=== PATIENT | female | born 1965 | race Caucasian/White ===

== ENCOUNTER 2017-10-18 20:09 | Inpatient (IN) | payer OTHER ==
[2017-10-18] MEDS ORDERED: LEVALBUTEROL 1.25 MG/3 ML NEB ONE (20:34)
[2017-10-18 20:46] LABS: Absolute Monocytes 1.1 K/uL (0.1-1.3); Absolute Neutrophil 7.5 K/uL (1.8-8.0); Basophils % 0.6 % (0-1.3); Eosinophils % 0.3 % (0-4.4); Hematocrit 35.3 % (36.0-45.0); Lymphocytes % 10.1 % (15.3-44.8); MCH 29.2 pg (27.0-35.0)
[2017-10-18 20:50] LABS: Protime INR 1.1
[2017-10-18 20:58] LABS: Glucose Level 129 mg/dL (65-120); Lipase 14 U/L (22-51)
--- NOTE | 2017-10-18 21:01 | RAD REPORT ---
EXAM DESCRIPTION: RAD - Chest Single View - 10/18/2017 8:53 pm CLINICAL HISTORY: Shortness of breath. COMPARISON: 06/19/2017 FINDINGS: Portable technique limits examination quality. Small bilateral pulmonary opacities are present likely representing mild interstitial pulmonary edema . Right basilar lung opacity is suspected suspicious for either pneumonia or aspiration. The heart is mildly prominent size. No displaced fractures. IMPRESSION: Right basilar pneumonia/ aspiration pattern is seen superimposed on chronic mild CHF.
[2017-10-18 21:04] LABS: ALT/SGPT 11 IU/L (10-60); AST/SGOT 16 IU/L (10-42); Albumin 3.7 g/dL (3.2-5.5); Alkaline Phosphatase 69 IU/L (42-121); Amylase Level 23 U/L (28-100); BUN Blood Urea Nitrogen 13 mg/dL (6-20); Bilirubin Direct 0.1 mg/dL (0-0.2); Bilirubin Total 0.5 mg/dL (0.3-1.2); Creatine Phosphokinase 65 IU/L (22-269); Glomerular Filtration Rate > 90 mL/min (=/>90); Protein, Total 6.7 g/dL (6.0-8.3)
[2017-10-18 21:07] LABS: CKMB Creatine Kinase MB 3.9 ng/ml (0.3-4.0)
[2017-10-18 21:11] LABS: Magnesium 1.3 mg/dL (1.8-2.5); Potassium 3.9 mEq/L (3.6-5.0); Sodium Level 139 mEq/L (135-145)
[2017-10-18 21:12] LABS: Bicarbonate 54 mEq/L (21-31)
[2017-10-18] MEDS ORDERED: METHYLPREDNISOLONE 125 MG INJ ONE (21:39)
[2017-10-18] MEDS ORDERED: ASPIRIN 81 MG CHEWABLE TABLET ONE (21:39)
[2017-10-18] MEDS ORDERED: Magnesium Sulfate 2gm IVPB 2 G/50 ML BAG IV ONE (21:39)
[2017-10-18 21:58] LABS: Arterial Blood Carboxyhemoglob 8.2 % (0-1.5); Blood Gas Oxyhemoglobin 77.8 % (94-97); Blood O2 Saturation 85.4 % (92-98.5)
--- NOTE | 2017-10-18 22:22 | ER ---
Nurse's Notes [facility] Name: Eusebia Vila Age: 52 yrs Sex: Female : 1965 Arrival Date: 10/18/2017 Time: 20:23 Bed 18 Private MD: Diagnosis: Chronic obstructive pulmonary disease, unspecified;Unspecified combined systolic (congestive) and diastolic (congestive) heart failure Presentation: 10/18 20:00 Presenting complaint: EMS states: Patient has been feeling short of breath x1 week, on lp1 arrival of EMS, patient was 64% O2 on 2L NC; given A/A tx, O2 to 96% on NRB; current smoker, hx of noncompliance. Transition of care: patient was not received from another setting of care. Onset of symptoms was October 18, 2017. 20:00 Method Of Arrival: EMS: [facility] lp1 20:00 Acuity: CLAUDIA 2 lp1 20:00 Care prior to arrival: Medication(s) given: Albuterol Neb x 1, Atrovent Neb x 1, Med lp1 neb given. Oxygen administered. via a non-rebreather mask. 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 LMP N/A - Post-menopause lp1 Historical: - Allergies: 20:58 Codeine; lp1 20:58 Levofloxacin; lp1 - Home Meds: 21:36 Daliresp 500 mcg Oral tab 1 tab once daily [Active]; diltiazem HCl 120 mg Oral tab 1 lp1 tab 3 times per day [Active]; acetazolamide 250 mg Oral tab 1 tab once daily [Active]; prednisone 10 mg Oral tab once daily [Active]; spironolactone 50 mg Oral tab 1 tab once daily [Active]; aspirin 81 mg Oral TbEC 1 tab once daily [Active]; MagOx 400 mg Oral tab twice a day [Active]; hydrocodone-acetaminophen 10-325 mg Oral tab 4 times a day for Pain [Active]; - PMHx: 20:58 CAD; Cellulitis; CHF; COPD; Pneumonia; polycythemia vera; PVD; lp1 - PSHx: 20:58 bypass; lp1 - Immunization history:: Adult Immunizations up to date. - Social history:: Smoking status: Patient uses tobacco products, smokes two packs cigarettes per day. Screenin:58 Abuse screen: Denies threats or abuse. Denies injuries from another. Nutritional lp1 screening: No deficits noted. Tuberculosis screening: No symptoms or risk factors identified. Fall Risk Total Ortega Fall Scale indicates High Risk Score (45 or more points). Fall prevention measures have been instituted. Side Rails Up X 2 Frequent Obs/Assessments Occuring As available patient and family educated on Fall Prevention Program and Strategies. Assessment: 20:15 General: Appears distressed, unkempt, Behavior is appropriate for age. Pain: Complains lp1 of pain in back and neck. Neuro: Level of Consciousness is awake, alert, obeys commands, Oriented to person, place, situation. Cardiovascular: Capillary refill is > 3 seconds in bilateral fingers toes Edema is 3+ to left ankle, left foot, left toes, right ankle, right foot and right toes Rhythm is sinus rhythm. Respiratory: Reports shortness of breath at rest labored breathing Airway is patent Trachea midline Respiratory effort is shallow, Respiratory pattern is tachypnea Breath sounds are diminished bilaterally. Onset: The symptoms/episode began/occurred gradually, the patient has severe shortness of breath. GI: Abdomen is non-distended. : No signs and/or symptoms were reported regarding the genitourinary system. EENT: No signs and/or symptoms were reported regarding the EENT system. Derm: Skin is thin, with poor turgor Skin is dry, Skin is pale. Musculoskeletal: Circulation, motion, and sensation intact. 21:15 Reassessment: Patient hunched over in stretcher, educated on laying back to promote lp1 ventilation; Patient states she can't lay "like that". 22:15 Reassessment: Patient found to have IV out; Educated on need for new peripheral IV lp1 access; BiPAP in place; Settings modified by RT, 31/01, rate of 14, 50% O2. Vital Signs: 20:00 BP 109 / 77; Pulse 117; Resp 26; Temp 98.5(O); Pulse Ox 77% on 2 lpm NC; Weight 55.79 lp1 kg (R); 20:15 Pulse Ox 96% on Nebulizer Mask; lp1 20:30 Pulse Ox 95% on 45% BiPAP; lp1 21:00 BP 133 / 71; Pulse 111; Resp 22; Pulse Ox 95% on 45% BiPAP; lp1 21:30 BP 130 / 81; Pulse 114; Resp 18; Pulse Ox 95% on 45% BiPAP; lp1 23:00 BP 133 / 71; Pulse 97; Resp 18; Pulse Ox 96% on 50% BiPAP; lp1 20:[address] BiPAP, 12/6, rate of 12, 45% O2 lp1 ED Course: 20:15 Patient has correct armband on for positive identification. Placed in gown. Bed in low lp1 position. monitor tech on. Pulse ox on. NIBP on. 20:23 Patient arrived in ED. jd3 20:23 Timbo Perla PA is PHCP. cp 20:23 Thomas Casarez MD is Attending Physician. cp 20:30 Inserted saline lock: 18 gauge in right upper arm, using aseptic technique. Blood lp1 collected. By Ayaan Espitia RN. 20:42 Verito Morley, LINDSAY is Primary Nurse. lp1 20:46 Triage completed. lp1 20:51 X-ray completed. Portable x-ray completed in exam room. Patient tolerated procedure la2 poorly. 20:53 XRAY CXR (1 view) In Process Unspecified. EDMS 20:55 Arm band placed on left wrist. lp1 22:00 IV discontinued, IV pulled out on arrival into room. lp1 22:15 Inserted saline lock: 24 gauge in left wrist, using aseptic technique. bb 22:20 Arnold Billingsley MD is Hospitalizing Provider. cp 22:30 Lane cath inserted, using sterile technique, 16 Fr., by la, balloon inflated, to lp1 gravity drainage, urine specimen collected. 23:42 No provider procedures requiring assistance completed. lp1 Administered Medications: 20:15 Drug: Xopenex (3) 1.25 mg {Note: verbal order by TIMMY Morocho.} Route: Inhalation; lp1 21:30 Drug: SOLU-Medrol 125 mg Route: IVP; Site: right upper arm; lp1 23:22 Follow up: Response: No adverse reaction lp1 21:30 Drug: Aspirin Chewable Tablet 324 mg Route: PO; lp1 22:51 Follow up: Response: No adverse reaction lp1 21:30 Drug: Magnesium Sulfate 2 grams Route: IVPB; Infused Over: 2 hrs; Site: right upper arm;lp1 22:51 Follow up: IV Status: Completed infusion lp1 22:20 Drug: Lasix 20 mg Route: IVP; Site: left wrist; lp1 23:49 Follow up: Response: No adverse reaction lp1 Outcome: 22:21 Decision to Hospitalize by Provider. cp 23:42 Condition: stable lp1 23:42 Instructed on the need for admit. 23:48 Admitted to Tele accompanied by nurse, via stretcher, room 423, with oxygen, with lp1 chart, Report called to LINDSAY Evans 10/19 00:00 Patient left the ED. lp1 Signatures: Dispatcher [employer] EDMS Kathie John RN RN bb Verito Morley RN RN lp1 Timbo Perla PA PA cp Ardoin, Leslie la2 Davies, Jonathon, RN RN jd3 Corrections: (The following items were deleted from the chart) 10/18 23:31 20:15 Respiratory: Airway is patent Trachea midline Respiratory effort is shallow, lp1 Respiratory pattern is tachypnea Breath sounds are diminished bilaterally. Onset: The symptoms/episode began/occurred gradually, lp1 23:31 20:15 Respiratory: Airway is patent Trachea midline Respiratory effort is shallow, lp1 Respiratory pattern is tachypnea Breath sounds are diminished bilaterally. Onset: The symptoms/episode began/occurred gradually, the patient has severe shortness of breath lp1 10/19 00:31 00:30 Patient left the ED. lp1 lp1
--- NOTE | 2017-10-18 22:22 | EDPHYS ---
Physician Documentation [facility] Name: Eusebia Vila Age: 52 yrs Sex: Female : 1965 Arrival Date: 10/18/2017 Time: 20:23 Bed 18 Private MD: ED Physician Thomas Casarez HPI: 10/18 20:35 This 52 yrs old Female presents to ER via EMS with complaints of Respiratory cp Distress. 20:35 The patient has shortness of breath at rest. cp 20:35 Onset: The symptoms/episode began/occurred 1 week(s) ago. Duration: The symptoms are cp continuous, and are steadily getting worse. The patient's shortness of breath is aggravated by talking. Associated signs and symptoms: Pertinent negatives: chest pain, diaphoresis, fever, hemoptysis. Severity of symptoms: in the emergency department the symptoms are unchanged despite home interventions. The patient has experienced similar episodes in the past, chronically. 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 N/A - Post-menopause lp1 Historical: - Allergies: 20:58 Codeine; lp1 20:58 Levofloxacin; lp1 - Home Meds: 21:36 Daliresp 500 mcg Oral tab 1 tab once daily [Active]; diltiazem HCl 120 mg Oral tab 1 lp1 tab 3 times per day [Active]; acetazolamide 250 mg Oral tab 1 tab once daily [Active]; prednisone 10 mg Oral tab once daily [Active]; spironolactone 50 mg Oral tab 1 tab once daily [Active]; aspirin 81 mg Oral TbEC 1 tab once daily [Active]; MagOx 400 mg Oral tab twice a day [Active]; hydrocodone-acetaminophen 10-325 mg Oral tab 4 times a day for Pain [Active]; - PMHx: 20:58 CAD; Cellulitis; CHF; COPD; Pneumonia; polycythemia vera; PVD; lp1 - PSHx: 20:58 bypass; lp1 - Immunization history:: Adult Immunizations up to date. - Social history:: Smoking status: Patient uses tobacco products, smokes two packs cigarettes per day. ROS: 20:40 Constitutional: Negative for body aches, chills, fever, poor PO intake. cp 20:40 Eyes: Negative for injury, pain, redness, and discharge. cp 20:40 ENT: Negative for drainage from ear(s), ear pain, sore throat, difficulty swallowing, difficulty handling secretions, hoarseness. 20:40 Neck: Negative for pain with movement, pain at rest, stiffness, tenderness. 20:40 Cardiovascular: Positive for edema, Negative for chest pain. 20:40 Respiratory: Positive for shortness of breath, at rest. 20:40 Abdomen/GI: Negative for abdominal pain, nausea, vomiting, and diarrhea, black/tarry stool, rectal bleeding. 20:40 Back: Negative for radiated pain. 20:40 MS/extremity: Positive for swelling, of the bilateral lower legs, Negative for injury or acute deformity. 20:40 Skin: Negative for cellulitis, rash. 20:40 Neuro: Negative for altered mental status, headache, weakness. 20:40 All other systems are negative. Exam: 20:45 Constitutional: The patient appears alert, awake, non-diaphoretic, non-toxic, well cp developed, in obvious distress. 20:45 Head/Face: Normocephalic, atraumatic. cp 20:45 Eyes: Periorbital structures: appear normal, Pupils: equal, round, and reactive to light and accomodation, Extraocular movements: intact throughout, Conjunctiva: normal, no exudate, no injection, Sclera: no appreciated abnormality, Lids and lashes: appear normal, bilaterally. 20:45 ENT: External ear(s): are unremarkable, Ear canal(s): are normal, clear, TM's: dullness, bilaterally, Nose: is normal, Mouth: Lips: dry, Oral mucosa: dry, Posterior pharynx: Airway: no evidence of obstruction, patent, swelling, is not appreciated, erythema, is not appreciated, exudate, is not appreciated, Voice: is normal. 20:45 Neck: ROM/movement: is normal, is supple, without pain, no range of motions limitations, no meningismus, no nuchal rigidity. 20:45 Chest/axilla: Inspection: normal, Palpation: is normal, no crepitus, no tenderness. 20:45 Cardiovascular: Rate: tachycardic, Rhythm: regular, Pulses: Pulses are 2+ in right radial artery and left radial artery. JVD: is not appreciated. 20:45 Respiratory: Respirations: labored breathing, shallow respirations, Breath sounds: cp decreased breath sounds, that are moderate, stridor, is not appreciated. 20:45 Abdomen/GI: Inspection: abdomen appears normal, Palpation: abdomen is soft and non-tender, in all quadrants. 20:45 Back: pain, is absent, ROM is decreased, with all movement, kyphosis, that is marked. 20:45 Musculoskeletal/extremity: noted mild edema bilateral lower legs. 20:45 Skin: cellulitis, is not appreciated. cp 20:45 Neuro: Orientation: to person, place \T\ time. Mentation: lucid, able to follow commands. Vital Signs: 20:00 BP 109 / 77; Pulse 117; Resp 26; Temp 98.5(O); Pulse Ox 77% on 2 lpm NC; Weight 55.79 lp1 kg (R); 20:15 Pulse Ox 96% on Nebulizer Mask; lp1 20:30 Pulse Ox 95% on 45% BiPAP; lp1 21:00 BP 133 / 71; Pulse 111; Resp 22; Pulse Ox 95% on 45% BiPAP; lp1 21:30 BP 130 / 81; Pulse 114; Resp 18; Pulse Ox 95% on 45% BiPAP; lp1 23:00 BP 133 / 71; Pulse 97; Resp 18; Pulse Ox 96% on 50% BiPAP; lp1 20:[address] BiPAP, 06/25, rate of 12, 45% O2 lp1 MDM: 20:28 Patient medically screened. cp 21:00 Differential diagnosis: Bronchitis CHF exacerbation, Chronic Obstructive Pulmonary cp Disease Myocardial Infarction pneumonia, Sepsis. 22:15 Data reviewed: vital signs, nurses notes, lab test result(s), EKG, radiologic studies, cp plain films. 22:15 Test interpretation: by ED physician or midlevel provider: ECG, plain radiologic cp studies. 22:25 Physician consultation: Arnold Billingsley MD was contacted at 22:25, regarding admission, cp to the telemetry unit. patient's condition. 10/18 20:26 Order name: Amylase, Serum; Complete Time: 21:16 cp 10/18 20:26 Order name: Blood Culture Adult (2) cp 10/18 20:26 Order name: BMP; Complete Time: 21:16 cp 10/18 21:16 Interpretation: Normal except: GLUC 129; CL 81. cp 10/18 20:26 Order name: BNP; Complete Time: 21:16 cp 10/18 20:26 Order name: CBC with Diff; Complete Time: 21:16 cp 10/18 21:17 Interpretation: Normal except: RBC 3.80; HGB 11.1; HCT 35.3; MCHC 31.4; RDW 15.7; ERICK% cp 78.0; LYM% 10.1. 10/18 20:26 Order name: Ckmb; Complete Time: 21:16 cp 10/18 20:26 Order name: CPK; Complete Time: 21:16 cp 10/18 20:26 Order name: Hepatic Function; Complete Time: 21:16 cp 10/18 20:26 Order name: Lipase; Complete Time: 21:16 cp 10/18 20:26 Order name: Magnesium; Complete Time: 21:16 cp 10/18 21:17 Interpretation: Abnormal: MG 1.3. cp 10/18 20:26 Order name: PT-INR; Complete Time: 21:16 cp 10/18 20:26 Order name: Ptt, Activated; Complete Time: 21:16 cp 10/18 20:26 Order name: Troponin (emerg Dept Use Only); Complete Time: 21:16 cp 10/18 21:26 Interpretation: TROPED < 0.03; Reviewed. cp 10/18 21:20 Order name: ABG cp 10/18 20:26 Order name: BIPAP cp 10/18 20:26 Order name: XRAY CXR (1 view); Complete Time: 21:16 cp 10/18 22:26 Order name: Comprehensive Metabolic Panel EDMS 10/18 22:26 Order name: Comprehensive Metabolic Panel EDMS 10/18 22:26 Order name: Magnesium EDMS 10/18 22:26 Order name: Magnesium EDMS 10/18 22:26 Order name: Phosphorus EDMS 10/18 22:26 Order name: Phosphorus EDMS 10/18 22:27 Order name: CBC with Automated Diff EDMS 10/18 22:27 Order name: CBC with Automated Diff EDMS 10/18 23:34 Order name: Urine Dipstick--Ancillary (enter results) rg2 10/18 20:26 Order name: Lane; Complete Time: 23:21 cp 10/18 20:26 Order name: EKG; Complete Time: 20:26 cp 10/18 20:26 Order name: Cardiac monitoring; Complete Time: 20:56 cp 10/18 20:26 Order name: EKG - Nurse/Tech; Complete Time: 20:56 cp 10/18 20:26 Order name: IV Saline Lock; Complete Time: 20:56 cp 10/18 20:26 Order name: Labs collected and sent; Complete Time: 20:56 cp 10/18 20:26 Order name: O2 Per Protocol; Complete Time: 20:56 cp 10/18 20:26 Order name: O2 Sat Monitoring; Complete Time: 20:56 cp 10/18 20:26 Order name: Urine Dipstick-Ancillary (obtain specimen); Complete Time: 22:51 cp 10/18 22:26 Order name: CONS Physician Consult EDMS 10/18 22:27 Order name: Heart Healthy EDMS Administered Medications: 20:15 Drug: Xopenex (3) 1.25 mg {Note: verbal order by TIMMY Morocho.} Route: Inhalation; lp1 21:30 Drug: SOLU-Medrol 125 mg Route: IVP; Site: right upper arm; lp1 23:22 Follow up: Response: No adverse reaction lp1 21:30 Drug: Aspirin Chewable Tablet 324 mg Route: PO; lp1 22:51 Follow up: Response: No adverse reaction lp1 21:30 Drug: Magnesium Sulfate 2 grams Route: IVPB; Infused Over: 2 hrs; Site: right upper arm;lp1 22:51 Follow up: IV Status: Completed infusion lp1 22:20 Drug: Lasix 20 mg Route: IVP; Site: left wrist; lp1 23:49 Follow up: Response: No adverse reaction lp1 Disposition: 10/19 03:03 Co-signature as Attending Physician, Thomas Casarez MD. jewel Disposition: 10/18/17 22:21 Hospitalization ordered by Arnold Billingsley for Inpatient Admission. Preliminary diagnosis are Chronic obstructive pulmonary disease, unspecified, Unspecified combined systolic (congestive) and diastolic (congestive) heart failure. - Bed requested for Telemetry/MedSurg (Inpatient). - Status is Inpatient Admission. lp1 - Condition is Stable. - Problem is an acute exacerbation. - Symptoms have improved. UTI on Admission? No Signatures: Dispatcher [employer] EDNJ Thomas Casarez MD MD pkl Pena, Laura RN RN lp1 Timbo Perla PA PA cp Garcia, Cindy RN RN
[2017-10-18] MEDS ORDERED: MAGNESIUM HYDROXIDE 8% 30 ML PO PRN (22:23)
[2017-10-18] MEDS ORDERED: ACETAMINOPHEN 500 MG TAB PO PRN (22:23)
[2017-10-18] MEDS ORDERED: ONDANSETRON 4 MG/2 ML VIAL IV PRN (22:23)
[2017-10-18] MEDS ORDERED: FUROSEMIDE 20 MG/ 2ML VIAL ONE (22:25)
[2017-10-18] MEDS ORDERED: ALBUTEROL 2.5 MG/3 ML NEB SOL NEB SCH (23:00)
[2017-10-19] MEDS: METHYLPREDNISOLONE 125 MG INJ IV SCH ×4 (00:50→17:40)
[2017-10-19] MEDS: IPRATROPIUM BROM 0.5MG/2.5ML NEB SCH ×4 (01:50→19:46)
[2017-10-19 02:29] VITALS: BMI 24.6
[2017-10-19 04:24] LABS: Urine Blood NEGATIVE (NEG); Urine Glucose NEGATIVE (NEG); Urine Protein 2+ (NEG); Urine Specific Gravity >1.030 (1.005-1.030)
[2017-10-19 05:19] LABS: Absolute Lymphocytes (CBC) 0.1 K/uL (0.7-4.9); Absolute Monocytes 0.1 K/uL (0.1-1.3); Absolute Neutrophil 8.4 K/uL (1.8-8.0); Basophils % 0.1 % (0-1.3); Lymphocytes % 1.6 % (15.3-44.8); MCH 28.7 pg (27.0-35.0); MCV 93.2 fL (80-100); MPV 8.6 fL (7.6-11.3); Monocytes % 0.8 % (3.3-12.3); RBC Red Blood Cell Count 3.65 M/uL (3.86-4.86)
[2017-10-19 05:35] LABS: ALT/SGPT 10 IU/L (10-60); AST/SGOT 14 IU/L (10-42); Albumin 3.3 g/dL (3.2-5.5); Alkaline Phosphatase 63 IU/L (42-121); BUN Blood Urea Nitrogen 14 mg/dL (6-20); Bilirubin Total 0.5 mg/dL (0.3-1.2); Glomerular Filtration Rate > 90 mL/min (=/>90); Glucose Level 197 mg/dL (65-120); Phosphorus 4.7 mg/dL (2.5-4.3); Protein, Total 5.9 g/dL (6.0-8.3)
[2017-10-19 05:36] LABS: Potassium 4.3 mEq/L (3.6-5.0); Sodium Level 138 mEq/L (135-145)
[2017-10-19 05:44] LABS: Bicarbonate 53 mEq/L (21-31)
[2017-10-19 05:45] LABS: Magnesium 1.4 mg/dL (1.8-2.5)
[2017-10-19] MEDS ORDERED: HYDROCODONE/APAP 10/325 TAB PO PRN (05:49)
[2017-10-19] MEDS: Magnesium Sulfate 2gm IVPB 2 G/50 ML BAG IV SCH ×2 (07:17→10:58)
--- NOTE | 2017-10-19 07:20 | P.HP ---
Certification for Inpatient Patient admitted to: Inpatient With expected LOS: >2 Midnights Patient will require the following post-hospital care: None Practitioner: I am a practitioner with admitting privileges, knowledge of patient current condition, hospital course, and medical plan of care. Services: Services provided to patient in accordance with Admission requirements found in Title 42 Section 412.3 of the Code of Federal Regulations Patient History Date of Service: 10/18/17 Reason for admission: COPD exacerbation; hypercapnia; hypoxemia; tobacco abuse History of Present Illness: Patient is a 52-year-old female came into the hospital with difficulty breathing. She was oxygenating very poorly. She was very lethargic. She was brought to the hospital by her family. In the emergency room she was found to have O2 sats of 50%. Has a chronic history of COPD and still smokes. We have counseled her regarding cessation and she wants to try Chantix. Patient also is kyphotic intense to retain CO2. Her ABGs revealed her CO2 was greater than 100. We started her on BiPAP. Clinically she has started appearing to feel better. Will continue BiPAP and get pulmonary consultation. Will repeat chest x-ray in the morning. Her long-term prognosis is poor. Will continue her on BiPAP and wean her down. Continue with IV steroids and neb treatments. Pulmonary consultation as well. She was admitted to the hospital for further evaluation. Allergies codeine Allergy (Verified 09/19/16 01:40) Shortness of breath levofloxacin [From Levaquin] Adverse Reaction (Intermediate, Verified 09/19/16 01:40) hallucinations morphine Adverse Reaction (Verified 09/19/16 01:40) Itching/Hives/Rash Home Medications: Hydrocodone Bit/Acetaminophen [Hydrocodon-Acetaminophn 10-325] 1 each PO QID PRN 04/06/17 Prednisone [Deltasone*] 10 mg PO DAILY 04/06/17 Roflumilast [Daliresp*] 500 mcg PO DAILY 04/06/17 Magnesium Oxide [Mag 0X*] 1 tab PO BID 05/13/17 Acetazolamide [Diamox*] 250 mg PO BID #60 tab 06/19/17 Arformoterol Tartrate [Brovana] 15 mcg NEB BIDRESP #60 vial.neb 06/19/17 Spironolactone [Aldactone*] 50 mg PO BID #120 tab 06/19/17 Aspirin 81 mg PO DAILY 10/19/17 Diltiazem HCl 120 mg PO TID 10/19/17 - Past Medical/Surgical History Has patient received pneumonia vaccine in the past: No Diabetic: No -: Diastolic dysfunction -: COPD -: Emphysema -: chronic back pain-Sees Dr Ruff -: CAD -: CHF -: 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 -: anxiety -: Morphine pain pump -: Cardiomegaly -: Atrial flutter -: back -: cholecystectomy -: Hysterectomy -: Morphine pump mid right side of stomach - in place -: morphine pump with additional medications - Family History Sister Medical History: Cancer Brother Medical History: Cancer Father Medical History: Cancer Mother Medical History: Lung disease, Cancer - Social History Smoking Status: Heavy Tobacco smoker (>10 cigarettes/day) Alcohol use: No CD- Drugs: No Caffeine use: Yes Review of Systems 10-point ROS is otherwise unremarkable Physical Examination - Vital Signs Temperature: 97.2 F Blood Pressure: 129/70 Pulse: 100 Respirations: 14 Pulse Ox (%): 91 - Physical Exam General: Alert, In no apparent distress, Oriented x3, Cachectic, Disheveled HEENT: Atraumatic, PERRLA, Mucous membr. moist/pink, EOMI, Sclerae nonicteric Neck: Supple, 2+ carotid pulse no bruit, No LAD, Without JVD or thyroid abnormality Respiratory: Diminished, Expiratory wheezes Cardiovascular: Regular rate/rhythm, Normal S1 S2, Systolic murmur Gastrointestinal: Normal bowel sounds, Soft and benign, Non-distended, No tenderness, No rebound, No guarding Musculoskeletal: No clubbing, No swelling, No tenderness Integumentary: No rashes Neurological: Normal speech, Sensation intact, Cranial nerves 3-12 intact, Normal affect, Abnormal gait, Abnormal strength, Abnormal tone Lymphatics: No axilla or inguinal lymphadenopathy - Studies Laboratory Data (last 24 hrs) 10/18/17 20:30: PT 13.0 H, INR 1.10, APTT 27.1 10/18/17 20:30: WBC 9.6, Hgb 11.1 L, Hct 35.3 L, Plt Count 201 10/18/17 20:30: B-Natriuretic Peptide 136 H 10/18/17 20:30: Sodium 139, Potassium 3.9, BUN 13, Creatinine 0.47, Glucose 129 H, Magnesium 1.3 L*, Total Bilirubin 0.5, AST 16, ALT 11, Alkaline Phosphatase 69, Amylase 23 L, Lipase 14 L Assessment & Plan - Problems (Diagnosis) (1) Hypercapnia Current Visit: Yes Status: Acute (2) Hypoxemia Current Visit: Yes Status: Acute (3) Acute and chronic respiratory failure Onset Date: 06/17/17 Current Visit: No Status: Acute (4) COPD exacerbation Onset Date: 06/17/17 Current Visit: No Status: Acute (5) Chronic use of steroids Current Visit: No Status: Chronic (6) Diastolic CHF Onset Date: 06/17/17 Current Visit: No Status: Chronic Qualifiers: Qualified Code(s): I50.33 - Acute on chronic diastolic (congestive) heart failure (7) Nicotine dependence Current Visit: No Status: Chronic Qualifiers: Nicotine product type: cigarettes Substance use status: uncomplicated Qualified Code(s): F17.210 - Nicotine dependence, cigarettes, uncomplicated (8) Tobacco abuse Onset Date: 09/19/16 Current Visit: No Status: Chronic - Plan Plan: 1. Continue with nebs, steroids, and antibiotics 2. BiPAP support 3. Wean off BiPAP and placed on nasal cannula O2 4. Monitor O2 status continuously 5. Pulmonary consultation 6. Supplement magnesium 7. GI and DVT prophylaxis Discharge Plan: Home Plan to discharge in: Greater than 2 days - Advance Directives Does patient have a Living Will: No Does patient have a Durable POA for Healthcare: No - Code Status/Comfort Care Code Status Assessed: Yes Code Status: Full Code Critical Care: No Time Spent Managing PTS Care (In Minutes): 50
[2017-10-19 08:06] LABS: Blood Morphology Comment NOT SEEN (NOT SEEN); Platelet Estimate ADEQ; Urine White Blood Cell Casts OK
[2017-10-19] MEDS: ARFORMOTEROL TARTRATE 15 MCG/2 ML VIAL.NEB NEB SCH ×2 (08:23→19:51)
[2017-10-19] MEDS: ROFLUMILAST 500 MCG TABLET PO SCH (08:57)
[2017-10-19] MEDS: DILTIAZEM HCL 60 MG TAB PO SCH ×3 (08:58→21:55)
[2017-10-19] MEDS: MAGNESIUM OXIDE 400 MG TAB PO SCH ×2 (08:59→21:55)
[2017-10-19] MEDS: ENOXAPARIN 40 MG/0.4 ML SQ SCH (08:59)
[2017-10-19] MEDS: SPIRONOLACTONE 25 MG TABLET PO SCH ×2 (08:59→21:54)
[2017-10-19] MEDS ORDERED: SPIRONOLACTONE 25 MG TABLET PO SCH (09:00)
[2017-10-19] MEDS ORDERED: AZITHROMYCIN IV 500 MG in NA CHLORIDE 0.9% 250 ML IVPB SCH (09:00)
[2017-10-19] MEDS ORDERED: CEFTRIAXONE 1 GM/NS 50 ML 1 GM/50 ML BAG IV SCH (09:00)
[2017-10-19] MEDS: ASPIRIN 81 MG CHEWABLE TABLET PO SCH (09:00)
[2017-10-19] MEDS ORDERED: acetaZOLAMIDE 250 MG TAB PO SCH (09:00)
[2017-10-19] MEDS: CEFTRIAXONE/SWI 1gm 1 GM/10 ML SYR IV SCH ×2 (09:00→21:54)
[2017-10-19] MEDS: ACETAZOLAMIDE 500 MG IV IV SCH ×2 (09:00→21:55)
[2017-10-19] MEDS ORDERED: WATER FOR INJ,STERILE 10 ML IV SCH (09:00)
--- NOTE | 2017-10-19 10:30 | P.CNS ---
Date of Consult: 10/19/17 Reason for Consult: Respiratory failure Chief Complaint: COPD exacerbation; hypercapnia; hypoxemia; tobacco abuse History of Present Illness: Patient is 52 years of age well known to me recurrent hospital admission terminal COPD admitted to the hospital with worsening dyspnea for the past couple of weeks he still continues to smoke heavily had some lower extremity edema compliant with her medications does have a BiPAP at home I am not sure how often she used the there is a history of significant noncompliance denies any fever chills cough sputum or hemoptysis a bicarbonate level was very elevated patient very hypercapnic on admission this morning she is alert responsive cooperative Allergies codeine Allergy (Verified 09/19/16 01:40) Shortness of breath levofloxacin [From Levaquin] Adverse Reaction (Intermediate, Verified 09/19/16 01:40) hallucinations morphine Adverse Reaction (Verified 09/19/16 01:40) Itching/Hives/Rash Home Medications: Hydrocodone Bit/Acetaminophen [Hydrocodon-Acetaminophn 10-325] 1 each PO QID PRN 04/06/17 Prednisone [Deltasone*] 10 mg PO DAILY 04/06/17 Roflumilast [Daliresp*] 500 mcg PO DAILY 04/06/17 Magnesium Oxide [Mag 0X*] 1 tab PO BID 05/13/17 Acetazolamide [Diamox*] 250 mg PO BID #60 tab 06/19/17 Arformoterol Tartrate [Brovana] 15 mcg NEB BIDRESP #60 vial.neb 06/19/17 Spironolactone [Aldactone*] 50 mg PO BID #120 tab 06/19/17 Aspirin 81 mg PO DAILY 10/19/17 Diltiazem HCl 120 mg PO TID 10/19/17 - Past Medical/Surgical History Diabetic: No -: Diastolic dysfunction -: COPD -: Emphysema -: chronic back pain-Sees Dr Ruff -: CAD -: CHF -: 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 -: anxiety -: Morphine pain pump -: Cardiomegaly -: Atrial flutter -: back -: cholecystectomy -: Hysterectomy -: Morphine pump mid right side of stomach - in place -: morphine pump with additional medications - Family History Sister Medical History: Cancer Brother Medical History: Cancer Father Medical History: Cancer Mother Medical History: Lung disease, Cancer - Social History Smoking Status: Current every day smoker Alcohol use: No CD- Drugs: No Caffeine use: Yes Review of Systems 10-point ROS is otherwise unremarkable General: Weakness Respiratory: Cough, Shortness of Breath Cardiovascular: Edema Physical Examination Temp Pulse Resp BP Pulse Ox 98.5 F 92 H 20 136/70 93 10/19/17 08:00 10/19/17 08:59 10/19/17 08:00 10/19/17 08:59 10/19/17 08:00 General: Alert, Oriented x3 Respiratory: Clear to auscultation bilaterally, Diminished Cardiovascular: Regular rate/rhythm, Normal S1 S2, Edema Gastrointestinal: Normal bowel sounds, Soft and benign Laboratory Data (last 24 hrs) 10/18/17 20:30: PT 13.0 H, INR 1.10, APTT 27.1 10/18/17 20:30: WBC 9.6, Hgb 11.1 L, Hct 35.3 L, Plt Count 201 10/18/17 20:30: B-Natriuretic Peptide 136 H 10/18/17 20:30: Sodium 139, Potassium 3.9, BUN 13, Creatinine 0.47, Glucose 129 H, Magnesium 1.3 L*, Total Bilirubin 0.5, AST 16, ALT 11, Alkaline Phosphatase 69, Amylase 23 L, Lipase 14 L - Problems (1) Acute and chronic respiratory failure Onset Date: 06/17/17 Current Visit: No Status: Acute Plan: Patient is 52 years of age admitted with acute on chronic respiratory failure severely hypercapnic. Elevated bicarbonate labs reviewed no evidence of obvious sepsis plan is to use some IV Diamox reduce dose of spironolactone continue with BiPAP titrate sat to 90% IV fluids patient is a heavy smoker wants to quit
[2017-10-19] MEDS: NICOTINE 21 MG/PAT TD SCH (10:58)
[2017-10-19] MEDS: NA CHLORIDE 0.9% 1,000 ML IV SCH ×2 (10:59→22:33)
[2017-10-19] MEDS: HYDROCODONE/APAP 10/325 TAB PO PRN ×2 (12:05→22:33)
--- NOTE | 2017-10-19 12:44 | EKG ---
Test Date: 2017-10-18 Test Time: 20:40:58 Window Framer: HERIBERTO MEASUREMENT RESULTS: Intervals: Rate: 110 PA: 112 QRSD: 86 QT: 332 QTc: 449 [place]: P: 76 PA: 112 QRS: 101 T: 56 INTERPRETIVE STATEMENTS: Sinus tachycardia Right atrial enlargement Rightward axis Borderline ECG Compared to ECG 06/16/2017 15:12:31 Atrial abnormality now present Sinus rhythm no longer present Electronically Signed On 10-19-17 12:44:05 CDT by Jered Biswas
[2017-10-19 12:56] LABS: Arterial Blood Carboxyhemoglob 4.1 % (0-1.5); Blood Gas Oxyhemoglobin 84.9 % (94-97)
[2017-10-19] MEDS ORDERED: INFLUENZA VACCINE (for 3y+) 0.5 ML DOSE IMVAC ONE (17:00)
--- NOTE | 2017-10-19 20:17 | PN ---
Date of Progress Note: 10/19/2017 Subjective: The patient is seen and examined. Chart reviewed and case discussed with RN and Dr. Mckeon. The patient is doing well and continues to have some difficulty breathing and still smoking. Review of Systems: Negative. Medications: Reviewed. Physical Examination: Vital Signs: Temperature 100.4, heart rate 90, blood pressure 136/70, respirations 20, O2 90% on 4 L via nasal cannula. General: Awake, alert, oriented x3, in some mild respiratory distress. Ill- appearing, older than stated age female. CV: S1, S2. No murmurs. Regular rate and rhythm. Peripheral pulses are weak bilaterally. Respiratory: Diminished breath sounds. Mild wheezing. The patient is slightly tachypneic. No use of accessory muscles. Gastrointestinal: Abdomen is soft, nontender, nondistended. Positive bowel sounds. Extremities: No clubbing, cyanosis. Trace pedal edema. Neurologic: Nonfocal. Laboratory Data: Sodium 138, potassium 4.3, chloride 79, CO2 53, BUN 14, creatinine 0.53, glucose 197, calcium 8.8, phosphorus 4.7, magnesium 1.4. ABG; pH 7.29, pCO2 107, CO2 64, bicarb 50.3. WBC 8.6, H and H 10.5, 34, platelets 202. Blood cultures pending. Assessment And Plan: A 52-year-old female with: 1. Acute on chronic respiratory failure with hypercapnia and hypoxemia. 2. Acute chronic obstructive pulmonary disease exacerbation. We will continue nebulizer treatments and steroids. 3. Diastolic heart failure, acute on chronic. We will continue with diuresis. 4. Nicotine dependence and cigarette smoking, counseled. The patient wishes to try Chantix. 5. Severe kyphosis. 6. Chronic back pain. 7. Coronary artery disease, [place] artery and [place] heart without angina. 8. Generalized anxiety disorder. 9. History of atrial flutter. Plan: Follow up with pulmonology recommendation. Repeat ABG does show improvement in pCO2 levels, BiPAP as needed. The patient is a chronic CO2 retainer with significant renal compensation as her bicarb is elevated. The patient may benefit from Diamox. SA/MODL Voice ID: [id number] Report ID: [id number] RILEY
[2017-10-19] MEDS: buPROPion HCl 100 MG TAB PO SCH (21:55)
[2017-10-20] MEDS: METHYLPREDNISOLONE 125 MG INJ IV SCH ×2 (00:01→05:45)
[2017-10-20] MEDS: IPRATROPIUM BROM 0.5MG/2.5ML NEB SCH ×4 (01:41→19:25)
[2017-10-20 05:38] LABS: Absolute Lymphocytes (CBC) 0.2 K/uL (0.7-4.9); Absolute Monocytes 0.3 K/uL (0.1-1.3); Absolute Neutrophil 6.2 K/uL (1.8-8.0); Basophils % 0.1 % (0-1.3); Hematocrit 30.4 % (36.0-45.0); MCH 28.8 pg (27.0-35.0); MCV 92.5 fL (80-100); MPV 8.5 fL (7.6-11.3); Monocytes % 4.3 % (3.3-12.3); RBC Red Blood Cell Count 3.28 M/uL (3.86-4.86)
[2017-10-20 05:52] LABS: BUN Blood Urea Nitrogen 9 mg/dL (6-20); Glomerular Filtration Rate > 90 mL/min (=/>90); Glucose Level 128 mg/dL (65-120)
[2017-10-20 05:57] LABS: Potassium 4.1 mEq/L (3.6-5.0); Sodium Level 135 mEq/L (135-145)
[2017-10-20 05:58] LABS: Bicarbonate 46 mEq/L (21-31)
[2017-10-20] MEDS: HYDROCODONE/APAP 10/325 TAB PO PRN ×3 (07:32→20:22)
[2017-10-20] MEDS: ARFORMOTEROL TARTRATE 15 MCG/2 ML VIAL.NEB NEB SCH ×2 (08:00→19:25)
--- NOTE | 2017-10-20 08:13 | P.PN ---
Subjective Date of Service: 10/20/17 Chief Complaint: COPD exacerbation Subjective: Improving (Patient is improving still weak unable to ambulate at home very short of breath still continues to smoke) Review of Systems General: Weakness Respiratory: Cough, Shortness of Breath Cardiovascular: Edema Physical Examination - Vital Signs Temperature: 98.2 F Blood Pressure: 111/59 Pulse: 81 Respirations: 16 Pulse Ox (%): 90 - Physical Exam General: Alert, Oriented x3 Neck: Supple Respiratory: Clear to auscultation bilaterally, Diminished Cardiovascular: Normal S1 S2, Edema (2+ edema) Gastrointestinal: Normal bowel sounds, Soft and benign Assessment & Plan - Problems (Diagnosis) (1) Acute and chronic respiratory failure Onset Date: 06/17/17 Current Visit: No Status: Acute Plan: Patient admitted with COPD exacerbation change to p.o. Diamox prednisone Dc antibiotic titrate sat to 88% repeat arterial blood gases continue with Diamox and spironolactone ovoid Lasix Dc Lane catheter physical therapy social work consult
[2017-10-20] MEDS ORDERED: ALBUTEROL 2.5 MG/3 ML NEB SOL NEB PRN (08:14)
[2017-10-20] MEDS: ENOXAPARIN 40 MG/0.4 ML SQ SCH (10:08)
[2017-10-20] MEDS: MAGNESIUM OXIDE 400 MG TAB PO SCH ×2 (10:09→20:22)
[2017-10-20] MEDS: ROFLUMILAST 500 MCG TABLET PO SCH (10:09)
[2017-10-20] MEDS: NICOTINE 21 MG/PAT TD SCH (10:09)
[2017-10-20] MEDS: predniSONE 10 MG TAB PO SCH ×2 (10:09→20:22)
[2017-10-20] MEDS: ASPIRIN 81 MG CHEWABLE TABLET PO SCH (10:09)
[2017-10-20] MEDS: acetaZOLAMIDE 250 MG TAB PO SCH ×2 (10:10→20:22)
[2017-10-20] MEDS: DILTIAZEM HCL 60 MG TAB PO SCH ×3 (10:10→13:37)
[2017-10-20] MEDS: SPIRONOLACTONE 25 MG TABLET PO SCH (10:11)
[2017-10-20] MEDS: buPROPion HCl 100 MG TAB PO SCH ×2 (10:11→20:22)
[2017-10-20] MEDS: NA CHLORIDE 0.9% 1,000 ML IV SCH ×2 (11:40→13:42)
--- NOTE | 2017-10-20 14:27 | PN ---
Date of Progress Note: 10/20/2017 Subjective: The patient is seen and examined, chart reviewed, and case discussed with RN. The patient continues to have some shortness of breath. The patient is willing to quit smoking, wants to try Chantix. Review of Systems: Negative except as above. Medications: Reviewed. Physical Examination: Vital Signs: Temperature 98.2, heart rate 81, blood pressure 111/59, respirations 16, and O2 90% on 3.5 L via nasal cannula General: Awake, alert, oriented x3. Appears older than stated age, ill-appearing female. CV: S1, S2. No murmurs. Regular rate and rhythm. Peripheral pulses weak bilaterally. Respiratory: diminished breath sounds. Diffuse wheezing heard throughout. No stridor. No use of accessory muscles Gastrointestinal: Abdomen is soft, nontender, nondistended. Positive bowel sounds. Extremities: No clubbing, cyanosis, or edema. Neurologic: Nonfocal. Musculoskeletal: severe kyphosis. Laboratory Data: Sodium 135, potassium 4.1, chloride 85, and CO2 46. BUN 9, creatinine 0.49, and glucose 128. WBC 6.7, H and H 10.5, 30.4, and platelets 203. Blood cultures, no growth to date. Assessment: A 52-year-old female with; 1. Acute on chronic respiratory failure with hypercapnia and hypoxemia secondary to chronic obstructive pulmonary disease and heart failure. We will continue with supplemental oxygen. 2. Acute chronic obstructive pulmonary disease exacerbation. Continue nebulizer treatments, steroids. Appreciate Dr. Mckeon's input. 3. Diastolic heart failure, acute on chronic. Continue diuresis congetive heart failure guidelines. 4. Nicotine dependence with cigarette smoking. Counseled. Will prescribe Chantix at the point of discharge. 5. Severe kyphosis. 6. Chronic back pain, midline, without sciatica. 7. Coronary artery disease, [place] artery, [place] heart without angina, stable. 8. Generalized anxiety disorder. 9. History of atrial flutter. 10. Nicotine dependance, cigarette smoking: counseled. Plan: Medications adjusted. Continue to wean off oxygen. We will repeat ABG and chest x-ray. /RAMSES Voice ID: [id number] Report ID: [id number] RILEY
[2017-10-20] MEDS ORDERED: MINERAL OIL 30 ML UCUP OTIC SCH (21:00)
[2017-10-21] MEDS: IPRATROPIUM BROM 0.5MG/2.5ML NEB SCH ×3 (01:41→13:49)
[2017-10-21] MEDS: NA CHLORIDE 0.9% 1,000 ML IV SCH (02:15)
[2017-10-21] MEDS: HYDROCODONE/APAP 10/325 TAB PO PRN ×2 (02:16→14:27)
[2017-10-21 06:14] LABS: Absolute Lymphocytes (CBC) 0.4 K/uL (0.7-4.9); Absolute Monocytes 0.9 K/uL (0.1-1.3); Absolute Neutrophil 9.5 K/uL (1.8-8.0); Basophils % 0.1 % (0-1.3); Hematocrit 35.3 % (36.0-45.0); Lymphocytes % 3.7 % (15.3-44.8); MCH 28.9 pg (27.0-35.0); MCV 93.3 fL (80-100); RBC Red Blood Cell Count 3.79 M/uL (3.86-4.86)
[2017-10-21] MEDS: ARFORMOTEROL TARTRATE 15 MCG/2 ML VIAL.NEB NEB SCH (08:00)
[2017-10-21] MEDS: ENOXAPARIN 40 MG/0.4 ML SQ SCH (08:07)
[2017-10-21] MEDS: SPIRONOLACTONE 25 MG TABLET PO SCH (08:07)
[2017-10-21] MEDS: ASPIRIN 81 MG CHEWABLE TABLET PO SCH (08:08)
[2017-10-21] MEDS: predniSONE 10 MG TAB PO SCH (08:08)
[2017-10-21] MEDS: MAGNESIUM OXIDE 400 MG TAB PO SCH (08:08)
[2017-10-21] MEDS: ROFLUMILAST 500 MCG TABLET PO SCH (08:08)
[2017-10-21] MEDS: acetaZOLAMIDE 250 MG TAB PO SCH (08:08)
[2017-10-21] MEDS: buPROPion HCl 100 MG TAB PO SCH (08:09)
[2017-10-21] MEDS: NICOTINE 21 MG/PAT TD SCH (08:09)
--- NOTE | 2017-10-21 08:22 | RAD REPORT ---
EXAM DESCRIPTION: Darren Single View10/21/2017 6:20 am CLINICAL HISTORY: Chest pain COMPARISON: October 18 FINDINGS: A right basilar opacity is partially resolved. Minimal improvement in diffuse bilateral pulmonary opacities has occurred. The heart remains enlarged IMPRESSION: Partial resolution in a right basilar opacity which may represent pneumonia Minimal improvement in diffuse bilateral pulmonary opacities which may represent interstitial pulmona ry edema
--- NOTE | 2017-10-21 08:29 | P.PN ---
Subjective Date of Service: 10/21/17 Chief Complaint: COPD exacerbation Patient's condition is stable she is dyspneic and hypoxic on minimal exertion the when moving from bed results in significant desat no other change Review of Systems General: Weakness Respiratory: Shortness of Breath Physical Examination - Vital Signs Temperature: 98.5 F Blood Pressure: 186/92 Pulse: 97 Respirations: 14 Pulse Ox (%): 94 - Physical Exam General: Oriented x3 Neck: Supple Respiratory: Clear to auscultation bilaterally, Diminished Cardiovascular: No edema, Normal pulses Assessment & Plan - Problems (Diagnosis) (1) Acute and chronic respiratory failure Onset Date: 06/17/17 Current Visit: No Status: Acute Plan: . Admitted with acute on chronic respiratory failure secondary to COPD exacerbation she does have BiPAP at home significant history of noncompliance very weak Dc IV fluids physical therapy consider L tach or sniff patient is chronically hypercapnic on Diamox low-dose spironolactone no evidence of an infection or prognosis very poor social sciences instructor to evaluate Qualifiers: Respiratory failure complication: hypoxia and hypercapnia Qualified Code(s) : J96.21 - Acute and chronic respiratory failure with hypoxia; J96.22 - Acute and chronic respiratory failure with hypercapnia; J96.22 - Acute and chronic respiratory failure with hypercapnia; J96.22 - Acute and chronic respiratory failure with hypercapnia
[2017-10-21] MEDS ORDERED: DILTIAZEM HCL 60 MG TAB PO SCH (09:00)
[2017-10-21 09:43] LABS: BUN Blood Urea Nitrogen 12 mg/dL (6-20); Glomerular Filtration Rate > 90 mL/min (=/>90); Glucose Level 99 mg/dL (65-120)
[2017-10-21 09:56] LABS: Bicarbonate 40 mEq/L (21-31); Potassium 4.1 mEq/L (3.6-5.0); Sodium Level 136 mEq/L (135-145)
[2017-10-21 15:08] VITALS: O2SAT 93
[2017-10-21 16:18] VITALS: BP 153/76; TEMP 99.7
--- NOTE | 2017-10-21 16:40 | PN ---
Date of Progress Note: 10/21/2017 Subjective: The patient is seen and examined. Chart reviewed and case discussed with RN. The patient is refusing BiPAP as needed, although states that she is willing to try. Still having some shortness of breath. Review of Systems: Negative except as above. Medications: Reviewed. Physical Examination: Vital Signs: Temperature 98.5, heart rate 97, blood pressure 186/92, respirations 14, O2 saturation 94% on 3.5 L via nasal cannula. General: Awake, alert, and oriented x3. Appears much older than stated age. CV: S1, S2. No murmurs. Regular rate and rhythm. Peripheral pulses present. Respiratory: Diminished breath sounds, however, significantly improved with no wheezing. GI: Abdomen is soft, nontender, nondistended. Positive bowel sounds. No guarding or rigidity. Extremities: No clubbing, cyanosis, or edema. Neuro: Nonfocal. Musculoskeletal: Severe kyphosis. Laboratory Data: Sodium 136, potassium 4.1, chloride 90, CO2 of 40, BUN 12, creatinine 0.51, glucose 99, calcium 8.9. WBC 10.8, H and H 10.9 and 35.3, platelets 286, neutrophils 88.2%. Blood cultures, no growth to date. Chest x- ray personally reviewed, shows partial resolution in right basilar opacity, which may represent pneumonia. Minimal improvement in diffuse bilateral pulmonary opacities which may represent interstitial pulmonary edema. Assessment And Plan: A 52-year-old female with; 1. Acute on chronic respiratory failure with hypercapnia and hypoxemia secondary to chronic obstructive pulmonary disease and heart failure. Continue supplemental oxygen. Chest x-ray shows improvement. 2. Acute chronic obstructive pulmonary disease exacerbation. We will continue nebulizer treatments and steroids. Wheezing has improved. Pulmonology on the case. 3. Diastolic heart failure, acute on chronic. Continue diuresis, fluid restriction. Monitor I's and O's. 4. Nicotine dependence with cigarette smoking, counseled. 5. Severe kyphosis. 6. Chronic back pain, midline, without sciatica. 7. Coronary artery disease, [place] artery and [place] heart without angina, stable. 8. Generalized anxiety disorder. 9. History of atrial flutter. 10. Left ear pain Plan: 1. Refer to SNF versus LTAC for pulmonary rehab. The patient requiring BiPAP off and on. She is very hypercapnic. SA/MODL Voice ID: [id number] Report ID: [id number] MTDGurmeet
[2017-10-21] MEDS ORDERED: SOD CHLORIDE 0.65% NASAL SPRAY NAS SCH (21:00)
--- NOTE | 2017-10-22 03:26 | DS ---
Date of Discharge: 10/21/2017 Consultants: Bernard Mckeon MD, with Pulmonology. Admitting Diagnoses: 1. Acute on chronic respiratory failure with hypercapnia and hypoxia. 2. Acute chronic obstructive pulmonary disease exacerbation. 3. Acute on chronic diastolic heart failure. 4. Nicotine dependence with cigarette smoking. 5. Noncompliance. Discharge Diagnoses: 1. Acute on chronic respiratory failure with hypercapnia and hypoxia, improved. 2. Acute chronic obstructive pulmonary disease exacerbation, improved. 3. Acute on chronic diastolic heart failure. 4. Nicotine dependence with cigarette smoking, counseled. 5. Noncompliance, counseled. 6. Severe kyphosis. 7. Chronic back pain, midline, without sciatica. 8. Coronary artery disease. [place] artery and [place] heart without angina. 9. Generalized anxiety disorder. 10. History of atrial flutter. 11. Aspiration pneumonia right lobe Hospital Course: The patient is a 52-year-old female, who appeared significantly older than her stated age with multiple comorbid conditions including COPD, heart disease, who continues to smoke a pack per day, heart failure, chronic back pain, and generalized anxiety disorder, who comes in with shortness of breath. The patient was found to be hypoxic and hypercapnic. She was started on BiPAP. ABG showed pH 7.25, pCO2 of 124, pO2 of 56, bicarbonate of 52. The patient is a chronic CO2 retainer. She has been noncompliant with her Diamox and BiPAP. The patient's white count was normal. She did better with the BiPAP. Her ABGs improved. She was restarted on Diamox and spironolactone. She is also felt to have slight exacerbation of her CHF and has diastolic dysfunction. Her last known EF from September of 2016 is 73%. The patient's blood culture did not show any growth. The patient was seen by her direct marketing coordinator, Dr. Mckeon. The patient was then referred to LTAC or SNF. However, the patient declined both of those referrals and did not wish to go to the facility. Stated that she needs to take care of her sister and wished to go home. I explained to her that unless she is able to take care of herself, she will not be able to take care of her sister. However, the patient again refused. She understands that pulmonary rehab and SNF would be beneficial for her and she needs respiratory care and is requiring BiPAP. The patient understands the risks and wants to go home. The patient was then able to ambulate, was back to her baseline, and was discharged home in a fair condition. Activity: No strenuous activity. No driving or operating heavy machinery while on narcotics. Diet: Low-sodium, fluid-restricted diet. Followup: Follow up with primary care physician in 2-3 days. Follow up with direct marketing coordinator, Dr. Mckeon, in 2 weeks. Return to ER for worsening condition. Medications: As per medication reconciliation list. Total time spent discharging patient was 35 minutes. Discharge Physical Examination: For physical exam findings, please see the progress note on the day of discharge. /RAMSES Voice ID: [id number] Report ID: [id number] RILEY
== END 2017-10-21 18:02 | disposition home or self-care (01) | DRG 189 ==
LOC: ER 20:09 → 4TH 23:03
PROVIDERS: ADMIT Hospitalist; ATTEND Family Medicine
PROC: 5A09457 Assistance with Respiratory Ventilation, 24-96 Consecutive Hours, Continuous Positive Airway Pressure (ICD-10-PCS; principal; 2017-10-18)
DX: J96.21 Acute and chronic respiratory failure with hypoxia (principal); I50.33 Acute on chronic diastolic (congestive) heart failure; J69.0 Pneumonitis due to inhalation of food and vomit; J44.1 Chronic obstructive pulmonary disease with (acute) exacerbation; J96.22 Acute and chronic respiratory failure with hypercapnia; G89.4 Chronic pain syndrome; F17.210 Nicotine dependence, cigarettes, uncomplicated; I25.10 Atherosclerotic heart disease of native coronary artery without angina pectoris; M40.209 Unspecified kyphosis, site unspecified; F41.1 Generalized anxiety disorder; H92.02 Otalgia, left ear; Z91.19 Patient's noncompliance with other medical treatment and regimen
CPT/HCPCS: 36415; 51702; 71045; 80048; 80053; 80076; 81003; 82150; 82550; 82553; 82805; 83690; 83735; 83880; 84100; 84484; 85025; 85610; 85730; 87040; 93005; 94660; 97163; 99285; J0456; J0696; J1120; J1650; J1940; J2930; J3475; J7030; J7512; J7605

== ENCOUNTER 2017-11-18 12:59 | Inpatient (IN) | payer OTHER ==
--- OUTSIDE RECORDS SUMMARY | 2017-11-18 13:01 | XMS REPORT ---
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 82760985937 250 MG Oral Active TK 1 T PO BID Hydrocodone-Aceta [facility] 58324747530 10-325 MG Oral Active (Schedule minophen II Drug) TAKE 1 TABLET BY MOUTH FOUR TIMES DAILY BusPIRone HCl ND 86385759541 10 MG Orally October Active 1 tablet Twice a day 2017 MAGnesium-Oxide [facility] 16055462730 400 (241.3 Mg) Active TK 1 T PO MG Oral BID Ciclopirox ND 58430228723 8 % External Active RYAN AFFECTED NAILS QD FOR [address] [facility] 07936246534 25 MG Oral Active TK 1 T PO Tartrate BID Dilt-XR [facility] 99357009211 180 MG Oral Active TK ONE C PO ONCE D IN THE MORNING Chantix Starting ND 13216146442 0.5 MG X 11 October Active as directed Month Joel & 1 MG X 42 [address] [facility] 96142663802 100 MG Oral Active TK 1 T PO BID Fluconazole ND 25320424554 150 MG Oral Active TK 1 T PO ONCE 1 DOSE Betamethasone ND 51495489537 0.1 % External Active RYAN AA BID Valerate Potassium [facility] 98151971987 20 MEQ Oral Active TK 1 T PO Chloride ER QD Daliresp [facility] 08834860269 500 MCG Oral Active TK 1 T PO D Azithromycin [facility] 63087916607 500 MG Oral Active TK 1 T PO D FOR [address] [facility] 92580793552 0.1 % External Active not defined Acetonide Spironolactone [facility] 27896802187 50 MG Oral Active TK 1 T PO QD Levofloxacin [facility] 06296122442 500 MG Oral Active TK 1 T PO D Furosemide [facility] 82749967123 40 MG Oral Active TK 1 T PO QD Aspirin Adult Low [facility] 61109698892 81 MG Orally Active 1 tablet Strength Once a day PredniSONE [facility] 15083844114 10 MG Oral Active TK 1 T PO QD Brovana [facility] 40190942682 15 MCG/2ML Active USE 2 ML Inhalation VIA NEBULIZER BID Diltiazem HCl [facility] 02679467375 120 MG Oral Active TK 1 T PO QD BEFORE MEALS Results No Known Results Summary Purpose [employer] Submission
[2017-11-18] MEDS ORDERED: ALBUTEROL 2.5 MG/3 ML NEB SOL ONE (14:02)
[2017-11-18] MEDS ORDERED: METHYLPREDNISOLONE 125 MG INJ ONE (14:02)
[2017-11-18] MEDS ORDERED: IPRATROPIUM BROM 0.5MG/2.5ML ONE (14:03)
[2017-11-18 14:15] LABS: Absolute Lymphocytes (CBC) 0.7 K/uL (0.7-4.9); Absolute Monocytes 0.8 K/uL (0.1-1.3); Absolute Neutrophil 4.9 K/uL (1.8-8.0); Basophils % 0.6 % (0-1.3); Eosinophils % 0.2 % (0-4.4); Hematocrit 36.4 % (36.0-45.0); MCH 29.3 pg (27.0-35.0); MCV 93.7 fL (80-100); MPV 8.2 fL (7.6-11.3); RBC Red Blood Cell Count 3.89 M/uL (3.86-4.86)
[2017-11-18 14:25] LABS: Protime INR 1.16
[2017-11-18 14:28] LABS: Glucose Level 109 mg/dL (65-120)
[2017-11-18 14:34] LABS: ALT/SGPT 15 IU/L (10-60); AST/SGOT 19 IU/L (10-42); Albumin 3.5 g/dL (3.2-5.5); Alkaline Phosphatase 73 IU/L (42-121); BUN Blood Urea Nitrogen 10 mg/dL (6-20); Bilirubin Direct 0.1 mg/dL (0-0.2); Bilirubin Total 0.3 mg/dL (0.3-1.2); Creatine Phosphokinase 57 IU/L (22-269); Protein, Total 6.7 g/dL (6.0-8.3)
--- NOTE | 2017-11-18 14:34 | EKG ---
Test Date: 2017-11-18 Test Time: 13:26:25 Shaker Repairer: LUIZ MEASUREMENT RESULTS: Intervals: Rate: 105 MD: 122 QRSD: 96 QT: 354 QTc: 467 [place]: P: 76 MD: 122 QRS: 104 T: 73 INTERPRETIVE STATEMENTS: Sinus tachycardia Right atrial enlargement Rightward axis Borderline ECG Compared to ECG 10/18/2017 20:40:58 No significant changes Electronically Signed On 11-18-17 14:33:39 CDT by lAec Olivares
[2017-11-18 14:40] LABS: CKMB Creatine Kinase MB 5.3 ng/ml (0.3-4.0)
[2017-11-18 14:49] LABS: Potassium 3.4 mEq/L (3.6-5.0); Sodium Level 131 mEq/L (135-145)
[2017-11-18 14:52] LABS: Bicarbonate 51 mEq/L (21-31); Magnesium 1.3 mg/dL (1.8-2.5)
--- NOTE | 2017-11-18 14:54 | RAD REPORT ---
EXAM DESCRIPTION: RAD - Chest Single View - 11/18/2017 2:43 pm CLINICAL HISTORY: Shortness of breath COMPARISON: 10/21/2017 FINDINGS: Portable technique limits examination quality. Moderate bilateral pulmonary opacities are noted most likely representing pulmonary edema. Small bila teral pleural effusions are seen. The heart is significantly enlarged in size. No displaced fractures . IMPRESSION: Moderate CHF/ volume overload pattern.
--- NOTE | 2017-11-18 15:41 | ER ---
Nurse's Notes [facility] Name: Eusebia Vila Age: 52 yrs Sex: Female : 1965 Arrival Date: 11/18/2017 Time: 13:01 Bed 8 Private MD: Diagnosis: Unspecified combined systolic (congestive) and diastolic (congestive) heart failure;Chronic obstructive pulmonary disease with (acute) exacerbation;Acute and chronic respiratory failure with hypoxia Presentation: 11/18 13:01 Presenting complaint: EMS states: patient c/o shortness of breath, O2 on arrival on 2L ss NC is 80%. Pt reports she is O2 dependent at 3L NC at all times. Denies CP. Transition of care: patient was not received from another setting of care. Onset of symptoms is unknown. Initial Sepsis Screen: Does the patient meet any 2 criteria? No. Patient's initial sepsis screen is negative. Does the patient have a suspected source of infection? No. Patient's initial sepsis screen is negative. Care prior to arrival: Medication(s) given: Albuterol Neb x 1, Atrovent Neb x 1. 13:01 Method Of Arrival: EMS: [facility] 13:01 Acuity: CLAUDIA 3 ss Triage Assessment: 13:25 General: Appears in no apparent distress. well groomed, well developed, well nourished, sg Behavior is calm, cooperative, appropriate for age. Respiratory: the patient has moderate shortness of breath. Respiratory: Reports shortness of breath at rest air hunger labored breathing Airway is patent Trachea midline Respiratory effort is even, labored, shallow, using tripod position, Respiratory pattern is regular, symmetrical. 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 - Social history:: Smoking status: Patient uses tobacco products, smokes one pack cigarettes per day. pt reports that she smokes while wearing her O2 NC at home. Screenin:59 Abuse screen: Denies threats or abuse. Denies injuries from another. Nutritional ss screening: No deficits noted. Tuberculosis screening: Never had TB. Fall Risk Fall in past 12 months (25 points). Secondary diagnosis (15 points) impaired mobility, IV access (20 points). Ambulatory Aid- None/Bed Rest/Nurse Assist (0 pts). Gait- Normal/Bed Rest/Wheelchair (0 pts) Mental Status- Oriented to own ability (0 pts). Assessment: 13:01 General: Appears uncomfortable, Behavior is cooperative, Denies fever, feeling ill. ss Pain: Complains of pain in back Pain currently is 8 out of 10 on a pain scale. Quality of pain is described as aching, Pain began Is continuous, chronic. Neuro: Level of Consciousness is awake, alert, Oriented to person, place, time, situation. Cardiovascular: Capillary refill < 3 seconds in bilateral fingers Patient's skin is warm and dry. Rhythm is regular. Respiratory: Airway is patent Respiratory effort is even, Respiratory pattern is regular, symmetrical, Breath sounds are diminished in left posterior lower lobe and right posterior lower lobe Breath sounds with wheezes in right upper lobe, left upper lobe, left posterior upper lobe, right posterior upper lobe and right posterior middle lobe. GI: Patient currently denies abdominal pain, diarrhea, nausea, vomiting. EENT: Nares are clear Oral mucosa is moist. Throat is clear. Derm: Skin is fragile, Skin is dry, Skin is normal, Skin temperature is warm. Musculoskeletal: Swelling present in bilateral lower extremities, ankles. Musculoskeletal: lower extremities appear unkempt with small areas of dirt and sloughing skin noted. 14:25 Reassessment: Patient appears in no apparent distress at this time. patient c/o her ss chronic back pain, and reports that she typically takes [place] 7.5 mg tablets. TIMMY Morocho notified. Patient states feeling better. Patient states symptoms have improved. 15:30 Reassessment: respiratory at bedside attempting to pace BIPAP. Pt is refusing BIPAP at this time. TIMMY Morocho notified. 16:00 Reassessment: Patient appears in no apparent distress at this time. Patient and/or sg family updated on plan of care and expected duration. Pain level reassessed. Patient is alert, oriented x 3, equal unlabored respirations, skin warm/dry/pink. pt refusing to wear BiPap until her personal mask is brought to the department, Blaze WARNER notified. 17:09 Reassessment: Patient appears in no apparent distress at this time. Patient is alert, sg oriented x 3, equal unlabored respirations, skin warm/dry/pink. pt given sandwhich and frenchfries per pt request, pt tolerating food well at this time. 18:15 Reassessment: Patient appears in no apparent distress at this time. Patient and/or sg family updated on plan of care and expected duration. Pain level reassessed. Patient is alert, oriented x 3, equal unlabored respirations, skin warm/dry/pink. pt assisted to bedside toilet to obtain a clean catch urine specimen. 18:30 Reassessment: pt assisted back to exam room stretcher with the assistance of marcus garcia RN and myself, bed in low and locked position, srx2, call light within reach, pt continues to refuse the straight cath, king cath at this time, pt reports " aint nobody sticking no tubes inside my bottom or in my pee hole, i dont want nothing in my pee hole." BLAZE WARNER notified. 18:40 Reassessment: RTT paged for assistance with pt BiPap from home, awaiting RT at this sg time. 18:52 Reassessment: Patient appears in no apparent distress at this time. Patient and/or sg family updated on plan of care and expected duration. Pain level reassessed. Patient is alert, oriented x 3, equal unlabored respirations, skin warm/dry/pink. Andressa RT at bedside at this time, pt placed to BiPap from home, pt tolerating BiPap, BiPap settings of 5 with 30 percent 02, pt reports feeling better Patient states feeling better. Patient states symptoms have improved. 19:05 Reassessment: RECD REPORT FROM MARCUS MONTOYA. 52YO WF P/W SOB, H/O COPD AND ACTIVE bp SMOKER. PT FOUND TO BE HYPOXIC, BIPAP CHANGED TO CPAP. MD NOTIFIED OF PT CONDITION, ADMIT ON HOLD FOR ICU CONSIDERATION. 19:15 Reassessment: Patient appears in no apparent distress at this time. report given to jose Hope RN, reported that abx are still at bedside d/t no urine specimen being obtained, and the pt refusing Cath/King, abx held per provider Blaze WARNER order. 20:15 Reassessment: PT REMOVING CPAP MASK, REQUIRING REDIRECTION TO REPLACE AND KEEP IN PLACE.bp Vital Signs: 13:04 BP 130 / 69; Pulse 109; Resp 22; Temp 97.6(A); Pulse Ox 100% on R/A; ss 14:24 BP 111 / 62; Pulse 67; Resp 19; Pulse Ox 98% on Nebulizer Mask; ss 17:00 BP 132 / 70; Pulse 75 MON; Resp 21 S; Pulse Ox 92% on 4 lpm NC; sg 20:00 BP 152 / 81; Pulse 102; Resp 12; Pulse Ox 100% ; bp 21:32 BP 113 / 65; Pulse 104; Resp 20; Pulse Ox 98% on R/A; mt ED Course: 13:01 Patient arrived in ED. ss 13:03 Triage completed. ss 13:04 Arm band placed on right wrist. ss 13:05 Timbo Perla PA is PHCP. cp 13:05 Arnold Cottrell MD is Attending Physician. cp 13:39 EKG done, by medical technologist microbiology. reviewed by Arnold Cottrell MD. tc 13:58 Inserted saline lock: 22 gauge in left antecubital area, using aseptic technique. Blood ss collected. Oxygen administration via nasal cannula \\T\\ 4L/min. 13:59 Patient has correct armband on for positive identification. Bed in low position. Call ss light in reach. supervisor sterile processing on. Pulse ox on. NIBP on. 14:21 Maggie Deutsch, RN is Primary Nurse. ss 14:37 X-ray completed. Portable x-ray completed in exam room. Patient tolerated procedure sw well. 14:42 XRAY Chest (1 view) In Process Unspecified. EDMS 15:38 Phillip Blas DO is Hospitalizing Provider. cp 18:55 No provider procedures requiring assistance completed. sg 18:59 Patient admitted, IV remains in place. intact, No redness/swelling at site. sg 19:28 Primary Nurse role handed off by Maggie Deutsch, LINDSAY bp 19:28 Jorgito Naidu, LINDSAY is Primary Nurse. bp Administered Medications: 14:21 Drug: Albuterol - atroVENT (3:1) (2.5 mg - 0.5 mg) 3 ml Route: Nebulizer; ss 15:20 Follow up: Response: No adverse reaction; Wheezing diminished ss 14:22 Drug: SOLU-Medrol 125 mg Route: IVP; Site: left antecubital; ss 15:20 Follow up: Response: No adverse reaction ss 16:16 Drug: Potassium Effervescent Tablet 25 mEq Route: PO; sg 18:15 Follow up: Response: No adverse reaction sg 16:17 Drug: Aspirin Chewable Tablet 324 mg Route: PO; sg 17:08 Follow up: Response: No adverse reaction sg 16:17 Drug: Magnesium Sulfate 2 grams Route: IVPB; Infused Over: 2 hrs; Site: left sg antecubital; 18:15 Follow up: Response: No adverse reaction; IV Status: Completed infusion sg 16:42 Drug: Lasix 20 mg Route: IVP; Site: left antecubital; sg 17:42 Follow up: Response: No adverse reaction sg 16:50 Drug: Lovenox 30 mg Route: Sub-Q; Site: left lower abdomen; sg 17:13 Follow up: Response: No adverse reaction sg Outcome: 15:40 Decision to Hospitalize by Provider. cp 22:58 Admitted to Tele accompanied by tech, via stretcher, room 211, with chart, Report bp called to JORDAN MONTOYA 22:59 Condition: stable bp 22:59 Instructed on the need for admit. 23:26 Patient left the ED. bp Signatures: Dispatcher [employer] EDMS Karthikeyan Hastings RN RN Maggie Ron RN RN Angie Virk, catalyst operator gasoline EKG Ttc Afia Jurado Corey, PA PA cp [place] Jorgito Moreira, RN RN bp
--- NOTE | 2017-11-18 15:41 | EDPHYS ---
Physician Documentation [facility] Name: Eusebia Vila Age: 52 yrs Sex: Female : 1965 Arrival Date: 11/18/2017 Time: 13:01 Bed 8 Private MD: ED Physician Arnold Cottrell HPI: 11/18 13:17 This 52 yrs old Female presents to ER via EMS with complaints of Breathing cp Difficulty. 13:17 The patient has shortness of breath at rest. cp 13:17 Onset: The symptoms/episode began/occurred 2 day(s) ago. cp 13:17 Duration: The symptoms are continuous, and are steadily getting worse. Associated signs cp and symptoms: Pertinent negatives: chest pain, fever. 13:17 Severity of symptoms: in the emergency department the symptoms are unchanged despite cp home interventions. 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 - Social history:: Smoking status: Patient uses tobacco products, smokes one pack cigarettes per day. pt reports that she smokes while wearing her O2 NC at home. ROS: 13:20 Constitutional: Negative for body aches, chills, fever, poor PO intake. cp 13:20 Eyes: Negative for injury, pain, redness, and discharge. cp 13:20 ENT: Negative for drainage from ear(s), ear pain, sore throat, difficulty swallowing, cp difficulty handling secretions. 13:20 Cardiovascular: Positive for edema, Negative for chest pain, palpitations. 13:20 Respiratory: Positive for cough, shortness of breath, wheezing. cp 13:20 Abdomen/GI: Negative for abdominal pain, nausea, vomiting, and diarrhea, black/tarry stool, rectal bleeding. 13:20 Skin: Negative for diaphoresis. 13:20 Neuro: Negative for altered mental status, headache, loss of consciousness, weakness. 13:20 All other systems are negative. Exam: 13:25 Constitutional: The patient appears alert, awake, non-diaphoretic, non-toxic, well cp developed, frail. 13:25 Head/Face: Normocephalic, atraumatic. cp 13:25 Eyes: Periorbital structures: appear normal, Pupils: equal, round, and reactive to light and accomodation, Extraocular movements: intact throughout, Conjunctiva: normal, no exudate, no injection, Sclera: no appreciated abnormality, Lids and lashes: appear normal, bilaterally. 13:25 ENT: External ear(s): are unremarkable, Ear canal(s): are normal, clear, TM's: dullness, bilaterally, Nose: is normal, Mouth: Lips: dry, Oral mucosa: dry, Posterior pharynx: is normal, airway is patent, no erythema, no exudate. 13:25 Neck: ROM/movement: is normal, is supple, without pain, no range of motions limitations, no meningismus, no nuchal rigidity, Lymph nodes: no appreciated lymphadenopathy. 13:25 Chest/axilla: Inspection: normal, Palpation: is normal, no crepitus, no tenderness. 13:25 Cardiovascular: Rate: tachycardic, Rhythm: regular, Pulses: Pulses are 2+ in right radial artery and left radial artery. 13:25 Respiratory: moderate respiratory distress is noted, Respirations: labored breathing, that is moderate, shallow respirations, that is moderate, Breath sounds: decreased breath sounds, that are moderate, throughout, stridor, is not appreciated, wheezing: is not appreciated. 13:25 Abdomen/GI: Inspection: abdomen appears normal, Bowel sounds: active, all quadrants, Palpation: abdomen is soft and non-tender, in all quadrants. 13:25 Skin: no rash present. 13:25 Neuro: Orientation: to person, place \T\ time. Mentation: is normal, Motor: moves all fours, strength is normal, Sensation: no obvious gross deficits, Gait: unable to assess. 13:33 ECG was reviewed by the Attending Physician. cp Vital Signs: 13:04 BP 130 / 69; Pulse 109; Resp 22; Temp 97.6(A); Pulse Ox 100% on R/A; ss 14:24 BP 111 / 62; Pulse 67; Resp 19; Pulse Ox 98% on Nebulizer Mask; ss 17:00 BP 132 / 70; Pulse 75 MON; Resp 21 S; Pulse Ox 92% on 4 lpm NC; sg 20:00 BP 152 / 81; Pulse 102; Resp 12; Pulse Ox 100% ; bp 21:32 BP 113 / 65; Pulse 104; Resp 20; Pulse Ox 98% on R/A; mt MDM: 13:06 Patient medically screened. cp 15:35 Data reviewed: vital signs, nurses notes, lab test result(s), EKG, radiologic studies, cp plain films. 11/18 13:11 Order name: Basic Metabolic Panel; Complete Time: 15:01 cp 11/18 15:21 Interpretation: Normal except: NA 131; K 3.4; CL 76; CO2 51. cp 11/18 13:11 Order name: BNP; Complete Time: 15:01 cp 11/18 13:11 Order name: CBC with Diff; Complete Time: 15: cp 11/18 15:21 Interpretation: Normal except: HGB 11.4; MCHC 31.2; RDW 16.8; ERICK% 76.2; LYM% 11.0. cp 11/18 13:11 Order name: Ckmb; Complete Time: 15:01 cp 11/18 13:11 Order name: CPK; Complete Time: 15:01 cp 11/18 13:11 Order name: LFT's; Complete Time: 15:01 cp 11/18 13:11 Order name: Magnesium; Complete Time: 15:01 cp 11/18 13:11 Order name: PT-INR; Complete Time: 15:01 cp 11/18 13:11 Order name: Ptt, Activated; Complete Time: 15:02 cp 11/18 13:11 Order name: Troponin (emerg Dept Use Only); Complete Time: 15:01 cp 11/18 15:14 Interpretation: Abnormal: TROPED 0.06. cp 11/18 13:11 Order name: XRAY Chest (1 view); Complete Time: 15:02 cp 11/18 15:35 Interpretation: Report review. cp 05 15:03 Order name: Blood Culture Adult (2) cp 05/ 15:04 Order name: Urine Microscopic Only cp 11/18 13:11 Order name: EKG; Complete Time: 13:12 cp 11/18 13:11 Order name: Cardiac monitoring; Complete Time: 13:17 cp 05 15:03 Order name: BIPAP cp 05 16:42 Order name: Diet Regular; Complete Time: 16:42 sg 11/18 13:11 Order name: Labs collected and sent; Complete Time: 19:44 cp 11/18 13:11 Order name: O2 Per Protocol; Complete Time: 13:17 cp 11/18 13:11 Order name: O2 Sat Monitoring; Complete Time: 13:17 cp EC:33 Rate is 105 beats/min. Rhythm is regular. ND interval is normal. QRS interval is cp normal. QT interval is normal. No ST changes noted. Interpreted by me. Reviewed by me. Administered Medications: 14:21 Drug: Albuterol - atroVENT (3:1) (2.5 mg - 0.5 mg) 3 ml Route: Nebulizer; ss 15:20 Follow up: Response: No adverse reaction; Wheezing diminished ss 14:22 Drug: SOLU-Medrol 125 mg Route: IVP; Site: left antecubital; ss 15:20 Follow up: Response: No adverse reaction ss 16:16 Drug: Potassium Effervescent Tablet 25 mEq Route: PO; sg 18:15 Follow up: Response: No adverse reaction sg 16:17 Drug: Aspirin Chewable Tablet 324 mg Route: PO; sg 17:08 Follow up: Response: No adverse reaction sg 16:17 Drug: Magnesium Sulfate 2 grams Route: IVPB; Infused Over: 2 hrs; Site: left sg antecubital; 18:15 Follow up: Response: No adverse reaction; IV Status: Completed infusion sg 16:42 Drug: Lasix 20 mg Route: IVP; Site: left antecubital; sg 17:42 Follow up: Response: No adverse reaction sg 16:50 Drug: Lovenox 30 mg Route: Sub-Q; Site: left lower abdomen; sg 17:13 Follow up: Response: No adverse reaction sg Disposition: 11/18/17 15:40 Hospitalization ordered by Phillip Blas for Inpatient Admission. Preliminary diagnosis are Unspecified combined systolic (congestive) and diastolic (congestive) heart failure, Chronic obstructive pulmonary disease with (acute) exacerbation, Acute and chronic respiratory failure with hypoxia. - Bed requested for Telemetry/MedSurg (Inpatient). - Status is Inpatient Admission. bp - Condition is Stable. - Problem is an acute exacerbation. - Symptoms are unchanged. UTI on Admission? No Addendum: 11/23/2017 19:49 Co-signature as Attending Physician, Arnold Cottrell MD. m a2 Signatures: Dispatcher [employer] EDHI Joan Mejia, RN LINDSAY dw Karthikeyan Hastings, RN RN sg Maggie Deutsch RN RN ss Timbo Perla PA PA Jorgito Calle RN RN bp Arnold Cottrell MD MD wy2 Corrections: (The following items were deleted from the chart) 11/18 15:21 15:21 Normal except: NA 131; K 3.4; CL 76. cp cp 15:59 15:04 Arterial Blood Gas+RC.LAB.BRZ ordered. EDHI EDHI 17:57 15:40 Hospitalization Ordered by Phillip Blas DO for Inpatient Admission. Preliminary dw diagnosis is Unspecified combined systolic (congestive) and diastolic (congestive) heart failure; Chronic obstructive pulmonary disease with (acute) exacerbation; Acute and chronic respiratory failure with hypoxia. Bed requested for Telemetry/MedSurg (Inpatient). Status is Inpatient Admission. Condition is Stable. Problem is an acute exacerbation. Symptoms are unchanged. UTI on Admission? No. cp 19:45 15:04 Lane ordered. cp bp 23:26 17:57 11/18/2017 15:40 Hospitalization Ordered by Phillip Blas DO for Inpatient bp Admission. Preliminary diagnosis is Unspecified combined systolic (congestive) and diastolic (congestive) heart failure; Chronic obstructive pulmonary disease with (acute) exacerbation; Acute and chronic respiratory failure with hypoxia. Bed requested for Telemetry/MedSurg (Inpatient). Status is Inpatient Admission. Condition is Stable. Problem is an acute exacerbation. Symptoms are unchanged. UTI on Admission? No. dw
[2017-11-18] MEDS ORDERED: FUROSEMIDE 20 MG/ 2ML VIAL ONE (16:01)
[2017-11-18] MEDS ORDERED: ASPIRIN 81 MG CHEWABLE TABLET ONE ×2 (16:01→16:18)
[2017-11-18] MEDS ORDERED: AZITHROMYCIN 250 MG TAB ONE (16:01)
[2017-11-18] MEDS ORDERED: Magnesium Sulfate 2gm IVPB 2 G/50 ML BAG IV ONE (16:02)
[2017-11-18] MEDS ORDERED: AMOX/K CLAV 875 MG TAB ONE (16:02)
[2017-11-18] MEDS ORDERED: POTASSIUM 25 MEQ EFFERV TAB ONE (16:02)
[2017-11-18] MEDS ORDERED: ENOXAPARIN 30 MG/0.3 ML SQ ONE (16:15)
--- NOTE | 2017-11-18 17:00 | P.HP ---
Certification for Inpatient Patient admitted to: Inpatient With expected LOS: >2 Midnights Patient will require the following post-hospital care: Other Practitioner: I am a practitioner with admitting privileges, knowledge of patient current condition, hospital course, and medical plan of care. Services: Services provided to patient in accordance with Admission requirements found in Title 42 Section 412.3 of the Code of Federal Regulations Patient History Date of Service: 11/18/17 Reason for admission: shortness of breath History of Present Illness: 52 year old lady with history of COPD on home oxygen,CHF unknown EF who was brought in by EMS with complaints of Shortness of breath.Patient is a very poor historian and unable to answer most of my questions.However per history obtained from family members patient was noticed to have been increasingly short of breath, with associated increased cough above her baseline.Her oxygen saturation was obtained and was said to be in the low 80's for this EMS was called Of note patient is usually cared for by her sister who recently had a shoulder surgery.Patient has had to care for herself for a few days now and as such has been non compliant with her treatment and has continued to smoke on a daily basis. Allergies codeine Allergy (Verified 09/19/16 01:40) Shortness of breath levofloxacin [From Levaquin] Adverse Reaction (Intermediate, Verified 09/19/16 01:40) hallucinations morphine Adverse Reaction (Verified 09/19/16 01:40) Itching/Hives/Rash Home medications list reviewed: Yes Home Medications: Hydrocodone Bit/Acetaminophen [Hydrocodon-Acetaminophn 10-325] 1 each PO QID PRN 04/06/17 Prednisone [Deltasone*] 10 mg PO DAILY 04/06/17 Roflumilast [Daliresp*] 500 mcg PO DAILY 04/06/17 Magnesium Oxide [Mag 0X*] 1 tab PO BID 05/13/17 Arformoterol Tartrate [Brovana] 15 mcg NEB BIDRESP #60 vial.neb 06/19/17 Spironolactone [Aldactone*] 50 mg PO BID #120 tab 06/19/17 Aspirin 81 mg PO DAILY 10/19/17 Diltiazem HCl 120 mg PO DAILY 10/19/17 Acetazolamide [Diamox*] 250 mg PO BID #60 tab 10/21/17 Bupropion HCl [Wellbutrin*] 100 mg PO BID #60 tab 10/21/17 Levofloxacin [Levaquin] 500 mg PO DAILY #7 tab 10/21/17 - Past Medical/Surgical History Diabetic: No -: Diastolic dysfunction -: COPD -: Emphysema -: chronic back pain-Sees Dr Ruff -: CAD -: CHF -: 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 -: anxiety -: Morphine pain pump -: Cardiomegaly -: Atrial flutter -: back -: cholecystectomy -: Hysterectomy -: Morphine pump mid right side of stomach - in place -: morphine pump with additional medications - Family History Sister -: Cancer Brother -: Cancer Father -: Cancer Mother -: Lung disease, Cancer - Social History Alcohol use: No CD- Drugs: No Caffeine use: Yes Review of Systems is unable to be obtained (very poor historian) Physical Examination - Physical Exam General: Alert, Oriented x2 (to person and place), Disheveled, Acute distress HEENT: Atraumatic, Normocephalic, PERRLA Neck: Supple, JVD not distended, No Thyromegaly, No LAD Respiratory: Expiratory wheezes, Rhonchi/gurgles Cardiovascular: No edema, Normal pulses, Normal S1 S2 (tachycardia) Gastrointestinal: Normal bowel sounds, Soft and benign, Non-distended, W/out hepatosplenomegaly, No ascites, No tenderness, No masses, No rebound, No guarding Musculoskeletal: No clubbing, No swelling, No contractures, No erythema, No tenderness, No warmth - Studies Laboratory Data (last 24 hrs) 11/18/17 13:48: PT 13.7 H, INR 1.16, APTT 26.7 11/18/17 13:48: WBC 6.4, Hgb 11.4 L, Hct 36.4, Plt Count 282 11/18/17 13:48: B-Natriuretic Peptide 365 H 11/18/17 13:48: Sodium 131 L, Potassium 3.4 L, BUN 10, Creatinine 0.53, Glucose 109, Magnesium 1.3 L* D, Total Bilirubin 0.3, AST 19, ALT 15, Alkaline Phosphatase 73 Assessment and Plan - Problems (Diagnosis) (1) Acute and chronic respiratory failure Onset Date: 06/17/17 Current Visit: No Status: Acute Plan: admit to ICU place on bipap start solumedrol IV consult Dr Palomares start azithromycin start scheduled nebulizer treatment monitor blood gas Qualifiers: Respiratory failure complication: hypoxia and hypercapnia Qualified Code(s) : J96.21 - Acute and chronic respiratory failure with hypoxia; J96.22 - Acute and chronic respiratory failure with hypercapnia; J96.22 - Acute and chronic respiratory failure with hypercapnia; J96.22 - Acute and chronic respiratory failure with hypercapnia (2) COPD (chronic obstructive pulmonary disease) Onset Date: 09/09/16 Current Visit: No Status: Acute Plan: per above Qualifiers: COPD type: COPD with acute exacerbation Qualified Code(s): J44.1 - Chronic obstructive pulmonary disease with (acute) exacerbation (3) Nicotine dependence Current Visit: No Status: Chronic Plan: nicotine patch counselled Qualifiers: Nicotine product type: cigarettes Substance use status: uncomplicated Qualified Code(s): F17.210 - Nicotine dependence, cigarettes, uncomplicated Plan to discharge in: Greater than 2 days - Advance Directives Does patient have a Living Will: No Does patient have a Durable POA for Healthcare: No
[2017-11-18] MEDS ORDERED: MAGNESIUM HYDROXIDE 8% 30 ML PO PRN (23:28)
[2017-11-18] MEDS ORDERED: ONDANSETRON 4 MG/2 ML VIAL IV PRN (23:28)
[2017-11-19] MEDS: IPRATROPIUM BROM 0.5MG/2.5ML NEB SCH ×7 (00:30→21:07)
[2017-11-19] MEDS: ALBUTEROL 2.5 MG/3 ML NEB SOL NEB PRN ×2 (00:30→03:00)
[2017-11-19 00:37] LABS: Urine Appearance CLEAR; Urine Bilirubin NEGATIVE (NEG); Urine Blood NEGATIVE (NEG); Urine Color YELLOW; Urine Glucose NEGATIVE (NEG); Urine Protein NEGATIVE (NEG); Urine Specific Gravity 1.015 (1.005-1.030)
[2017-11-19 00:59] LABS: Arterial Blood Carboxyhemoglob 4.1 % (0-1.5); Blood Gas Oxyhemoglobin 90.8 % (94-97); Blood O2 Saturation 96.3 % (92-98.5)
[2017-11-19 01:03] LABS: Urine Bacteria <20 /HPF (<20); Urine Culture Reflex Order NOT NEEDED; Urine Mucus 2+ /HPF (NONE SEEN); Urine RBC <5 /HPF (NONE SEEN)
[2017-11-19] MEDS ORDERED: KETOROLAC 30 MG/ML INJ IV ONE (01:04)
[2017-11-19 01:46] VITALS: BMI 24.1
[2017-11-19 05:34] LABS: Absolute Lymphocytes (CBC) 0.2 K/uL (0.7-4.9); Absolute Monocytes 0.2 K/uL (0.1-1.3); Absolute Neutrophil 2.7 K/uL (1.8-8.0); Basophils % 0.1 % (0-1.3); Hematocrit 32.3 % (36.0-45.0); Lymphocytes % 6.4 % (15.3-44.8); MCH 28.8 pg (27.0-35.0); MCV 93.6 fL (80-100); MPV 8.1 fL (7.6-11.3); RBC Red Blood Cell Count 3.45 M/uL (3.86-4.86)
[2017-11-19 05:47] LABS: BUN Blood Urea Nitrogen 11 mg/dL (6-20); Glucose Level 177 mg/dL (65-120); Phosphorus 3.9 mg/dL (2.5-4.3)
[2017-11-19 05:48] LABS: Magnesium 1.5 mg/dL (1.8-2.5); Potassium 4.1 mEq/L (3.6-5.0); Sodium Level 133 mEq/L (135-145)
[2017-11-19 05:52] LABS: Bicarbonate 51 mEq/L (21-31)
[2017-11-19] MEDS ORDERED: METHYLPREDNISOLONE 40 MG INJ IV SCH (06:00)
[2017-11-19 07:02] LABS: Blood Morphology Comment NOTED (NOT SEEN); Platelet Estimate ADEQ; Polychromasia 2+
[2017-11-19] MEDS: NACHLORIDE 0.45% 1,000 ML IV SCH ×2 (08:00→21:20)
[2017-11-19] MEDS: ARFORMOTEROL TARTRATE 15 MCG/2 ML VIAL.NEB NEB SCH ×2 (08:01→21:07)
--- NOTE | 2017-11-19 08:35 | P.CNS ---
Date of Consult: 11/19/17 Reason for Consult: Respiratory failure fall Chief Complaint: shortness of breath History of Present Illness: Patient is 52 years of age recurrent hospital admissions terminal COPD noncompliance apparently she fell leg hurt ended up here in the hospital of was hypoxic hypercapnic she is back to her baseline very unkempt complains of swelling of her legs she denies using any diuretics although bicarbonate is very elevated on compliant with her medications BiPAP still continues to smoke these with her sister not able to ambulate shortness of breath is stable a slight cough Allergies codeine Allergy (Verified 11/18/17 23:38) Shortness of breath levofloxacin [From Levaquin] Adverse Reaction (Intermediate, Verified 11/18/17 23:38) hallucinations morphine Adverse Reaction (Verified 11/18/17 23:38) Itching/Hives/Rash - Past Medical/Surgical History Diabetic: No -: Diastolic dysfunction -: COPD -: Emphysema -: chronic back pain-Sees Dr Ruff -: CAD -: CHF -: 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 -: anxiety -: Morphine pain pump -: Cardiomegaly -: Atrial flutter -: back -: cholecystectomy -: Hysterectomy -: Morphine pump mid right side of stomach - in place -: morphine pump with additional medications - Family History Sister Medical History: Cancer Brother Medical History: Cancer Father Medical History: Cancer Mother Medical History: Lung disease, Cancer - Social History Smoking Status: Current every day smoker Alcohol use: No CD- Drugs: No Caffeine use: Yes Place of Residence: Home Review of Systems General: Weakness Respiratory: Cough, Shortness of Breath Cardiovascular: Edema Musculoskeletal: Other (Has some discomfort in her left leg although she has no problems moving her left leg) Physical Examination Temp Pulse Resp BP Pulse Ox 97 F 109 H 20 135/68 97 11/19/17 04:00 11/19/17 04:00 11/19/17 04:00 11/19/17 04:00 11/19/17 04:00 General: Alert, Oriented x3, Cooperative Respiratory: Clear to auscultation bilaterally, Expiratory wheezes Cardiovascular: Normal S1 S2, Edema (Significant edema bilaterally very unkempt redness over her both the calfs) Gastrointestinal: Normal bowel sounds, Hypoactive, Soft and benign Laboratory Data (last 24 hrs) 11/18/17 13:48: PT 13.7 H, INR 1.16, APTT 26.7 11/18/17 13:48: WBC 6.4, Hgb 11.4 L, Hct 36.4, Plt Count 282 11/18/17 13:48: B-Natriuretic Peptide 365 H 11/18/17 13:48: Sodium 131 L, Potassium 3.4 L, BUN 10, Creatinine 0.53, Glucose 109, Magnesium 1.3 L* D, Total Bilirubin 0.3, AST 19, ALT 15, Alkaline Phosphatase 73 - Problems (1) Acute and chronic respiratory failure Onset Date: 06/17/17 Current Visit: No Status: Acute Plan: Patient is 52 years of age admitted yet again with weakness recently had a fall she is very unkempt lower extremity edema with redness of for calfs bicarbonate is again elevated noncompliant does not use her BiPAP still continues to smoke chest x-ray shows possible overload although she has a normal echo before labs reviewed I have started her on Diamox some IV fluids patient is noncompliant with BiPAP consider skilled nursing arrangement Qualifiers: Respiratory failure complication: hypoxia and hypercapnia Qualified Code(s) : J96.21 - Acute and chronic respiratory failure with hypoxia; J96.22 - Acute and chronic respiratory failure with hypercapnia; J96.22 - Acute and chronic respiratory failure with hypercapnia; J96.22 - Acute and chronic respiratory failure with hypercapnia
[2017-11-19] MEDS: WATER FOR INJ,STERILE 10 ML IV SCH ×3 (09:00→21:00)
[2017-11-19 09:53] LABS: Arterial Blood Carboxyhemoglob 2.7 % (0-1.5); Blood Gas Oxyhemoglobin 85.4 % (94-97); Blood O2 Saturation 89.1 % (92-98.5)
[2017-11-19] MEDS: ACETAZOLAMIDE 500 MG IV IV SCH ×2 (10:44→21:21)
[2017-11-19] MEDS: predniSONE 10 MG TAB PO SCH ×2 (10:45→21:22)
[2017-11-19] MEDS: ENOXAPARIN 40 MG/0.4 ML SQ SCH (10:45)
[2017-11-19] MEDS: NICOTINE 21 MG/PAT TD SCH (10:48)
[2017-11-19] MEDS: ACETAMINOPHEN 500 MG TAB PO PRN ×2 (11:47→21:21)
--- NOTE | 2017-11-19 16:19 | P.PN ---
Subjective Date of Service: 11/19/17 Chief Complaint: shortness of breath Subjective: Improving, Working w/ PT Review of Systems 10-point ROS is otherwise unremarkable Physical Examination - Vital Signs Temperature: 97.2 F Blood Pressure: 120/73 Pulse: 92 Respirations: 20 Pulse Ox (%): 95 - Physical Exam General: Alert, In no apparent distress, Oriented x3 HEENT: Atraumatic, Normocephalic, PERRLA Neck: Supple, JVD not distended, No Thyromegaly, No LAD Respiratory: Expiratory wheezes Cardiovascular: No edema, Normal pulses, Regular rate/rhythm, Normal S1 S2, No gallops, No rubs, No murmurs Gastrointestinal: Normal bowel sounds, Soft and benign, W/out hepatosplenomegaly Musculoskeletal: No clubbing, No tenderness, No warmth, Swelling, Erythema Neurological: Sensation intact, Cranial nerves 3-12 intact Assessment And Plan - Current Problems (Diagnosis) (1) Acute and chronic respiratory failure Onset Date: 06/17/17 Current Visit: No Status: Acute Plan: seen by Dr Palomares, started on Diamox some IV fluids place on bipap continue on prednisone po consult Dr Palomares continue scheduled nebulizer treatment Qualifiers: Respiratory failure complication: hypoxia and hypercapnia Qualified Code(s) : J96.21 - Acute and chronic respiratory failure with hypoxia; J96.22 - Acute and chronic respiratory failure with hypercapnia; J96.22 - Acute and chronic respiratory failure with hypercapnia; J96.22 - Acute and chronic respiratory failure with hypercapnia (2) COPD (chronic obstructive pulmonary disease) Onset Date: 09/09/16 Current Visit: No Status: Acute Plan: per above Qualifiers: COPD type: COPD with acute exacerbation Qualified Code(s): J44.1 - Chronic obstructive pulmonary disease with (acute) exacerbation (3) Nicotine dependence Onset Date: 11/19/17 Current Visit: No Status: Chronic Plan: nicotine patch counselled Qualifiers: Nicotine product type: cigarettes Substance use status: uncomplicated Qualified Code(s): F17.210 - Nicotine dependence, cigarettes, uncomplicated (4) Fall Current Visit: Yes Status: Acute Plan: PT consulted fall precautions Discharge Plan: Home Time Spent Managing PTS Care (In Minutes): 35
[2017-11-20] MEDS: IPRATROPIUM BROM 0.5MG/2.5ML NEB SCH ×3 (01:51→13:30)
[2017-11-20] MEDS: ARFORMOTEROL TARTRATE 15 MCG/2 ML VIAL.NEB NEB SCH (07:45)
--- NOTE | 2017-11-20 07:54 | P.PN ---
Subjective Date of Service: 11/20/17 Chief Complaint: Acute on chronic respiratory failure Subjective: Improving (Patient is improving edema decline in the lower extremities no new complaint wants to go home) Review of Systems General: Weakness Respiratory: Cough, Shortness of Breath Physical Examination - Vital Signs Temperature: 97.9 F Blood Pressure: 143/76 Pulse: 104 Respirations: 18 Pulse Ox (%): 89 - Physical Exam General: Alert, Oriented x3, Cooperative Respiratory: Clear to auscultation bilaterally, Diminished Cardiovascular: Edema (Edema has improved) Assessment & Plan - Problems (Diagnosis) (1) Acute and chronic respiratory failure Onset Date: 06/17/17 Current Visit: No Status: Acute Plan: Patient is clinically doing better repeat chemistries I have advised the patient to bring a list of her home medications patient needs to be on Diamox and bronchodilators she has a BiPAP at home overall prognosis is very poor consider discharge patient is noncompliant I am not sure what she takes at home Qualifiers: Respiratory failure complication: hypoxia and hypercapnia Qualified Code(s) : J96.21 - Acute and chronic respiratory failure with hypoxia; J96.22 - Acute and chronic respiratory failure with hypercapnia
[2017-11-20] MEDS ORDERED: acetaZOLAMIDE 250 MG TAB PO SCH (09:00)
[2017-11-20] MEDS: ENOXAPARIN 40 MG/0.4 ML SQ SCH (09:17)
[2017-11-20] MEDS: predniSONE 10 MG TAB PO SCH (09:17)
[2017-11-20] MEDS: NICOTINE 21 MG/PAT TD SCH (09:17)
[2017-11-20 09:48] LABS: BUN Blood Urea Nitrogen 11 mg/dL (6-20); Glucose Level 154 mg/dL (65-120); Potassium 3.6 mEq/L (3.6-5.0); Sodium Level 130 mEq/L (135-145)
[2017-11-20 09:49] LABS: Bicarbonate 42 mEq/L (21-31)
[2017-11-20] MEDS ORDERED: buPROPion HCl 100 MG TAB PO SCH (11:03)
[2017-11-20] MEDS ORDERED: ROFLUMILAST 500 MCG TABLET PO SCH (11:05)
[2017-11-20] MEDS ORDERED: ASPIRIN EC 81 MG TAB PO SCH (11:06)
[2017-11-20] MEDS ORDERED: SPIRONOLACTONE 25 MG TABLET PO SCH (11:07)
[2017-11-20] MEDS: HYDROCODONE/APAP 7.5/325 MG TAB PO PRN ×2 (11:10→17:11)
[2017-11-20] MEDS: NACHLORIDE 0.45% 1,000 ML IV SCH (12:15)
[2017-11-20 15:26] VITALS: O2SAT 96
[2017-11-20 16:32] VITALS: BP 151/72; TEMP 98.3
--- NOTE | 2017-11-20 16:39 | P.DS ---
Admission Date: 11/18/17 Discharge Date: 11/20/17 Disposition: DC HOME/HOME HEALTH CARE Discharge Condition: FAIR Reason for Admission: Acute on chronic respiratory failure Consultations: Pulmonary:Dr Palomares - Problems (1) Acute and chronic respiratory failure Onset Date: 06/17/17 Current Visit: No Status: Acute Qualifiers: Respiratory failure complication: hypoxia and hypercapnia Qualified Code(s) : J96.21 - Acute and chronic respiratory failure with hypoxia; J96.22 - Acute and chronic respiratory failure with hypercapnia (2) COPD (chronic obstructive pulmonary disease) Onset Date: 09/09/16 Current Visit: No Status: Acute Qualifiers: COPD type: COPD with acute exacerbation Qualified Code(s): J44.1 - Chronic obstructive pulmonary disease with (acute) exacerbation (3) Nicotine dependence Onset Date: 11/19/17 Current Visit: No Status: Chronic Qualifiers: Nicotine product type: cigarettes Substance use status: uncomplicated Qualified Code(s): F17.210 - Nicotine dependence, cigarettes, uncomplicated (4) Fall Current Visit: Yes Status: Acute Brief History of Present Illness: 52 year old lady with history of COPD on home oxygen,CHF unknown EF who was brought in by EMS with complaints of Shortness of breath.Patient is a very poor historian and unable to answer most of my questions.However per history obtained from family members patient was noticed to have been increasingly short of breath, with associated increased cough above her baseline.Her oxygen saturation was obtained and was said to be in the low 80's for this EMS was called Of note patient is usually cared for by her sister who recently had a shoulder surgery.Patient has had to care for herself for a few days now and as such has been non compliant with her treatment and has continued to smoke on a daily basis. Hospital Course: Patient was admitted to the floor.She was placed on bipap and her home medications resumed including diamox.Pulmonary was consulted.WE discussed the option of placement with the patient which she refused at this time.Stating that she would like to go home and think about it some time. She was seen and evaluated by PT and cleared for discharge. Her breathing improved.Patient was stable and at her baseline by the time of discharge Vital Signs/Physical Exam: Temp Pulse Resp BP Pulse Ox 98.5 F 120 H 19 142/72 H 89 L 11/20/17 12:00 11/20/17 16:00 11/20/17 16:00 11/20/17 12:00 11/20/17 12:00 General: Alert, In no apparent distress, Oriented x3 HEENT: Atraumatic, Normocephalic, PERRLA Respiratory: Diminished (at bases) Cardiovascular: Normal pulses, Regular rate/rhythm, Normal S1 S2, Edema Gastrointestinal: Normal bowel sounds, Soft and benign, W/out hepatosplenomegaly , No tenderness, No masses, No rebound, No guarding Integumentary: Rash(es), No ulcers Neurological: Sensation intact Laboratory Data at Discharge: WBC 3.1 K/uL (4.3-10.9) L D 11/19/17 04:43 Hgb 9.9 g/dL (12.0-15.0) L 11/19/17 04:43 Hct 32.3 % (36.0-45.0) L 11/19/17 04:43 Plt Count 247 K/uL (152-406) 11/19/17 04:43 PT 13.7 SECONDS (9.5-12.5) H 11/18/17 13:48 INR 1.16 11/18/17 13:48 APTT 26.7 SECONDS (24.3-36.9) 11/18/17 13:48 Sodium 130 mEq/L (135-145) L 11/20/17 08:30 Potassium 3.6 mEq/L (3.6-5.0) 11/20/17 08:30 BUN 11 mg/dL (6-20) 11/20/17 08:30 Creatinine 0.51 mg/dL (0.44-1.00) 11/20/17 08:30 Glucose 154 mg/dL (65-120) H 11/20/17 08:30 Phosphorus 3.9 mg/dL (2.5-4.3) 11/19/17 04:43 Magnesium 1.5 mg/dL (1.8-2.5) L 11/19/17 04:43 Total Bilirubin 0.3 mg/dL (0.3-1.2) 11/18/17 13:48 AST 19 IU/L (10-42) 11/18/17 13:48 ALT 15 IU/L (10-60) 11/18/17 13:48 Alkaline Phosphatase 73 IU/L (42-121) 11/18/17 13:48 B-Natriuretic Peptide 365 pg/ml (<=100) H 11/18/17 13:48 Home Medications: Albuterol Neb [Proventil 0.083% Neb Soln] 2.5 mg NEB Q3HP PRN amp 11/19/17 Ipratropium Neb [Atrovent*] 0.5 mg NEB [id number] amp 11/19/17 Prednisone [Deltasone*] 10 mg PO BID tab 11/19/17 Acetazolamide [Diamox*] 1 tab PO BID 11/20/17 Acetazolamide [Diamox*] 250 mg PO DAILY tab 11/20/17 Aspirin [Aspirin EC 81 MG] 1 tab PO DAILY 11/20/17 Bupropion HCl [Wellbutrin*] 100 mg PO BID 11/20/17 Bupropion HCl [Wellbutrin*] 100 mg PO BID tab 11/20/17 Hydrocodone 7.5/APAP 325 [[place] 7.5/325 mg*] 1 tab PO Q6H PRN tab 11/20/17 Hydrocodone Bit/Acetaminophen [Hydrocodon-Acetaminoph 7.5-325] 7.5 mg PO QID PRN 11/20/17 Roflumilast [Daliresp*] 1 tab PO DAILY 11/20/17 Roflumilast [Daliresp*] 500 mcg PO DAILY tablet 11/20/17 Spironolactone 50 mg PO DAILY 11/20/17 Spironolactone [Aldactone*] 50 mg PO DAILY tab 11/20/17 Patient Discharge Instructions: Return to ER with new or worsening symptoms Diet: AHA Activity: Ad ptaricia Followup: Bernard Mckeon MD [ACTIVE - CAN ADMIT] - 1 Week Physician Review: Patient Assessed, Agree with Above Assessment and Plan Time spent managing pt's care (in minutes): 30
[2017-11-21] MEDS ORDERED: ASPIRIN EC 81 MG TAB PO SCH (11:03)
== END 2017-11-20 18:46 | disposition home health service (06) | DRG 189 ==
LOC: ER 12:59 → ERHOLD 16:03 → 2ND 23:00
PROVIDERS: ADMIT Internal Medicine; ATTEND Internal Medicine
PROC: 5A09357 Assistance with Respiratory Ventilation, Less than 24 Consecutive Hours, Continuous Positive Airway Pressure (ICD-10-PCS; principal; 2017-11-18)
DX: J96.21 Acute and chronic respiratory failure with hypoxia (principal); J44.1 Chronic obstructive pulmonary disease with (acute) exacerbation; J96.22 Acute and chronic respiratory failure with hypercapnia; I25.10 Atherosclerotic heart disease of native coronary artery without angina pectoris; F17.210 Nicotine dependence, cigarettes, uncomplicated
CPT/HCPCS: 36415; 71045; 80048; 80076; 81001; 82550; 82553; 82805; 82962; 83735; 83880; 84100; 84484; 85025; 85610; 85730; 87040; 93005; 94640; 94660; 94760; 96365; 96366; 96372; 96375; 97163; 99285; J1120; J1650; J1940; J2920; J2930; J3475; J7512; J7605

== ENCOUNTER 2017-11-29 17:08 | Observation (INO) | payer OTHER ==
--- OUTSIDE RECORDS SUMMARY | 2017-11-29 17:11 | XMS REPORT ---
[...] End Status Dosage System Date Date AcetaZOLAMIDE [facility] [id number] 250 MG Oral Active TK 1 T PO BID Hydrocodone-Aceta [facility] 84663283911 10-325 MG Oral Active (Schedule minophen II Drug) TAKE 1 TABLET BY MOUTH FOUR TIMES DAILY BusPIRone HCl ND 15864905075 10 MG Orally October Active 1 tablet Twice a day 2017 MAGnesium-Oxide [facility] 12228754216 400 (241.3 Mg) Active TK 1 T PO MG Oral BID Ciclopirox ND 38178170886 8 % External Active RYAN AFFECTED NAILS QD FOR 48 WEEKS Metoprolol [facility] 06659727872 25 MG Oral Active TK 1 T PO Tartrate BID Dilt-XR [facility] 06676343737 180 MG Oral Active TK ONE C PO ONCE D IN THE MORNING Chantix Starting ND 49585211134 0.5 MG X 11 & 1 October Active as directed Month Joel MG X 42 Orally 2017 BuPROPion HCl [facility] 70977988703 100 MG Oral Active TK 1 T PO BID Fluconazole ND 80527812258 150 MG Oral Active TK 1 T PO ONCE 1 DOSE Betamethasone ND 06589600762 0.1 % External Active RYAN AA BID Valerate Potassium [facility] 80561080382 20 MEQ Oral Active TK 1 T PO Chloride ER QD Daliresp [facility] 39816234682 500 MCG Oral Active TK 1 T PO D Azithromycin [facility] 20236472441 500 MG Oral Active TK 1 T PO D FOR 5 DAYS Triamcinolone [facility] 09419749181 0.1 % External Active not defined Acetonide Spironolactone [facility] 78689468165 50 MG Oral Active TK 1 T PO QD Levofloxacin [facility] 42288357851 500 MG Oral Active TK 1 T PO D Furosemide [facility] 32443377383 40 MG Oral Active TK 1 T PO QD Aspirin Adult Low [facility] 88818154131 81 MG Orally Active 1 tablet Strength Once a day PredniSONE [facility] 25075841014 10 MG Oral Active TK 1 T PO QD Brovana [facility] 15739439098 15 MCG/2ML Active USE 2 ML Inhalation VIA NEBULIZER BID Diltiazem HCl [facility] 66646711262 120 MG Oral Active TK 1 T PO QD BEFORE MEALS Results No Known Results Summary Purpose eClinicalWorks Submission
[2017-11-29] MEDS ORDERED: ALBUTEROL 2.5 MG/3 ML NEB SOL ONE ×2 (18:33→19:20)
[2017-11-29] MEDS ORDERED: FAMOTIDINE 20 MG/2 ML VIAL IV ONE ×2 (18:33→19:30)
[2017-11-29] MEDS ORDERED: NA CHLORIDE 0.9% 1,000 ML ONE (18:33)
[2017-11-29] MEDS ORDERED: IPRATROPIUM BROM 0.5MG/2.5ML ONE ×2 (18:33→19:21)
[2017-11-29] MEDS ORDERED: METHYLPREDNISOLONE 125 MG INJ ONE ×2 (18:33→19:29)
[2017-11-29] MEDS ORDERED: PIPER/TAZO/NS 3.375gm 3.375 GM/100 ML BAG ONE (18:34)
[2017-11-29] MEDS ORDERED: TETANUS & DIPHTHERIA TOX,ADULT 0.5 ML VIAL ONE ×2 (18:34→19:30)
[2017-11-29 18:41] LABS: Absolute Lymphocytes (CBC) 0.9 K/uL (0.7-4.9); Eosinophils % 0.1 % (0-4.4)
[2017-11-29 18:46] LABS: Absolute Neutrophil 7.7 K/uL (1.8-8.0); Basophils % 0.9 % (0-1.3); Hematocrit 37.6 % (36.0-45.0); Lymphocytes % 9.4 % (15.3-44.8); MCH 28.4 pg (27.0-35.0); MCV 94.5 fL (80-100); RBC Red Blood Cell Count 3.98 M/uL (3.86-4.86)
--- NOTE | 2017-11-29 18:48 | EDPHYS ---
Physician Documentation [facility] Name: Eusebia Vila Age: 52 yrs Sex: Female : 1965 Arrival Date: 11/29/2017 Time: 17:11 Bed 5 Private MD: Lukasz Valdes E ED Physician Timbo Jack HPI: 11/29 17:33 This 52 yrs old Female presents to ER via Wheelchair with complaints of jason Laceration To Leg, Fall Injury. 17:33 The patient has a laceration related to: walking. The laceration(s) is(are) located on jason the left case. Onset: The symptoms/episode began/occurred 1 day(s) ago. Associated signs and symptoms: The patient has no apparent associated signs or symptoms. The patient has experienced similar episodes in the past, multiple times. Historical: - Allergies: 17:18 Codeine; la1 17:18 Levofloxacin; la1 - Home Meds: 20:29 acetazolamide 250 mg Oral tab 1 tab once daily [Active]; aspirin 81 mg Oral TbEC 1 tab tl2 once daily [Active]; Daliresp 500 mcg Oral tab 1 tab once daily [Active]; diltiazem HCl 120 mg Oral tab 1 tab 3 times per day [Active]; hydrocodone-acetaminophen 10-325 mg Oral tab 4 times a day for Pain [Active]; MagOx 400 mg Oral tab twice a day [Active]; prednisone 10 mg Oral tab once daily [Active]; spironolactone 50 mg Oral tab 1 tab once daily [Active]; - PMHx: 17:18 CAD; Cellulitis; CHF; COPD; Pneumonia; polycythemia vera; PVD; la1 - Immunization history:: Adult Immunizations up to date. - Social history:: Smoking status: Patient uses tobacco products, smokes one pack cigarettes per day. ROS: 17:35 Eyes: Negative for injury, pain, redness, and discharge, ENT: Negative for injury, jason pain, and discharge, Neck: Negative for injury, pain, and swelling, Abdomen/GI: Negative for abdominal pain, nausea, vomiting, diarrhea, and constipation, Back: Negative for injury and pain, : Negative for injury, bleeding, discharge, and swelling, Neuro: Negative for headache, weakness, numbness, tingling, and seizure, Psych: Negative for depression, anxiety, suicide ideation, homicidal ideation, and hallucinations, Allergy/Immunology: Negative for hives, rash, and allergies, Endocrine: Negative for neck swelling, polydipsia, polyuria, polyphagia, and marked weight changes. 17:35 Constitutional: Positive for malaise. 17:35 Respiratory: Positive for cough, shortness of breath, wheezing, expiratory. 17:35 MS/extremity: Positive for laceration, of the left case. Exam: 17:35 Constitutional: This is a well developed, well nourished patient who is awake, alert, jason and in no acute distress. Head/Face: Normocephalic, atraumatic. Eyes: Pupils equal round and reactive to light, extra-ocular motions intact. Lids and lashes normal. Conjunctiva and sclera are non-icteric and not injected. Cornea within normal limits. Periorbital areas with no swelling, redness, or edema. Neck: Trachea midline, no thyromegaly or masses palpated, and no cervical lymphadenopathy. Supple, full range of motion without nuchal rigidity, or vertebral point tenderness. No Meningismus. Chest/axilla: Normal chest wall appearance and motion. Nontender with no deformity. No lesions are appreciated. Abdomen/GI: Soft, non-tender, with normal bowel sounds. No distension or tympany. No guarding or rebound. No evidence of tenderness throughout. Back: No spinal tenderness. No costovertebral tenderness. Full range of motion. Female : Normal external genitalia. Skin: Warm, dry with normal turgor. Normal color with no rashes, no lesions, and no evidence of cellulitis. MS/ Extremity: Pulses equal, no cyanosis. Neurovascular intact. Full, normal range of motion. Neuro: Awake and alert, GCS 15, oriented to person, place, time, and situation. Cranial nerves II-XII grossly intact. Motor strength 5/5 in all extremities. Sensory grossly intact. Cerebellar exam normal. Normal gait. Psych: Awake, alert, with orientation to person, place and time. Behavior, mood, and affect are within normal limits. 17:35 Cardiovascular: Rate: normal, Rhythm: regular, Pulses: Pulses are 4+ in bilateral radial, brachial, femoral, popliteal, posterior tibial and and dorsalis pedis arteries.. Heart sounds: normal, murmur, not appreciated, rub, not appreciated, Edema: 4+ edema to level of left midcalf, left ankle, left foot, right midcalf, right ankle and right foot, JVD: is not appreciated. Vital Signs: 17:18 BP 155 / 55; Pulse 81; Resp 19; Temp 97.4; Pulse Ox 70% on 4 lpm NC; Weight 50.8 kg; la1 20:16 BP 131 / 63; Pulse 82; Resp 22; Pulse Ox 89% on 4 lpm NC; tl2 MDM: 17:23 Patient medically screened. [facility] 17:35 Data reviewed: vital signs, nurses notes, lab test result(s), EKG, radiologic studies, jason plain films. 11/29 17:33 Order name: Basic Metabolic Panel [facility] 11/29 17:33 Order name: BNP; Complete Time: 19:15 [facility] 11/29 17:33 Order name: CBC with Diff; Complete Time: 19:15 [facility] 11/29 17:33 Order name: Ckmb [facility] 11/29 17:33 Order name: CPK [facility] 11/29 17:33 Order name: LFT's [facility] 11/29 17:33 Order name: Magnesium [facility] 11/29 17:33 Order name: PT-INR; Complete Time: 19:15 [facility] 11/29 17:33 Order name: Ptt, Activated; Complete Time: 19:15 [facility] 11/29 17:33 Order name: Troponin (emerg Dept Use Only); Complete Time: 19:15 [facility] 11/29 17:33 Order name: Type And Screen; Complete Time: 19:15 [facility] 11/29 17:33 Order name: Blood Culture Adult (2) [facility] 11/29 18:59 Order name: Basic Metabolic Panel [facility] 11/29 18:59 Order name: Basic Metabolic Panel [facility] 11/29 17:33 Order name: XRAY Chest (1 view) [facility] 11/29 17:33 Order name: Tib Fib Left XRAY [facility] 11/29 18:59 Order name: BNP B-Type Natriuretic Peptide [facility] 11/29 18:59 Order name: BNP B-Type Natriuretic Peptide [facility] 11/29 18:59 Order name: CBC with Automated Diff [facility] 11/29 18:59 Order name: CBC with Automated Diff [facility] 11/29 18:59 Order name: Troponin I [facility] 11/29 18:59 Order name: Troponin I [facility] 11/29 18:59 Order name: Troponin I [facility] 11/29 18:59 Order name: Chest Single View [facility] 11/29 18:59 Order name: Chest Single View [facility] 11/29 19:17 Order name: ABO/RH no charge; Complete Time: 19:18 [facility] 11/29 19:21 Order name: BIPAP [facility] 11/29 17:33 Order name: EKG; Complete Time: 17:34 [facility] 11/29 17:33 Order name: Cardiac monitoring; Complete Time: 17:46 [facility] 11/29 17:33 Order name: EKG - Nurse/Tech; Complete Time: 18:42 [facility] 11/29 17:33 Order name: IV Saline Lock; Complete Time: 17:46 [facility] 11/29 17:33 Order name: Labs collected and sent; Complete Time: 17:46 [facility] 11/29 17:33 Order name: O2 Per Protocol; Complete Time: 17:46 [facility] 11/29 17:33 Order name: O2 Sat Monitoring; Complete Time: 17:46 [facility] 11/29 17:33 Order name: Wound dressing; Complete Time: 17:45 [facility] 11/29 18:59 Order name: CONS Physician Consult [facility] 11/29 18:59 Order name: CONS Physician Consult [facility] 11/29 18:59 Order name: Low Sodium [facility] 11/29 18:59 Order name: EKG Electrocardiogram [facility] 11/29 18:59 Order name: EKG Electrocardiogram [facility] Administered Medications: 18:48 Not Given (Duplicate Order): NS 0.9% 1000 ml IV at 75 ml/hr continuous [facility] 19:22 Drug: Albuterol - atroVENT (3:1) (2.5 mg - 0.5 mg) 3 ml Route: Nebulizer; tl2 20:00 Follow up: Response: No adverse reaction; Marked relief of symptoms tl2 20:10 Drug: Tetanus-Diphtheria Toxoid Adult 0.5 ml {[employer]stry [employer]: [employer]. Exp: tl2 09/26/2019. Lot #: [id number]. } Route: IM; Site: right deltoid; 21:00 Follow up: Response: No adverse reaction tl2 20:10 Drug: Zosyn 3.375 grams Route: IVPB; Infused Over: 60 mins; Site: right upper arm; tl2 20:10 Drug: SOLU-Medrol 2 mg/kg Route: IVP; Site: right upper arm; tl2 21:00 Follow up: Response: No adverse reaction tl2 20:11 Drug: Pepcid 20 mg Route: IVP; Site: right upper arm; tl2 21:00 Follow up: Response: No adverse reaction tl2 20:11 Drug: Lasix 40 mg Route: IVP; Site: right upper arm; tl2 21:00 Follow up: Response: No adverse reaction tl2 21:01 Not Given (sent upstairs with pt): Magnesium Sulfate 1 grams IVPB once over 1 hrs tl2 21:03 Drug: Silvadene Cream 1 % 1 application Route: Topical; Site: affected area; tl2 21:03 Not Given (Patient Refused): Nicoderm CQ 21 mg/24 hr 21 mg Transdermal once tl2 Disposition: 11/29/17 18:48 Hospitalization ordered by Jesús Chávez for Inpatient Admission. Preliminary diagnosis are Laceration without foreign body, left lower leg, Chronic obstructive pulmonary disease with (acute) exacerbation, Unspecified combined systolic (congestive) and diastolic (congestive) heart failure, Hypoxemia, Hypomagnesemia. - Bed requested for Telemetry/MedSurg (Inpatient). - Status is Inpatient Admission. tl2 - Condition is Fair. - Problem is new. - Symptoms have improved. UTI on Admission? No Signatures: Dispatcher [employer] EDTibmo Larry MD MD cha Attema, Lee RN RN la1 Beverley Huff RN RN Herminia Garza RN RN tl2 Corrections: (The following items were deleted from the chart) 19:20 18:48 Hospitalization Ordered by Jesús Chávez MD for Inpatient Admission. Preliminary jason diagnosis is Laceration without foreign body, left lower leg; Chronic obstructive pulmonary disease with (acute) exacerbation; Unspecified combined systolic (congestive) and diastolic (congestive) heart failure; Hypoxemia. Bed requested for Telemetry/MedSurg (Inpatient). Status is Inpatient Admission. Condition is Fair. Problem is new. Symptoms have improved. UTI on Admission? No. jason 19:32 19:20 11/29/2017 18:48 Hospitalization Ordered by Jesús Cháevz MD for Inpatient cg Admission. Preliminary diagnosis is Laceration without foreign body, left lower leg; Chronic obstructive pulmonary disease with (acute) exacerbation; Unspecified combined systolic (congestive) and diastolic (congestive) heart failure; Hypoxemia; Hypomagnesemia. Bed requested for Telemetry/MedSurg (Inpatient). Status is Inpatient Admission. Condition is Fair. Problem is new. Symptoms have improved. UTI on Admission? No. jason 21:09 19:32 11/29/2017 18:48 Hospitalization Ordered by Jesús Chávez MD for Inpatient tl2 Admission. Preliminary diagnosis is Laceration without foreign body, left lower leg; Chronic obstructive pulmonary disease with (acute) exacerbation; Unspecified combined systolic (congestive) and diastolic (congestive) heart failure; Hypoxemia; Hypomagnesemia. Bed requested for Telemetry/MedSurg (Inpatient). Status is Inpatient Admission. Condition is Fair. Problem is new. Symptoms have improved. UTI on Admission? No.
--- NOTE | 2017-11-29 18:48 | ER ---
Nurse's Notes [facility] Name: Eusebia Vila Age: 52 yrs Sex: Female : 1965 Arrival Date: 11/29/2017 Time: 17:11 Bed 5 Private MD: Lukasz Valdes E Diagnosis: Laceration without foreign body, left lower leg;Chronic obstructive pulmonary disease with (acute) exacerbation;Unspecified combined systolic (congestive) and diastolic (congestive) heart failure;Hypoxemia;Hypomagnesemia Presentation: 11/29 17:16 Presenting complaint: Patient states: I fell out of my recliner yesterday at about 2pm la1 and cut my left case. Large laceration noted to left case without bleeding. Pt reports worse SOB than usual. Transition of care: patient was not received from another setting of care. Complicating Factors: There are no complicating factors for this patient. Onset of symptoms was November 29, 2017. Initial Sepsis Screen: Does the patient meet any 2 criteria? No. Patient's initial sepsis screen is negative. Does the patient have a suspected source of infection? No. Patient's initial sepsis screen is negative. Care prior to arrival: None. 17:16 Method Of Arrival: Wheelchair la1 17:16 Acuity: CLAUDIA 2 la1 Historical: - Allergies: 17:18 Codeine; la1 17:18 Levofloxacin; la1 - Home Meds: 20:29 acetazolamide 250 mg Oral tab 1 tab once daily [Active]; aspirin 81 mg Oral TbEC 1 tab tl2 once daily [Active]; Daliresp 500 mcg Oral tab 1 tab once daily [Active]; diltiazem HCl 120 mg Oral tab 1 tab 3 times per day [Active]; hydrocodone-acetaminophen 10-325 mg Oral tab 4 times a day for Pain [Active]; MagOx 400 mg Oral tab twice a day [Active]; prednisone 10 mg Oral tab once daily [Active]; spironolactone 50 mg Oral tab 1 tab once daily [Active]; - PMHx: 17:18 CAD; Cellulitis; CHF; COPD; Pneumonia; polycythemia vera; PVD; la1 - Immunization history:: Adult Immunizations up to date. - Social history:: Smoking status: Patient uses tobacco products, smokes one pack cigarettes per day. Screenin:39 Abuse screen: Denies threats or abuse. Denies injuries from another. Nutritional iw screening: No deficits noted. Tuberculosis screening: No symptoms or risk factors identified. Fall Risk IV access (20 points). Assessment: 17:20 General: Appears in no apparent distress. comfortable, well groomed, well developed, sg well nourished, Behavior is calm, cooperative, appropriate for age. Pain: Complains of pain in left case Pain does not radiate. Quality of pain is described as throbbing. Neuro: Level of Consciousness is awake, alert, obeys commands, Speech is normal, Facial symmetry appears normal. Cardiovascular: Heart tones S1 S2 present Capillary refill is brisk in bilateral fingers Patient's skin is warm and dry. Chest pain is denied. Respiratory: Airway is patent Respiratory effort is even, unlabored, Respiratory pattern is regular, symmetrical, Breath sounds are coarse Breath sounds are diminished in left posterior lower lobe and right posterior lower lobe. GI: No signs and/or symptoms were reported involving the gastrointestinal system. : No signs and/or symptoms were reported regarding the genitourinary system. EENT: No signs and/or symptoms were reported regarding the EENT system. Derm: Skin is pink, warm \\T\\ dry. Musculoskeletal: Circulation, motion, and sensation intact. Range of motion: intact in all extremities, Swelling present in right leg and left leg. Injury Description: Laceration sustained to left case is contaminated, 2.6 to 7.5 cm long, not bleeding, is bleeding a small amount. 18:20 Reassessment: Patient appears in no apparent distress at this time. Patient and/or sg family updated on plan of care and expected duration. Pain level reassessed. Patient is alert, oriented x 3, equal unlabored respirations, skin warm/dry/pink. 18:40 Reassessment: Went to give pt medications. Pt stated that she didn't want to do them at this time. Pt stated she wanted to go outside and smoke. Informed pt the risks of smoking with oxygen on. Informed pt we are a non-smoking facility. Pt yelled "I don't care, give me my oxygen. I don't want meds right now.". 18:50 Reassessment: pt doughmaker wheeling pt outside to go smoke, pt educated on o2 safety sg and smoking cessation, pt informed this campus is a smoke free campus, pt and pt doughmaker stated understanding, pt doughmaker continues to wheel pt outside in hospital wheelchair. Dominique MONTOYAcharge operator nurse notified. Vital Signs: 17:18 BP 155 / 55; Pulse 81; Resp 19; Temp 97.4; Pulse Ox 70% on 4 lpm NC; Weight 50.8 kg; la1 20:16 BP 131 / 63; Pulse 82; Resp 22; Pulse Ox 89% on 4 lpm NC; tl2 ED Course: 17:11 Patient arrived in ED. mr 17:11 Lukasz Valdes MD is Private Physician. mr 17:17 Triage completed. la1 17:18 Arm band placed on left wrist. la1 17:23 Timbo Jack MD is Attending Physician. jason 17:42 Dressings: Kerlix X 1; left case non-adherent dressing x 2 left case. Wound care: to sg laceration located on left case was cleaned with with Betadine, Chlorahexadine, NS solution, Patient tolerated well. 18:13 XRAY Chest (1 view) In Process Unspecified. EDMS 18:13 Tib Fib Left XRAY In Process Unspecified. EDMS 18:33 Inserted saline lock: 22 gauge in left antecubital area, using aseptic technique. Blood iw collected. 18:34 Initial lab(s) drawn, by me, sent to lab. First set of blood cultures drawn. iw 18:39 Karthikeyan Hastings RN is Primary Nurse. sg 18:45 Jesús Chávez MD is Hospitalizing Provider. jason 19:27 Primary Nurse role handed off by Karthikeyan Hastings RN rg2 19:45 Inserted 18 gauge 10 cm midline to right upper basilic vein on first attempt. Line with fc good blood return and flushes well. 21:08 Herminia Garza RN is Primary Nurse. 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 Exp: tl2 09/26/2019. Lot #: [id number]. } Route: IM; Site: right deltoid; 21:00 Follow up: Response: No adverse reaction tl2 20:10 Drug: Zosyn 3.375 grams Route: IVPB; Infused Over: 60 mins; Site: right upper arm; tl2 20:10 Drug: SOLU-Medrol 2 mg/kg Route: IVP; Site: right upper arm; tl2 21:00 Follow up: Response: No adverse reaction tl2 20:11 Drug: Pepcid 20 mg Route: IVP; Site: right upper arm; tl2 21:00 Follow up: Response: No adverse reaction tl2 20:11 Drug: Lasix 40 mg Route: IVP; Site: right upper arm; tl2 21:00 Follow up: Response: No adverse reaction tl2 21:01 Not Given (sent upstairs with pt): Magnesium Sulfate 1 grams IVPB once over 1 hrs tl2 21:03 Drug: Silvadene Cream 1 % 1 application Route: Topical; Site: affected area; tl2 21:03 Not Given (Patient Refused): Nicoderm CQ 21 mg/24 hr 21 mg Transdermal once tl2 Outcome: 18:48 Decision to Hospitalize by Provider. jason 21:09 Patient left the ED. tl2 Signatures: Dispatcher [employer] EDMS July Cheng rg2 Destiny Aquino RN RN sv Gay, Steven RN Timbo Barker MD MD cha Rivera, Maria mr WisamchazGinette, RN Dominique Morrison RN RN iw Attema, Lee, RN RN nvHerminia Calderon RN RN tl2
[2017-11-29] MEDS ORDERED: ONDANSETRON 4 MG/2 ML VIAL IV PRN (18:55)
[2017-11-29] MEDS ORDERED: ALBUTEROL 2.5 MG/3 ML NEB SOL NEB PRN (18:55)
[2017-11-29] MEDS ORDERED: ACETAMINOPHEN 500 MG TAB PO PRN (18:55)
[2017-11-29] MEDS ORDERED: IPRATROPIUM BROM 0.5MG/2.5ML NEB PRN (18:55)
[2017-11-29 19:00] LABS: Glucose Level 118 mg/dL (65-120)
[2017-11-29 19:06] LABS: ALT/SGPT 14 IU/L (10-60); AST/SGOT 13 IU/L (10-42); Albumin 3.9 g/dL (3.2-5.5); Alkaline Phosphatase 77 IU/L (42-121); BUN Blood Urea Nitrogen 10 mg/dL (6-20); Bilirubin Direct 0.1 mg/dL (0-0.2); Bilirubin Total 0.2 mg/dL (0.3-1.2); Creatine Phosphokinase 29 IU/L (22-269); Protein, Total 7.2 g/dL (6.0-8.3)
[2017-11-29 19:09] LABS: Magnesium 1.4 mg/dL (1.8-2.5); Sodium Level 137 mEq/L (135-145)
[2017-11-29 19:21] LABS: Bicarbonate 45 mEq/L (21-31)
[2017-11-29] MEDS ORDERED: MAGNESIUM SULFATE 1 gm IVPB 1 GM/100 ML BAG IV ONE (19:29)
[2017-11-29] MEDS ORDERED: FUROSEMIDE 40 MG/4 ML VIAL ONE (19:29)
[2017-11-29] MEDS ORDERED: SILVER SULFADIAZINE 1% 25 GM TOP ONE (19:39)
[2017-11-29 19:40] LABS: CKMB Creatine Kinase MB 3.7 ng/ml (0.3-4.0)
--- NOTE | 2017-11-29 19:55 | RAD REPORT ---
EXAM DESCRIPTION: RAD - Chest Single View - 11/29/2017 6:13 pm CLINICAL HISTORY: Shortness of breath COMPARISON: November 18, October 21 TECHNIQUE: AP portable chest image was obtained 1759 hours . FINDINGS: Lungs are extensively fibrotic as a baseline. Interstitial markings are increased over the October comparison. There is pronounced enlargement of the cardiac silhouette from chamber enlargement or pericardial effusion. Lung parenchymal opacification in the medial right base is similar to prior imaging. The trachea is midline upper lobe vasculature is mildly prominent. Degenerative and probabl y old traumatic changes to the proximal right humerus. No acute aortic findings suspected. IMPRESSION: Mild to moderate CHF/ volume overload appearing slightly worse than the November 18 study.
--- NOTE | 2017-11-29 19:56 | RAD REPORT ---
EXAM DESCRIPTION: RAD - Tib Fib Left - 11/29/2017 6:13 pm CLINICAL HISTORY: Fall, leg pain COMPARISON: None. FINDINGS: No fracture is identified. There is no dislocation or periosteal reaction noted. No acute or destructive bone process seen. The 2 centimeter sclerotic area at the tibial plafond is probably a bone infarct. Aggressive bone lesion is unlikely. Adjacent cortex is normal in thickness. Soft tissues are edematous. Baseline for the patient is unknown. No air or foreign body. IMPRESSION: No fracture or acute bone finding. Soft tissue edema without air or foreign body.
[2017-11-29] MEDS: SILVER SULFADIAZINE 1% 25 GM TOP SCH (21:00)
[2017-11-29 21:52] LABS: Urine Appearance CLEAR; Urine Bilirubin NEGATIVE (NEG); Urine Blood NEGATIVE (NEG); Urine Color YELLOW; Urine Glucose NEGATIVE (NEG); Urine Protein NEGATIVE (NEG); Urine Urobilinogen 0.2 mg/dL (0.2-1.0); Urine pH 5.5 (5.0-7.0)
[2017-11-29 21:54] LABS: Urine Microscopic Reflex NO UMIC
[2017-11-29] MEDS ORDERED: PIPER/TAZO/NS 3.375gm 6.750 GM/200 ML BAG ONE (22:36)
[2017-11-29] MEDS: PIPER/TAZO/NS 3.375gm 3.375 GM/100 ML BAG IVPB SCH (23:25)
[2017-11-29] MEDS: METHYLPREDNISOLONE 40 MG INJ IV SCH (23:25)
[2017-11-30 03:44] VITALS: BMI 23.5
[2017-11-30] MEDS ORDERED: PIPERACIL/TAZO 3.375 GM VIAL IV ONE (05:01)
[2017-11-30] MEDS ORDERED: NA CHLORIDE 0.9% 100 ML ONE (05:05)
[2017-11-30] MEDS: PIPER/TAZO/NS 3.375gm 3.375 GM/100 ML BAG IVPB SCH (05:12)
[2017-11-30] MEDS: METHYLPREDNISOLONE 40 MG INJ IV SCH ×2 (05:12→12:00)
[2017-11-30 06:43] LABS: Absolute Lymphocytes (CBC) 0.2 K/uL (0.7-4.9); Absolute Neutrophil 5.8 K/uL (1.8-8.0); Basophils % 0.3 % (0-1.3); Hematocrit 33.3 % (36.0-45.0); Lymphocytes % 2.8 % (15.3-44.8); MCH 28.9 pg (27.0-35.0); MPV 7.8 fL (7.6-11.3); Monocytes % 0.6 % (3.3-12.3); RBC Red Blood Cell Count 3.58 M/uL (3.86-4.86)
[2017-11-30 07:38] LABS: BUN Blood Urea Nitrogen 12 mg/dL (6-20); Glucose Level 169 mg/dL (65-120); Potassium 4.2 mEq/L (3.6-5.0); Sodium Level 135 mEq/L (135-145)
[2017-11-30 07:40] LABS: Bicarbonate 49 mEq/L (21-31)
[2017-11-30 07:52] LABS: Blood Morphology Comment NOT SEEN (NOT SEEN); Platelet Estimate ADEQ; Urine White Blood Cell Casts OK
[2017-11-30] MEDS: SILVER SULFADIAZINE 1% 25 GM TOP SCH (09:00)
[2017-11-30] MEDS ORDERED: FUROSEMIDE 20 MG/ 2ML VIAL IV SCH (09:00)
[2017-11-30 09:11] VITALS: O2SAT 90
--- NOTE | 2017-11-30 10:34 | P.SSS ---
Patient History Date of Service: 11/30/17 Primary Care Provider: Saira Reason for admission: Copd exacerbation History of Present Illness: Patient is a patient of mine. The patient is still smoking a pack a day. She has late stage copd. The patient has been getting more and more short of breath. The patient also had a cut on her leg which was not healing. She came to the ER for these problems. She is was wheezing at that time. She is chronically steroid dependent. Allergies codeine Allergy (Verified 11/18/17 23:38) Shortness of breath levofloxacin [From Levaquin] Adverse Reaction (Intermediate, Verified 11/18/17 23:38) hallucinations morphine Adverse Reaction (Verified 11/18/17 23:38) Itching/Hives/Rash Home Medications: Acetazolamide [Diamox*] 250 mg PO DAILY tab 11/20/17 Aspirin [Aspirin EC 81 MG] 1 tab PO DAILY 11/20/17 Hydrocodone 7.5/APAP 325 [Cumby 7.5/325 mg*] 1 tab PO Q6H PRN tab 11/20/17 Roflumilast [Daliresp*] 500 mcg PO DAILY tablet 11/20/17 Spironolactone [Aldactone*] 50 mg PO DAILY tab 11/20/17 Bacitracin Zinc [Bacitracin Top Oint] 15 appl TOP BID #1 tube 11/30/17 Diltiazem Tab [Cardizem Tab*] 120 mg PO TID 11/30/17 Magnesium Oxide [Mag 0X*] 400 mg PO BID 11/30/17 Prednisone [Deltasone*] 10 mg PO DAILY #30 tab 11/30/17 - Past Medical/Surgical History Diabetic: No -: Diastolic dysfunction -: COPD -: Emphysema -: chronic back pain-Sees Dr Ruff -: CAD -: CHF -: 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 -: anxiety -: Morphine pain pump -: Cardiomegaly -: Atrial flutter -: back -: cholecystectomy -: Hysterectomy -: Morphine pump mid right side of stomach - in place -: morphine pump with additional medications - Family History Sister -: Cancer Brother -: Cancer Father -: Cancer Mother -: Lung disease, Cancer - Social History Smoking Status: Current every day smoker Alcohol use: No CD- Drugs: No Caffeine use: Yes Place of Residence: Home Review of Systems 10-point ROS is otherwise unremarkable Respiratory: Shortness of Breath Integumentary: Other (non healing traumatic wound on the left anterior case. She has chronic ischemic skin changes) Physical Examination - Vital Signs Temperature: 97 F Blood Pressure: 140/84 Pulse: 88 Respirations: 18 Pulse Ox (%): 93 - Physical Exam General: Alert, In no apparent distress HEENT: Atraumatic, PERRLA, Mucous membr. moist/pink, EOMI, Sclerae nonicteric Neck: Supple, 2+ carotid pulse no bruit, No LAD, Without JVD or thyroid abnormality Respiratory: Diminished, Rhonchi/gurgles Cardiovascular: Regular rate/rhythm, Normal S1 S2 Gastrointestinal: Normal bowel sounds, No tenderness Musculoskeletal: No tenderness Integumentary: Erythema, Other (traumatic skin wound. She has dry granulation tissue at the base.) Neurological: Normal gait, Normal speech, Normal strength at 5/5 x4 extr, Normal tone, Normal affect Lymphatics: No axilla or inguinal lymphadenopathy - Studies Laboratory Data (last 24 hrs) 11/29/17 18:20: PT 11.8, INR 1.00, APTT 25.9 11/29/17 18:20: WBC 9.7 D, Hgb 11.3 L, Hct 37.6 D, Plt Count 353 D 11/29/17 18:20: B-Natriuretic Peptide 245 H 11/29/17 18:20: Sodium 137, Potassium 4.0, BUN 10, Creatinine 0.45, Glucose 118 , Magnesium 1.4 L*, Total Bilirubin 0.2 L, AST 13, ALT 14, Alkaline Phosphatase 77 - Diagnosis (Problem(s)) (1) Acute and chronic respiratory failure ([id number]) Onset Date: 09/19/16 Current Visit: No Status: Acute Plan: Patient is at her baseline. She has all of her equipment at home. Will discharge her on prednisone. She also has her nebulizer and her dalirep. Non compliance and smoking cessation are an issue. She may need a home health company for help with some of her equipment. She has stated that she has difficulty remembering how to use her cpap. Qualifiers: Respiratory failure complication: hypoxia and hypercapnia Qualified Code(s) : J96.21 - Acute and chronic respiratory failure with hypoxia; J96.22 - Acute and chronic respiratory failure with hypercapnia (2) Peripheral vascular disease Current Visit: Yes Status: Acute Plan: She has chronic skin changes. Will need arterial studies. This is most likely why she is not healing the wound. Which was present on her 11/19 admission. Will refer her to the wound care center. Were we can work up her disease (3) Nicotine dependence Onset Date: 11/19/17 Current Visit: No Status: Chronic Plan: Have discussed this before in the office. She has not made any decrease in her smoking. Is still a pack a day. Have encouraged her to continue weaning Qualifiers: Nicotine product type: cigarettes Substance use status: uncomplicated Qualified Code(s): F17.210 - Nicotine dependence, cigarettes, uncomplicated (4) Non-healing wound of lower extremity Current Visit: Yes Status: Acute Plan: Patient has been having trouble with this. Refer the patient to the wound care center. Will keep her on Bacitricin. Till she is seen there Qualifiers: Encounter type: subsequent encounter Laterality: left Qualified Code(s): S81.802D - Unspecified open wound, left lower leg, subsequent encounter Treatment Summary: Patient presented to the hospital with shortness of breath. She has smoking. Recieved steroids and breathing treatments in the ER. She is returning to her baseline. The patient would like to go home today, and have some crawfish. She has her nebulizer, is chronically on steroids. Has oxygen and a cpap. - Disposition Disposition: ROUTINE DISCHARGE Condition: GOOD Diet: Regular Activity: Ad patricia Physician Review: Patient Assessed, Agree with Above Assessment and Plan Critical Care: No Time Spent Managing Pts Care (In Minutes): 50
--- NOTE | 2017-11-30 12:32 | RAD REPORT ---
EXAM DESCRIPTION: RAD - Chest Single View - 11/30/2017 6:23 am CLINICAL HISTORY: Chest pain. COMPARISON: 11/29/2017, 11/18/2017 FINDINGS: Portable technique limits examination quality. Patient is rotated, limiting assessment. Mild interstitial pulmonary edema with bilateral pleural eff usions persist. The heart is prominent in size. No displaced fractures. IMPRESSION: Yhhe-dv-lylipvpp CHF/ volume overload pattern appears essentially stable.
[2017-11-30] MEDS ORDERED: PIPER/TAZO/NS 3.375gm 3.375 GM/100 ML BAG IVPB SCH (14:00)
--- NOTE | 2017-11-30 15:24 | EKG ---
Test Date: 2017-11-29 Test Time: 18:07:05 Production Troubleshooter: SWG MEASUREMENT RESULTS: Intervals: Rate: 88 NV: 124 QRSD: 90 QT: 364 QTc: 440 Crumrod: P: 68 NV: 124 QRS: 91 T: 75 INTERPRETIVE STATEMENTS: Sinus rhythm with premature atrial complexes Rightward axis ST elevation, consider early repolarization, pericarditis, or injury Abnormal ECG Compared to ECG 11/18/2017 13:26:25 Atrial premature complex(es) now present ST (T wave) deviation now present Sinus tachycardia no longer present Atrial abnormality no longer present Electronically Signed On 11-30-17 15:23:28 CDT by Alec Olivares
[2017-11-30 18:07] VITALS: BP 128/60; TEMP 97.4
--- NOTE | 2017-12-01 11:45 | DS ---
Date of Discharge: 11/30/2017 Hospital Course: The patient is a 52-year-old, white female who looks much older than that, presente d emergency room with open wound of her left leg of 1 day duration with a history significant for chr onic heart failure and COPD. She has been changes in her legs for a year's duration. She smokes a p ack a day. Does not drink. She was on Levaquin with codeine. Her history is that she was in bed, r eached over, hit her leg on a bucket that she keeps near her bed and hit her left leg, this happened 2 days ago. One day ago, she had been through the ER. She is 4 feet 11 inches. On examination, she has an open wound about 10 cm long and about 2-3 cm wide, surrounding discolorati on and edema of the leg, seen over that foot. The laceration on the lateral aspect near the knee. Assessment: Open wound, leg. Plan: Probably just wound care with Silvadene cream eventually some unna boots for venous disease. She will need probably surgery for skin grafts, I do not think we can directly close at this time. KAMI/RAMSES Voice ID: [id number] Report ID: [id number]
== END 2017-11-30 14:24 | disposition home or self-care (01) ==
LOC: ER 17:08 → INTOOBSV 18:50 → ERHOLD 18:50 → 4TH 19:58
PROVIDERS: ADMIT Internal Medicine; ATTEND Internal Medicine
PROC: 5A09357 Assistance with Respiratory Ventilation, Less than 24 Consecutive Hours, Continuous Positive Airway Pressure (ICD-10-PCS; principal; 2017-11-29)
DX: J96.21 Acute and chronic respiratory failure with hypoxia (principal); J44.1 Chronic obstructive pulmonary disease with (acute) exacerbation; J96.22 Acute and chronic respiratory failure with hypercapnia; S81.802D Unspecified open wound, left lower leg, subsequent encounter; I25.10 Atherosclerotic heart disease of native coronary artery without angina pectoris; I48.92 Unspecified atrial flutter; I73.9 Peripheral vascular disease, unspecified; F17.210 Nicotine dependence, cigarettes, uncomplicated
CPT/HCPCS: 36415; 71045 ×2; 73590; 80048 ×2; 80076; 81003; 82550; 82553; 83735; 83880 ×2; 84484 ×3; 85025 ×2; 85610; 85730; 86850; 86900; 86901; 87040 ×2; 87070; 87077; 87186; 87205; 90714; 93005; 94640; 94660 ×2; 96374; 96375; 99284; G0378 ×2; J1940; J2543 ×3; J2920 ×3; J2930 ×2; J3475; J7030

== ENCOUNTER 2018-01-17 15:50 | Inpatient (IN) | payer OTHER ==
--- OUTSIDE RECORDS SUMMARY | 2018-01-17 15:52 | XMS REPORT ---
:1965 Author Organization [employer] Care Team Providers Name Role Phone Jesús Chávez Provider Role Unavailable Allergies No Known Allergies Problems Problem Type Condition Code Onset Dates Condition Status Assessment Wound of lower extremity, S81.809D Active unspecified laterality, subsequent encounter Assessment Occasional tremors R25.1 Active Problem Tobacco abuse counseling Z71.6 Active Problem Chronic pain syndrome G89.4 Active Problem Anxiety F41.9 Active Assessment Chronic pain syndrome G89.4 Active Assessment Tobacco abuse counseling Z71.6 Active Problem Mixed simple and mucopurulent J41.8 Active chronic bronchitis Medications Medication Code Code Instructions Start End Status Dosage System Date Date BusPIRone HCl [facility] 74582431260 10 MG Orally October Active 1 tablet Twice a day 2017 Hydrocodone-Aceta [facility] 45936747274 10-325 MG Oral Active (Schedule minophen II Drug) TAKE 1 TABLET BY MOUTH FOUR TIMES DAILY AcetaZOLAMIDE ND 74291199554 250 MG Oral Active TK 1 T PO BID Brovana [facility] 73309829042 15 MCG/2ML Active USE 2 ML Inhalation VIA NEBULIZER BID Ciclopirox ND 27713817264 8 % External Active RYAN AFFECTED NAILS QD FOR 48 WEEKS Potassium ND 24812914367 20 MEQ Oral Active TK 1 T PO Chloride ER QD Furosemide ND 81446506994 40 MG Oral Active TK 1 T PO QD Gabapentin ND 55371647055 100 MG Orally January 07, Active 1 capsule Twice a day 2017 BuPROPion HCl ND 93984596827 100 MG Oral Active TK 1 T PO BID Aspirin Adult Low ND 58190526233 81 MG Orally Active 1 tablet Strength Once a day Betamethasone ND 13189368446 0.1 % External Active RAYN AA BID Valerate Metoprolol ND 92485020060 25 MG Oral Active TK 1 T PO Tartrate BID Daliresp ND 81984082127 500 MCG Oral Active TK 1 T PO D Azithromycin ND 80318762599 500 MG Oral Active TK 1 T PO D FOR 5 DAYS Dilt-XR [facility] 03956412221 180 MG Oral Active TK ONE C PO ONCE D IN THE MORNING Spironolactone [facility] 15903760813 50 MG Oral Active TK 1 T PO QD Levofloxacin [facility] 53198299600 500 MG Oral Active TK 1 T PO D Triamcinolone [facility] 49462524812 0.1 % External Active not defined Acetonide Fluconazole [facility] 26280409620 150 MG Oral Active TK 1 T PO ONCE 1 DOSE MAGnesium-Oxide [facility] 23445741241 400 (241.3 Mg) Active TK 1 T PO MG Oral BID PredniSONE [facility] 81160028199 10 MG Oral Active TK 1 T PO QD Diltiazem HCl [facility] 31737700297 120 MG Oral Active TK 1 T PO QD BEFORE MEALS Results No Known Results Summary Purpose [employer]Works Submission
--- OUTSIDE RECORDS SUMMARY | 2018-01-17 15:52 | XMS REPORT ---
:1965 Author Organization [employer] Care Team Providers Name Role Phone Jesús Chávez Provider Role Unavailable Allergies No Known Allergies Problems Problem Type Condition Code Onset Dates Condition Status Problem Tobacco abuse counseling Z71.6 Active Problem Chronic pain syndrome G89.4 Active Problem Anxiety F41.9 Active Problem Mixed simple and mucopurulent chronic J41.8 Active bronchitis Medications No Known Medications Results No Known Results Summary Purpose [employer] Submission
--- OUTSIDE RECORDS SUMMARY | 2018-01-17 15:52 | XMS REPORT ---
[...] End Status Dosage System Date Date AcetaZOLAMIDE [facility] 56995116219 250 MG Oral Active TK 1 T PO BID Hydrocodone-Aceta [facility] 24826186952 10-325 MG Oral Active (Schedule minophen II Drug) TAKE 1 TABLET BY MOUTH FOUR TIMES DAILY BusPIRone HCl ND 20348257999 10 MG Orally October Active 1 tablet Twice a day 2017 MAGnesium-Oxide [facility] 76274712547 400 (241.3 Mg) Active TK 1 T PO MG Oral BID Ciclopirox ND 45092123596 8 % External Active RYAN AFFECTED NAILS QD FOR 48 WEEKS Metoprolol [facility] 47039383877 25 MG Oral Active TK 1 T PO Tartrate BID Dilt-XR [facility] 49877931170 180 MG Oral Active TK ONE C PO ONCE D IN THE MORNING Chantix Starting ND 85785297581 0.5 MG X 11 & 1 October Active as directed Month Joel MG X 42 Orally 2017 BuPROPion HCl [facility] 90244422993 100 MG Oral Active TK 1 T PO BID Fluconazole ND 59183860942 150 MG Oral Active TK 1 T PO ONCE 1 DOSE Betamethasone ND 36729040841 0.1 % External Active RYAN AA BID Valerate Potassium [facility] 91565364279 20 MEQ Oral Active TK 1 T PO Chloride ER QD Daliresp [facility] 75285508800 500 MCG Oral Active TK 1 T PO D Azithromycin [facility] 84942121479 500 MG Oral Active TK 1 T PO D FOR 5 DAYS Triamcinolone [facility] 17690603457 0.1 % External Active not defined Acetonide Spironolactone [facility] 48872918505 50 MG Oral Active TK 1 T PO QD Levofloxacin [facility] 90158495250 500 MG Oral Active TK 1 T PO D Furosemide [facility] 98376864618 40 MG Oral Active TK 1 T PO QD Aspirin Adult Low [facility] 55235708755 81 MG Orally Active 1 tablet Strength Once a day PredniSONE [facility] 85971592647 10 MG Oral Active TK 1 T PO QD Brovana [facility] 00390911632 15 MCG/2ML Active USE 2 ML Inhalation VIA NEBULIZER BID Diltiazem HCl [facility] 26993452981 120 MG Oral Active TK 1 T PO QD BEFORE MEALS Results No Known Results Summary Purpose [employer]ClinicalWorks Submission
[2018-01-17] MEDS ORDERED: METHYLPREDNISOLONE 125 MG INJ ONE (16:51)
[2018-01-17] MEDS ORDERED: IPRATROPIUM BROM 0.5MG/2.5ML ONE (16:51)
[2018-01-17] MEDS ORDERED: LEVALBUTEROL 1.25 MG/3 ML NEB ONE (16:51)
[2018-01-17 16:52] LABS: Absolute Lymphocytes (CBC) 0.6 K/uL (0.7-4.9); Absolute Monocytes 0.7 K/uL (0.1-1.3); Absolute Neutrophil 6.1 K/uL (1.8-8.0); Basophils % 0.9 % (0-1.3); Hematocrit 32.9 % (36.0-45.0); Lymphocytes % 7.6 % (15.3-44.8); MCH 25.9 pg (27.0-35.0); MCV 91.4 fL (80-100); MPV 7.9 fL (7.6-11.3); Monocytes % 9.2 % (3.3-12.3)
[2018-01-17 17:40] LABS: BUN Blood Urea Nitrogen 9 mg/dL (7-18); Glucose Level 90 mg/dL (74-106); NT PRO-BNP 2453 pg/mL (<125); Potassium 4.3 mmol/L (3.5-5.1); Sodium Level 135 mmol/L (136-145)
[2018-01-17 17:47] LABS: Bicarbonate 51 mmol/L (21-32)
[2018-01-17] MEDS ORDERED: Magnesium Sulfate 2gm IVPB 2 G/50 ML BAG IV ONE (17:49)
--- NOTE | 2018-01-17 17:54 | RAD REPORT ---
EXAM DESCRIPTION: RAD - Chest Single View - 01/17/2018 5:41 pm CLINICAL HISTORY: Fall, shortness of breath COMPARISON: November 30, November 29 TECHNIQUE: AP portable chest image was obtained 1729 hours . FINDINGS: Significant baseline fibrotic change present. Interstitial edema and infiltrate easily mas ked. Cardiomegaly is present. Mild vascular engorgement seen. Bilateral pleural effusions are present . No pneumothorax identifiable. Patchy right upper lobe opacities are present. No gross bony abnormal ity seen. No acute aortic findings suspected. IMPRESSION: Very extensive chronic interstitial lung disease easily masking diffuse interstitial ashlie ma and infiltrate. Focal opacities in the right upper lobe are present. The medial superior finding is similar to May ex amination and probably vascular summation. Cardiomegaly and mild pleural effusions. Mild to moderate CHF/volume overload findings are evident.
--- NOTE | 2018-01-17 18:02 | ER ---
Nurse's Notes [facility] Name: Eusebia Vila Age: 52 yrs Sex: Female : 1965 Arrival Date: 01/17/2018 Time: 16:02 Bed 4 Private MD: Diagnosis: Chronic obstructive pulmonary disease with (acute) exacerbation;Hypoxemia;Dyspnea, unspecified;Pulmonary edema Presentation: 01/17 15:48 Presenting complaint: EMS states: pt's sister called EMS for SOB. Pt states that she sv fell yesterday. Pt was 84% on RA. Transition of care: patient was not received from another setting of care. Onset of symptoms was January 17, 2018. Risk Assessment: Do you want to hurt yourself or someone else? Patient reports no desire to harm self or others. Care prior to arrival: Medication(s) given: Albuterol Neb x 2, Atrovent Neb x 2. 15:48 Method Of Arrival: EMS: [facility] sv 15:48 Acuity: CLAUDIA 3 sv 18:22 Initial Sepsis Screen: Does the patient meet any 2 criteria? RR > 20 per min. Yes Does sv the patient have a suspected source of infection? No. Patient's initial sepsis screen is negative. Triage Assessment: 15:50 General: Appears uncomfortable, Behavior is cooperative, anxious. Pain: Complains of sv pain in face, right leg and left leg Pain currently is 8 out of 10 on a pain scale. Pain began unknown Is continuous. EENT: No signs and/or symptoms were reported regarding the EENT system. Neuro: Level of Consciousness is awake, alert, obeys commands, Oriented to person, place, situation, Speech is normal, Reports she's forgetful and that she fell yesterday onto the top of her head. c/o head pain and BLE pain.. Cardiovascular: Pulses are 2+ in right radial artery and left radial artery Edema is 4+ to left midcalf, left ankle, left foot, left toes, right midcalf, right ankle, right foot and right toes Rhythm is sinus tachycardia. Respiratory: Reports shortness of breath at rest on exertion Respiratory effort is even, labored, Respiratory pattern is symmetrical, tachypnea Onset: The symptoms/episode began/occurred at an unknown time. the patient has moderate shortness of breath. GI: No signs and/or symptoms were reported involving the gastrointestinal system. : No signs and/or symptoms were reported regarding the genitourinary system. Derm: Skin is pale, dry, flaky skin Redness noted to BLE. Musculoskeletal: No signs and/or symptoms reported regarding the musculoskeletal system. PHYSICIAN CHIEF OF PATHOLOGY: 19:44 LMP N/A - Post-menopause bb Historical: - Allergies: 16:13 Codeine; sv 16:13 Levofloxacin; sv - Home Meds: 16:13 acetazolamide 250 mg Oral tab 1 tab once daily [Active]; aspirin 81 mg Oral TbEC 1 tab sv once daily [Active]; Daliresp 500 mcg Oral tab 1 tab once daily [Active]; diltiazem HCl 120 mg Oral tab 1 tab 3 times per day [Active]; hydrocodone-acetaminophen 10-325 mg Oral tab 4 times a day for Pain [Active]; MagOx 400 mg Oral tab twice a day [Active]; prednisone 10 mg Oral tab once daily [Active]; spironolactone 50 mg Oral tab 1 tab once daily [Active]; - PMHx: 16:13 CAD; Cellulitis; CHF; COPD; Pneumonia; polycythemia vera; PVD; sv - Immunization history:: Adult Immunizations up to date. - Social history:: Smoking status: Patient uses tobacco products. - Family history:: not pertinent. - Ebola Screening: : No symptoms or risks identified at this time. - Hospitalizations: : No recent hospitalization is reported. Screenin:00 Fall Risk Fall in past 12 months (25 points). Secondary diagnosis (15 points) impaired sv mobility, IV access (20 points). Ambulatory Aid- None/Bed Rest/Nurse Assist (0 pts). Gait- Normal/Bed Rest/Wheelchair (0 pts) Mental Status- Oriented to own ability (0 pts). Total Ortega Fall Scale indicates High Risk Score (45 or more points). Fall prevention measures have been instituted. Side Rails Up X 2 Placed Close to Nursing Station Frequent Obs/Assessments Occuring As available patient and family educated on Fall Prevention Program and Strategies. 16:14 Abuse screen: Denies threats or abuse. Denies injuries from another. Nutritional sv screening: No deficits noted. Tuberculosis screening: No symptoms or risk factors identified. Assessment: 16:00 Reassessment: Pt placed on bedpan. sv 17:00 Reassessment: Pt repeating that she fell yesterday and doesn't remember that she just sv told me. Informed Dr Salazar. 17:01 Reassessment: Pt placed on bedpan. sv 17:50 Reassessment: O2 sat 28%, went into the room. Pt removed her venturi mask and was sv laying in front of her. Re educated pt to keep her oxygen on her. Educated on the importance of keeping her oxygen on. Pt placed back on the Venturi mask at 50% and O2 sat up to 88%. 18:22 Reassessment: Patient appears in no apparent distress at this time. Patient and/or sv family updated on plan of care and expected duration. Pain level reassessed. 18:49 Reassessment: Jan RT at bedside to placed BIPAP. sv 19:11 Reassessment: pt sitting on stretcher, resp even, Venti-mask in place, IV site intact, bb patent, king catheter in place to bedside drain pt awaiting transfer to room. 19:15 Respiratory: Airway is patent Respiratory effort is labored, Breath sounds with bb crackles bilaterally. Breath sounds are diminished bilaterally. 19:43 Reassessment: no change in pt condition report called to Cary RN for room 404. bb 20:19 Reassessment: pt was on phone with sister, pt removed Venturi mask and O2 sats dropped bb into the 70s RT called to bedside pt placed on non-rebreather until sats 90% then replaced with Venturi mask. Dr Chávez notified and pt will be admitted to ICU. 20:56 Reassessment: pt sister at bedside, pt is A\T\O x 3, resp even, Venturi mask in place bb bilateral breath sounds with crackles, IV site intact, king catheter in place to bedside drain. Vital Signs: 15:56 BP 129 / 64; Pulse 104; Resp 24; Temp 98.3(A); Pulse Ox 100% on Nebulizer Mask; sv 16:50 Pulse Ox 62% on 3 lpm NC; sv 17:01 Pulse Ox 100% on Nebulizer Mask; sv 17:27 BP 138 / 68; Pulse 107; Resp 25; Pulse Ox 90% on 15% Venturi mask; sv 18:40 BP 124 / 63; Pulse 103; Resp 24; Pulse Ox 81% on 15% Venturi mask; sv 19:15 BP 135 / 69; Pulse 106; Resp 20 S; Pulse Ox 72% on 15% Venturi mask; bb 20:18 BP 129 / 65; Pulse 108; Resp 24 S; Pulse Ox 85% on 15% Venturi mask; bb 20:57 BP 126 / 66; Pulse 107 RA; Resp 23 S; Pulse Ox 87% on 15% Venturi mask; bb 16:[address] Salazar, medications ordered. sv 18:40 RT paged to apply BIPAP. sv ED Course: 15:55 Arm band placed on right wrist. sv 16:02 Patient arrived in ED. ss 16:03 Mehrdad Salazar MD is Attending Physician. rn 16:08 Destiny Aquino, LINDSAY is Primary Nurse. sv 16:11 Triage completed. sv 16:14 Patient has correct armband on for positive identification. Bed in low position. Call sv light in reach. Side rails up X2. lock stitch channeler on. Pulse ox on. NIBP on. Door closed. Warm blanket given. Head of bed elevated. 16:30 Initial lab(s) drawn, by me, sent to lab. First set of blood cultures drawn by me. sv Inserted saline lock: 22 gauge in left antecubital area, using aseptic technique. ,using aseptic technique. diffusics Blood collected. Flushed left antecubital with 5 ml normal saline. 16:40 Second set of blood cultures drawn by me. sv 17:12 EKG done, by ED staff, reviewed by Mehrdad Salazar MD. dh3 17:26 King cath inserted, using sterile technique, 16 Fr., by me, balloon inflated, to sv gravity drainage, returned mylene urine. 17:41 XRAY CXR (1 view) In Process Unspecified. EDMS 17:46 Notified ED physician of a critical lab result(s). chloride-82, CO2-51, magnesium-1.0. sv 18:01 Jesús Chávez MD is Hospitalizing Provider. rn 18:15 Patient moved back from CT. sv 19:18 Report given to Verito MONTOYA and Kathie MONTOYA. sv 19:20 Primary Nurse role handed off by Destiny Aquino, RN sv 19:44 No provider procedures requiring assistance completed. Patient admitted, IV remains in bb place. 19:48 returned 700ml urine removed from king bag.. jp3 Administered Medications: 16:58 Drug: SOLU-Medrol 125 mg Route: IVP; Site: left antecubital; sv 17:15 Follow up: Response: No adverse reaction sv 16:58 Drug: Xopenex 1.25 mg Route: Inhalation; sv 16:58 Drug: AtroVENT Aerosol 0.5 mg Route: Inhalation; sv 18:17 Drug: Magnesium Sulfate 2 grams Route: IVPB; Infused Over: 2 hrs; Site: left sv antecubital; 19:12 Follow up: IV Status: Completed infusion; IV Intake: 100ml bb 18:36 Drug: Lasix 40 mg Route: IVP; Site: left antecubital; sv 18:38 Follow up: Response: No adverse reaction sv Intake: 19:12 IV: 100ml; Total: 100ml. bb Output: 21:40 Urine: 700ml (King); Total: 700ml. bb 21:40 Urine: 475ml (King); Total: 1175ml. bb Outcome: 18:02 Decision to Hospitalize by Provider. rn 19:44 Admitted to Tele accompanied by tech, via stretcher, room 404, with oxygen, with chart, bb Report called to Cary MONTOYA 19:44 Condition: improved 19:44 Instructed on the need for admit. 22:00 Patient left the ED. bb Signatures: Dispatcher [employer] EDDestiny Joe RN Kathie Schofield RN Mehrdad Hernandez MD MD rn Smirch, Shelby, RN RN ss Herrera, Deanna 3 Abhi Gomez jp3 Corrections: (The following items were deleted from the chart) 19:13 19:11 Reassessment: pt sitting on stretcher, resp even, Venti-mask in place, IV site bb intact, patent. bb
--- NOTE | 2018-01-17 18:03 | EDPHYS ---
Physician Documentation [facility] Name: Eusebia Vila Age: 52 yrs Sex: Female : 1965 Arrival Date: 01/17/2018 Time: 16:02 Bed 4 Private MD: ED Physician Mehrdad Salazar HPI: 01/17 16:08 This 52 yrs old Female presents to ER via Unassigned with complaints of rn Shortness Of Breath. 16:08 The patient has shortness of breath at rest. Onset: The symptoms/episode began/occurred rn at an unknown time. Duration: The symptoms are continuous. The patient's shortness of breath. Severity of symptoms: At their worst the symptoms were moderate in the emergency department the symptoms have improved. The patient has experienced similar episodes in the past. The patient has not recently seen a physician. 16:08 Reports sister called 911 because increased sob and fell yesterday, from seated rn position, no LOC, doesn't feel like broke anything, remembers all events. + cough, no fever. . 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 LMP N/A - Post-menopause bb Historical: - Allergies: 16:13 Codeine; sv 16:13 Levofloxacin; sv - Home Meds: 16:13 acetazolamide 250 mg Oral tab 1 tab once daily [Active]; aspirin 81 mg Oral TbEC 1 tab sv once daily [Active]; Daliresp 500 mcg Oral tab 1 tab once daily [Active]; diltiazem HCl 120 mg Oral tab 1 tab 3 times per day [Active]; hydrocodone-acetaminophen 10-325 mg Oral tab 4 times a day for Pain [Active]; MagOx 400 mg Oral tab twice a day [Active]; prednisone 10 mg Oral tab once daily [Active]; spironolactone 50 mg Oral tab 1 tab once daily [Active]; - PMHx: 16:13 CAD; Cellulitis; CHF; COPD; Pneumonia; polycythemia vera; PVD; sv - Immunization history:: Adult Immunizations up to date. - Social history:: Smoking status: Patient uses tobacco products. - Family history:: not pertinent. - Ebola Screening: : No symptoms or risks identified at this time. - Hospitalizations: : No recent hospitalization is reported. ROS: 16:08 Constitutional: Negative for fever, chills, and weight loss, Eyes: Negative for injury, rn pain, redness, and discharge, Neck: Negative for injury, pain, and swelling, Cardiovascular: Negative for chest pain, palpitations, and edema, Respiratory: + sob and cough Abdomen/GI: Negative for abdominal pain, nausea, vomiting, diarrhea, and constipation, MS/Extremity: Negative for injury and deformity, Skin: + rash to lower ext Neuro: + generalized weakness Exam: 16:08 Constitutional: This is a well developed, well nourished patient who is awake, alert, rn remains in kyphotic state Head/Face: Normocephalic, atraumatic. Eyes: Pupils equal round and reactive to light, extra-ocular motions intact. Lids and lashes normal. Conjunctiva and sclera are non-icteric and not injected. Cornea within normal limits. Periorbital areas with no swelling, redness, or edema. Neck: Trachea midline, no thyromegaly or masses palpated, and no cervical lymphadenopathy. Supple, full range of motion without nuchal rigidity, or vertebral point tenderness. No Meningismus. Cardiovascular: tachycardic, regular, no murmur Respiratory: + mild tachypnea without retractions, + diffuse exp wheezing Abdomen/GI: Soft, non-tender, with normal bowel sounds. No distension or tympany. No guarding or rebound. No evidence of tenderness throughout. MS/ Extremity: Pulses equal, no cyanosis. Neurovascular intact. Equal circumference, + bilateral erythema to lower extremities, no fluctuance Neuro: Awake and alert, GCS 15, oriented to person, place, time, and situation. Cranial nerves II-XII grossly intact. Motor strength 5/5 in all extremities. Sensory grossly intact. Vital Signs: 15:56 BP 129 / 64; Pulse 104; Resp 24; Temp 98.3(A); Pulse Ox 100% on Nebulizer Mask; sv 16:50 Pulse Ox 62% on 3 lpm NC; sv 17:01 Pulse Ox 100% on Nebulizer Mask; sv 17:27 BP 138 / 68; Pulse 107; Resp 25; Pulse Ox 90% on 15% Venturi mask; sv 18:40 BP 124 / 63; Pulse 103; Resp 24; Pulse Ox 81% on 15% Venturi mask; sv 19:15 BP 135 / 69; Pulse 106; Resp 20 S; Pulse Ox 72% on 15% Venturi mask; bb 20:18 BP 129 / 65; Pulse 108; Resp 24 S; Pulse Ox 85% on 15% Venturi mask; bb 20:57 BP 126 / 66; Pulse 107 RA; Resp 23 S; Pulse Ox 87% on 15% Venturi mask; bb 16:[address] Salazar, medications ordered. sv 18:40 RT paged to apply BIPAP. sv MDM: 16:03 Patient medically screened. rn 18:00 Differential diagnosis: CHF exacerbation, Chronic Obstructive Pulmonary Disease rn pneumonia, Pneumothorax pulmonary edema, reactive airway disease. Data reviewed: vital signs, nurses notes, lab test result(s), EKG, radiologic studies, plain films, and as a result, I will admit patient. Counseling: I had a detailed discussion with the patient and/or guardian regarding: the historical points, exam findings, and any diagnostic results supporting the discharge/admit diagnosis, lab results, radiology results, the need for further work-up and treatment in the hospital. Response to treatment: the patient's symptoms have mildly improved after treatment, and as a result, I will admit patient. Admission orders: after a detailed discussion of the patient's condition and case, the admit orders are written by me. ED course: Admitted patient to Dr. Chávez, admitted for COPD/CHF. . 01/17 16:06 Order name: Blood Culture Adult (2) rn 01/17 16:06 Order name: BMP; Complete Time: 17:57 rn 01/17 16:06 Order name: CBC with Diff rn 01/17 16:06 Order name: Magnesium; Complete Time: 17:57 rn 01/17 16:06 Order name: NT PRO-BNP; Complete Time: 17:57 rn 01/17 16:06 Order name: Troponin (emerg Dept Use Only); Complete Time: 17:57 rn 01/17 16:06 Order name: XRAY CXR (1 view); Complete Time: 17:57 rn 01/17 16:42 Order name: CT Head Brain wo Cont rn 01/17 17:01 Order name: CBC Smear Scan EDMS 01/17 16:06 Order name: EKG; Complete Time: 16:07 rn 01/17 16:06 Order name: Cardiac monitoring; Complete Time: 16:09 rn 01/17 16:06 Order name: EKG - Nurse/Tech; Complete Time: 17:13 rn 01/17 16:06 Order name: IV Saline Lock; Complete Time: 16:59 rn 01/17 16:06 Order name: Labs collected and sent; Complete Time: 16:59 rn 01/17 16:06 Order name: O2 Per Protocol; Complete Time: 16: rn 01/17 16:06 Order name: O2 Sat Monitoring; Complete Time: 16:09 rn Administered Medications: 16:58 Drug: SOLU-Medrol 125 mg Route: IVP; Site: left antecubital; sv 17:15 Follow up: Response: No adverse reaction sv 16:58 Drug: Xopenex 1.25 mg Route: Inhalation; sv 16:58 Drug: AtroVENT Aerosol 0.5 mg Route: Inhalation; sv 18:17 Drug: Magnesium Sulfate 2 grams Route: IVPB; Infused Over: 2 hrs; Site: left sv antecubital; 19:12 Follow up: IV Status: Completed infusion; IV Intake: 100ml bb 18:36 Drug: Lasix 40 mg Route: IVP; Site: left antecubital; sv 18:38 Follow up: Response: No adverse reaction sv Disposition: 01/17/18 18:02 Hospitalization ordered by Jesús Chávez for Inpatient Admission. Preliminary diagnosis are Chronic obstructive pulmonary disease with (acute) exacerbation, Hypoxemia, Dyspnea, unspecified, Pulmonary edema. - Bed requested for Intensive Care Unit. - Status is Inpatient Admission. bb - Condition is Stable. - Problem is an acute exacerbation. - Symptoms have improved. UTI on Admission? No Signatures: Dispatcher [employer] EDMS Peggy Burr RN RN kl Verde, Stephanie, RN RN sv Chretien, Felicia, RN RN fc Ballard, Brenda, RN RN bb Nieto, Roman, MD MD rn Martinez, Eric em1 Leola Leslie RN RN df Corrections: (The following items were deleted from the chart) 19:00 18:02 Hospitalization Ordered by Jesús Chávez MD for Inpatient Admission. Preliminary em1 diagnosis is Chronic obstructive pulmonary disease with (acute) exacerbation; Hypoxemia; Dyspnea, unspecified; Pulmonary edema. Bed requested for Telemetry/MedSurg (Inpatient). Status is Inpatient Admission. Condition is Stable. Problem is an acute exacerbation. Symptoms have improved. UTI on Admission? No. rn 19:08 19:00 01/17/2018 18:02 Hospitalization Ordered by Jesús Chávez MD for Inpatient df Admission. Preliminary diagnosis is Chronic obstructive pulmonary disease with (acute) exacerbation; Hypoxemia; Dyspnea, unspecified; Pulmonary edema. Bed requested for Telemetry/MedSurg (Inpatient). Status is Inpatient Admission. Condition is Stable. Problem is an acute exacerbation. Symptoms have improved. UTI on Admission? No. em1 20:36 19:08 01/17/2018 18:02 Hospitalization Ordered by Jesús Chávez MD for Inpatient kl Admission. Preliminary diagnosis is Chronic obstructive pulmonary disease with (acute) exacerbation; Hypoxemia; Dyspnea, unspecified; Pulmonary edema. Bed requested for Telemetry/MedSurg (Inpatient). Status is Inpatient Admission. Condition is Stable. Problem is an acute exacerbation. Symptoms have improved. UTI on Admission? No. df 20:46 20:36 01/17/2018 18:02 Hospitalization Ordered by Jesús Chávez MD for Inpatient fc Admission. Preliminary diagnosis is Chronic obstructive pulmonary disease with (acute) exacerbation; Hypoxemia; Dyspnea, unspecified; Pulmonary edema. Bed requested for Intensive Care Unit. Status is Inpatient Admission. Condition is Stable. Problem is an acute exacerbation. Symptoms have improved. UTI on Admission? No. kl 22:00 20:46 01/17/2018 18:02 Hospitalization Ordered by Jesús Chávez MD for Inpatient bb Admission. Preliminary diagnosis is Chronic obstructive pulmonary disease with (acute) exacerbation; Hypoxemia; Dyspnea, unspecified; Pulmonary edema. Bed requested for Intensive Care Unit. Status is Inpatient Admission. Condition is Stable. Problem is an acute exacerbation. Symptoms have improved. UTI on Admission? No. fc
[2018-01-17] MEDS ORDERED: FUROSEMIDE 40 MG/4 ML VIAL ONE (18:28)
[2018-01-17 18:57] LABS: Anisocytosis 1+; Blood Morphology Comment NOTED (NOT SEEN); Platelet Estimate ADEQ; Stomatocytes 2+; Urine White Blood Cell Casts OK
[2018-01-17] MEDS ORDERED: IPRATROPIUM BROM 0.5MG/2.5ML NEB PRN (22:48)
[2018-01-17] MEDS ORDERED: ALBUTEROL 2.5 MG/3 ML NEB SOL NEB PRN (22:48)
[2018-01-17] MEDS ORDERED: ONDANSETRON 4 MG/2 ML VIAL IV PRN (22:48)
[2018-01-17] MEDS ORDERED: ACETAMINOPHEN 500 MG TAB PO PRN (22:48)
--- NOTE | 2018-01-17 22:57 | EKG ---
Test Date: 2018-01-17 Test Time: 17:06:25 Community Liaison Officer: MARKY MEASUREMENT RESULTS: Intervals: Rate: 104 NC: 128 QRSD: 80 QT: 354 QTc: 465 [place]: P: 73 NC: 128 QRS: 93 T: 72 INTERPRETIVE STATEMENTS: Sinus tachycardia with premature atrial complexes Rightward axis Abnormal ECG Compared to ECG 11/29/2017 18:07:05 Sinus rhythm no longer present Electronically Signed On 01-17-18 22:57:13 CDT by Jered Biswas
[2018-01-18] MEDS: METHYLPREDNISOLONE 40 MG INJ IV SCH ×3 (01:00→18:08)
[2018-01-18 05:59] LABS: BUN Blood Urea Nitrogen 10 mg/dL (7-18); Glucose Level 152 mg/dL (74-106); NT PRO-BNP 4108 pg/mL (<125); Potassium 3.7 mmol/L (3.5-5.1); Sodium Level 130 mmol/L (136-145)
[2018-01-18 06:00] LABS: Bicarbonate 55 mmol/L (21-32)
[2018-01-18 06:34] LABS: Absolute Lymphocytes (CBC) 0.1 K/uL (0.7-4.9); Absolute Neutrophil 3.8 K/uL (1.8-8.0); Basophils % 0.3 % (0-1.3); Eosinophils % 0.1 % (0-4.4); Hematocrit 29.6 % (36.0-45.0); Lymphocytes % 3.4 % (15.3-44.8); MCH 26.6 pg (27.0-35.0); MCV 88.5 fL (80-100); MPV 7.9 fL (7.6-11.3); Monocytes % 0.7 % (3.3-12.3); RBC Red Blood Cell Count 3.34 M/uL (3.86-4.86)
[2018-01-18 06:55] LABS: Magnesium 1.3 mg/dL (1.8-2.4)
[2018-01-18] MEDS: NA CHLORIDE 0.9% 1,000 ML IV SCH ×2 (07:51→22:23)
[2018-01-18] MEDS ORDERED: Magnesium Sulfate 2gm IVPB 2 G/50 ML BAG IV ONE (08:00)
[2018-01-18] MEDS: IPRATROPIUM BROM 0.5MG/2.5ML NEB SCH ×3 (08:30→19:19)
[2018-01-18] MEDS: ARFORMOTEROL TARTRATE 15 MCG/2 ML VIAL.NEB IH SCH ×2 (08:30→19:18)
[2018-01-18] MEDS: acetaZOLAMIDE 250 MG TAB PO SCH (08:42)
[2018-01-18] MEDS: ASPIRIN EC 81 MG TAB PO SCH (08:42)
[2018-01-18] MEDS: GABAPENTIN 100 MG CAP PO SCH ×2 (08:42→20:45)
[2018-01-18] MEDS: ROFLUMILAST 500 MCG TABLET PO SCH (08:42)
[2018-01-18] MEDS ORDERED: DILTIAZEM HCL 60 MG TAB PO SCH (09:00)
[2018-01-18] MEDS ORDERED: ASPIRIN EC 81 MG TAB PO SCH (09:00)
--- NOTE | 2018-01-18 10:19 | P.HP ---
Certification for Inpatient Patient admitted to: Inpatient With expected LOS: >2 Midnights Patient will require the following post-hospital care: None Practitioner: I am a practitioner with admitting privileges, knowledge of patient current condition, hospital course, and medical plan of care. Services: Services provided to patient in accordance with Admission requirements found in Title 42 Section 412.3 of the Code of Federal Regulations Patient History Date of Service: 01/18/18 Primary Care Provider: Saira Reason for admission: Copd exacerbation History of Present Illness: Patient is a regular patient of [facility]. Has missed the last 2 appointments in the wound care center. She has chronic respiratory failure with copd. She continues to smoke. Has not weaned down from a pack a day. She comes in with shortness of breath. She is always weaning. However her labs show increased co2 from her baseline of 30-35. She had a pulse ox in the 70%. She was admitted to the ICU. She is well known to Dr. Hughes. Allergies codeine Allergy (Verified 11/18/17 23:38) Shortness of breath levofloxacin [From Levaquin] Adverse Reaction (Intermediate, Verified 11/18/17 23:38) hallucinations morphine Adverse Reaction (Verified 11/18/17 23:38) Itching/Hives/Rash Home Medications: Aspirin [Aspirin EC 81 MG] 1 tab PO DAILY 11/20/17 Roflumilast [Daliresp*] 500 mcg PO DAILY tablet 11/20/17 Spironolactone [Aldactone*] 50 mg PO DAILY tab 11/20/17 acetaZOLAMIDE [Diamox*] 250 mg PO DAILY tab 11/20/17 Diltiazem Tab [Cardizem Tab*] 120 mg PO DAILY 11/30/17 Magnesium Oxide [Mag 0X*] 400 mg PO BID 11/30/17 predniSONE [Deltasone*] 10 mg PO DAILY #30 tab 11/30/17 Arformoterol Tartrate [Brovana] 1 puff IH BID 01/17/18 Gabapentin [Neurontin*] 1 tab PO BID 01/17/18 Hydrocodone/Acetaminophen [Hydrocodone-Acetamin 7.5-325] 7.5 - 325 tab PO TID - Past Medical/Surgical History Has patient received pneumonia vaccine in the past: Yes Diabetic: No -: Diastolic dysfunction -: COPD -: CHF -: CAD -: Cellulitis -: Pneumonia -: PVD -: anxiety -: Morphine pain pump -: Cardiomegaly -: Atrial flutter -: back -: cholecystectomy -: Hysterectomy -: Morphine pump mid right side of stomach - in place -: morphine pump with additional medications - Family History Sister -: Cancer Brother -: Cancer Father -: Cancer Mother -: Lung disease, Cancer - Social History Smoking Status: Current every day smoker Alcohol use: No CD- Drugs: No Caffeine use: Yes Place of Residence: Home Review of Systems 10-point ROS is otherwise unremarkable Respiratory: SOB with Excertion, Wheezing Physical Examination - Vital Signs Temperature: 97.8 F Blood Pressure: 121/64 Pulse: 93 Respirations: 21 Pulse Ox (%): 92 - Physical Exam General: Alert, In no apparent distress HEENT: Atraumatic, PERRLA, Mucous membr. moist/pink, EOMI, Sclerae nonicteric Neck: Supple, 2+ carotid pulse no bruit, No LAD, Without JVD or thyroid abnormality Respiratory: Diminished, Expiratory wheezes, Inspiratory wheezes Cardiovascular: Regular rate/rhythm, Normal S1 S2 Gastrointestinal: Normal bowel sounds, No tenderness Musculoskeletal: No tenderness Integumentary: No rashes, Venous stasis ulcer (on both anterior lower legs. Are stable from last examination) Neurological: Normal gait, Normal speech, Normal strength at 5/5 x4 extr, Normal tone, Normal affect Lymphatics: No axilla or inguinal lymphadenopathy - Studies Laboratory Data (last 24 hrs) 01/17/18 16:30: WBC 7.4, Hgb 9.3 L, Hct 32.9 L, Plt Count 304 01/17/18 16:30: Sodium 135 L, Potassium 4.3, BUN 9, Creatinine 0.40 L, Glucose 90, Magnesium 1.0 L* Microbiology Data (last 24 hrs): 01/17/18 16:30 Blood - Blood Anaerobic Blood Culture - Final 01/17/18 16:40 Blood - Blood Anaerobic Blood Culture - Final Assessment and Plan - Problems (Diagnosis) (1) Acute and chronic respiratory failure Onset Date: 06/17/17 Current Visit: No Status: Acute Plan: Continue steroid. She is on a bipap. She is difficulty to pin down on her code status. States she does not want intubation. However when told that means we will let her pass away if her lungs deteriorate. She then states she does not want to and will consent to intubation. Will make her a full code. Qualifiers: Respiratory failure complication: hypoxia and hypercapnia (2) Non-healing wound of lower extremity Current Visit: No Status: Acute Plan: Stable. Will restart santyl Qualifiers: Encounter type: subsequent encounter Laterality: unspecified laterality Qualified Code(s): S81.809D - Unspecified open wound, unspecified lower leg, subsequent encounter (3) Peripheral vascular disease Current Visit: No Status: Acute Plan: secondary to smoking. We are working on a vascular work up as an outpatient (4) Tobacco abuse Onset Date: 09/19/16 Current Visit: No Status: Chronic Plan: Will continue to discuss this with her in. We have discussed it previously set March 21 as a quit date on the past visit. She does not seem to have made any progress. Will need to reinforce that with her siblings. Will start her on a nicotine patch while in house. Discharge Plan: Home Plan to discharge in: Greater than 2 days - Advance Directives Does patient have a Living Will: No Does patient have a Durable POA for Healthcare: No - Code Status/Comfort Care Code Status Assessed: No Code Status: Full Code Physician Review: Patient Assessed, Agree with Above Assessment and Plan Critical Care: No Time Spent Managing Pts Care (In Minutes): 45
[2018-01-18] MEDS: NICOTINE 21 MG/PAT TD SCH (11:03)
[2018-01-18] MEDS: PANTOPRAZOLE 40MG TABLET PO SCH (11:04)
[2018-01-18 12:06] LABS: Arterial Blood Carboxyhemoglob 2.8 % (0-1.5); Blood Gas Oxyhemoglobin 86.9 % (94-97); Blood O2 Saturation 89.9 % (92-98.5)
[2018-01-18] MEDS ORDERED: HYDROCODONE/APAP 7.5/325 MG TAB PO PRN ×2 (14:11→14:12)
[2018-01-18] MEDS: ENOXAPARIN 40 MG/0.4 ML SQ SCH (18:08)
[2018-01-18] MEDS ORDERED: MAGNESIUM SULFATE 1 gm IVPB 1 GM/100 ML BAG IV ONE (19:36)
[2018-01-18] MEDS: HYDROCODONE/APAP 7.5/325 MG TAB PO PRN (22:23)
[2018-01-19] MEDS: METHYLPREDNISOLONE 40 MG INJ IV SCH ×2 (00:15→08:18)
[2018-01-19] MEDS: IPRATROPIUM BROM 0.5MG/2.5ML NEB SCH ×4 (02:22→20:13)
[2018-01-19 06:34] VITALS: BMI 24.3
[2018-01-19 06:38] LABS: Absolute Lymphocytes (CBC) 0.2 K/uL (0.7-4.9); Absolute Monocytes 0.2 K/uL (0.1-1.3); Absolute Neutrophil 9.2 K/uL (1.8-8.0); Basophils % 0.1 % (0-1.3); Hematocrit 29.4 % (36.0-45.0); MCH 26.1 pg (27.0-35.0); MPV 8.2 fL (7.6-11.3); RBC Red Blood Cell Count 3.38 M/uL (3.86-4.86)
[2018-01-19 07:25] LABS: ALT/SGPT 11 U/L (12-78); AST/SGOT 11 U/L (15-37); Albumin 2.4 g/dL (3.4-5.0); Alkaline Phosphatase 85 U/L (45-117); BUN Blood Urea Nitrogen 13 mg/dL (7-18); Bilirubin Total 0.2 mg/dL (0.2-1.0); Glucose Level 139 mg/dL (74-106); Magnesium 1.8 mg/dL (1.8-2.4); Potassium 3.6 mmol/L (3.5-5.1); Protein, Total 5.4 g/dL (6.4-8.2); Sodium Level 133 mmol/L (136-145)
[2018-01-19 07:30] LABS: Bicarbonate 44 mmol/L (21-32)
[2018-01-19] MEDS ORDERED: POTASSIUM CL SA 10 MEQ TAB PO ONE (07:39)
[2018-01-19] MEDS ORDERED: MAGNESIUM SULFATE 1 gm IVPB 1 GM/100 ML BAG IV ONE (07:39)
[2018-01-19] MEDS: NICOTINE 21 MG/PAT TD SCH (08:19)
[2018-01-19] MEDS: GABAPENTIN 100 MG CAP PO SCH ×2 (08:25→21:53)
[2018-01-19] MEDS: acetaZOLAMIDE 250 MG TAB PO SCH (08:25)
[2018-01-19] MEDS: ASPIRIN EC 81 MG TAB PO SCH (08:26)
[2018-01-19] MEDS: PANTOPRAZOLE 40MG TABLET PO SCH (08:26)
[2018-01-19] MEDS: ROFLUMILAST 500 MCG TABLET PO SCH (08:26)
--- NOTE | 2018-01-19 08:34 | P.CNS ---
Date of Consult: 01/19/18 Reason for Consult: Respiratory failure Primary Care Provider: Saira Chief Complaint: Copd exacerbation History of Present Illness: Patient is 53 years of age recurrent hospital admissions noncompliant continues to smoke does not use her BiPAP admitted yet again with worsening shortness of breath. He was found to be hypoxic this morning she is alert responsive cooperative again her bicarbonate was very elevated denies any cough chest pain sputum he does take chronic pain medication complain of lower extremity edema Allergies codeine Allergy (Verified 11/18/17 23:38) Shortness of breath levofloxacin [From Levaquin] Adverse Reaction (Intermediate, Verified 11/18/17 23:38) hallucinations morphine Adverse Reaction (Verified 11/18/17 23:38) Itching/Hives/Rash Home Medications: Aspirin [Aspirin EC 81 MG] 1 tab PO DAILY 11/20/17 Roflumilast [Daliresp*] 500 mcg PO DAILY tablet 11/20/17 Spironolactone [Aldactone*] 50 mg PO DAILY tab 11/20/17 acetaZOLAMIDE [Diamox*] 250 mg PO DAILY tab 11/20/17 Diltiazem Tab [Cardizem Tab*] 120 mg PO DAILY 11/30/17 Magnesium Oxide [Mag 0X*] 400 mg PO BID 11/30/17 predniSONE [Deltasone*] 10 mg PO DAILY #30 tab 11/30/17 Arformoterol Tartrate [Brovana] 1 puff IH BID 01/17/18 Gabapentin [Neurontin*] 1 tab PO BID 01/17/18 Hydrocodone/Acetaminophen [Hydrocodone-Acetamin 7.5-325] 7.5 - 325 tab PO TID - Past Medical/Surgical History Diabetic: No -: Diastolic dysfunction -: COPD -: CHF -: CAD -: Cellulitis -: Pneumonia -: PVD -: anxiety -: Morphine pain pump -: Cardiomegaly -: Atrial flutter -: back -: cholecystectomy -: Hysterectomy -: Morphine pump mid right side of stomach - in place -: morphine pump with additional medications - Family History Sister Medical History: Cancer Brother Medical History: Cancer Father Medical History: Cancer Mother Medical History: Lung disease, Cancer - Social History Smoking Status: Current every day smoker Alcohol use: No CD- Drugs: No Caffeine use: Yes Place of Residence: Home Review of Systems 10-point ROS is otherwise unremarkable General: Weakness Respiratory: Cough, Shortness of Breath Cardiovascular: Edema (Bilateral lower extremity edema) Physical Examination Temp Pulse Resp BP Pulse Ox 97.0 F 94 H 14 131/78 98 01/19/18 04:00 01/19/18 07:00 01/19/18 07:00 01/19/18 07:00 01/19/18 07:00 General: Alert, Oriented x3 HEENT: Atraumatic Neck: Supple Respiratory: Diminished, Expiratory wheezes Cardiovascular: Regular rate/rhythm, Normal S1 S2, Edema (3+ edema) Gastrointestinal: Normal bowel sounds, Soft and benign - Problems (1) Acute and chronic respiratory failure ([id number]) Onset Date: 09/19/16 Current Visit: No Status: Acute Plan: Patient is 53 years of age recurrent hospitalizations admitted yet again with acute on chronic respiratory failure she continues to smoke non compliant does not use her BiPAP at home patient was anemic bicarbonate was very elevated blood gases reviewed shows hypoxemia hypercarbia patient has chronic interstitial changes continue with IV fluids titrate sat to 90% Patient will qualify for noninvasive ventilation during the data due to chronic respiratory failure and to prevent recurrent hospitalizations Qualifiers: Respiratory failure complication: hypoxia and hypercapnia Qualified Code(s) : J96.21 - Acute and chronic respiratory failure with hypoxia; J96.22 - Acute and chronic respiratory failure with hypercapnia
[2018-01-19] MEDS: predniSONE 20 MG TAB PO SCH ×2 (09:00→21:54)
[2018-01-19] MEDS: ARFORMOTEROL TARTRATE 15 MCG/2 ML VIAL.NEB IH SCH ×2 (09:08→20:13)
[2018-01-19] MEDS: HYDROCODONE/APAP 7.5/325 MG TAB PO PRN ×2 (10:06→16:42)
--- NOTE | 2018-01-19 12:15 | P.PN ---
Subjective Date of Service: 01/19/18 Primary Care Provider: Saira Chief Complaint: Copd exacerbation Subjective: Improving Review of Systems 10-point ROS is otherwise unremarkable Physical Examination - Vital Signs Temperature: 97.2 F Blood Pressure: 131/61 Pulse: 120 Respirations: 20 Pulse Ox (%): 88 - Physical Exam General: Alert, In no apparent distress HEENT: Atraumatic, PERRLA, EOMI Neck: Supple, JVD not distended Respiratory: Diminished, Expiratory wheezes (Much improved from yesterday) Cardiovascular: Regular rate/rhythm, Normal S1 S2 Gastrointestinal: Normal bowel sounds, No tenderness Musculoskeletal: No tenderness Integumentary: No rashes Neurological: Normal speech, Normal tone, Normal affect Lymphatics: No axilla or inguinal lymphadenopathy - Studies Microbiology Data (last 24 hrs): 01/17/18 16:40 Blood - Blood Anaerobic Blood Culture - Final 01/17/18 16:30 Blood - Blood Anaerobic Blood Culture - Final Assessment & Plan - Problems (Diagnosis) (1) Acute and chronic respiratory failure Onset Date: 06/17/17 Current Visit: No Status: Acute Plan: Patient is improving. Her serum bicarb has improved from the 50's to the 40's. Will transfer to the floors. Would like an improvement in her bicarb. Her baseline is usually in the 30's Qualifiers: Respiratory failure complication: hypoxia and hypercapnia (2) Non-healing wound of lower extremity Onset Date: 01/19/18 Current Visit: Yes Status: Acute Plan: Stable. Will restart santyl Qualifiers: Encounter type: subsequent encounter Laterality: unspecified laterality Qualified Code(s): S81.809D - Unspecified open wound, unspecified lower leg, subsequent encounter (3) Peripheral vascular disease Onset Date: 01/19/18 Current Visit: Yes Status: Acute Plan: secondary to smoking. We are working on a vascular work up as an outpatient (4) Tobacco abuse Onset Date: 09/19/16 Current Visit: No Status: Chronic Plan: Will continue to discuss this with her in. We have discussed it previously set March 21 as a quit date on the past visit. She does not seem to have made any progress. Will need to reinforce that with her siblings. Will start her on a nicotine patch while in house. Discharge Plan: Home Plan to discharge in: 24 Hours - Code Status/Comfort Care Code Status Assessed: No Code Status: Full Code Physician Review: Patient Assessed, Agree with Above Assessment and Plan Critical Care: Yes Time Spent Managing Pts Care (In Minutes): 25
[2018-01-19] MEDS: NA CHLORIDE 0.9% 1,000 ML IV SCH ×3 (12:42→23:36)
[2018-01-19] MEDS: ENOXAPARIN 40 MG/0.4 ML SQ SCH (16:42)
[2018-01-19] MEDS ORDERED: IBUPROFEN 400 MG TAB PO PRN (21:38)
[2018-01-20] MEDS: IPRATROPIUM BROM 0.5MG/2.5ML NEB SCH ×4 (01:37→19:52)
[2018-01-20] MEDS: HYDROCODONE/APAP 7.5/325 MG TAB PO PRN ×3 (02:07→18:04)
[2018-01-20 06:38] LABS: Absolute Lymphocytes (CBC) 0.4 K/uL (0.7-4.9); Absolute Monocytes 0.5 K/uL (0.1-1.3); Absolute Neutrophil 9.4 K/uL (1.8-8.0); Basophils % 0.1 % (0-1.3); Hematocrit 28.9 % (36.0-45.0); Lymphocytes % 3.6 % (15.3-44.8); MCH 25.5 pg (27.0-35.0); MCV 88.6 fL (80-100); MPV 8.1 fL (7.6-11.3); Monocytes % 5.2 % (3.3-12.3); RBC Red Blood Cell Count 3.26 M/uL (3.86-4.86)
[2018-01-20 07:17] LABS: ALT/SGPT 10 U/L (12-78); AST/SGOT 12 U/L (15-37); Albumin 2.4 g/dL (3.4-5.0); Alkaline Phosphatase 76 U/L (45-117); BUN Blood Urea Nitrogen 19 mg/dL (7-18); Bilirubin Total 0.2 mg/dL (0.2-1.0); Glucose Level 168 mg/dL (74-106); Magnesium 1.5 mg/dL (1.8-2.4); Protein, Total 5.2 g/dL (6.4-8.2); Sodium Level 136 mmol/L (136-145)
[2018-01-20 07:18] LABS: Bicarbonate 41 mmol/L (21-32)
[2018-01-20] MEDS: NA CHLORIDE 0.9% 1,000 ML IV SCH ×3 (07:34→21:17)
[2018-01-20 07:37] LABS: Anisocytosis 2+; Blood Morphology Comment NOTED (NOT SEEN); Platelet Estimate ADEQ; Poikilocytosis 1+
[2018-01-20] MEDS: ARFORMOTEROL TARTRATE 15 MCG/2 ML VIAL.NEB IH SCH ×2 (07:39→19:52)
[2018-01-20] MEDS: PANTOPRAZOLE 40MG TABLET PO SCH (08:17)
[2018-01-20] MEDS: ASPIRIN EC 81 MG TAB PO SCH (08:56)
[2018-01-20] MEDS: acetaZOLAMIDE 250 MG TAB PO SCH (08:57)
[2018-01-20] MEDS: predniSONE 20 MG TAB PO SCH ×2 (08:57→21:17)
[2018-01-20] MEDS: ROFLUMILAST 500 MCG TABLET PO SCH (08:57)
[2018-01-20] MEDS: GABAPENTIN 100 MG CAP PO SCH ×2 (08:57→21:17)
[2018-01-20] MEDS: NICOTINE 21 MG/PAT TD SCH (08:58)
[2018-01-20] MEDS ORDERED: Magnesium Sulfate 2gm IVPB 2 G/50 ML BAG IV ONE (09:00)
--- NOTE | 2018-01-20 10:11 | P.PN ---
Subjective Date of Service: 01/20/18 Primary Care Provider: Saira Chief Complaint: Copd exacerbation Subjective: No new changes Review of Systems 10-point ROS is otherwise unremarkable Respiratory: Shortness of Breath Physical Examination - Vital Signs Temperature: 98.1 F Blood Pressure: 145/72 Pulse: 111 Respirations: 20 Pulse Ox (%): 82 - Physical Exam General: Alert, In no apparent distress HEENT: Atraumatic, PERRLA, EOMI Neck: Supple, JVD not distended Respiratory: Clear to auscultation bilaterally, Normal air movement Cardiovascular: Regular rate/rhythm, Normal S1 S2 Gastrointestinal: Normal bowel sounds, No tenderness Musculoskeletal: No tenderness Integumentary: No rashes Neurological: Normal speech, Normal tone, Normal affect Lymphatics: No axilla or inguinal lymphadenopathy Assessment & Plan - Problems (Diagnosis) (1) Acute and chronic respiratory failure Onset Date: 06/17/17 Current Visit: No Status: Acute Plan: Patient is improving. Her serum bicarb has has been in the 40's. Will transfer to the floors. Would like an improvement in her bicarb. Her baseline is usually in the 30's Qualifiers: Respiratory failure complication: hypoxia and hypercapnia (2) Non-healing wound of lower extremity Onset Date: 01/19/18 Current Visit: Yes Status: Acute Plan: Stable. Will restart santyl Qualifiers: Encounter type: subsequent encounter Laterality: unspecified laterality Qualified Code(s): S81.809D - Unspecified open wound, unspecified lower leg, subsequent encounter (3) Peripheral vascular disease Onset Date: 01/19/18 Current Visit: Yes Status: Acute Plan: secondary to smoking. We are working on a vascular work up as an outpatient (4) Tobacco abuse Onset Date: 09/19/16 Current Visit: No Status: Chronic Plan: Will continue to discuss this with her in. We have discussed it previously set March 21 as a quit date on the past visit. She does not seem to have made any progress. Will need to reinforce that with her siblings. Will start her on a nicotine patch while in house. Discharge Plan: Home Plan to discharge in: 24 Hours - Code Status/Comfort Care Code Status Assessed: No Code Status: Full Code Physician Review: Patient Assessed, Agree with Above Assessment and Plan Critical Care: No Time Spent Managing Pts Care (In Minutes): 30
[2018-01-20] MEDS: ENOXAPARIN 40 MG/0.4 ML SQ SCH (18:04)
[2018-01-21] MEDS: IPRATROPIUM BROM 0.5MG/2.5ML NEB SCH ×2 (01:31→07:48)
[2018-01-21] MEDS: NA CHLORIDE 0.9% 1,000 ML IV SCH (02:40)
[2018-01-21 05:45] LABS: Absolute Lymphocytes (CBC) 0.4 K/uL (0.7-4.9); Absolute Monocytes 0.4 K/uL (0.1-1.3); Absolute Neutrophil 8.1 K/uL (1.8-8.0); Basophils % 0.2 % (0-1.3); Hematocrit 30.4 % (36.0-45.0); Lymphocytes % 4.2 % (15.3-44.8); MCH 25.5 pg (27.0-35.0); MCV 89.8 fL (80-100); MPV 8.2 fL (7.6-11.3); Monocytes % 4.8 % (3.3-12.3); RBC Red Blood Cell Count 3.38 M/uL (3.86-4.86)
[2018-01-21 06:06] LABS: ALT/SGPT 11 U/L (12-78); AST/SGOT 11 U/L (15-37); Albumin 2.4 g/dL (3.4-5.0); Alkaline Phosphatase 69 U/L (45-117); BUN Blood Urea Nitrogen 15 mg/dL (7-18); Bilirubin Total 0.2 mg/dL (0.2-1.0); Glucose Level 131 mg/dL (74-106); Potassium 4.4 mmol/L (3.5-5.1); Protein, Total 5.3 g/dL (6.4-8.2); Sodium Level 136 mmol/L (136-145)
[2018-01-21 06:07] LABS: Bicarbonate 43 mmol/L (21-32)
[2018-01-21] MEDS: HYDROCODONE/APAP 7.5/325 MG TAB PO PRN (06:08)
[2018-01-21 06:33] VITALS: BP 134/67; TEMP 97.6
[2018-01-21] MEDS: ARFORMOTEROL TARTRATE 15 MCG/2 ML VIAL.NEB IH SCH (07:48)
[2018-01-21] MEDS: NICOTINE 21 MG/PAT TD SCH (08:42)
--- NOTE | 2018-01-21 08:42 | P.PN ---
Subjective Date of Service: 01/21/18 Primary Care Provider: Saira Chief Complaint: Copd exacerbation Subjective: Improving (Patient is doing better still complaining of cough and congestion wants to go home) Review of Systems General: Weakness Respiratory: Cough, Shortness of Breath Physical Examination - Vital Signs Temperature: 97.6 F Blood Pressure: 134/67 Pulse: 97 Respirations: 18 Pulse Ox (%): 92 - Physical Exam General: Alert, Oriented x3 Neck: Supple Respiratory: Expiratory wheezes Cardiovascular: Normal S1 S2, Edema (Patient has chronic lower extremity edema) Assessment & Plan - Problems (Diagnosis) (1) Acute and chronic respiratory failure ([id number]) Onset Date: 09/19/16 Current Visit: No Status: Acute Plan: Patient if admitted with acute on chronic respiratory failure she is doing well bicarbonate has declined with IV fluids patient has chronic hypoxic and hypercapnic respiratory failure can be discharged home resume all her home medications to reduce the dose of dial arrest of 250 mcg daily patient is noncompliant continues to smoke heavily the recurrent hospital admissions patient has recurrent episodes of elevated bicarbonate Dc Diamox continue with spironolactone Qualifiers: Respiratory failure complication: hypoxia and hypercapnia Qualified Code(s) : J96.21 - Acute and chronic respiratory failure with hypoxia; J96.22 - Acute and chronic respiratory failure with hypercapnia Discharge Plan: Home Physician Review: Patient Assessed, Agree with Above Assessment and Plan
[2018-01-21] MEDS: GABAPENTIN 100 MG CAP PO SCH (08:43)
[2018-01-21] MEDS: ROFLUMILAST 500 MCG TABLET PO SCH (08:43)
[2018-01-21] MEDS: predniSONE 20 MG TAB PO SCH (08:43)
[2018-01-21] MEDS: ASPIRIN EC 81 MG TAB PO SCH (08:43)
[2018-01-21] MEDS: PANTOPRAZOLE 40MG TABLET PO SCH (08:45)
[2018-01-21] MEDS: acetaZOLAMIDE 250 MG TAB PO SCH (08:46)
--- NOTE | 2018-01-21 10:29 | P.DS ---
Admission Date: 01/17/18 Discharge Date: 01/21/18 Primary Care Provider: Saira Disposition: ROUTINE DISCHARGE Discharge Condition: GOOD Reason for Admission: Copd exacerbation - Problems (1) Acute and chronic respiratory failure Onset Date: 06/17/17 Current Visit: No Status: Acute Qualifiers: Respiratory failure complication: hypoxia and hypercapnia (2) Non-healing wound of lower extremity Onset Date: 01/19/18 Current Visit: Yes Status: Acute Qualifiers: Encounter type: subsequent encounter Laterality: unspecified laterality Qualified Code(s): S81.809D - Unspecified open wound, unspecified lower leg, subsequent encounter (3) Peripheral vascular disease Onset Date: 01/19/18 Current Visit: Yes Status: Acute (4) Tobacco abuse Onset Date: 09/19/16 Current Visit: No Status: Chronic Brief History of Present Illness: Patient is a regular patient of [facility]. Has missed the last 2 appointments in the wound care center. She has chronic respiratory failure with copd. She continues to smoke. Has not weaned down from a pack a day. She comes in with shortness of breath. She is always weaning. However her labs show increased co2 from her baseline of 30-35. She had a pulse ox in the 70%. She was admitted to the ICU. She is well known to Dr. Hughes. Hospital Course: Patient was admitted to the ICU. Tolerated well. Her labs showed a chronic respiratory acidosis. Was kept for fluid therapy and nebulizer treatment. As always she is a high risk of readmission. she is doing better. Will discharge her home. Will need home health for PT. As she is usually bed and wheelchair bound. Vital Signs/Physical Exam: Temp Pulse Resp BP Pulse Ox 97.6 F 97 H 18 134/67 92 01/21/18 08:43 01/21/18 08:43 01/21/18 08:43 01/21/18 08:43 01/21/18 08:43 General: Alert, In no apparent distress HEENT: Atraumatic, PERRLA, EOMI Neck: Supple, JVD not distended Respiratory: Diminished, Rhonchi/gurgles Cardiovascular: Regular rate/rhythm, Normal S1 S2 Gastrointestinal: Normal bowel sounds, No tenderness Musculoskeletal: No tenderness Integumentary: No rashes Neurological: Normal speech, Normal tone, Normal affect Lymphatics: No axilla or inguinal lymphadenopathy Laboratory Data at Discharge: WBC 8.9 K/uL (4.3-10.9) 01/21/18 05:24 Hgb 8.6 g/dL (12.0-15.0) L 01/21/18 05:24 Hct 30.4 % (36.0-45.0) L 01/21/18 05:24 Plt Count 285 K/uL (152-406) 01/21/18 05:24 Sodium 136 mmol/L (136-145) 01/21/18 05:24 Potassium 4.4 mmol/L (3.5-5.1) 01/21/18 05:24 BUN 15 mg/dL (7-18) 01/21/18 05:24 Creatinine 0.40 mg/dL (0.55-1.3) L 01/21/18 05:24 Glucose 131 mg/dL (74-106) H 01/21/18 05:24 Magnesium 2.0 mg/dL (1.8-2.4) D 01/20/18 16:03 Total Bilirubin 0.2 mg/dL (0.2-1.0) 01/21/18 05:24 AST 11 U/L (15-37) L 01/21/18 05:24 ALT 11 U/L (12-78) L 01/21/18 05:24 Alkaline Phosphatase 69 U/L (45-117) 01/21/18 05:24 Home Medications: Aspirin [Aspirin EC 81 MG] 1 tab PO DAILY 11/20/17 Spironolactone [Aldactone*] 50 mg PO DAILY tab 11/20/17 Diltiazem Tab [Cardizem Tab*] 120 mg PO DAILY 11/30/17 Magnesium Oxide [Mag 0X*] 400 mg PO BID 11/30/17 predniSONE [Deltasone*] 10 mg PO DAILY #30 tab 11/30/17 Arformoterol Tartrate [Brovana] 1 puff IH BID 01/17/18 Gabapentin [Neurontin*] 1 tab PO BID 01/17/18 Hydrocodone/Acetaminophen [Hydrocodone-Acetamin 7.5-325] 7.5 - 325 tab PO QID Albuterol Neb [Proventil 0.083% Neb Soln] 2.5 mg NEB Q4H PRN amp 01/21/18 Roflumilast [Daliresp*] 250 mcg PO DAILY #30 tablet 01/21/18 New Medications: Roflumilast [Daliresp*] 250 mcg PO DAILY #30 tablet Patient Discharge Instructions: Patient to reduce the dose of dial arrest it to 50 mcg daily. Discontinue Diamox and may need physical therapy at home doctor about her to order from her home health care company Diet: Regular Followup: Bernard Mckeon MD [ACTIVE - CAN ADMIT] - Jesús Chávez MD [Primary Care Provider] - (follow up in the wound care center not the office) Time spent managing pt's care (in minutes): 25
[2018-01-21 12:18] VITALS: O2SAT 90
== END 2018-01-21 13:00 | disposition home or self-care (01) | DRG 189 ==
LOC: ER 15:50 → ERHOLD 18:34 → 4TH 19:42 → 3RD-ICU 21:50 → 2ND 01-19 11:05
PROVIDERS: ADMIT Internal Medicine; ATTEND Internal Medicine
DX: J96.22 Acute and chronic respiratory failure with hypercapnia (principal); E87.2 Acidosis; L97.919 Non-pressure chronic ulcer of unspecified part of right lower leg with unspecified severity; L97.929 Non-pressure chronic ulcer of unspecified part of left lower leg with unspecified severity; J96.21 Acute and chronic respiratory failure with hypoxia; I73.9 Peripheral vascular disease, unspecified; J44.9 Chronic obstructive pulmonary disease, unspecified; I50.9 Heart failure, unspecified; I25.10 Atherosclerotic heart disease of native coronary artery without angina pectoris; F17.210 Nicotine dependence, cigarettes, uncomplicated; Z79.82 Long term (current) use of aspirin; I83.009 Varicose veins of unspecified lower extremity with ulcer of unspecified site
CPT/HCPCS: 36415; 51702; 71045; 80048; 80053; 82805; 83735; 83880; 84484; 85025; 87040; 93005; 94660; 96365; 96375; 97163; 99285; J1650; J2920; J2930; J3475; J7030; J7512; J7605

== ENCOUNTER 2018-01-31 12:33 | Inpatient (IN) | payer OTHER ==
--- OUTSIDE RECORDS SUMMARY | 2018-01-31 12:36 | XMS REPORT ---
[...] Status Dosage System Date Date BusPIRone HCl [facility] 25494805942 10 MG Orally October Active 1 tablet Twice a day 2017 Hydrocodone-Aceta [facility] 22107988592 10-325 MG Oral Active (Schedule minophen II Drug) TAKE 1 TABLET BY MOUTH FOUR TIMES DAILY AcetaZOLAMIDE ND 29750268853 250 MG Oral Active TK 1 T PO BID Brovana [facility] 72095514110 15 MCG/2ML Active USE 2 ML Inhalation VIA NEBULIZER BID Ciclopirox ND 20450414320 8 % External Active RYAN AFFECTED NAILS QD FOR 48 WEEKS Potassium ND 29007805925 20 MEQ Oral Active TK 1 T PO Chloride ER QD Furosemide ND 99120132297 40 MG Oral Active TK 1 T PO QD Gabapentin ND 54121593288 100 MG Orally January 07, Active 1 capsule Twice a day 2017 BuPROPion HCl ND 66962565039 100 MG Oral Active TK 1 T PO BID Aspirin Adult Low ND 43771626871 81 MG Orally Active 1 tablet Strength Once a day Betamethasone ND 88535204666 0.1 % External Active RYAN AA BID Valerate Metoprolol ND 82188837205 25 MG Oral Active TK 1 T PO Tartrate BID Daliresp ND 65910453346 500 MCG Oral Active TK 1 T PO D Azithromycin ND 30981269939 500 MG Oral Active TK 1 T PO D FOR 5 DAYS Dilt-XR [facility] 75716347990 180 MG Oral Active TK ONE C PO ONCE D IN THE MORNING Spironolactone [facility] 25768171568 50 MG Oral Active TK 1 T PO QD Levofloxacin [facility] 35340903696 500 MG Oral Active TK 1 T PO D Triamcinolone [facility] 05110568150 0.1 % External Active not defined Acetonide Fluconazole [facility] 75095890205 150 MG Oral Active TK 1 T PO ONCE 1 DOSE MAGnesium-Oxide [facility] 33932459211 400 (241.3 Mg) Active TK 1 T PO MG Oral BID PredniSONE [facility] 13479072823 10 MG Oral Active TK 1 T PO QD Diltiazem HCl [facility] 65060412288 120 MG Oral Active TK 1 T PO QD BEFORE MEALS Results No Known Results Summary Purpose eClinicalWorks Submission
--- OUTSIDE RECORDS SUMMARY | 2018-01-31 12:36 | XMS REPORT ---
[...] End Status Dosage System Date Date AcetaZOLAMIDE [facility] 15525714090 250 MG Oral Active TK 1 T PO BID Hydrocodone-Aceta [facility] 68698592874 10-325 MG Oral Active (Schedule minophen II Drug) TAKE 1 TABLET BY MOUTH FOUR TIMES DAILY BusPIRone HCl ND 06509522156 10 MG Orally October Active 1 tablet Twice a day 2017 MAGnesium-Oxide [facility] 55283875475 400 (241.3 Mg) Active TK 1 T PO MG Oral BID Ciclopirox ND 66873829617 8 % External Active RYAN AFFECTED NAILS QD FOR 48 WEEKS Metoprolol [facility] 65915009835 25 MG Oral Active TK 1 T PO Tartrate BID Dilt-XR [facility] 92038955414 180 MG Oral Active TK ONE C PO ONCE D IN THE MORNING Chantix Starting ND 23579437023 0.5 MG X 11 & 1 October Active as directed Month Joel MG X 42 Orally 2017 BuPROPion HCl [facility] 21057612368 100 MG Oral Active TK 1 T PO BID Fluconazole ND 08777724725 150 MG Oral Active TK 1 T PO ONCE 1 DOSE Betamethasone ND 74991536743 0.1 % External Active RYAN AA BID Valerate Potassium [facility] 02163676194 20 MEQ Oral Active TK 1 T PO Chloride ER QD Daliresp [facility] 22931653647 500 MCG Oral Active TK 1 T PO D Azithromycin [facility] 12844444846 500 MG Oral Active TK 1 T PO D FOR 5 DAYS Triamcinolone [facility] 53681989981 0.1 % External Active not defined Acetonide Spironolactone [facility] 96585449623 50 MG Oral Active TK 1 T PO QD Levofloxacin [facility] 44970810095 500 MG Oral Active TK 1 T PO D Furosemide [facility] 46878778348 40 MG Oral Active TK 1 T PO QD Aspirin Adult Low [facility] 94552846930 81 MG Orally Active 1 tablet Strength Once a day PredniSONE [facility] 93037909729 10 MG Oral Active TK 1 T PO QD Brovana [facility] 51385661495 15 MCG/2ML Active USE 2 ML Inhalation VIA NEBULIZER BID Diltiazem HCl [facility] 60401052689 120 MG Oral Active TK 1 T PO QD BEFORE MEALS Results No Known Results Summary Purpose eClinicalWorks Submission
[2018-01-31 13:22] LABS: Blood Gas Oxyhemoglobin 88.7 % (94-97); Blood O2 Saturation 94.9 % (92-98.5)
[2018-01-31 13:56] LABS: Protime INR 1.05
[2018-01-31 14:03] LABS: Absolute Lymphocytes (CBC) 0.4 K/uL (0.7-4.9); Absolute Monocytes 0.4 K/uL (0.1-1.3); Absolute Neutrophil 8.1 K/uL (1.8-8.0); Basophils % 0.2 % (0-1.3); Eosinophils % 0.1 % (0-4.4); Hematocrit 30.4 % (36.0-45.0); Lymphocytes % 4.3 % (15.3-44.8); MCH 26.7 pg (27.0-35.0); MCV 91.6 fL (80-100); MPV 7.5 fL (7.6-11.3); RBC Red Blood Cell Count 3.31 M/uL (3.86-4.86)
--- NOTE | 2018-01-31 14:45 | RAD REPORT ---
EXAM DESCRIPTION: RAD - Chest Single View - 01/31/2018 1:42 pm CLINICAL HISTORY: Decreased level of consciousness, abnormal O2 saturation COMPARISON: January 17 TECHNIQUE: AP portable chest image was obtained 1328 hours . FINDINGS: Patient has a baseline of interstitial fibrotic disease. Bilateral pleural effusions are p resent right greater than left. These are larger than the Lili study. Cardiac silhouette is enlarged. Vasculature is prominent. Trachea is midline. No pneumothorax. No acute bone process seen. No acute aortic findings suspected. IMPRESSION: CHF/volume overload pattern is present. Findings are progressive from January 17.
[2018-01-31 15:05] LABS: Bicarbonate 45 mmol/L (21-32); Potassium 3.5 mmol/L (3.5-5.1); Sodium Level 136 mmol/L (136-145)
[2018-01-31 15:06] LABS: ALT/SGPT 16 U/L (12-78); AST/SGOT 12 U/L (15-37); Alkaline Phosphatase 83 U/L (45-117); BUN Blood Urea Nitrogen 8 mg/dL (7-18); Bilirubin Direct 0.1 mg/dL (0-0.2); Bilirubin Total 0.4 mg/dL (0.2-1.0); Glucose Level 103 mg/dL (74-106)
[2018-01-31] MEDS ORDERED: MIDAZOLAM HCL 2 MG/2 ML INJ ONE ×2 (15:06→20:12)
[2018-01-31 15:07] LABS: Albumin 3.1 g/dL (3.4-5.0); Magnesium 1.3 mg/dL (1.8-2.4); NT PRO-BNP 2309 pg/mL (<125); Protein, Total 6.5 g/dL (6.4-8.2)
[2018-01-31] MEDS ORDERED: ROCURONIUM 50 MG/5 ML VIAL IV ONE ×2 (15:07→15:20)
[2018-01-31] MEDS ORDERED: RSI MEDICATION KIT IV ONE (15:07)
[2018-01-31] MEDS ORDERED: FENTANYL CITR 100 MCG/2 ML ONE ×2 (15:07→20:12)
[2018-01-31] MEDS ORDERED: NA CHLORIDE 0.9% 1,000 ML ONE (15:09)
--- NOTE | 2018-01-31 15:26 | EDPHYS ---
Physician Documentation [facility] Name: Eusebia Vila Age: 53 yrs Sex: Female : 1965 Arrival Date: 01/31/2018 Time: 12:36 Bed 3 Private MD: ED Physician Timbo Jack HPI: 01/31 13:28 This 53 yrs old Female presents to ER via EMS with complaints of Shortness Of jr8 Breath. 13:28 The patient has shortness of breath at rest. Onset: The symptoms/episode began/occurred jr8 acutely, today. Duration: The symptoms are continuous. The patient's shortness of breath is aggravated by talking, walking. Associated signs and symptoms: The patient has no apparent associated signs or symptoms. Severity of symptoms: At their worst the symptoms were moderate in the emergency department the symptoms are unchanged. The patient has experienced similar episodes in the past, several times. The patient has not recently seen a physician. EMS picked patient up after being called out for not feeling well. EMS found her slumped over in chair with oxygen saturation in the 70s on oxygen. Patient upon arrival alert to verbal stimulus. Somewhat lethargic on BIPAP. PATIENT SUPPORT SPECIALIST: 12:39 LMP N/A - . tw2 Historical: - Allergies: 12:42 Codeine; tw2 12:42 Levofloxacin; tw2 - Home Meds: 12:42 hydrocodone-acetaminophen 10-325 mg Oral tab 4 times a day for Pain [Active]; MagOx 400 tw2 mg Oral tab twice a day [Active]; prednisone 10 mg Oral tab once daily [Active]; spironolactone 50 mg Oral tab 1 tab once daily [Active]; diltiazem HCl 120 mg Oral tab 1 tab 3 times per day [Active]; acetazolamide 250 mg Oral tab 1 tab once daily [Active]; aspirin 81 mg Oral TbEC 1 tab once daily [Active]; Daliresp 500 mcg Oral tab 1 tab once daily [Active]; - PMHx: 12:42 CAD; Cellulitis; COPD; Pneumonia; polycythemia vera; PVD; CHF; tw2 - Immunization history:: Adult Immunizations unknown. - Social history:: Smoking status: Patient uses tobacco products, smokes one pack cigarettes per day. - Ebola Screening: : Patient denies travel to an Ebola-affected area in the 21 days before illness onset. ROS: 13:28 Eyes: Negative for injury, pain, redness, and discharge, ENT: Negative for injury, jr8 pain, and discharge, Neck: Negative for injury, pain, and swelling, Cardiovascular: Negative for chest pain, palpitations, and edema, Abdomen/GI: Negative for abdominal pain, nausea, vomiting, diarrhea, and constipation, Back: Negative for injury and pain, MS/Extremity: Negative for injury and deformity, Skin: Negative for injury, rash, and discoloration, Neuro: Negative for headache, weakness, numbness, tingling, and seizure. 13:28 Respiratory: Positive for shortness of breath, wheezing. Exam: 13:28 Eyes: Pupils equal round and reactive to light, extra-ocular motions intact. Lids and jr8 lashes normal. Conjunctiva and sclera are non-icteric and not injected. Cornea within normal limits. Periorbital areas with no swelling, redness, or edema. ENT: Nares patent. No nasal discharge, no septal abnormalities noted. Tympanic membranes are normal and external auditory canals are clear. Oropharynx with no redness, swelling, or masses, exudates, or evidence of obstruction, uvula midline. Mucous membranes moist. Neck: Trachea midline, no thyromegaly or masses palpated, and no cervical lymphadenopathy. Supple, full range of motion without nuchal rigidity, or vertebral point tenderness. No Meningismus. Abdomen/GI: Soft, non-tender, with normal bowel sounds. No distension or tympany. No guarding or rebound. No evidence of tenderness throughout. Back: No spinal tenderness. No costovertebral tenderness. Full range of motion. Skin: Warm, dry with normal turgor. Normal color with no rashes, no lesions, and no evidence of cellulitis. MS/ Extremity: Pulses equal, no cyanosis. Neurovascular intact. Full, normal range of motion. Neuro: Awake and alert, GCS 14, oriented to person, place. Cranial nerves II-XII grossly intact. Motor strength 5/5 in all extremities. Sensory grossly intact. 13:28 Cardiovascular: Rate: tachycardic, Rhythm: regular, Pulses: Pulses are 2+ in right radial artery and left radial artery. Heart sounds: normal, Edema: 2+ edema to level of left midcalf, left ankle, left foot, left toes, right midcalf, right ankle, right foot and right toes. 13:28 Respiratory: moderate respiratory distress is noted, Respirations: tachypnea, Breath sounds: wheezing: expiratory that is moderate, is heard diffusely. Vital Signs: 12:39 BP 145 / 71; Pulse 105; Resp 30; Temp 97.7(A); Pulse Ox 84% on R/A; tw2 13:13 BP 132 / 66; Pulse 101; Resp 19; Pulse Ox 100% on BiPAP; tw2 14:00 BP 105 / 58; Pulse 99; Resp 12; Pulse Ox 100% on 100% BiPAP; ph 14:30 BP 115 / 58; Pulse 101; Resp 22; Pulse Ox 92% on 50% BiPAP; ph 15:00 BP 132 / 63; Pulse 97; Resp 22; Pulse Ox 100% on 100% BiPAP; ph 15:30 BP 124 / 88; Pulse 125; Resp 20; Pulse Ox 100% on 60% FiO2 ETT vent; ph 16:00 BP 109 / 86; Pulse 120; Resp 20; Pulse Ox 93% on 60% FiO2 ETT vent; ph 16:30 BP 115 / 73; Pulse 101; Resp 18; Pulse Ox 95% on 60% FiO2 ETT vent; ph 16:47 BP 92 / 61; Pulse 99; Resp 18; Pulse Ox 98% on 60% FiO2 ETT vent; ph 17:15 BP 99 / 67; Pulse 100; Resp 20; Pulse Ox 89% on 60% FiO2 ETT vent; ph 17:46 BP 101 / 51; Pulse 100; Resp 18; Temp 97.2; Pulse Ox 91% on 45% FiO2 ETT vent; ph 18:02 BP 80 / 50; Pulse 101; Resp 18; Pulse Ox 90% on 45% FiO2 ETT vent; ph 18:15 BP 77 / 52; Pulse 101; Resp 18; Pulse Ox 91% on 45% FiO2 ETT vent; ph 18:38 BP 116 / 63; Pulse 103; Resp 18; Pulse Ox 91% on 45% FiO2 ETT vent; ph 19:07 BP 132 / 63; Pulse 105; Resp 18; Pulse Ox 89% on 45% FiO2 ETT vent; ph 20:03 BP 105 / 77; Pulse 118; Resp 20; Temp 99.2(A); Pulse Ox 93% on ETT vent; aa1 20:45 Weight 65 kg; aa1 12:39 pt placed on bipap, o2 sat 90% will continue to monitor, tw2 Procedures: 15:24 Intubation: Ventilated with 100% NRB prior to procedure. O2 saturation prior to jr8 procedure was 100 %. Intubated orally using # 4 Rodolfo blade with 7.5 mm ETT. was successful on first attempt. Ventilated with Ambu bag. ventilator. Tube secured with ETT mahajan at center of mouth measured 22 cm at lip. Placement verified by CXR, CO2 detector with (+) color change, auscultating bilateral breath sounds, O2 saturation after procedure was 100 %. Patient tolerated well. 17:34 Central Line: the site was prepped with Betadine, in sterile fashion, a triple lumen jr8 catheter was inserted, in the right femoral vein, in 1 attempts. placement was verified, by blood return, the site was dressed with 4X4s, Tegaderm, foam tape, using sterile technique, the patient tolerated the procedure, well. MDM: 12:39 Patient medically screened. jr8 15:03 ED course: Patient declining. No improvement on ABG. Will intubate to secure airway and jr8 correct respiratory acidosis . 15:25 Data reviewed: vital signs, nurses notes, lab test result(s), radiologic studies, plain jr8 films, and as a result, I will admit patient. Data interpreted: Pulse oximetry: on room air is 100 %. Interpretation: normal. Counseling: I had a detailed discussion with the patient and/or guardian regarding: the historical points, exam findings, and any diagnostic results supporting the discharge/admit diagnosis, lab results, radiology results, the need for further work-up and treatment in the hospital. 01/31 12:39 Order name: Basic Metabolic Panel 01/31 12:39 Order name: CBC with Diff 01/31 12:39 Order name: LFT's 01/31 12:39 Order name: Magnesium 01/31 12:39 Order name: NT PRO-BNP; Complete Time: 15:26 01/31 12:39 Order name: PT-INR; Complete Time: 14:11 01/31 12:39 Order name: Troponin (emerg Dept Use Only); Complete Time: 14:56 01/31 12:39 Order name: ABG; Complete Time: 13:52 01/31 12:40 Order name: Basic Metabolic Panel; Complete Time: 15:26 EDWA 01/31 12:40 Order name: CBC with Automated Diff; Complete Time: 15:04 [facility] 01/31 12:40 Order name: Liver (Hepatic) Function; Complete Time: 15:26 EDWA 01/31 12:40 Order name: Magnesium; Complete Time: 15:26 [facility] 01/31 14:52 Order name: ABG; Complete Time: 16:16 ph 01/31 19:27 Order name: Urine Dipstick--Ancillary (enter results) 01/31 12:39 Order name: XRAY Chest (1 view); Complete Time: 14:56 [facility] 01/31 12:39 Order name: BIPAP [facility] 01/31 15:37 Order name: XRAY Chest (1 view) [facility] 01/31 17:10 Order name: RAD; Complete Time: 17:33 EDWA 01/31 19:44 Order name: Urine Dipstick-Ancillary; Complete Time: 19:56 [facility] 01/31 12:39 Order name: EKG; Complete Time: 12:40 [facility] 01/31 12:39 Order name: Cardiac monitoring; Complete Time: 12:58 [facility] 01/31 12:39 Order name: EKG - Nurse/Tech; Complete Time: 12:58 [facility] 01/31 12:39 Order name: IV Saline Lock; Complete Time: 12:58 [facility] 01/31 12:39 Order name: Labs collected and sent; Complete Time: 18:03 [facility] 01/31 12:39 Order name: O2 Per Protocol; Complete Time: 12:58 [facility] 01/31 12:39 Order name: O2 Sat Monitoring; Complete Time: 13:07 01/31 12:39 Order name: Urine Dipstick-Ancillary (obtain specimen); Complete Time: 17:53 [facility] 01/31 15:03 Order name: Lane; Complete Time: 16:37 [facility] 01/31 16:09 Order name: NG Tube; Complete Time: 16:24 Administered Medications: 15:21 Drug: Etomidate 20 mg Route: IVP; Site: left forearm; ph 16:00 Follow up: Response: No adverse reaction; Patient is sedated ph 15:22 Drug: Rocuronium 70 mg Route: IVP; Site: left forearm; ph 16:00 Follow up: Response: No adverse reaction; Patient is sedated ph 15:30 Drug: Versed 4 mg Route: IVP; Site: left forearm; ph 16:00 Follow up: Response: No adverse reaction ph 15:31 Drug: fentaNYL (PF) 100 mcg Route: IVP; Site: left forearm; ph 19:26 Follow up: Response: No adverse reaction ph 16:10 Drug: SOLU-Medrol 125 mg Route: IVP; Site: left forearm; ph 19:26 Follow up: Response: No adverse reaction ph 16:13 Drug: Lasix 60 mg Route: IVP; Site: left forearm; ph 19:27 Follow up: Urine output 850 ml; Response: No adverse reaction ph 16:15 Drug: Magnesium Sulfate 2 grams Route: IVPB; Infused Over: 2 hrs; Site: left forearm; ph 17:30 Follow up: Response: No adverse reaction; IV Status: Completed infusion ph 16:20 Drug: Xopenex (3) 1.25 mg Route: Inhalation; ph 19:26 Follow up: Response: No adverse reaction ph 18:20 Drug: Levophed (4 mg/250 mL D5W 4 mcg/min Route: IV; Rate: calculated rate; Site: right ph femoral; 19:25 Follow up: Response: No adverse reaction; Blood pressure is elevated; IV Status: ph Infusion continued upon admission 20:14 Drug: Versed 2 mg Route: IVP; Site: right femoral; aa1 20:45 Follow up: Response: No adverse reaction; No change in condition aa1 20:14 Drug: fentaNYL (PF) 50 mcg Route: IVP; Site: right femoral; aa1 20:45 Follow up: Response: No adverse reaction; No change in condition aa1 20:45 Drug: Propofol 5 mcg/kg/min Route: IV; Rate: calculated rate; Site: right femoral; aa1 20:50 Follow up: IV Status: Infusion continued upon admission aa1 Disposition: 15:36 Critical Care:. jr8 02/01 06:51 Co-signature as Attending Physician, Timbo Jack MD I agree with the assessment and jason plan of care. Disposition: 01/31/18 15:26 Hospitalization ordered by Jesús Chávez for Inpatient Admission. Preliminary diagnosis are Acute combined systolic (congestive) and diastolic (congestive) heart failure, Chronic obstructive pulmonary disease with (acute) exacerbation, Acute and chronic respiratory failure with hypercapnia. - Bed requested for Intensive Care Unit. - Status is Inpatient Admission. aa1 - Condition is Fair. - Problem is new. - Symptoms have improved. UTI on Admission? No Critical care time excluding procedures: 01/31 15:36 Critical care time: Bedside Care: 20 minutes, Consultation: 10 minutes, Family jr8 Intervention: 5 minutes. Total time: 35 minutes Signatures: Dispatcher [employer] EDMS Lizz Cleary RN RN aa1 Timbo Jack MD MD cha Roszak, Josh, PA PA jr8 Anu Quezada RN RN Candice Qureshi RN RN tw2 Ruthann Tenorio Corrections: (The following items were deleted from the chart) 13:38 13:28 Eyes: Pupils equal round and reactive to light, extra-ocular motions intact. Lids jr8 and lashes normal. Conjunctiva and sclera are non-icteric and not injected. Cornea within normal limits. Periorbital areas with no swelling, redness, or edema. ENT: Nares patent. No nasal discharge, no septal abnormalities noted. Tympanic membranes are normal and external auditory canals are clear. Oropharynx with no redness, swelling, or masses, exudates, or evidence of obstruction, uvula midline. Mucous membranes moist. Neck: Trachea midline, no thyromegaly or masses palpated, and no cervical lymphadenopathy. Supple, full range of motion without nuchal rigidity, or vertebral point tenderness. No Meningismus. Abdomen/GI: Soft, non-tender, with normal bowel sounds. No distension or tympany. No guarding or rebound. No evidence of tenderness throughout. Back: No spinal tenderness. No costovertebral tenderness. Full range of motion. Skin: Warm, dry with normal turgor. Normal color with no rashes, no lesions, and no evidence of cellulitis. MS/ Extremity: Pulses equal, no cyanosis. Neurovascular intact. Full, normal range of motion. Neuro: Awake and alert, GCS 14, oriented to person. Cranial nerves II-XII grossly intact. Motor strength 5/5 in all extremities. Sensory grossly intact. jr8 15:40 15:26 Hospitalization Ordered by Jesús Chávez MD for Inpatient Admission. Preliminary eb diagnosis is Acute combined systolic (congestive) and diastolic (congestive) heart failure; Chronic obstructive pulmonary disease with (acute) exacerbation. Bed requested for Intensive Care Unit. Status is Inpatient Admission. Condition is Fair. Problem is new. Symptoms have improved. UTI on Admission? No. jr8 15:52 15:40 01/31/2018 15:26 Hospitalization Ordered by Jesús Chávez MD for Inpatient jr8 Admission. Preliminary diagnosis is Acute combined systolic (congestive) and diastolic (congestive) heart failure; Chronic obstructive pulmonary disease with (acute) exacerbation. Bed requested for Intensive Care Unit. Status is Inpatient Admission. Condition is Fair. Problem is new. Symptoms have improved. UTI on Admission? No. eb 16:54 15:52 01/31/2018 15:26 Hospitalization Ordered by Jesús Chávez MD for Inpatient eb Admission. Preliminary diagnosis is Acute combined systolic (congestive) and diastolic (congestive) heart failure; Chronic obstructive pulmonary disease with (acute) exacerbation; Acute and chronic respiratory failure with hypercapnia. Bed requested for Intensive Care Unit. Status is Inpatient Admission. Condition is Fair. Problem is new. Symptoms have improved. UTI on Admission? No. jr8 21:19 16:54 01/31/2018 15:26 Hospitalization Ordered by Jesús Chávez MD for Inpatient aa1 Admission. Preliminary diagnosis is Acute combined systolic (congestive) and diastolic (congestive) heart failure; Chronic obstructive pulmonary disease with (acute) exacerbation; Acute and chronic respiratory failure with hypercapnia. Bed requested for Intensive Care Unit. Status is Inpatient Admission. Condition is Fair. Problem is new. Symptoms have improved. UTI on Admission? No. eb
--- NOTE | 2018-01-31 15:26 | ER ---
Nurse's Notes [facility] Name: Eusebia Vila Age: 53 yrs Sex: Female : 1965 Arrival Date: 01/31/2018 Time: 12:36 Bed 3 Private MD: Diagnosis: Acute combined systolic (congestive) and diastolic (congestive) heart failure;Chronic obstructive pulmonary disease with (acute) exacerbation;Acute and chronic respiratory failure with hypercapnia Presentation: 01/31 12:37 Presenting complaint: EMS states: pts sister called said she wasn't feeling right, was tw2 slumped over in the chair with her o2 on and a cigarette lit, low 70's when we arrived, we gave a\T\a tx, then placed her on bipap, sinus tach. Transition of care: patient was not received from another setting of care. Onset of symptoms was January 31, 2018. Risk Assessment: Do you want to hurt yourself or someone else? Patient reports no desire to harm self or others. Initial Sepsis Screen: Does the patient meet any 2 criteria? RR > 20 per min. HR > 90 bpm. Yes Does the patient have a suspected source of infection? Yes: Productive cough/pneumonia. Care prior to arrival: Medication(s) given: Albuterol Neb Atrovent Neb x 1, IV initiated. 20 GA, in the left antecubital area, Oxygen administered. via CPAP or BiPAP. 12:37 Method Of Arrival: EMS: [facility] tw2 12:37 Acuity: CLAUDIA 2 tw2 Triage Assessment: 12:45 General: Appears unkempt. Respiratory: Reports shortness of breath Onset: The tw2 symptoms/episode began/occurred today, the patient has severe shortness of breath. 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 tw2 Historical: - Allergies: 12:42 Codeine; tw2 12:42 Levofloxacin; tw2 - Home Meds: 12:42 hydrocodone-acetaminophen 10-325 mg Oral tab 4 times a day for Pain [Active]; MagOx 400 tw2 mg Oral tab twice a day [Active]; prednisone 10 mg Oral tab once daily [Active]; spironolactone 50 mg Oral tab 1 tab once daily [Active]; diltiazem HCl 120 mg Oral tab 1 tab 3 times per day [Active]; acetazolamide 250 mg Oral tab 1 tab once daily [Active]; aspirin 81 mg Oral TbEC 1 tab once daily [Active]; Daliresp 500 mcg Oral tab 1 tab once daily [Active]; - PMHx: 12:42 CAD; Cellulitis; COPD; Pneumonia; polycythemia vera; PVD; CHF; tw2 - Immunization history:: Adult Immunizations unknown. - Social history:: Smoking status: Patient uses tobacco products, smokes one pack cigarettes per day. - Ebola Screening: : Patient denies travel to an Ebola-affected area in the 21 days before illness onset. Screenin:40 Abuse screen: Denies threats or abuse. Nutritional screening: No deficits noted. tw2 Tuberculosis screening: No symptoms or risk factors identified. Fall Risk None identified. Assessment: 12:45 General: Appears unkempt, Behavior is drowsy. Pain: Denies pain. Neuro: Level of tw2 Consciousness is obeys commands, listless, Oriented to person. Cardiovascular: Heart tones S1 S2 Capillary refill is sluggish Patient's skin is warm and dry. Rhythm is sinus tachycardia. Respiratory: Airway is patent Respiratory effort is labored, using tripod position, Respiratory pattern is tachypnea Breath sounds are diminished bilaterally. GI: No signs and/or symptoms were reported involving the gastrointestinal system. Abdomen is round non-distended, Bowel sounds present X 4 quads. : No signs and/or symptoms were reported regarding the genitourinary system. EENT: No signs and/or symptoms were reported regarding the EENT system. Derm: Skin is fragile, is thin, feet are soiled with dirt and hair. Musculoskeletal: Circulation, motion, and sensation intact. 14:55 Reassessment: Reassessment: Patient and/or family updated on plan of care and expected ph duration. Pain level reassessed. Spo2 decreased to 76% on bi-pap, level of consciousness decreasing, pt slower to respond to questioning, ERP at bedside, preparing to intubate pt. 16:25 Reassessment: Pt desat to 88% on vent, ventilator alarming, RT at bedside to check vent ph and suction pt, Spo2 improved to 98%. 16:50 Reassessment: Pt hypotensive at 76/45, ERP aware, will continue to monitor. ph Reassessment: Pt remains hypotensive at 92/61, ERP at bedside, preparing to place central line. 17:30 Reassessment: BP improved to 100/64, will continue to monitor. ph 17:59 Reassessment: Pt hypotensive at 80/50, ERP notified, awaiting Levophed from pharmacy. ph 18:42 Reassessment: Patient appears in no apparent distress at this time. BP improved to ph 116/63, spo2 maintained at 91% on ventilator, pt to go to ICU after shift change. 19:30 Reassessment: Awaiting admission to ICU. Neuro: Level of Consciousness is unresponsive, aa1 pt intubated. Cardiovascular: Heart tones S1 S2 present Rhythm is sinus tachycardia. Respiratory: Airway via oral intubation Respiratory effort is assisted with ventilator Respiratory pattern is symmetrical. GI: Oral gastric tube in place, to suction. : Lane in place to gravity drainage. Derm: Skin is intact, is thin, Skin is dry, Skin is pale, Skin temperature is warm. 20:30 Reassessment: Patient appears in no apparent distress at this time. No changes from aa1 previously documented assessment. Report given to Cristina in ICU. Vital Signs: 12:39 BP 145 / 71; Pulse 105; Resp 30; Temp 97.7(A); Pulse Ox 84% on R/A; tw2 13:13 BP 132 / 66; Pulse 101; Resp 19; Pulse Ox 100% on BiPAP; tw2 14:00 BP 105 / 58; Pulse 99; Resp 12; Pulse Ox 100% on 100% BiPAP; ph 14:30 BP 115 / 58; Pulse 101; Resp 22; Pulse Ox 92% on 50% BiPAP; ph 15:00 BP 132 / 63; Pulse 97; Resp 22; Pulse Ox 100% on 100% BiPAP; ph 15:30 BP 124 / 88; Pulse 125; Resp 20; Pulse Ox 100% on 60% FiO2 ETT vent; ph 16:00 BP 109 / 86; Pulse 120; Resp 20; Pulse Ox 93% on 60% FiO2 ETT vent; ph 16:30 BP 115 / 73; Pulse 101; Resp 18; Pulse Ox 95% on 60% FiO2 ETT vent; ph 16:47 BP 92 / 61; Pulse 99; Resp 18; Pulse Ox 98% on 60% FiO2 ETT vent; ph 17:15 BP 99 / 67; Pulse 100; Resp 20; Pulse Ox 89% on 60% FiO2 ETT vent; ph 17:46 BP 101 / 51; Pulse 100; Resp 18; Temp 97.2; Pulse Ox 91% on 45% FiO2 ETT vent; ph 18:02 BP 80 / 50; Pulse 101; Resp 18; Pulse Ox 90% on 45% FiO2 ETT vent; ph 18:15 BP 77 / 52; Pulse 101; Resp 18; Pulse Ox 91% on 45% FiO2 ETT vent; ph 18:38 BP 116 / 63; Pulse 103; Resp 18; Pulse Ox 91% on 45% FiO2 ETT vent; ph 19:07 BP 132 / 63; Pulse 105; Resp 18; Pulse Ox 89% on 45% FiO2 ETT vent; ph 20:03 BP 105 / 77; Pulse 118; Resp 20; Temp 99.2(A); Pulse Ox 93% on ETT vent; aa1 20:45 Weight 65 kg; aa1 12:39 pt placed on bipap, o2 sat 90% will continue to monitor, tw2 ED Course: 12:36 Patient arrived in ED. tw2 12:38 Vargas Tinoco PA is PHCP. jr8 12:38 Timbo Jack MD is Attending Physician. jr8 12:39 Triage completed. tw2 12:39 Arm band placed on. tw2 12:43 Candice Qureshi, LINDSAY is Primary Nurse. tw2 12:45 Bed in low position. Side rails up X2. quality assurance monitor final on. Pulse ox on. NIBP on. Warm tw2 blanket given. 12:58 BIPAP Sent. tw2 13:10 Report given to Eros<RN. tw2 13:10 EKG done, by ED staff, reviewed by Vargas WARNER. em1 13:35 Eros Trammell, RN is Primary Nurse. mb3 13:41 XRAY Chest (1 view) In Process Unspecified. EDMS 14:30 Inserted saline lock: 20 gauge in left forearm, using aseptic technique. Blood ph collected. inserted by ED staff. 14:51 Anu Quezada, LINDSAY is Primary Nurse. ph 15:25 Jesús Chávez MD is Hospitalizing Provider. jr8 15:25 Assisted provider with intubation using 7.5 mm ETT via oral route. ET tube secured at ph 22cm at the lips. Set up intubation tray. Intubated by Vargas WARNER Placement verified by CXR, CO2 detector w/ + color change, auscultating bilateral breath sounds, Patient tolerated well. 15:35 NGT: inserted 16 Fr. other via oral route verified placement of air over stomach, ph verified return of gastric contents, Placement verified by X-ray, to intermittent suction. Returned gastric contents. Patient tolerated well. 16:07 X-ray completed. Portable x-ray completed in exam room. Patient tolerated procedure tm4 well. 16:48 Patient admitted, IV remains in place. ph 17:25 Assisted provider with central line placement. Set up central line tray. Triple lumen ph line placed in right femoral. Line placed by Anu Quezada RN Placement verified by blood return, Dressed with Tegaderm, Blood was collected. Patient tolerated well. Before procedure, did Practitioner(s) obtain informed consent? No. Administered Medications: 15:21 Drug: Etomidate 20 mg Route: IVP; Site: left forearm; ph 16:00 Follow up: Response: No adverse reaction; Patient is sedated ph 15:22 Drug: Rocuronium 70 mg Route: IVP; Site: left forearm; ph 16:00 Follow up: Response: No adverse reaction; Patient is sedated ph 15:30 Drug: Versed 4 mg Route: IVP; Site: left forearm; ph 16:00 Follow up: Response: No adverse reaction ph 15:31 Drug: fentaNYL (PF) 100 mcg Route: IVP; Site: left forearm; ph 19:26 Follow up: Response: No adverse reaction ph 16:10 Drug: SOLU-Medrol 125 mg Route: IVP; Site: left forearm; ph 19:26 Follow up: Response: No adverse reaction ph 16:13 Drug: Lasix 60 mg Route: IVP; Site: left forearm; ph 19:27 Follow up: Urine output 850 ml; Response: No adverse reaction ph 16:15 Drug: Magnesium Sulfate 2 grams Route: IVPB; Infused Over: 2 hrs; Site: left forearm; ph 17:30 Follow up: Response: No adverse reaction; IV Status: Completed infusion ph 16:20 Drug: Xopenex (3) 1.25 mg Route: Inhalation; ph 19:26 Follow up: Response: No adverse reaction ph 18:20 Drug: Levophed (4 mg/250 mL D5W 4 mcg/min Route: IV; Rate: calculated rate; Site: right ph femoral; 19:25 Follow up: Response: No adverse reaction; Blood pressure is elevated; IV Status: ph Infusion continued upon admission 20:14 Drug: Versed 2 mg Route: IVP; Site: right femoral; aa1 20:45 Follow up: Response: No adverse reaction; No change in condition aa1 20:14 Drug: fentaNYL (PF) 50 mcg Route: IVP; Site: right femoral; aa1 20:45 Follow up: Response: No adverse reaction; No change in condition aa1 20:45 Drug: Propofol 5 mcg/kg/min Route: IV; Rate: calculated rate; Site: right femoral; aa1 20:50 Follow up: IV Status: Infusion continued upon admission aa1 Output: 15:30 Urine: 400ml (Lane); Total: 400ml. ph 17:50 Urine: 500ml (Lane); Total: 900ml. ph 18:55 Urine: 350ml (Lane); Total: 1250ml. ph 19:27 Urine: 850ml; Total: 2100ml. ph Outcome: 15:26 Decision to Hospitalize by Provider. jr8 20:50 Admitted to ICU accompanied by nurse, accompanied by tech, via stretcher, room 6, with aa1 oxygen, on monitor, with chart, Report called to Cristina 20:50 Condition: stable 21:19 Patient left the ED. aa1 Signatures: Dispatcher [employer] EDMS Lizz Cleary RN RN aa1 [place] Eric em1 Vargas Tinoco PA PA jr8 Anu Quezada RN RN ph Wise, Tara, RN RN 2 Eros Trammell RN RN mb3 Corrections: (The following items were deleted from the chart) 16:43 14:50 Reassessment: ph ph 17:49 17:46 BP 101 / 51; Pulse 100bpm; Resp 18bpm; Pulse Ox 91% FiO2 45% vent; ph ph
[2018-01-31] MEDS ORDERED: METHYLPREDNISOLONE 125 MG INJ ONE (16:09)
[2018-01-31] MEDS ORDERED: FUROSEMIDE 100 MG/10 ML VIAL IV ONE (16:10)
[2018-01-31] MEDS ORDERED: Magnesium Sulfate 2gm IVPB 2 G/50 ML BAG IV ONE (16:10)
[2018-01-31] MEDS ORDERED: LEVALBUTEROL 1.25 MG/3 ML NEB ONE (16:10)
[2018-01-31 16:11] LABS: Arterial Blood Carboxyhemoglob 4.7 % (0-1.5); Blood Gas Oxyhemoglobin 87.6 % (94-97)
--- NOTE | 2018-01-31 17:09 | RAD REPORT ---
EXAM DESCRIPTION: RAD - Chest Single View - 01/31/2018 4:09 pm CLINICAL HISTORY: Intubation, respiratory distress COMPARISON: January 31 TECHNIQUE: AP portable chest image was obtained 1554 hour . FINDINGS: Endotracheal tube is in place T5 level top of the aortic arch. This is 2-3 cm above the ca tamica. NG tube is in place. Tip is below the diaphragm, off the field of view. Cardiomegaly is present. Vasculature is mildly prominent. Patchy opacification seen in the right upp er lung field. Patient has bilateral pleural effusions small to moderate in size. Trachea is midline. No pneumothorax. No gross bony abnormality seen. No acute aortic findings suspected. IMPRESSION: ET tube and NG tube in good position. Bilateral pleural effusions up to moderate size with cardiomegaly.
[2018-01-31] MEDS ORDERED: LORazepam 2 MG/ML VIAL ONE (17:17)
[2018-01-31] MEDS ORDERED: ONDANSETRON 4 MG/2 ML VIAL IV PRN (17:23)
[2018-01-31] MEDS ORDERED: NA CHLORIDE 0.9% 250 ML IV PRN (17:23)
[2018-01-31] MEDS: FUROSEMIDE 20 MG/ 2ML VIAL IV SCH (17:23)
[2018-01-31] MEDS ORDERED: NOREPINEPHRINE 4 MG in D5W 250 ML IV PRN (18:05)
[2018-01-31] MEDS ORDERED: IPRATROPIUM BROM 0.5MG/2.5ML ONE (19:13)
[2018-01-31] MEDS ORDERED: ALBUTEROL 2.5 MG/3 ML NEB SOL ONE (19:13)
[2018-01-31] MEDS: IPRATROPIUM BROM 0.5MG/2.5ML NEB PRN (19:15)
[2018-01-31] MEDS: ALBUTEROL 2.5 MG/3 ML NEB SOL NEB PRN (19:15)
[2018-01-31] MEDS ORDERED: FAMOTIDINE 20 MG/2 ML VIAL IV ONE (19:22)
[2018-01-31 19:44] LABS: Urine Blood 2+ (NEG); Urine Glucose NEGATIVE (NEG); Urine Protein 2+ (NEG); Urine pH 8.5 (5.0-7.0)
[2018-01-31] MEDS ORDERED: PROPOFOL 1,000 MG/100 ML VIAL IV ONE (20:52)
[2018-01-31] MEDS: FAMOTIDINE 20 MG/2 ML VIAL IV SCH (22:15)
[2018-02-01 05:26] LABS: Arterial Blood Carboxyhemoglob 2.5 % (0-1.5); Blood Gas Oxyhemoglobin 85.2 % (94-97); Blood O2 Saturation 87.6 % (92-98.5)
[2018-02-01 05:32] LABS: Absolute Lymphocytes (CBC) 0.5 K/uL (0.7-4.9); Absolute Monocytes 0.7 K/uL (0.1-1.3); Absolute Neutrophil 5.5 K/uL (1.8-8.0); Hematocrit 28.5 % (36.0-45.0); Lymphocytes % 7.4 % (15.3-44.8); MCH 26.9 pg (27.0-35.0); MCV 89.1 fL (80-100); MPV 8.1 fL (7.6-11.3); Monocytes % 10.7 % (3.3-12.3)
[2018-02-01 06:04] LABS: BUN Blood Urea Nitrogen 10 mg/dL (7-18); Glucose Level 111 mg/dL (74-106); NT PRO-BNP 2699 pg/mL (<125); Sodium Level 135 mmol/L (136-145)
[2018-02-01 06:06] LABS: Bicarbonate 55 mmol/L (21-32); Magnesium 1.3 mg/dL (1.8-2.4); Potassium 2.6 mmol/L (3.5-5.1)
[2018-02-01] MEDS ORDERED: Magnesium Sulfate 2gm IVPB 2 G/50 ML BAG IV ONE (06:12)
[2018-02-01] MEDS: KCL 20 MEQ/100 mL IVPB 20 MEQ/100 ML BAG IV SCH ×5 (06:29→17:00)
[2018-02-01] MEDS: FAMOTIDINE 20 MG/2 ML VIAL IV SCH (08:04)
[2018-02-01] MEDS: FENTANYL CITR 100 MCG/2 ML IV PRN ×2 (08:04→19:41)
[2018-02-01] MEDS: FUROSEMIDE 20 MG/ 2ML VIAL IV SCH (08:04)
[2018-02-01] MEDS ORDERED: ETOMIDATE 20 MG/10 ML VIAL IV ONE (08:46)
--- NOTE | 2018-02-01 09:31 | EKG ---
Test Date: 2018-01-31 Test Time: 12:57:08 Knife Operator: MARYAN MEASUREMENT RESULTS: Intervals: Rate: 109 KS: 132 QRSD: 84 QT: 344 QTc: 463 [place]: P: 71 KS: 132 QRS: 101 T: 66 INTERPRETIVE STATEMENTS: Sinus tachycardia with premature supraventricular complexes and with occasional premature ventricular complexes Rightward axis Borderline ECG Compared to ECG 01/17/2018 17:06:25 Ventricular premature complex(es) now present Electronically Signed On 02-01-18 09:28:17 CDT by Alec Olivares
[2018-02-01] MEDS: LORazepam 2 MG/ML VIAL IV PRN ×5 (09:38→21:13)
--- NOTE | 2018-02-01 11:07 | RAD REPORT ---
EXAM DESCRIPTION: Darren Single View02/01/2018 6:07 am CLINICAL HISTORY: Shortness of breath COMPARISON: January 31, 2018 FINDINGS: Endotracheal and nasogastric tubes remain in place. [id number] bilateral pulmonary opacities are stable. Small pleural effusions persist. The heart remains enlarged IMPRESSION: (No change in the bilateral pulmonary opacities probably representing pulmonary edema
--- NOTE | 2018-02-01 11:56 | P.HP ---
Certification for Inpatient Patient admitted to: Inpatient With expected LOS: >2 Midnights Patient will require the following post-hospital care: None Practitioner: I am a practitioner with admitting privileges, knowledge of patient current condition, hospital course, and medical plan of care. Services: Services provided to patient in accordance with Admission requirements found in Title 42 Section 412.3 of the Code of Federal Regulations Patient History Date of Service: 02/01/18 Primary Care Provider: Saira Reason for admission: Respiratory failure History of Present Illness: Patient is here with worsening shortness of breath. Was not improved with bipap therapy. CO2 continued to rise and the patient was intubated. She is currently in the icu. Off propafol and levophed. The patient is not waking up. However blood gasses have improved since last eventin. Allergies codeine Allergy (Verified 11/18/17 23:38) Shortness of breath levofloxacin [From Levaquin] Adverse Reaction (Intermediate, Verified 11/18/17 23:38) hallucinations morphine Adverse Reaction (Verified 11/18/17 23:38) Itching/Hives/Rash Home Medications: Aspirin [Aspirin EC 81 MG] 1 tab PO DAILY 11/20/17 Spironolactone [Aldactone*] 50 mg PO DAILY tab 11/20/17 Diltiazem Tab [Cardizem Tab*] 120 mg PO DAILY 11/30/17 Magnesium Oxide [Mag 0X*] 400 mg PO BID 11/30/17 predniSONE [Deltasone*] 10 mg PO DAILY #30 tab 11/30/17 Arformoterol Tartrate [Brovana] 1 puff IH BID 01/17/18 Gabapentin [Neurontin*] 1 tab PO BID 01/17/18 Hydrocodone/Acetaminophen [Hydrocodone-Acetamin 7.5-325] 7.5 - 325 tab PO QID Arformoterol Tartrate [Brovana] 15 mcg IH DAILY 01/31/18 Furosemide [Lasix] 20 mg PO BID 01/31/18 Potassium Chloride 20 meq PO DAILY 01/31/18 Roflumilast [Daliresp*] 500 mcg PO DAILY 01/31/18 Umeclidinium Benicia [Incruse Ellipta] 62.5 mcg IH DAILY 01/31/18 acetaZOLAMIDE [Diamox] 250 mg PO DAILY 01/31/18 buPROPion HCl [Bupropion HCl] 100 mg PO BID 01/31/18 - Past Medical/Surgical History Diabetic: No -: Diastolic dysfunction -: COPD -: CHF -: CAD -: Cellulitis -: Pneumonia -: PVD -: anxiety -: leg wound - [facility] -: Cardiomegaly -: Atrial flutter -: polycythemia vera -: back -: cholecystectomy -: Hysterectomy -: Morphine pump mid right side of stomach - in place -: morphine pump with additional medications - Family History Sister -: Cancer Brother -: Cancer Father -: Cancer Mother -: Lung disease, Cancer - Social History Smoking Status: Current every day smoker Alcohol use: No CD- Drugs: No Caffeine use: Yes Place of Residence: Home Review of Systems is unable to be obtained Physical Examination - Vital Signs Temperature: 98.2 F Blood Pressure: 122/69 Pulse: 117 Respirations: 14 Pulse Ox (%): 94 - Physical Exam General: In no apparent distress, Unresponsive (intubated) HEENT: Atraumatic, PERRLA, Mucous membr. moist/pink, EOMI, Sclerae nonicteric Neck: Supple, 2+ carotid pulse no bruit, No LAD, Without JVD or thyroid abnormality Respiratory: Clear to auscultation bilaterally, Other (respiratory sounds) Cardiovascular: Regular rate/rhythm, Normal S1 S2 Gastrointestinal: Normal bowel sounds, No tenderness Musculoskeletal: No tenderness Integumentary: No rashes Neurological: Normal gait, Normal speech, Normal strength at 5/5 x4 extr, Normal tone, Normal affect Lymphatics: No axilla or inguinal lymphadenopathy - Studies Laboratory Data (last 24 hrs) 01/31/18 13:37: PT 12.4, INR 1.05 01/31/18 13:37: WBC 8.8, Hgb 8.8 L, Hct 30.4 L, Plt Count 224 D 01/31/18 13:37: Sodium 136, Potassium 3.5, BUN 8, Creatinine 0.22 L, Glucose 103 , Magnesium 1.3 L* D, Total Bilirubin 0.4, AST 12 L, ALT 16, Alkaline Phosphatase 83 Assessment and Plan - Problems (Diagnosis) (1) Acute and chronic respiratory failure ([id number]) Onset Date: 09/19/16 Current Visit: No Status: Acute Plan: Patient is on ventilator. Continue diuretic. Will hold off on weaning off ventilatory tomorrow. Will give PRN ativan Qualifiers: Respiratory failure complication: hypercapnia Qualified Code(s): J96.22 - Acute and chronic respiratory failure with hypercapnia (2) CHF exacerbation Onset Date: 06/17/17 Current Visit: No Status: Acute Plan: Patient has similar cxr this morning. Continue diuretic. She may benefit from tasha. This is a thought for discharge Qualifiers: Heart failure type: diastolic Qualified Code(s): I50.33 - Acute on chronic diastolic (congestive) heart failure (3) Venous ulcer of left leg Current Visit: Yes Status: Acute Plan: Will have wound care evaluate. (4) Hypokalemia Onset Date: 05/05/15 Current Visit: No Status: Acute Plan: On replacement protochol (5) Hypomagnesemia Onset Date: 05/05/15 Current Visit: No Status: Acute Plan: On replacement protochol (6) Nicotine dependence Onset Date: 11/19/17 Current Visit: No Status: Chronic Plan: Have been discussing this at length with the patient. She actually has been doing very well. Had spoken with the sister on Fri visit in the wound care center who confirmed this. Unfortunately her lungs are already very weak. Qualifiers: Nicotine product type: cigarettes Substance use status: uncomplicated Qualified Code(s): F17.210 - Nicotine dependence, cigarettes, uncomplicated Discharge Plan: Home - Advance Directives Does patient have a Living Will: No Does patient have a Durable POA for Healthcare: No - Code Status/Comfort Care Code Status Assessed: No Code Status: Full Code Critical Care: Yes Time Spent Managing Pts Care (In Minutes): 40
[2018-02-01] MEDS ORDERED: SODIUM CHLORIDE 0.9% 10ML INJ IV PRN (12:01)
[2018-02-01] MEDS: PANTOPRAZOLE 40 MG INJ IVP SCH (12:33)
[2018-02-01] MEDS: FUROSEMIDE 40 MG/4 ML VIAL IV SCH (17:00)
[2018-02-01] MEDS ORDERED: Magnesium Sulfate 1gm IVPB 1 GM/50 ML BAG IV ONE (17:00)
[2018-02-01] MEDS: ENOXAPARIN 40 MG/0.4 ML SQ SCH (17:02)
[2018-02-01] MEDS: IPRATROPIUM BROM 0.5MG/2.5ML NEB PRN ×2 (19:01→23:17)
[2018-02-01] MEDS: ALBUTEROL 2.5 MG/3 ML NEB SOL NEB PRN ×2 (19:01→23:17)
[2018-02-02] MEDS: LORazepam 2 MG/ML VIAL IV PRN ×4 (02:12→19:46)
[2018-02-02] MEDS: KCL 20 MEQ/100 mL IVPB 20 MEQ/100 ML BAG IV SCH ×6 (02:57→15:04)
[2018-02-02] MEDS: ALBUTEROL 2.5 MG/3 ML NEB SOL NEB PRN ×4 (03:02→19:43)
[2018-02-02] MEDS: IPRATROPIUM BROM 0.5MG/2.5ML NEB PRN ×4 (03:02→19:43)
[2018-02-02 04:46] LABS: Arterial Blood Carboxyhemoglob 2.2 % (0-1.5); Blood Gas Oxyhemoglobin 86.2 % (94-97); Blood O2 Saturation 88.8 % (92-98.5)
[2018-02-02 05:22] LABS: Absolute Monocytes 0.9 K/uL (0.1-1.3); Absolute Neutrophil 12.5 K/uL (1.8-8.0); Basophils % 0.4 % (0-1.3); Hematocrit 27.1 % (36.0-45.0); Lymphocytes % 6.9 % (15.3-44.8); MCH 26.4 pg (27.0-35.0); MCV 88.1 fL (80-100); MPV 7.8 fL (7.6-11.3); Monocytes % 6.1 % (3.3-12.3); RBC Red Blood Cell Count 3.08 M/uL (3.86-4.86)
[2018-02-02 05:56] LABS: Blood Morphology Comment NOT SEEN (NOT SEEN); Platelet Estimate ADEQ; Urine White Blood Cell Casts OK
[2018-02-02 07:27] LABS: Albumin 2.7 g/dL (3.4-5.0); Bilirubin Total 0.8 mg/dL (0.2-1.0); Magnesium 1.7 mg/dL (1.8-2.4); Protein, Total 5.7 g/dL (6.4-8.2)
--- NOTE | 2018-02-02 08:49 | P.PN ---
Subjective Date of Service: 02/02/18 Primary Care Provider: Saira Chief Complaint: Respiratory failure Subjective: Improving (Patient is waking up slightly. On smv but not breathing over the vent) Review of Systems is unable to be obtained Physical Examination - Vital Signs Temperature: 98.2 F Blood Pressure: 101/59 Pulse: 102 Respirations: 14 Pulse Ox (%): 90 - Physical Exam General: Unresponsive HEENT: Atraumatic, PERRLA, Other (intubated), EOMI Neck: Supple, JVD not distended Respiratory: Clear to auscultation bilaterally, Normal air movement Cardiovascular: Regular rate/rhythm, Normal S1 S2 Gastrointestinal: Normal bowel sounds, No tenderness Musculoskeletal: No tenderness Integumentary: No rashes Neurological: Normal speech, Normal tone, Normal affect Lymphatics: No axilla or inguinal lymphadenopathy Assessment & Plan - Problems (Diagnosis) (1) Acute and chronic respiratory failure (kejcy-[id number]) Onset Date: 09/19/16 Current Visit: No Status: Acute Plan: Patient is on ventilator. Continue diuretic. Continue smv. Need to have the patient wake up a little more before we try a weaning trial. Will try again in the afternoon. Patient is weak at baseline. This is the second intubation in as many months. So detention is a poor prognosis. Qualifiers: Respiratory failure complication: hypercapnia Qualified Code(s): J96.22 - Acute and chronic respiratory failure with hypercapnia (2) CHF exacerbation Onset Date: 06/17/17 Current Visit: No Status: Acute Plan: Patient has similar cxr this morning. Continue diuretic. She may benefit from tasha. This is a thought for discharge Qualifiers: Heart failure type: diastolic Qualified Code(s): I50.33 - Acute on chronic diastolic (congestive) heart failure (3) Venous ulcer of left leg Current Visit: Yes Status: Acute Plan: Will have wound care evaluate. (4) Hypokalemia Onset Date: 05/05/15 Current Visit: No Status: Acute Plan: On replacement protochol (5) Hypomagnesemia Onset Date: 05/05/15 Current Visit: No Status: Acute Plan: On replacement protochol (6) Nicotine dependence Onset Date: 11/19/17 Current Visit: No Status: Chronic Plan: Have been discussing this at length with the patient. She actually has been doing very well. Had spoken with the sister on Wed visit in the wound care center who confirmed this. Unfortunately her lungs are already very weak. Qualifiers: Nicotine product type: cigarettes Substance use status: uncomplicated Qualified Code(s): F17.210 - Nicotine dependence, cigarettes, uncomplicated Discharge Plan: Home Plan to discharge in: Greater than 2 days - Code Status/Comfort Care Code Status Assessed: Yes Code Status: Full Code Physician Review: Patient Assessed, Agree with Above Assessment and Plan Critical Care: Yes Time Spent Managing Pts Care (In Minutes): 30
[2018-02-02] MEDS: PANTOPRAZOLE 40 MG INJ IVP SCH (08:56)
[2018-02-02] MEDS: FUROSEMIDE 40 MG/4 ML VIAL IV SCH ×2 (08:56→17:24)
[2018-02-02] MEDS ORDERED: PANTOPRAZOLE 40 MG INJ IVP SCH (09:00)
[2018-02-02 10:26] LABS: Potassium 2.9 mmol/L (3.5-5.1)
[2018-02-02] MEDS ORDERED: MAGNESIUM SULFATE 1 gm IVPB 1 GM/100 ML BAG IV ONE (10:47)
[2018-02-02] MEDS ORDERED: Magnesium Sulfate 1gm IVPB 1 GM/50 ML BAG IV ONE (11:00)
[2018-02-02] MEDS: FENTANYL CITR 100 MCG/2 ML IV PRN ×3 (13:01→22:38)
[2018-02-02] MEDS: ENOXAPARIN 40 MG/0.4 ML SQ SCH (17:25)
[2018-02-02] MEDS ORDERED: POTASSIUM 25 MEQ EFFERV TAB PO ONE (23:13)
[2018-02-03 05:09] LABS: Absolute Lymphocytes (CBC) 0.8 K/uL (0.7-4.9); Absolute Monocytes 0.9 K/uL (0.1-1.3); Absolute Neutrophil 12.6 K/uL (1.8-8.0); Basophils % 0.2 % (0-1.3); Hematocrit 26.3 % (36.0-45.0); Lymphocytes % 5.6 % (15.3-44.8); MCH 26.5 pg (27.0-35.0); MCV 86.5 fL (80-100); MPV 7.9 fL (7.6-11.3); Monocytes % 6.1 % (3.3-12.3); RBC Red Blood Cell Count 3.04 M/uL (3.86-4.86)
[2018-02-03 05:14] LABS: Arterial Blood Carboxyhemoglob 2.5 % (0-1.5); Blood Gas Oxyhemoglobin 86.4 % (94-97); Blood O2 Saturation 88.9 % (92-98.5)
[2018-02-03 05:41] LABS: BUN Blood Urea Nitrogen 15 mg/dL (7-18); Glucose Level 85 mg/dL (74-106); Potassium 3.3 mmol/L (3.5-5.1); Sodium Level 134 mmol/L (136-145)
[2018-02-03 05:42] LABS: ALT/SGPT 10 U/L (12-78); AST/SGOT 16 U/L (15-37); Albumin 2.7 g/dL (3.4-5.0); Alkaline Phosphatase 75 U/L (45-117); Bilirubin Total 1.1 mg/dL (0.2-1.0); Protein, Total 5.9 g/dL (6.4-8.2)
[2018-02-03 05:44] LABS: Bicarbonate 48 mmol/L (21-32); Magnesium 1.4 mg/dL (1.8-2.4)
[2018-02-03] MEDS ORDERED: Magnesium Sulfate 2gm IVPB 2 G/50 ML BAG IV ONE (06:11)
[2018-02-03] MEDS: KCL 20 MEQ/100 mL IVPB 20 MEQ/100 ML BAG IV SCH ×4 (06:41→21:08)
[2018-02-03] MEDS: FUROSEMIDE 40 MG/4 ML VIAL IV SCH ×2 (09:10→17:08)
[2018-02-03] MEDS: PANTOPRAZOLE 40 MG INJ IVP SCH (09:10)
--- NOTE | 2018-02-03 13:34 | P.PN ---
Subjective Date of Service: 02/03/18 Primary Care Provider: Saira Chief Complaint: Respiratory failure Subjective: No new changes (slightly more awake. Falls asleep during comands) Review of Systems is unable to be obtained Physical Examination - Vital Signs Temperature: 97.5 F Blood Pressure: 106/68 Pulse: 104 Respirations: 17 Pulse Ox (%): 93 - Physical Exam General: In no apparent distress, Other (intubated.) HEENT: Atraumatic, PERRLA, EOMI Neck: Supple, JVD not distended Respiratory: Clear to auscultation bilaterally, Normal air movement Cardiovascular: Regular rate/rhythm, Normal S1 S2 Gastrointestinal: Normal bowel sounds, No tenderness Musculoskeletal: No tenderness Integumentary: No rashes Neurological: Normal speech, Normal tone, Normal affect Lymphatics: No axilla or inguinal lymphadenopathy Assessment & Plan - Problems (Diagnosis) (1) Acute and chronic respiratory failure ([id number]) Onset Date: 09/19/16 Current Visit: No Status: Acute Plan: Patient is on ventilator. Continue diuretic. Continue smv. Need to have the patient wake up a little more. Will try a short weaning trial. Will have the family call the office to discuss this. Consult Dr. Hughes. Qualifiers: Respiratory failure complication: hypercapnia Qualified Code(s): J96.22 - Acute and chronic respiratory failure with hypercapnia (2) CHF exacerbation Onset Date: 02/02/18 Current Visit: Yes Status: Acute Plan: Patient has similar cxr this morning. Continue diuretic. She may benefit from tasha. This is a thought for discharge Qualifiers: Heart failure type: diastolic Qualified Code(s): I50.33 - Acute on chronic diastolic (congestive) heart failure (3) Venous ulcer of left leg Onset Date: 02/02/18 Current Visit: Yes Status: Acute Plan: Will have wound care evaluate. (4) Hypokalemia Onset Date: 02/02/18 Current Visit: Yes Status: Acute Plan: On replacement protochol (5) Hypomagnesemia Onset Date: 02/02/18 Current Visit: Yes Status: Acute Plan: On replacement protochol (6) Nicotine dependence Onset Date: 02/02/18 Current Visit: Yes Status: Chronic Plan: Have been discussing this at length with the patient. She actually has been doing very well. Had spoken with the sister on Wed visit in the wound care center who confirmed this. Unfortunately her lungs are already very weak. Qualifiers: Nicotine product type: cigarettes Substance use status: uncomplicated Qualified Code(s): F17.210 - Nicotine dependence, cigarettes, uncomplicated Discharge Plan: Home Plan to discharge in: Greater than 2 days - Code Status/Comfort Care Code Status Assessed: No Code Status: Full Code Physician Review: Patient Assessed, Agree with Above Assessment and Plan Critical Care: Yes Time Spent Managing Pts Care (In Minutes): 25
[2018-02-03] MEDS: LORazepam 2 MG/ML VIAL IV PRN ×3 (17:08→21:28)
[2018-02-03] MEDS: ENOXAPARIN 40 MG/0.4 ML SQ SCH (17:09)
[2018-02-03 17:21] LABS: Magnesium 1.8 mg/dL (1.8-2.4); Potassium 3.1 mmol/L (3.5-5.1)
[2018-02-03] MEDS ORDERED: Magnesium Sulfate 1gm IVPB 1 GM/50 ML BAG IV ONE (18:41)
[2018-02-03] MEDS: FENTANYL CITR 100 MCG/2 ML IV PRN (20:08)
[2018-02-03] MEDS: VITAL AF 1,000 ML BOT RTH SCH (20:32)
[2018-02-04 06:38] LABS: Absolute Lymphocytes (CBC) 1.3 K/uL (0.7-4.9); Absolute Neutrophil 10.2 K/uL (1.8-8.0); Basophils % 0.2 % (0-1.3); Eosinophils % 0.3 % (0-4.4); Hematocrit 27.4 % (36.0-45.0); Lymphocytes % 10.2 % (15.3-44.8); MCH 26.6 pg (27.0-35.0); MCV 86.8 fL (80-100); MPV 8.3 fL (7.6-11.3); Monocytes % 7.6 % (3.3-12.3); RBC Red Blood Cell Count 3.16 M/uL (3.86-4.86)
[2018-02-04 06:54] VITALS: BMI 20.9
[2018-02-04] MEDS: IPRATROPIUM BROM 0.5MG/2.5ML NEB PRN (08:31)
[2018-02-04] MEDS: ALBUTEROL 2.5 MG/3 ML NEB SOL NEB PRN (08:31)
[2018-02-04] MEDS: FUROSEMIDE 40 MG/4 ML VIAL IV SCH (08:52)
[2018-02-04] MEDS: PANTOPRAZOLE 40 MG INJ IVP SCH (08:53)
[2018-02-04 08:58] LABS: Albumin 2.6 g/dL (3.4-5.0); Bilirubin Total 0.8 mg/dL (0.2-1.0); Magnesium 1.7 mg/dL (1.8-2.4); Potassium 3.4 mmol/L (3.5-5.1); Protein, Total 6.2 g/dL (6.4-8.2)
--- NOTE | 2018-02-04 09:07 | P.PN ---
Subjective Date of Service: 02/04/18 Primary Care Provider: Saira Chief Complaint: Respiratory failure Subjective: No new changes more awake, nods yes and no to questions Review of Systems is unable to be obtained Physical Examination - Vital Signs Temperature: 97.4 F Blood Pressure: 102/60 Pulse: 106 Respirations: 17 Pulse Ox (%): 100 - Physical Exam General: Alert, In no apparent distress HEENT: Atraumatic, PERRLA, EOMI Neck: Supple, JVD not distended Respiratory: Clear to auscultation bilaterally, Normal air movement Cardiovascular: Regular rate/rhythm, Normal S1 S2 Gastrointestinal: Normal bowel sounds, No tenderness Musculoskeletal: No tenderness Integumentary: No rashes Neurological: Normal speech, Normal tone, Normal affect Lymphatics: No axilla or inguinal lymphadenopathy Assessment & Plan - Problems (Diagnosis) (1) Acute and chronic respiratory failure ([id number]) Onset Date: 09/19/16 Current Visit: No Status: Acute Plan: Much better this morning. Will try a weaning trial today Qualifiers: Respiratory failure complication: hypercapnia Qualified Code(s): J96.22 - Acute and chronic respiratory failure with hypercapnia (2) CHF exacerbation Onset Date: 02/02/18 Current Visit: Yes Status: Acute Plan: Patient has similar cxr this morning. Continue diuretic. She may benefit from tasha. This is a thought for discharge Qualifiers: Heart failure type: diastolic Qualified Code(s): I50.33 - Acute on chronic diastolic (congestive) heart failure (3) Venous ulcer of left leg Onset Date: 02/02/18 Current Visit: Yes Status: Acute Plan: Will have wound care evaluate. (4) Hypokalemia Onset Date: 02/02/18 Current Visit: Yes Status: Acute Plan: On replacement protochol (5) Hypomagnesemia Onset Date: 02/02/18 Current Visit: Yes Status: Acute Plan: On replacement protochol (6) Nicotine dependence Onset Date: 02/02/18 Current Visit: Yes Status: Chronic Plan: Have been discussing this at length with the patient. She actually has been doing very well. Had spoken with the sister on Fri visit in the wound care center who confirmed this. Unfortunately her lungs are already very weak. Qualifiers: Nicotine product type: cigarettes Substance use status: uncomplicated Qualified Code(s): F17.210 - Nicotine dependence, cigarettes, uncomplicated Discharge Plan: Home - Code Status/Comfort Care Code Status Assessed: No Code Status: Full Code Physician Review: Patient Assessed, Agree with Above Assessment and Plan Critical Care: Yes Time Spent Managing Pts Care (In Minutes): 25
[2018-02-04] MEDS ORDERED: POTASSIUM 25 MEQ EFFERV TAB PO ONE (09:12)
[2018-02-04] MEDS ORDERED: Magnesium Sulfate 1gm IVPB 1 GM/50 ML BAG IV ONE (09:30)
[2018-02-04 10:58] LABS: Arterial Blood Carboxyhemoglob 2.2 % (0-1.5); Blood Gas Oxyhemoglobin 88.9 % (94-97); Blood O2 Saturation 91.4 % (92-98.5)
--- NOTE | 2018-02-04 13:19 | P.CNS ---
Date of Consult: 02/04/18 Primary Care Provider: Saira Chief Complaint: Respiratory failure History of Present Illness: Patient is 53 years of age recurrent hospital admissions with hypoxic hypercapnic respiratory failure and noncompliance heavy smoker she was just recently discharged came back again hypercapnic currently on a ventilator she is alert and agitated patient is not tolerating the weaning trial compliance has been a problem with this lady she does not use her BiPAP at home continues to smoke heavily Allergies codeine Allergy (Verified 11/18/17 23:38) Shortness of breath levofloxacin [From Levaquin] Adverse Reaction (Intermediate, Verified 11/18/17 23:38) hallucinations morphine Adverse Reaction (Verified 11/18/17 23:38) Itching/Hives/Rash Home Medications: Aspirin [Aspirin EC 81 MG] 1 tab PO DAILY 11/20/17 Spironolactone [Aldactone*] 50 mg PO DAILY tab 11/20/17 Diltiazem Tab [Cardizem Tab*] 120 mg PO DAILY 11/30/17 Magnesium Oxide [Mag 0X*] 400 mg PO BID 11/30/17 predniSONE [Deltasone*] 10 mg PO DAILY #30 tab 11/30/17 Arformoterol Tartrate [Brovana] 1 puff IH BID 01/17/18 Gabapentin [Neurontin*] 1 tab PO BID 01/17/18 Hydrocodone/Acetaminophen [Hydrocodone-Acetamin 7.5-325] 7.5 - 325 tab PO QID Arformoterol Tartrate [Brovana] 15 mcg IH DAILY 01/31/18 Furosemide [Lasix] 20 mg PO BID 01/31/18 Potassium Chloride 20 meq PO DAILY 01/31/18 Roflumilast [Daliresp*] 500 mcg PO DAILY 01/31/18 Umeclidinium [place] [Incruse Ellipta] 62.5 mcg IH DAILY 01/31/18 acetaZOLAMIDE [Diamox] 250 mg PO DAILY 01/31/18 buPROPion HCl [Bupropion HCl] 100 mg PO BID 01/31/18 - Past Medical/Surgical History Diabetic: No -: Diastolic dysfunction -: COPD -: CHF -: CAD -: Cellulitis -: Pneumonia -: PVD -: anxiety -: leg wound - [facility] -: Cardiomegaly -: Atrial flutter -: polycythemia vera -: back -: cholecystectomy -: Hysterectomy -: Morphine pump mid right side of stomach - in place -: morphine pump with additional medications - Family History Sister Medical History: Cancer Brother Medical History: Cancer Father Medical History: Cancer Mother Medical History: Lung disease, Cancer - Social History Smoking Status: Current every day smoker Alcohol use: No CD- Drugs: No Caffeine use: Yes Place of Residence: Home Review of Systems is unable to be obtained Physical Examination Temp Pulse Resp BP Pulse Ox 97.4 F 122 H 21 H 106/43 L 94 02/04/18 09:07 02/04/18 11:00 02/04/18 11:00 02/04/18 11:00 02/04/18 11:00 General: Alert, Other HEENT: Atraumatic (Agitated) Neck: Supple Respiratory: Clear to auscultation bilaterally Cardiovascular: Normal S1 S2, Edema (Minimal edema) Gastrointestinal: Normal bowel sounds, Soft and benign Musculoskeletal: No clubbing Integumentary: Rash(es) (She has chronic eczematous changes in lower extremity which give which have improved) - Problems (1) Acute and chronic respiratory failure Onset Date: 05/13/17 Current Visit: Yes Status: Resolved Plan: Patient is 53 years of age terminal COPD recurrent exacerbation frequent hospital admissions noncompliance heavy smoker admitted yet again hypoxic hypercapnic this time patient was intubated patient was very hypercapnic acidotic elevated bicarbonate plan to titrate sat to around 80 8-90% avoid diuretics no significant evidence of volume overload continue with low-dose spironolactone tube feeds transfer to an L tach patient has normal left ventricular function cardiomegaly trial of IV fluids to see if we can reduce the bicarbonate aggressive bronchodilator therapy and steroids blood cultures she is high risk for Pseudomonas infection this may be triggered off by a possible pneumonia unable to verify that on the x-ray I have added cefepime Qualifiers: Respiratory failure complication: hypercapnia Qualified Code(s): J96.22 - Acute and chronic respiratory failure with hypercapnia
[2018-02-04] MEDS ORDERED: CEFEPIME 1 GM/VIAL IV SCH (13:21)
[2018-02-04] MEDS: ARFORMOTEROL TARTRATE 15 MCG/2 ML VIAL.NEB NEB SCH ×2 (13:33→19:52)
[2018-02-04] MEDS: IPRATROPIUM BROM 0.5MG/2.5ML NEB SCH ×2 (13:33→19:52)
[2018-02-04] MEDS: LORazepam 2 MG/ML VIAL IV PRN ×2 (13:39→18:04)
[2018-02-04] MEDS: CEFEPIME/SWI 1gm 1 GM/10 ML SYR IV SCH ×2 (13:39→20:18)
[2018-02-04] MEDS: NACHLORIDE 0.45% 1,000 ML IV SCH (13:41)
[2018-02-04 15:12] LABS: Arterial Blood Carboxyhemoglob 2.3 % (0-1.5); Blood Gas Oxyhemoglobin 86.3 % (94-97); Blood O2 Saturation 88.6 % (92-98.5)
[2018-02-04] MEDS: FENTANYL CITR 100 MCG/2 ML IV PRN ×2 (15:52→21:27)
[2018-02-04] MEDS: METHYLPREDNISOLONE 40 MG INJ IV SCH (17:02)
[2018-02-04] MEDS: ENOXAPARIN 40 MG/0.4 ML SQ SCH (17:02)
[2018-02-04] MEDS: VITAL AF 1,000 ML BOT RTH SCH (20:30)
[2018-02-05 00:13] VITALS: O2SAT 93
[2018-02-05] MEDS: METHYLPREDNISOLONE 40 MG INJ IV SCH ×3 (00:36→16:12)
[2018-02-05] MEDS: IPRATROPIUM BROM 0.5MG/2.5ML NEB SCH ×3 (01:45→13:30)
[2018-02-05] MEDS: NACHLORIDE 0.45% 1,000 ML IV SCH (02:45)
[2018-02-05 05:45] LABS: Absolute Lymphocytes (CBC) 0.3 K/uL (0.7-4.9); Absolute Monocytes 0.2 K/uL (0.1-1.3); Absolute Neutrophil 7.7 K/uL (1.8-8.0); Basophils % 0.1 % (0-1.3); Hematocrit 25.1 % (36.0-45.0); Lymphocytes % 3.3 % (15.3-44.8); MCH 27.2 pg (27.0-35.0); MCV 86.2 fL (80-100); MPV 8.8 fL (7.6-11.3); Monocytes % 1.9 % (3.3-12.3); RBC Red Blood Cell Count 2.91 M/uL (3.86-4.86)
[2018-02-05 05:47] LABS: BUN Blood Urea Nitrogen 26 mg/dL (7-18); Glucose Level 225 mg/dL (74-106); Magnesium 1.7 mg/dL (1.8-2.4); Potassium 3.4 mmol/L (3.5-5.1); Sodium Level 129 mmol/L (136-145)
[2018-02-05 05:51] LABS: Bicarbonate 41 mmol/L (21-32)
[2018-02-05] MEDS ORDERED: MAGNESIUM SULFATE 1 gm IVPB 1 GM/100 ML BAG IV ONE (05:55)
[2018-02-05] MEDS: KCL 20 MEQ/100 mL IVPB 20 MEQ/100 ML BAG IV SCH ×2 (06:16→09:55)
[2018-02-05] MEDS ORDERED: Magnesium Sulfate 1gm IVPB 1 GM/50 ML BAG IV ONE (07:00)
[2018-02-05] MEDS: ARFORMOTEROL TARTRATE 15 MCG/2 ML VIAL.NEB NEB SCH (08:07)
--- NOTE | 2018-02-05 08:45 | P.PN ---
Subjective Date of Service: 02/05/18 Primary Care Provider: Saira Chief Complaint: Respiratory failure more awake, nods yes and no to questions Review of Systems is unable to be obtained Physical Examination - Vital Signs Temperature: 97.8 F Blood Pressure: 109/53 Pulse: 85 Respirations: 16 Pulse Ox (%): 91 - Physical Exam General: Alert, In no apparent distress HEENT: Atraumatic, PERRLA, EOMI Neck: Supple, JVD not distended Respiratory: Clear to auscultation bilaterally, Normal air movement Cardiovascular: Regular rate/rhythm, Normal S1 S2 Gastrointestinal: Normal bowel sounds, No tenderness Musculoskeletal: No tenderness Integumentary: No rashes Neurological: Normal speech, Normal tone, Normal affect Lymphatics: No axilla or inguinal lymphadenopathy Assessment & Plan - Problems (Diagnosis) (1) Acute and chronic respiratory failure ([id number]) Onset Date: 09/19/16 Current Visit: No Status: Acute Plan: Have discussed the patient with Dr. Hughes. Agree she is a big risk for reintubation. Plan to move her to ltac for slower wean off the vent. Agree this is the best way to prevent future readmissions, and reintubations. Qualifiers: Respiratory failure complication: hypercapnia Qualified Code(s): J96.22 - Acute and chronic respiratory failure with hypercapnia (2) CHF exacerbation Onset Date: 02/02/18 Current Visit: Yes Status: Acute Plan: Patient has similar cxr this morning. Continue diuretic. She may benefit from tasha. This is a thought for discharge Qualifiers: Heart failure type: diastolic Qualified Code(s): I50.33 - Acute on chronic diastolic (congestive) heart failure (3) Venous ulcer of left leg Onset Date: 02/02/18 Current Visit: Yes Status: Acute Plan: Will have wound care evaluate. (4) Hypokalemia Onset Date: 02/02/18 Current Visit: Yes Status: Acute Plan: On replacement protochol (5) Hypomagnesemia Onset Date: 02/02/18 Current Visit: Yes Status: Acute Plan: On replacement protochol (6) Nicotine dependence Onset Date: 02/02/18 Current Visit: Yes Status: Chronic Plan: Have been discussing this at length with the patient. She actually has been doing very well. Had spoken with the sister on Fri visit in the wound care center who confirmed this. Unfortunately her lungs are already very weak. Qualifiers: Nicotine product type: cigarettes Substance use status: uncomplicated Qualified Code(s): F17.210 - Nicotine dependence, cigarettes, uncomplicated Discharge Plan: LTAC Plan to discharge in: 24 Hours - Code Status/Comfort Care Code Status Assessed: Yes Code Status: Full Code Physician Review: Patient Assessed, Agree with Above Assessment and Plan Critical Care: Yes Time Spent Managing Pts Care (In Minutes): 25
[2018-02-05] MEDS: CEFEPIME/SWI 1gm 1 GM/10 ML SYR IV SCH (09:54)
[2018-02-05] MEDS: FENTANYL CITR 100 MCG/2 ML IV PRN (11:50)
[2018-02-05] MEDS ORDERED: FAMOTIDINE 20 MG/2 ML VIAL IV SCH (13:02)
--- NOTE | 2018-02-05 13:03 | P.PN ---
Subjective Date of Service: 02/05/18 Primary Care Provider: Saira Chief Complaint: Respiratory failure Patient's condition is stable unable to wean from the ventilator l gram- negative rods in the sputum hemodynamically stable Review of Systems is unable to be obtained Physical Examination - Vital Signs Temperature: 97.8 F Blood Pressure: 116/65 Pulse: 103 Respirations: 21 Pulse Ox (%): 89 - Physical Exam General: Alert, Cooperative Respiratory: Clear to auscultation bilaterally, Diminished Cardiovascular: Normal S1 S2, Edema (Minimal edema no change) Assessment & Plan - Problems (Diagnosis) (1) Acute and chronic respiratory failure Onset Date: 05/13/17 Current Visit: Yes Status: Resolved Plan: Patient is 53 years of age admitted with recurrent respiratory failure currently difficult to wean requesting an L tach transfer sputum shows gram- negative rods most likely Pseudomonas reduce dose of Solu-Medrol continue with tube feeds Dc IV fluids patient has developed hypernatremia Qualifiers: Respiratory failure complication: hypercapnia Qualified Code(s): J96.22 - Acute and chronic respiratory failure with hypercapnia Physician Review: Patient Assessed, Agree with Above Assessment and Plan
[2018-02-05] MEDS: LORazepam 2 MG/ML VIAL IV PRN ×2 (14:35→16:11)
[2018-02-05] MEDS: ENOXAPARIN 40 MG/0.4 ML SQ SCH (16:12)
[2018-02-05 16:39] VITALS: TEMP 98.2
[2018-02-05 18:26] VITALS: BP 123/56
--- NOTE | 2018-02-06 08:23 | P.DS ---
Admission Date: 01/31/18 Discharge Date: 02/05/18 Primary Care Provider: Saira [facility] Reason for Admission: Respiratory failure - Problems (1) Acute and chronic respiratory failure ([id number]) Onset Date: 09/19/16 Status: Acute Qualifiers: Respiratory failure complication: hypercapnia Qualified Code(s): J96.22 - Acute and chronic respiratory failure with hypercapnia (2) CHF exacerbation Onset Date: 02/02/18 Status: Acute Qualifiers: Heart failure type: diastolic Qualified Code(s): I50.33 - Acute on chronic diastolic (congestive) heart failure (3) Venous ulcer of left leg Onset Date: 02/02/18 Status: Acute (4) Hypokalemia Onset Date: 02/02/18 Status: Acute (5) Hypomagnesemia Onset Date: 02/02/18 Status: Acute (6) Nicotine dependence Onset Date: 02/02/18 Status: Chronic Qualifiers: Nicotine product type: cigarettes Substance use status: uncomplicated Qualified Code(s): F17.210 - Nicotine dependence, cigarettes, uncomplicated Brief History of Present Illness: Patient is here with worsening shortness of breath. Was not improved with bipap therapy. CO2 continued to rise and the patient was intubated. She is currently in the icu. Off propafol and levophed. The patient is not waking up. However blood gasses have improved since last eventin. Hospital Course: Patient was admitted to the ICU. Was having difficulty waking up. Was seen by Dr Hughes. Decided to send her to LTAC. Considering she has been intubated several times recently. Seems appropriate to do a alf wean. Wish her and the family the best of luck Vital Signs/Physical Exam: Temp Pulse Resp BP Pulse Ox 98.2 F 83 14 123/56 L 95 02/05/18 16:00 02/05/18 18:00 02/05/18 18:00 02/05/18 18:00 02/05/18 18:00 General: Alert, In no apparent distress HEENT: Atraumatic, PERRLA, EOMI Neck: Supple, JVD not distended Respiratory: Clear to auscultation bilaterally, Normal air movement Cardiovascular: Regular rate/rhythm, Normal S1 S2 Gastrointestinal: Normal bowel sounds, No tenderness Musculoskeletal: No tenderness Integumentary: No rashes Neurological: Normal speech, Normal tone, Normal affect Lymphatics: No axilla or inguinal lymphadenopathy Laboratory Data at Discharge: WBC 8.1 K/uL (4.3-10.9) D 02/05/18 05:00 Hgb 7.9 g/dL (12.0-15.0) L* 02/05/18 05:00 Hct 25.1 % (36.0-45.0) L 02/05/18 05:00 Plt Count 137 K/uL (152-406) L 02/05/18 05:00 PT 12.4 SECONDS (9.5-12.5) 01/31/18 13:37 INR 1.05 01/31/18 13:37 Sodium 129 mmol/L (136-145) L 02/05/18 05:00 Potassium 3.4 mmol/L (3.5-5.1) L 02/05/18 05:00 BUN 26 mg/dL (7-18) H 02/05/18 05:00 Creatinine 0.50 mg/dL (0.55-1.3) L 02/05/18 05:00 Glucose 225 mg/dL (74-106) H 02/05/18 05:00 Magnesium 1.7 mg/dL (1.8-2.4) L 02/05/18 05:00 Total Bilirubin 0.8 mg/dL (0.2-1.0) 02/04/18 05:50 AST 14 U/L (15-37) L 02/04/18 05:50 ALT 12 U/L (12-78) 02/04/18 05:50 Alkaline Phosphatase 77 U/L (45-117) 02/04/18 05:50 Home Medications: Aspirin [Aspirin EC 81 MG] 1 tab PO DAILY 11/20/17 Spironolactone [Aldactone*] 50 mg PO DAILY tab 11/20/17 Diltiazem Tab [Cardizem Tab*] 120 mg PO DAILY 11/30/17 Magnesium Oxide [Mag 0X*] 400 mg PO BID 11/30/17 predniSONE [Deltasone*] 10 mg PO DAILY #30 tab 11/30/17 Arformoterol Tartrate [Brovana] 1 puff IH BID 01/17/18 Gabapentin [Neurontin*] 1 tab PO BID 01/17/18 Hydrocodone/Acetaminophen [Hydrocodone-Acetamin 7.5-325] 7.5 - 325 tab PO QID Arformoterol Tartrate [Brovana] 15 mcg IH DAILY 01/31/18 Furosemide [Lasix] 20 mg PO BID 01/31/18 Potassium Chloride 20 meq PO DAILY 01/31/18 Roflumilast [Daliresp*] 500 mcg PO DAILY 01/31/18 Umeclidinium [place] [Incruse Ellipta] 62.5 mcg IH DAILY 01/31/18 acetaZOLAMIDE [Diamox] 250 mg PO DAILY 01/31/18 buPROPion HCl [Bupropion HCl] 100 mg PO BID 01/31/18 Diet: tube feedings Activity: Fall precautions Physician Review: Patient Assessed, Agree with Above Assessment and Plan Time spent managing pt's care (in minutes): 40
== END 2018-02-05 18:25 | DRG 207 ==
LOC: ER 12:33 → ERHOLD 15:47 → 3RD-ICU 20:21
PROVIDERS: ADMIT Internal Medicine; ATTEND Internal Medicine
PROC: 0BH17EZ Insertion of Endotracheal Airway into Trachea, Via Natural or Artificial Opening (ICD-10-PCS; principal; 2018-01-31)
PROC: 5A1955Z Respiratory Ventilation, Greater than 96 Consecutive Hours (ICD-10-PCS; 2018-01-31)
PROC: 06HM33Z Insertion of Infusion Device into Right Femoral Vein, Percutaneous Approach (ICD-10-PCS; 2018-01-31)
DX: J96.22 Acute and chronic respiratory failure with hypercapnia (principal); I50.33 Acute on chronic diastolic (congestive) heart failure; E87.0 Hyperosmolality and hypernatremia; J44.1 Chronic obstructive pulmonary disease with (acute) exacerbation; I87.2 Venous insufficiency (chronic) (peripheral); E87.6 Hypokalemia; E83.42 Hypomagnesemia; F17.210 Nicotine dependence, cigarettes, uncomplicated; R09.3 Abnormal sputum; I25.10 Atherosclerotic heart disease of native coronary artery without angina pectoris; Z79.82 Long term (current) use of aspirin; Z79.891 Long term (current) use of opiate analgesic; Z79.52 Long term (current) use of systemic steroids; Z88.1 Allergy status to other antibiotic agents; Z88.5 Allergy status to narcotic agent; Z91.19 Patient's noncompliance with other medical treatment and regimen
CPT/HCPCS: 31500; 36415; 71045; 80048; 80053; 80076; 81003; 82805; 83735; 83880; 84132; 84484; 85025; 85610; 86850; 86900; 86901; 87070; 87077; 87186; 87205; 93005; 94002; 94003; 94640; 94660; 99285; C9113; J0692; J1650; J1940; J2250; J2920; J2930; J3010; J3475; J7030; J7060; J7605

== ENCOUNTER 2018-04-17 09:42 | Inpatient (IN) | payer OTHER ==
--- OUTSIDE RECORDS SUMMARY | 2018-04-17 09:51 | XMS REPORT ---
[...] End Status Dosage System Date Date AcetaZOLAMIDE [facility] 28391650450 250 MG Oral Active TK 1 T PO BID Hydrocodone-Aceta [facility] 94088270129 10-325 MG Oral Active (Schedule minophen II Drug) TAKE 1 TABLET BY MOUTH FOUR TIMES DAILY BusPIRone HCl ND 22287268216 10 MG Orally October Active 1 tablet Twice a day 2017 MAGnesium-Oxide [facility] 77243101281 400 (241.3 Mg) Active TK 1 T PO MG Oral BID Ciclopirox ND 06688304318 8 % External Active RYAN AFFECTED NAILS QD FOR 48 WEEKS Metoprolol [facility] 49104044678 25 MG Oral Active TK 1 T PO Tartrate BID Dilt-XR [facility] 32257423898 180 MG Oral Active TK ONE C PO ONCE D IN THE MORNING Chantix Starting ND 48999155871 0.5 MG X 11 & 1 October Active as directed Month Joel MG X 42 Orally 2017 BuPROPion HCl [facility] 57148203575 100 MG Oral Active TK 1 T PO BID Fluconazole ND 67328709733 150 MG Oral Active TK 1 T PO ONCE 1 DOSE Betamethasone ND 68559768605 0.1 % External Active RYAN AA BID Valerate Potassium [facility] 91988916607 20 MEQ Oral Active TK 1 T PO Chloride ER QD Daliresp [facility] 74228699459 500 MCG Oral Active TK 1 T PO D Azithromycin [facility] 39691910653 500 MG Oral Active TK 1 T PO D FOR 5 DAYS Triamcinolone [facility] 11296123767 0.1 % External Active not defined Acetonide Spironolactone [facility] 34946747705 50 MG Oral Active TK 1 T PO QD Levofloxacin [facility] 74855174659 500 MG Oral Active TK 1 T PO D Furosemide [facility] 74246611842 40 MG Oral Active TK 1 T PO QD Aspirin Adult Low [facility] 16789351835 81 MG Orally Active 1 tablet Strength Once a day PredniSONE [facility] 88080332970 10 MG Oral Active TK 1 T PO QD Brovana [facility] 90462238804 15 MCG/2ML Active USE 2 ML Inhalation VIA NEBULIZER BID Diltiazem HCl [facility] 41464922443 120 MG Oral Active TK 1 T PO QD BEFORE MEALS Results No Known Results Summary Purpose eClinicalWorks Submission
--- OUTSIDE RECORDS SUMMARY | 2018-04-17 09:51 | XMS REPORT ---
:1965 Author Organization eClinicalWorks Care Team Providers Name Role Phone Jesús Chávez Provider Role Unavailable Allergies, Adverse Reactions, Alerts Substance Reaction Event Type codine Info Not Available Drug Allergy Levaquin Info Not Available Drug Allergy Problems Problem Type Condition Code Onset Dates Condition Status Assessment Pressure injury of sacral region, L89.152 Active stage 2 Assessment Severe chronic obstructive J44.9 Active pulmonary disease Assessment Umbilical hernia without K42.9 Active obstruction and without gangrene Problem Anxiety F41.9 Active Problem Tobacco abuse counseling Z71.6 Active Problem Severe chronic obstructive J44.9 Active pulmonary disease Assessment Tobacco abuse counseling Z71.6 Active Problem Chronic pain syndrome G89.4 Active Problem Mixed simple and mucopurulent J41.8 Active chronic bronchitis Medications Medication Code Code Instructions Start End Status Dosage System Date Date AcetaZOLAMIDE ND 83243147740 250 MG Oral Active TK 1 T PO BID Spironolactone ND 61422385112 50 MG Oral Active TK 1 T PO QD Hydrocodone-Aceta ND 17459450555 10-325 MG Oral Active (Schedule minophen II Drug) TAKE 1 TABLET BY MOUTH FOUR TIMES DAILY Triamcinolone ND 87905727548 0.1 % External Active not defined Acetonide Ciclopirox ND 42966732520 8 % External Active RYAN AFFECTED NAILS QD FOR 48 WEEKS BuPROPion HCl ND 95899231230 100 Active 100 MG PO BID Dilt-XR ND 16123959152 180 MG Oral Active TK ONE C PO ONCE D IN THE MORNING Levofloxacin ND 53225802981 500 MG Oral Active TK 1 T PO D Brovana [facility] 91198902354 15 MCG/2ML Active USE 2 ML Inhalation VIA NEBULIZER BID Gabapentin ND 02591062268 100 MG Orally January 07, Active 1 capsule Twice a day 2017 Betamethasone ND 73901798278 0.1 % External Active RYAN AA BID Valerate BusPIRone HCl ND 30393675496 10 MG Orally Ninfa Active 1 tablet Twice a day 2017 Aspirin Adult Low [facility] 22076451893 81 MG Orally Active 1 tablet Strength Once a day Metoprolol [facility] 42083317547 25 MG Oral Active TK 1 T PO Tartrate BID Fluconazole [facility] 89445529716 150 MG Oral Active TK 1 T PO ONCE 1 DOSE MAGnesium-Oxide [facility] 43892184033 400 (241.3 Mg) Active TK 1 T PO MG Oral BID PredniSONE [facility] 24569766691 10 MG Oral Active TK 1 T PO QD Azithromycin [facility] 89151535956 500 MG Oral Active TK 1 T PO D FOR 5 DAYS Potassium [facility] 35827637054 20 MEQ Oral Active TK 1 T PO Chloride ER QD Furosemide [facility] 49608199142 40 MG Oral Active TK 1 T PO QD BuPROPion HCl [facility] 33104513966 100 MG Oral Active TK 1 T PO BID Diltiazem HCl [facility] 33834171103 120 MG Oral Active TK 1 T PO QD BEFORE MEALS Daliresp [facility] 23509568566 500 MCG Oral Active TK 1 T PO D Results No Known Results Summary Purpose eClinicalWorks Submission
--- OUTSIDE RECORDS SUMMARY | 2018-04-17 09:51 | XMS REPORT ---
[...] Status Dosage System Date Date BusPIRone HCl [facility] 25583688386 10 MG Orally October Active 1 tablet Twice a day 2017 Hydrocodone-Aceta [facility] 36903118571 10-325 MG Oral Active (Schedule minophen II Drug) TAKE 1 TABLET BY MOUTH FOUR TIMES DAILY AcetaZOLAMIDE ND 68131124179 250 MG Oral Active TK 1 T PO BID Brovana [facility] 61632597414 15 MCG/2ML Active USE 2 ML Inhalation VIA NEBULIZER BID Ciclopirox ND 74451010436 8 % External Active RYAN AFFECTED NAILS QD FOR 48 WEEKS Potassium ND 72277982242 20 MEQ Oral Active TK 1 T PO Chloride ER QD Furosemide ND 90995242428 40 MG Oral Active TK 1 T PO QD Gabapentin ND 22812851641 100 MG Orally January 07, Active 1 capsule Twice a day 2017 BuPROPion HCl ND 47574342028 100 MG Oral Active TK 1 T PO BID Aspirin Adult Low ND 93210307018 81 MG Orally Active 1 tablet Strength Once a day Betamethasone ND 14124496661 0.1 % External Active RYAN AA BID Valerate Metoprolol ND 88493746768 25 MG Oral Active TK 1 T PO Tartrate BID Daliresp ND 77475212619 500 MCG Oral Active TK 1 T PO D Azithromycin ND 91546332576 500 MG Oral Active TK 1 T PO D FOR 5 DAYS Dilt-XR [facility] 99977615846 180 MG Oral Active TK ONE C PO ONCE D IN THE MORNING Spironolactone [facility] 38113184400 50 MG Oral Active TK 1 T PO QD Levofloxacin [facility] 07039438482 500 MG Oral Active TK 1 T PO D Triamcinolone [facility] 83866316326 0.1 % External Active not defined Acetonide Fluconazole [facility] 06336299812 150 MG Oral Active TK 1 T PO ONCE 1 DOSE MAGnesium-Oxide [facility] 10129382780 400 (241.3 Mg) Active TK 1 T PO MG Oral BID PredniSONE [facility] 33347772828 10 MG Oral Active TK 1 T PO QD Diltiazem HCl [facility] 45913027928 120 MG Oral Active TK 1 T PO QD BEFORE MEALS Results No Known Results Summary Purpose eClinicalWorks Submission
--- OUTSIDE RECORDS SUMMARY | 2018-04-17 09:51 | XMS REPORT ---
:1965 Author Organization [employer]Works Care Team Providers Name Role Phone Kenneth Forrester Provider Role Unavailable Allergies No Known Allergies Problems Problem Type Condition Code Onset Dates Condition Status Problem Anxiety F41.9 Active Problem Tobacco abuse counseling Z71.6 Active Problem Severe chronic obstructive pulmonary J44.9 Active disease Problem Chronic pain syndrome G89.4 Active Problem Mixed simple and mucopurulent chronic J41.8 Active bronchitis Medications No Known Medications Results No Known Results Summary Purpose eClinicalWorks Submission
[2018-04-17] MEDS ORDERED: LEVALBUTEROL 1.25 MG/3 ML NEB ONE ×2 (09:59→12:01)
[2018-04-17] MEDS ORDERED: METHYLPREDNISOLONE 125 MG INJ ONE (09:59)
[2018-04-17 10:28] LABS: Absolute Monocytes 0.7 K/uL (0.1-1.3); Absolute Neutrophil 4.5 K/uL (1.8-8.0); Eosinophils % 0.3 % (0-4.4); Hematocrit 31.8 % (36.0-45.0); Lymphocytes % 16.3 % (15.3-44.8); MCV 86.1 fL (80-100); MPV 8.4 fL (7.6-11.3); Monocytes % 11.4 % (3.3-12.3); RBC Red Blood Cell Count 3.69 M/uL (3.86-4.86)
--- NOTE | 2018-04-17 10:33 | RAD REPORT ---
EXAM DESCRIPTION: RAD - Chest Single View - 04/17/2018 10:26 am CLINICAL HISTORY: SOB Chest pain. COMPARISON: Chest Single View dated 02/01/2018; Chest Single View dated 01/31/2018; Chest Single View dated 01/31/2018; Chest Single View dated 01/17/2018 FINDINGS: Portable technique limits examination quality. Bilateral pulmonary opacities are present with small pleural effusions noted. The heart is moderately enlarged in size. No displaced fractures. IMPRESSION: The findings are most compatible with mild CHF versus volume overload.
[2018-04-17 10:45] LABS: BUN Blood Urea Nitrogen 17 mg/dL (7-18); Bicarbonate > 45 mmol/L (21-32); Glucose Level 151 mg/dL (74-106); NT PRO-BNP 10424 pg/mL (<125); Potassium 3.6 mmol/L (3.5-5.1); Sodium Level 136 mmol/L (136-145); Troponin (Emerg Dept Use Only) 0.02 ng/mL (0.0-0.045)
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
[2018-04-17] MEDS ORDERED: FUROSEMIDE 40 MG/4 ML VIAL ONE (11:26)
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
[2018-04-17] MEDS ORDERED: IPRATROPIUM BROM 0.5MG/2.5ML NEB PRN (11:53)
[2018-04-17] MEDS ORDERED: ACETAMINOPHEN 500 MG TAB PO PRN (11:53)
[2018-04-17] MEDS ORDERED: ONDANSETRON 4 MG/2 ML VIAL IV PRN (11:53)
[2018-04-17] MEDS ORDERED: ALBUTEROL 2.5 MG/3 ML NEB SOL NEB PRN (11:53)
[2018-04-17 12:46] LABS: Blood O2 Saturation 65.4 % (92-98.5)
--- NOTE | 2018-04-17 15:02 | EKG ---
Test Date: 2018-04-17 Test Time: 09:46:19 Mechanic: LACY/S MEASUREMENT RESULTS: Intervals: Rate: 107 OR: 124 QRSD: 88 QT: 358 QTc: 477 Bradley: P: 68 OR: 124 QRS: 100 T: 80 INTERPRETIVE STATEMENTS: Sinus tachycardia Rightward axis Cannot rule out Anterior infarct, age undetermined Abnormal ECG Compared to ECG 01/31/2018 12:57:08 Myocardial infarct finding now present Atrial premature complex(es) no longer present Ventricular premature complex(es) no longer present Electronically Signed On 04-17-18 15:02:05 CDT by Jered Biswas
[2018-04-17] MEDS: FUROSEMIDE 40 MG/4 ML VIAL IV SCH (17:20)
[2018-04-17] MEDS: HYDROCODONE/APAP 7.5/325 MG TAB PO PRN (17:20)
[2018-04-17] MEDS: METHYLPREDNISOLONE 40 MG INJ IV SCH (17:20)
[2018-04-17] MEDS: GABAPENTIN 100 MG CAP PO SCH (21:25)
[2018-04-17] MEDS: buPROPion HCl 100 MG TAB PO SCH (21:25)
[2018-04-18] MEDS: METHYLPREDNISOLONE 40 MG INJ IV SCH ×2 (00:28→09:00)
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
[2018-04-18] MEDS: HYDROCODONE/APAP 7.5/325 MG TAB PO PRN ×3 (08:12→21:21)
[2018-04-18] MEDS: GABAPENTIN 100 MG CAP PO SCH ×2 (08:12→20:48)
[2018-04-18] MEDS: ROFLUMILAST 500 MCG TABLET PO SCH (08:12)
[2018-04-18] MEDS: ASPIRIN EC 81 MG TAB PO SCH (08:12)
[2018-04-18] MEDS: buPROPion HCl 100 MG TAB PO SCH ×2 (08:15→20:48)
[2018-04-18] MEDS ORDERED: DILTIAZEM HCL 60 MG TAB PO SCH (09:00)
[2018-04-18] MEDS: FUROSEMIDE 40 MG/4 ML VIAL IV SCH (09:00)
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
[2018-04-18] MEDS: acetaZOLAMIDE 250 MG TAB PO SCH ×2 (12:01→20:48)
[2018-04-18] MEDS: SPIRONOLACTONE 25 MG TABLET PO SCH ×2 (12:02→20:48)
[2018-04-18] MEDS: predniSONE 20 MG TAB PO SCH ×2 (12:04→20:48)
[2018-04-18] MEDS: ARFORMOTEROL TARTRATE 15 MCG/2 ML VIAL.NEB NEB SCH ×2 (13:13→19:26)
[2018-04-18] MEDS: IPRATROPIUM BROM 0.5MG/2.5ML NEB SCH ×2 (13:13→19:26)
--- NOTE | 2018-04-18 16:41 | RAD REPORT ---
EXAM DESCRIPTION: RAD - Chest Single View - 04/18/2018 3:55 pm CLINICAL HISTORY: PICC line placement COMPARISON: April 17 FINDINGS: Portable chest was obtained following placement of a left upper extremity PICC line. The c atheter tip is in the right atrium. Retraction of the PICC line [address] the tip in the distal SVC.
[2018-04-18 18:06] LABS: Absolute Lymphocytes (CBC) 0.4 K/uL (0.7-4.9); Absolute Monocytes 0.4 K/uL (0.1-1.3); Basophils % 0.2 % (0-1.3); Hematocrit 27.8 % (36.0-45.0); Lymphocytes % 10.9 % (15.3-44.8); MCH 25.7 pg (27.0-35.0); MCV 83.2 fL (80-100); MPV 8.3 fL (7.6-11.3); Monocytes % 10.1 % (3.3-12.3); RBC Red Blood Cell Count 3.34 M/uL (3.86-4.86)
[2018-04-18 18:47] LABS: Potassium 3.7 mmol/L (3.5-5.1); Sodium Level 131 mmol/L (136-145)
[2018-04-18 18:48] LABS: Bicarbonate > 45 mmol/L (21-32)
[2018-04-18 18:49] LABS: BUN Blood Urea Nitrogen 23 mg/dL (7-18); Glucose Level 160 mg/dL (74-106)
[2018-04-18] MEDS: NICOTINE 21 MG/PAT TD SCH (20:58)
[2018-04-19] MEDS: IPRATROPIUM BROM 0.5MG/2.5ML NEB SCH ×4 (01:06→20:00)
[2018-04-19 05:09] VITALS: BMI 21.0
[2018-04-19] MEDS: NICOTINE 21 MG/PAT TD SCH (09:03)
[2018-04-19] MEDS: ROFLUMILAST 500 MCG TABLET PO SCH (09:05)
[2018-04-19] MEDS: acetaZOLAMIDE 250 MG TAB PO SCH ×2 (09:06→20:46)
[2018-04-19] MEDS: ASPIRIN EC 81 MG TAB PO SCH (09:06)
[2018-04-19] MEDS: SPIRONOLACTONE 25 MG TABLET PO SCH ×2 (09:09→20:47)
[2018-04-19] MEDS: predniSONE 20 MG TAB PO SCH ×2 (09:09→20:47)
[2018-04-19] MEDS: buPROPion HCl 100 MG TAB PO SCH ×2 (09:09→20:47)
[2018-04-19] MEDS: GABAPENTIN 100 MG CAP PO SCH ×2 (09:10→20:46)
[2018-04-19] MEDS: ARFORMOTEROL TARTRATE 15 MCG/2 ML VIAL.NEB NEB SCH ×2 (09:22→20:00)
--- NOTE | 2018-04-19 12:53 | P.PN ---
Subjective Date of Service: 04/19/18 Chief Complaint: Shortness of breath doing better today, SOB baseline, O2 Physical Examination - Vital Signs Temperature: 97.7 F Blood Pressure: 115/70 Pulse: 100 Respirations: 24 Pulse Ox (%): 93 - Physical Exam General: Alert, In no apparent distress HEENT: Atraumatic, PERRLA, EOMI Neck: Supple, JVD not distended Respiratory: Diminished, Expiratory wheezes Cardiovascular: Regular rate/rhythm, Normal S1 S2 Gastrointestinal: Normal bowel sounds, No tenderness Musculoskeletal: No tenderness Integumentary: No rashes Neurological: Normal speech, Normal tone, Normal affect Lymphatics: No axilla or inguinal lymphadenopathy - Studies Microbiology Data (last 24 hrs): 04/17/18 09:50 Blood - Blood Anaerobic Blood Culture - Final 04/17/18 10:10 Blood - Blood Anaerobic Blood Culture - Final Medications List Reviewed: Yes Assessment And Plan - Current Problems (Diagnosis) (1) Acute and chronic respiratory failure ([id number]) Onset Date: 09/19/16 Current Visit: Yes Status: Acute Qualifiers: Respiratory failure complication: hypoxia and hypercapnia Qualified Code(s) : J96.21 - Acute and chronic respiratory failure with hypoxia; J96.22 - Acute and chronic respiratory failure with hypercapnia (2) CHF exacerbation Onset Date: 08/09/15 Current Visit: Yes Status: Acute Qualifiers: Qualified Code(s): I50.33 - Acute on chronic diastolic (congestive) heart failure (3) CHF exacerbation Onset Date: 02/02/18 Current Visit: Yes Status: Acute Qualifiers: Heart failure type: diastolic Qualified Code(s): I50.33 - Acute on chronic diastolic (congestive) heart failure (4) COPD (chronic obstructive pulmonary disease) Onset Date: 09/09/16 Current Visit: Yes Status: Acute Qualifiers: COPD type: COPD with acute exacerbation Qualified Code(s): J44.1 - Chronic obstructive pulmonary disease with (acute) exacerbation (5) Cardiomegaly Current Visit: Yes Status: Acute (6) CAD (coronary artery disease) Onset Date: 05/29/15 Current Visit: Yes Status: Chronic Qualifiers: Coronary Disease-Associated Artery/Lesion type: [place] artery [place] vs. transplanted heart: [place] heart Associated angina: without angina Qualified Code(s): I25.10 - Atherosclerotic heart disease of [place] coronary artery without angina pectoris - Plan --Cont O2 --Cont Nebs --Floor
[2018-04-19] MEDS: HYDROCODONE/APAP 7.5/325 MG TAB PO PRN ×2 (14:25→20:57)
[2018-04-19 15:01] LABS: Absolute Lymphocytes (CBC) 0.4 K/uL (0.7-4.9); Absolute Monocytes 0.5 K/uL (0.1-1.3); Absolute Neutrophil 4.3 K/uL (1.8-8.0); Basophils % 0.1 % (0-1.3); Hematocrit 27.5 % (36.0-45.0); Lymphocytes % 7.6 % (15.3-44.8); MCH 25.4 pg (27.0-35.0); MCV 83.5 fL (80-100); MPV 8.2 fL (7.6-11.3); Monocytes % 9.7 % (3.3-12.3)
[2018-04-19 15:37] LABS: ALT/SGPT 11 U/L (12-78); AST/SGOT 6 U/L (15-37); Alkaline Phosphatase 78 U/L (45-117); BUN Blood Urea Nitrogen 17 mg/dL (7-18); Bicarbonate > 45 mmol/L (21-32); Bilirubin Total 0.2 mg/dL (0.2-1.0); Glucose Level 148 mg/dL (74-106); Protein, Total 6.5 g/dL (6.4-8.2); Sodium Level 132 mmol/L (136-145)
[2018-04-19 16:06] LABS: Urine Appearance CLEAR; Urine Bilirubin NEGATIVE (NEG); Urine Blood NEGATIVE (NEG); Urine Color YELLOW; Urine Glucose NEGATIVE (NEG); Urine Protein NEGATIVE (NEG); Urine Specific Gravity <=1.005 (1.005-1.030); Urine pH 8.5 (5.0-7.0)
[2018-04-19 16:44] LABS: Urine Microscopic Reflex NO UMIC
[2018-04-20] MEDS: IPRATROPIUM BROM 0.5MG/2.5ML NEB SCH ×4 (01:50→19:38)
[2018-04-20] MEDS: HYDROCODONE/APAP 7.5/325 MG TAB PO PRN ×3 (04:25→22:04)
[2018-04-20] MEDS: ARFORMOTEROL TARTRATE 15 MCG/2 ML VIAL.NEB NEB SCH ×2 (08:00→19:38)
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
[2018-04-20] MEDS: GABAPENTIN 100 MG CAP PO SCH ×2 (09:28→20:53)
[2018-04-20] MEDS: acetaZOLAMIDE 250 MG TAB PO SCH ×2 (09:28→20:52)
[2018-04-20] MEDS: ASPIRIN EC 81 MG TAB PO SCH (09:28)
[2018-04-20] MEDS: ROFLUMILAST 500 MCG TABLET PO SCH (09:28)
[2018-04-20] MEDS: predniSONE 10 MG TAB PO SCH ×2 (09:28→20:53)
[2018-04-20] MEDS: SPIRONOLACTONE 25 MG TABLET PO SCH ×2 (09:28→20:53)
[2018-04-20] MEDS: NICOTINE 21 MG/PAT TD SCH (09:29)
[2018-04-20] MEDS: buPROPion HCl 100 MG TAB PO SCH ×2 (09:29→21:08)
--- NOTE | 2018-04-20 17:53 | P.PN ---
Subjective Date of Service: 04/20/18 Chief Complaint: COPD exacerbation She has no new complaints, worries about foot wound; SOB baseline, O2 Physical Examination - Vital Signs Temperature: 99.1 F Blood Pressure: 119/72 Pulse: 93 Respirations: 20 Pulse Ox (%): 95 - Physical Exam General: Alert, In no apparent distress HEENT: Atraumatic, PERRLA, EOMI Neck: Supple, JVD not distended Respiratory: Clear to auscultation bilaterally, Normal air movement Cardiovascular: Regular rate/rhythm, Normal S1 S2 Gastrointestinal: Normal bowel sounds, No tenderness Musculoskeletal: No tenderness Integumentary: No rashes Neurological: Normal speech, Normal tone, Normal affect Lymphatics: No axilla or inguinal lymphadenopathy - Studies Medications List Reviewed: Yes Assessment And Plan - Current Problems (Diagnosis) (1) Acute and chronic respiratory failure ([id number]) Onset Date: 09/19/16 Current Visit: No Status: Acute Qualifiers: Respiratory failure complication: hypoxia and hypercapnia Qualified Code(s) : J96.21 - Acute and chronic respiratory failure with hypoxia; J96.22 - Acute and chronic respiratory failure with hypercapnia (2) CHF exacerbation Onset Date: 08/09/15 Current Visit: No Status: Acute Qualifiers: Qualified Code(s): I50.33 - Acute on chronic diastolic (congestive) heart failure (3) CHF exacerbation Onset Date: 02/02/18 Current Visit: No Status: Acute Qualifiers: Heart failure type: diastolic Qualified Code(s): I50.33 - Acute on chronic diastolic (congestive) heart failure (4) COPD (chronic obstructive pulmonary disease) Onset Date: 09/09/16 Current Visit: Yes Status: Acute Qualifiers: COPD type: COPD with acute exacerbation Qualified Code(s): J44.1 - Chronic obstructive pulmonary disease with (acute) exacerbation (5) Cardiomegaly Current Visit: No Status: Acute (6) CAD (coronary artery disease) Onset Date: 05/29/15 Current Visit: No Status: Chronic Qualifiers: Coronary Disease-Associated Artery/Lesion type: [place] artery [place] vs. transplanted heart: [place] heart Associated angina: without angina Qualified Code(s): I25.10 - Atherosclerotic heart disease of [place] coronary artery without angina pectoris - Plan --Cont O2 --Cont Nebs --Cons wound care --Discussed dc plans, SNF vs Home Hospice, vs Home; She is agreeable with home hopsice
[2018-04-20] MEDS: SILVER SULFADIAZINE 1% 25 GM TOP SCH (21:02)
[2018-04-20] MEDS: JUVEN PACKET PO SCH (21:03)
[2018-04-21] MEDS: IPRATROPIUM BROM 0.5MG/2.5ML NEB SCH ×3 (01:33→13:55)
[2018-04-21] MEDS: HYDROCODONE/APAP 7.5/325 MG TAB PO PRN ×2 (04:15→11:09)
[2018-04-21 07:20] VITALS: BP 131/80
[2018-04-21] MEDS: ARFORMOTEROL TARTRATE 15 MCG/2 ML VIAL.NEB NEB SCH (08:35)
[2018-04-21] MEDS: SILVER SULFADIAZINE 1% 25 GM TOP SCH (09:00)
[2018-04-21] MEDS: JUVEN PACKET PO SCH (09:00)
[2018-04-21] MEDS: SPIRONOLACTONE 25 MG TABLET PO SCH (09:12)
[2018-04-21] MEDS: ASPIRIN EC 81 MG TAB PO SCH (09:12)
[2018-04-21] MEDS: GABAPENTIN 100 MG CAP PO SCH (09:12)
[2018-04-21] MEDS: buPROPion HCl 100 MG TAB PO SCH (09:12)
[2018-04-21] MEDS: acetaZOLAMIDE 250 MG TAB PO SCH (09:13)
[2018-04-21] MEDS: predniSONE 10 MG TAB PO SCH (09:13)
[2018-04-21] MEDS: NICOTINE 21 MG/PAT TD SCH (09:15)
[2018-04-21 10:31] VITALS: TEMP 98.3
[2018-04-21] MEDS: ROFLUMILAST 500 MCG TABLET PO SCH (11:13)
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
[2018-04-21 12:57] VITALS: O2SAT 90
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
== END 2018-04-21 17:40 | disposition home health service (06) | DRG 291 ==
LOC: ER 09:42 → ERHOLD 11:25 → 3RD-ICU 13:25 → 2ND 04-19 11:40
PROVIDERS: ADMIT Internal Medicine; ATTEND Internal Medicine
PROC: 5A09357 Assistance with Respiratory Ventilation, Less than 24 Consecutive Hours, Continuous Positive Airway Pressure (ICD-10-PCS; 2018-04-17)
PROC: 02HV33Z Insertion of Infusion Device into Superior Vena Cava, Percutaneous Approach (ICD-10-PCS; principal; 2018-04-18)
DX: I50.33 Acute on chronic diastolic (congestive) heart failure (principal); J96.02 Acute respiratory failure with hypercapnia; J96.01 Acute respiratory failure with hypoxia; J44.1 Chronic obstructive pulmonary disease with (acute) exacerbation; I48.92 Unspecified atrial flutter; I25.10 Atherosclerotic heart disease of native coronary artery without angina pectoris; I51.7 Cardiomegaly; F41.1 Generalized anxiety disorder; D45 Polycythemia vera; R06.03 Acute respiratory distress; F17.210 Nicotine dependence, cigarettes, uncomplicated; T25.222D Burn of second degree of left foot, subsequent encounter
CPT/HCPCS: 36415; 71045; 80048; 80053; 81003; 82805; 82962; 83880; 84484; 85025; 87040; 93005; 94640; 94660; 94760; 96374; 96375; 97163; 99285; J2920; J2930; J7512; J7605

== ENCOUNTER 2018-04-27 14:18 | Emergency (ER) | payer OTHER ==
--- OUTSIDE RECORDS SUMMARY | 2018-04-27 14:20 | XMS REPORT ---
[...] Status Dosage System Date Date BusPIRone HCl [facility] 28081402636 10 MG Orally October Active 1 tablet Twice a day 2017 Hydrocodone-Aceta [facility] 28684893294 10-325 MG Oral Active (Schedule minophen II Drug) TAKE 1 TABLET BY MOUTH FOUR TIMES DAILY AcetaZOLAMIDE ND 38230817014 250 MG Oral Active TK 1 T PO BID Brovana [facility] 69823829991 15 MCG/2ML Active USE 2 ML Inhalation VIA NEBULIZER BID Ciclopirox ND 83662534793 8 % External Active RYAN AFFECTED NAILS QD FOR 48 WEEKS Potassium ND 00498111156 20 MEQ Oral Active TK 1 T PO Chloride ER QD Furosemide ND 90495358108 40 MG Oral Active TK 1 T PO QD Gabapentin ND 68793970304 100 MG Orally January 07, Active 1 capsule Twice a day 2017 BuPROPion HCl ND 77793144047 100 MG Oral Active TK 1 T PO BID Aspirin Adult Low ND 29712501552 81 MG Orally Active 1 tablet Strength Once a day Betamethasone ND 71658823228 0.1 % External Active RYAN AA BID Valerate Metoprolol ND 74926221796 25 MG Oral Active TK 1 T PO Tartrate BID Daliresp ND 45074254008 500 MCG Oral Active TK 1 T PO D Azithromycin ND 65061895702 500 MG Oral Active TK 1 T PO D FOR 5 DAYS Dilt-XR [facility] 60921494671 180 MG Oral Active TK ONE C PO ONCE D IN THE MORNING Spironolactone [facility] 52098578669 50 MG Oral Active TK 1 T PO QD Levofloxacin [facility] 61134523238 500 MG Oral Active TK 1 T PO D Triamcinolone [facility] 06927886280 0.1 % External Active not defined Acetonide Fluconazole [facility] 26693371006 150 MG Oral Active TK 1 T PO ONCE 1 DOSE MAGnesium-Oxide [facility] 24595844687 400 (241.3 Mg) Active TK 1 T PO MG Oral BID PredniSONE [facility] 74661443035 10 MG Oral Active TK 1 T PO QD Diltiazem HCl [facility] 05097493573 120 MG Oral Active TK 1 T PO QD BEFORE MEALS Results No Known Results Summary Purpose eClinicalWorks Submission
--- OUTSIDE RECORDS SUMMARY | 2018-04-27 14:20 | XMS REPORT ---
[...] Status Dosage System Date Date AcetaZOLAMIDE ND 82616875103 250 MG Oral Active TK 1 T PO BID Spironolactone ND 82273464134 50 MG Oral Active TK 1 T PO QD Hydrocodone-Aceta ND 48275331850 10-325 MG Oral Active (Schedule minophen II Drug) TAKE 1 TABLET BY MOUTH FOUR TIMES DAILY Triamcinolone ND 47798121467 0.1 % External Active not defined Acetonide Ciclopirox ND 31457341599 8 % External Active RYAN AFFECTED NAILS QD FOR 48 WEEKS BuPROPion HCl ND 67868261325 100 Active 100 MG PO BID Dilt-XR ND 72780806414 180 MG Oral Active TK ONE C PO ONCE D IN THE MORNING Levofloxacin ND 19556756833 500 MG Oral Active TK 1 T PO D Brovana [facility] 27291888207 15 MCG/2ML Active USE 2 ML Inhalation VIA NEBULIZER BID Gabapentin ND 99765091794 100 MG Orally January 07, Active 1 capsule Twice a day 2017 Betamethasone ND 37146187847 0.1 % External Active RYAN AA BID Valerate BusPIRone HCl ND 97077853931 10 MG Orally Ninfa Active 1 tablet Twice a day 2017 Aspirin Adult Low [facility] 83105429003 81 MG Orally Active 1 tablet Strength Once a day Metoprolol [facility] 23796815713 25 MG Oral Active TK 1 T PO Tartrate BID Fluconazole [facility] 21440345702 150 MG Oral Active TK 1 T PO ONCE 1 DOSE MAGnesium-Oxide [facility] 58345267904 400 (241.3 Mg) Active TK 1 T PO MG Oral BID PredniSONE [facility] 20817822651 10 MG Oral Active TK 1 T PO QD Azithromycin [facility] 81418959399 500 MG Oral Active TK 1 T PO D FOR 5 DAYS Potassium [facility] 35462393028 20 MEQ Oral Active TK 1 T PO Chloride ER QD Furosemide [facility] 63408795446 40 MG Oral Active TK 1 T PO QD BuPROPion HCl [facility] 20426955433 100 MG Oral Active TK 1 T PO BID Diltiazem HCl [facility] 16394690930 120 MG Oral Active TK 1 T PO QD BEFORE MEALS Daliresp [facility] 61842692232 500 MCG Oral Active TK 1 T PO D Results No Known Results Summary Purpose eClinicalWorks Submission
--- OUTSIDE RECORDS SUMMARY | 2018-04-27 14:20 | XMS REPORT ---
[...] End Status Dosage System Date Date AcetaZOLAMIDE [facility] 34227094889 250 MG Oral Active TK 1 T PO BID Hydrocodone-Aceta [facility] 28603045074 10-325 MG Oral Active (Schedule minophen II Drug) TAKE 1 TABLET BY MOUTH FOUR TIMES DAILY BusPIRone HCl ND 09147882448 10 MG Orally October Active 1 tablet Twice a day 2017 MAGnesium-Oxide [facility] 71331616271 400 (241.3 Mg) Active TK 1 T PO MG Oral BID Ciclopirox ND 57403375611 8 % External Active RYAN AFFECTED NAILS QD FOR 48 WEEKS Metoprolol [facility] 57983591703 25 MG Oral Active TK 1 T PO Tartrate BID Dilt-XR [facility] 57411722687 180 MG Oral Active TK ONE C PO ONCE D IN THE MORNING Chantix Starting ND 34639062744 0.5 MG X 11 & 1 October Active as directed Month Joel MG X 42 Orally 2017 BuPROPion HCl [facility] 63185551691 100 MG Oral Active TK 1 T PO BID Fluconazole ND 40816209443 150 MG Oral Active TK 1 T PO ONCE 1 DOSE Betamethasone ND 63515718299 0.1 % External Active RYAN AA BID Valerate Potassium [facility] 96876669186 20 MEQ Oral Active TK 1 T PO Chloride ER QD Daliresp [facility] 81981299929 500 MCG Oral Active TK 1 T PO D Azithromycin [facility] 95997508733 500 MG Oral Active TK 1 T PO D FOR 5 DAYS Triamcinolone [facility] 77695544461 0.1 % External Active not defined Acetonide Spironolactone [facility] 55854210372 50 MG Oral Active TK 1 T PO QD Levofloxacin [facility] 31474662684 500 MG Oral Active TK 1 T PO D Furosemide [facility] 24790826692 40 MG Oral Active TK 1 T PO QD Aspirin Adult Low [facility] 42770767349 81 MG Orally Active 1 tablet Strength Once a day PredniSONE [facility] 37520627025 10 MG Oral Active TK 1 T PO QD Brovana [facility] 66157131979 15 MCG/2ML Active USE 2 ML Inhalation VIA NEBULIZER BID Diltiazem HCl [facility] 29938084121 120 MG Oral Active TK 1 T PO QD BEFORE MEALS Results No Known Results Summary Purpose eClinicalWorks Submission
--- NOTE | 2018-04-27 15:20 | RAD REPORT ---
EXAM DESCRIPTION: RAD - Chest Single View - 04/27/2018 3:02 pm CLINICAL HISTORY: Chest pain, shortness of breath COMPARISON: April 18 TECHNIQUE: AP portable chest image was obtained 1450 hours . FINDINGS: Lung volumes are low. Patient has extensive underlying interstitial fibrotic change. Inter stitial markings are diffusely prominent in a pattern similar to the comparison. Cardiomegaly is pres ent similar to comparison. There is vascular engorgement seen. PICC line has been removed since the p rior study. No pneumothorax or enlarging pleural effusion. No new bone abnormality. No acute aortic f indings suspected. IMPRESSION: Cardiomegaly, vascular engorgement diffuse interstitial prominence. Findings are most consistent with CHF/volume overload. The pattern is similar to comparison.
[2018-04-27 16:13] LABS: Protime INR 0.99
[2018-04-27 16:15] LABS: Absolute Lymphocytes (CBC) 0.9 K/uL (0.7-4.9); Absolute Monocytes 0.9 K/uL (0.1-1.3); Absolute Neutrophil 8.1 K/uL (1.8-8.0); Basophils % 0.6 % (0-1.3); Eosinophils % 0.1 % (0-4.4); Hematocrit 28.1 % (36.0-45.0); Lymphocytes % 8.8 % (15.3-44.8); MCH 25.1 pg (27.0-35.0); MCV 83.6 fL (80-100); MPV 8.5 fL (7.6-11.3); Monocytes % 9.5 % (3.3-12.3); RBC Red Blood Cell Count 3.36 M/uL (3.86-4.86)
[2018-04-27 16:27] LABS: ALT/SGPT 13 U/L (12-78); AST/SGOT 14 U/L (15-37); Albumin 3.2 g/dL (3.4-5.0); Alkaline Phosphatase 85 U/L (45-117); BUN Blood Urea Nitrogen 11 mg/dL (7-18); Bicarbonate > 45 mmol/L (21-32); Bilirubin Direct < 0.1 mg/dL (0-0.2); Bilirubin Total 0.2 mg/dL (0.2-1.0); Glucose Level 97 mg/dL (74-106); Magnesium 1.6 mg/dL (1.8-2.4); NT PRO-BNP 2367 pg/mL (<125); Potassium 3.9 mmol/L (3.5-5.1); Protein, Total 6.8 g/dL (6.4-8.2); Sodium Level 136 mmol/L (136-145); Troponin (Emerg Dept Use Only) 0.02 ng/mL (0.0-0.045)
[2018-04-27] MEDS ORDERED: FUROSEMIDE 40 MG/4 ML VIAL ONE (17:03)
--- NOTE | 2018-04-27 17:13 | EDPHYS ---
Physician Documentation [facility] Name: Eusebia Vila Age: 53 yrs Sex: Female : 1965 Arrival Date: 04/27/2018 Time: 14:21 Bed 4 Private MD: ED Physician Timbo Jack HPI: 04/27 15:55 This 53 yrs old Female presents to ER via EMS with complaints of Shortness Of snw Breath, COPD Exacerbation. 15:55 The patient has shortness of breath at rest. Onset: The symptoms/episode began/occurred snw gradually, and became persistent. Duration: The symptoms are continuous, and are unchanged since they started. Associated signs and symptoms: Pertinent positives: generalized pain. Severity of symptoms: At their worst the symptoms were moderate in the emergency department the symptoms are unchanged. The patient has experienced similar episodes in the past, chronically. The patient has been recently seen by a physician: The patient has been recently been admitted at [facility], for similar complaints, but despite evaluation and treatment the patient has continued symptoms, Last saw Dr. Mckeon 2 days ago. 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 - Post-menopause bp Historical: - Allergies: 14:36 Codeine; iw 14:36 Levofloxacin; iw - Home Meds: 14:36 acetazolamide 250 mg Oral tab 1 tab once daily [Active]; aspirin 81 mg Oral TbEC 1 tab iw once daily [Active]; Daliresp 500 mcg Oral tab 1 tab once daily [Active]; diltiazem HCl 120 mg Oral tab 1 tab 3 times per day [Active]; gabapentin 300 mg Oral cap 1 cap 3 times per day [Active]; hydrocodone-acetaminophen 10-325 mg Oral tab 4 times a day for Pain [Active]; MagOx 400 mg Oral tab twice a day [Active]; Morphine Oral [Active]; prednisone 10 mg Oral tab once daily [Active]; spironolactone 50 mg Oral tab 1 tab once daily [Active]; - PMHx: 14:36 CAD; Cellulitis; CHF; COPD; O2 dependant- pt normal is in the 80's on 4L NC per pt; iw Pneumonia; polycythemia vera; PVD; - PSHx: 14:36 abdominal sx; pain pump (morphine); iw - Immunization history:: Adult Immunizations unknown. - Ebola Screening: : Patient negative for fever greater than or equal to 101.5 degrees Fahrenheit, and additional compatible Ebola Virus Disease symptoms Patient denies exposure to infectious person Patient denies travel to an Ebola-affected area in the 21 days before illness onset No symptoms or risks identified at this time. - Social history:: Smoking status: Patient uses tobacco products, smokes one pack cigarettes per day. ROS: 15:53 Eyes: Negative for injury, pain, redness, and discharge, ENT: Negative for injury, snw pain, and discharge, Neck: Negative for injury, pain, and swelling, Abdomen/GI: Negative for abdominal pain, nausea, vomiting, diarrhea, and constipation, Back: Negative for injury and pain, : Negative for injury, bleeding, discharge, and swelling, Skin: Negative for injury, rash, and discoloration, Neuro: Negative for headache, weakness, numbness, tingling, and seizure. 15:53 Constitutional: Positive for fatigue. 15:53 Cardiovascular: Positive for palpitations. 15:53 Respiratory: Positive for cough, orthopnea, wheezing. Exam: 15:49 Head/Face: Normocephalic, atraumatic. Eyes: Pupils equal round and reactive to light, snw extra-ocular motions intact. Lids and lashes normal. Conjunctiva and sclera are non-icteric and not injected. Cornea within normal limits. Periorbital areas with no swelling, redness, or edema. ENT: Nares patent. No nasal discharge, no septal abnormalities noted. Tympanic membranes are normal and external auditory canals are clear. Oropharynx with no redness, swelling, or masses, exudates, or evidence of obstruction, uvula midline. Mucous membranes moist. Neck: Trachea midline, no thyromegaly or masses palpated, and no cervical lymphadenopathy. Supple, full range of motion without nuchal rigidity, or vertebral point tenderness. No Meningismus. Chest/axilla: Normal chest wall appearance and motion. Nontender with no deformity. No lesions are appreciated. 15:49 Abdomen/GI: Soft, non-tender, with normal bowel sounds. No distension or tympany. No guarding or rebound. No evidence of tenderness throughout. Back: No spinal tenderness. No costovertebral tenderness. Full range of motion. Skin: Warm, dry with normal turgor. Normal color with no rashes, no lesions, and no evidence of cellulitis. Neuro: Awake and alert, GCS 15, oriented to person, place, time, and situation. Cranial nerves II-XII grossly intact. Motor strength 5/5 in all extremities. Sensory grossly intact. Cerebellar exam normal. Normal gait. 15:49 Constitutional: The patient appears alert, awake, frail, kyphotic 15:49 Cardiovascular: Rate: tachycardic, Rhythm: regular, Edema: pedal edema, that is moderate. 15:49 Respiratory: the patient does not display signs of respiratory distress, Respirations: shallow respirations, tachypnea, that is moderate, Breath sounds: bronchial sounds, wheezing: that is moderate, is heard diffusely. 15:49 Musculoskeletal/extremity: Extremities: swelling, crusted, ROM: no acute changes, Circulation is intact in all extremities. Vital Signs: 14:36 BP 123 / 65; Pulse 105; Resp 27 S; Temp 97.7(TE); Pulse Ox 100% on 4 lpm NC; Weight iw 49.9 kg (R); Height 4 ft. 11 in. (149.86 cm); 15:00 BP 119 / 72; Pulse 110; Resp 23; Pulse Ox 100% on NC; bp 17:00 BP 130 / 77; Pulse 107; Resp 18; Pulse Ox 100% on 4 lpm NC; bp 14:36 Body Mass Index 22.22 (49.90 kg, 149.86 cm) iw MDM: 14:59 Patient medically screened. snw 17:13 Data reviewed: vital signs, nurses notes, old medical records. Counseling: I had a snw detailed discussion with the patient and/or guardian regarding: the historical points, exam findings, and any diagnostic results supporting the discharge/admit diagnosis, the presence of at least one elevated blood pressure reading (>120/80) during this emergency department visit, lab results, radiology results, the need for outpatient follow up, to return to the emergency department if symptoms worsen or persist or if there are any questions or concerns that arise at home. Special discussion: Based on the patient's history, exam, and Dx evaluation, there is no indication for emergent intervention or inpatient Tx. It is understood by the patient/guardian that if the Sx's persist or worsen they need to return immediately for re-evaluation. pt with hx of chronic illness, was hospitalized recently for same. Pt has [facility] home keeper, pcp, specialty physicians, last saw tourist home keeper two days ago. Pt has all medications, and home O2 available. Hospitalization would not offer any increased treatment over home therapy.. 17:24 Special discussion: pt and family angry because they state they want 24 hour care snw because that is "our job". 04/27 14:48 Order name: Basic Metabolic Panel; Complete Time: 16:30 iw 04/27 14:48 Order name: CBC with Diff; Complete Time: 16:53 iw 04/27 14:48 Order name: LFT's; Complete Time: 16:30 iw 04/27 14:48 Order name: Magnesium; Complete Time: 16:30 iw 04/27 14:48 Order name: NT PRO-BNP; Complete Time: 16:30 04/27 14:48 Order name: PT-INR; Complete Time: 16:53 04/27 14:48 Order name: Troponin (emerg Dept Use Only); Complete Time: 16:30 04/27 14:48 Order name: XRAY Chest (1 view); Complete Time: 15:25 04/27 14:48 Order name: EKG; Complete Time: 14:49 iw 04/27 14:48 Order name: Cardiac monitoring; Complete Time: 14:52 04/27 15:01 Order name: Blood Culture Adult (2) snw 04/27 14:48 Order name: EKG - Nurse/Tech; Complete Time: 14:52 04/27 14:48 Order name: IV Saline Lock; Complete Time: 15:37 04/27 14:48 Order name: Labs collected and sent; Complete Time: 15:37 04/27 14:48 Order name: O2 Per Protocol; Complete Time: 14:52 iw 04/27 14:48 Order name: O2 Sat Monitoring; Complete Time: 14:52 04/27 17:04 Order name: VS Recheck; Complete Time: 17:05 snw Administered Medications: 16:45 Drug: Lasix 40 mg Route: IVP; Site: left antecubital; bp 17:21 Follow up: Response: No adverse reaction bp 17:10 Drug: Magnesium 400 mg Route: PO; bp 17:21 Follow up: Response: No adverse reaction bp 17:27 Drug: [place] 5 mg-325 mg 1 tabs Route: PO; bp 17:28 Follow up: Response: Medication administered at discharge. bp Disposition: 04/28 07:40 Co-signature as Attending Physician, Timbo Jack MD I agree with the assessment and [facility] plan of care. Disposition: 04/27/18 17:12 Discharged to Home. Impression: Chronic obstructive pulmonary disease, unspecified. - Condition is Fair. - Discharge Instructions: Chronic Obstructive Pulmonary Disease, Heart Failure. - Prescriptions for Lasix 20 mg Oral Tablet - take 1 tablet by ORAL route once daily; 7 tablet. - Medication Reconciliation Form, Thank You Letter, Antibiotic Education, Prescription Opioid Use form. - Follow up: Private Physician; When: Tomorrow; Reason: Recheck today's complaints, Continuance of care, Re-evaluation by your physician. Follow up: Emergency Department; When: As needed; Reason: Worsening of condition. Signatures: Dispatcher [employer] Timbo Stuart MD MD cha Therrien, Shelly, REMOTE SENSING TECHNICIAN-C REMOTE SENSING TECHNICIAN-Csnw Dominique Arreola, LINDSAY RN iw Jorgito Naidu RN RN bp Corrections: (The following items were deleted from the chart) 04/27 18:37 17:12 04/27/2018 17:12 Discharged to Home. Impression: Chronic obstructive pulmonary iw disease, unspecified. Condition is Fair. Forms are Medication Reconciliation Form, Thank You Letter, Antibiotic Education, Prescription Opioid Use. Follow up: Private Physician; When: Tomorrow; Reason: Recheck today's complaints, Continuance of care, Re-evaluation by your physician. Follow up: Emergency Department; When: As needed; Reason: Worsening of condition. snw
--- NOTE | 2018-04-27 17:13 | ER ---
Nurse's Notes [facility] Name: Eusebia Vila Age: 53 yrs Sex: Female : 1965 Arrival Date: 04/27/2018 Time: 14:21 Bed 4 Private MD: Diagnosis: Chronic obstructive pulmonary disease, unspecified Presentation: 04/27 14:32 Presenting complaint: Patient states: c/o shortness of breath and mild chest pain iw today, was recently d/c from hospital for COPD exacerbation, pt was 92% on RA per EMS, was given A\T\A treatment up to 100%. Transition of care: patient was not received from another setting of care. Onset of symptoms was April 27, 2018. Risk Assessment: Do you want to hurt yourself or someone else? Patient reports no desire to harm self or others. Initial Sepsis Screen: Does the patient meet any 2 criteria? No. Patient's initial sepsis screen is negative. Does the patient have a suspected source of infection? No. Patient's initial sepsis screen is negative. Care prior to arrival: Medication(s) given: Albuterol Neb x 1, Atrovent Neb x 1, Med neb given. Oxygen administered. via nasal cannula. 14:32 Method Of Arrival: EMS: [facility] iw 14:32 Acuity: CLAUDIA 3 iw Triage Assessment: 17:30 General: Appears unkempt, Behavior is anxious. Respiratory: Reports shortness of breath bp cough that is Onset: The symptoms/episode began/occurred at an unknown time. the patient has mild shortness of breath. 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 - Post-menopause bp Historical: - Allergies: 14:36 Codeine; iw 14:36 Levofloxacin; iw - Home Meds: 14:36 acetazolamide 250 mg Oral tab 1 tab once daily [Active]; aspirin 81 mg Oral TbEC 1 tab iw once daily [Active]; Daliresp 500 mcg Oral tab 1 tab once daily [Active]; diltiazem HCl 120 mg Oral tab 1 tab 3 times per day [Active]; gabapentin 300 mg Oral cap 1 cap 3 times per day [Active]; hydrocodone-acetaminophen 10-325 mg Oral tab 4 times a day for Pain [Active]; MagOx 400 mg Oral tab twice a day [Active]; Morphine Oral [Active]; prednisone 10 mg Oral tab once daily [Active]; spironolactone 50 mg Oral tab 1 tab once daily [Active]; - PMHx: 14:36 CAD; Cellulitis; CHF; COPD; O2 dependant- pt normal is in the 80's on 4L NC per pt; iw Pneumonia; polycythemia vera; PVD; - PSHx: 14:36 abdominal sx; pain pump (morphine); iw - Immunization history:: Adult Immunizations unknown. - Ebola Screening: : Patient negative for fever greater than or equal to 101.5 degrees Fahrenheit, and additional compatible Ebola Virus Disease symptoms Patient denies exposure to infectious person Patient denies travel to an Ebola-affected area in the 21 days before illness onset No symptoms or risks identified at this time. - Social history:: Smoking status: Patient uses tobacco products, smokes one pack cigarettes per day. Screenin:04 Abuse screen: Denies threats or abuse. Denies injuries from another. Nutritional bp screening: No deficits noted. Tuberculosis screening: No symptoms or risk factors identified. Fall Risk No fall in past 12 months (0 pts). No secondary diagnosis (0 pts). No IV (0 pts). Ambulatory Aid- None/Bed Rest/Nurse Assist (0 pts). Gait- Weak (10 pts.). Mental Status- Oriented to own ability (0 pts). Total Ortega Fall Scale indicates No Risk (0-24 pts). Assessment: 14:45 General: Appears distressed, uncomfortable, obese, unkempt, Behavior is cooperative, bp appropriate for age, anxious. Pain: Complains of pain in chest. Neuro: Level of Consciousness is awake, alert, obeys commands, Oriented to person, place, time, situation, Appropriate for age. Cardiovascular: Rhythm is sinus rhythm. Respiratory: Airway is patent Respiratory effort is labored, Respiratory pattern is symmetrical, Breath sounds with wheezes bilaterally. GI: No signs and/or symptoms were reported involving the gastrointestinal system. : No signs and/or symptoms were reported regarding the genitourinary system. EENT: No deficits noted. Derm: No deficits noted. Musculoskeletal: Circulation, motion, and sensation intact. Range of motion: intact in all extremities. 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 bp 17:00 Reassessment: ALL CURRENT STUDIES COMPLETED, RESULTS PENDING. VS STABLE ON MONITOR. bp 17:28 Reassessment: PT D/C HOME VIA W/C WITH FAMILY, DX WITH COPD. bp 17:51 Reassessment: D/C ON HOLD PENDING FAMILY RETURN. bp Vital Signs: 14:36 BP 123 / 65; Pulse 105; Resp 27 S; Temp 97.7(TE); Pulse Ox 100% on 4 lpm NC; Weight iw 49.9 kg (R); Height 4 ft. 11 in. (149.86 cm); 15:00 BP 119 / 72; Pulse 110; Resp 23; Pulse Ox 100% on NC; bp 17:00 BP 130 / 77; Pulse 107; Resp 18; Pulse Ox 100% on 4 lpm NC; bp 14:36 Body Mass Index 22.22 (49.90 kg, 149.86 cm) iw ED Course: 14:21 Patient arrived in ED. bp 14:33 Jorgito Naidu, RN is Primary Nurse. bp 14:34 Triage completed. iw 14:37 EKG done, by radio/tv technician. reviewed by Enrique Swenson MD. sm3 14:43 Arm band placed on. iw 14:45 Patient has correct armband on for positive identification. Bed in low position. Call bp light in reach. Side rails up X2. 14:59 Dodie Leach FNP-[place] [facility] snw 14:59 Timbo Jack MD is Attending Physician. snw 15:02 XRAY Chest (1 view) In Process Unspecified. EDMS 15:32 Initial lab(s) drawn, by ut, sent to lab. Inserted saline lock: 20 gauge in left iw antecubital area, using aseptic technique. Blood collected. 17:29 No provider procedures requiring assistance completed. IV discontinued, intact, bp bleeding controlled, No redness/swelling at site. Pressure dressing applied. Administered Medications: 16:45 Drug: Lasix 40 mg Route: IVP; Site: left antecubital; bp 17:21 Follow up: Response: No adverse reaction bp 17:10 Drug: Magnesium 400 mg Route: PO; bp 17:21 Follow up: Response: No adverse reaction bp 17:27 Drug: [place] 5 mg-325 mg 1 tabs Route: PO; bp 17:28 Follow up: Response: Medication administered at discharge. bp Outcome: 17:12 Discharge ordered by . w 17:29 Discharged to home via wheelchair, with family. bp 17:29 Condition: stable 17:29 Discharge instructions given to patient, family, Instructed on discharge instructions, follow up and referral plans. Demonstrated understanding of instructions, follow-up care. 18:37 Patient left the ED. iw Signatures: Dispatcher [employer] EDMS Dodie Leach, SHANONC GASTROENTEROLOGY PHYSICIAN-Csnw Dominique Arreola RN LINDSAY iw Jorgito Naidu RN RN Mary Laguna 3 Corrections: (The following items were deleted from the chart) 14:41 14:36 BP 123 / 65; Pulse 105bpm; Resp 27bpm; Spontaneous; Pulse Ox 100% 4 lpm Nasal iw Cannula; iw
[2018-04-27] MEDS ORDERED: MAGNESIUM OXIDE 400 MG TAB ONE (17:14)
[2018-04-27] MEDS ORDERED: HYDROCODONE/APAP 5/325 MG TAB ONE (17:31)
--- NOTE | 2018-04-27 17:41 | EKG ---
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
[2018-04-27 18:42] VITALS: TEMP 97.7; O2SAT 100
[2018-04-27 18:44] VITALS: BP 130/77
== END 2018-04-27 18:37 | disposition home or self-care (01) ==
LOC: ER 14:18
DX: J44.9 Chronic obstructive pulmonary disease, unspecified (principal); I50.9 Heart failure, unspecified; F17.210 Nicotine dependence, cigarettes, uncomplicated; Z88.5 Allergy status to narcotic agent; Z88.8 Allergy status to other drugs, medicaments and biological substances; Z79.82 Long term (current) use of aspirin; Z99.81 Dependence on supplemental oxygen
CPT/HCPCS: 36415; 71045; 80048; 80076; 83735; 83880; 84484; 85025; 85610; 87040; 93005; 96374; 99284

== ENCOUNTER 2018-04-28 16:00 | Inpatient (IN) | payer OTHER ==
--- OUTSIDE RECORDS SUMMARY | 2018-04-28 16:03 | XMS REPORT ---
[...] Status Dosage System Date Date BusPIRone HCl [facility] 03417586015 10 MG Orally October Active 1 tablet Twice a day 2017 Hydrocodone-Aceta [facility] 47621269390 10-325 MG Oral Active (Schedule minophen II Drug) TAKE 1 TABLET BY MOUTH FOUR TIMES DAILY AcetaZOLAMIDE ND 51697652003 250 MG Oral Active TK 1 T PO BID Brovana [facility] 30935748117 15 MCG/2ML Active USE 2 ML Inhalation VIA NEBULIZER BID Ciclopirox ND 60300948522 8 % External Active RYAN AFFECTED NAILS QD FOR 48 WEEKS Potassium ND 95295444571 20 MEQ Oral Active TK 1 T PO Chloride ER QD Furosemide ND 28727813384 40 MG Oral Active TK 1 T PO QD Gabapentin ND 77398794032 100 MG Orally January 07, Active 1 capsule Twice a day 2017 BuPROPion HCl ND 94098291413 100 MG Oral Active TK 1 T PO BID Aspirin Adult Low ND 87908728651 81 MG Orally Active 1 tablet Strength Once a day Betamethasone ND 09558666691 0.1 % External Active RYAN AA BID Valerate Metoprolol ND 88334141224 25 MG Oral Active TK 1 T PO Tartrate BID Daliresp ND 70175257390 500 MCG Oral Active TK 1 T PO D Azithromycin ND 38654493016 500 MG Oral Active TK 1 T PO D FOR 5 DAYS Dilt-XR [facility] 01569299538 180 MG Oral Active TK ONE C PO ONCE D IN THE MORNING Spironolactone [facility] 86656998550 50 MG Oral Active TK 1 T PO QD Levofloxacin [facility] 91184661641 500 MG Oral Active TK 1 T PO D Triamcinolone [facility] 88356796601 0.1 % External Active not defined Acetonide Fluconazole [facility] 09426408372 150 MG Oral Active TK 1 T PO ONCE 1 DOSE MAGnesium-Oxide [facility] 15240861206 400 (241.3 Mg) Active TK 1 T PO MG Oral BID PredniSONE [facility] 99692695802 10 MG Oral Active TK 1 T PO QD Diltiazem HCl [facility] 37793777770 120 MG Oral Active TK 1 T PO QD BEFORE MEALS Results No Known Results Summary Purpose eClinicalWorks Submission
--- OUTSIDE RECORDS SUMMARY | 2018-04-28 16:03 | XMS REPORT ---
[...] End Status Dosage System Date Date AcetaZOLAMIDE [facility] 82459579180 250 MG Oral Active TK 1 T PO BID Hydrocodone-Aceta [facility] 06125432008 10-325 MG Oral Active (Schedule minophen II Drug) TAKE 1 TABLET BY MOUTH FOUR TIMES DAILY BusPIRone HCl ND 32252999371 10 MG Orally October Active 1 tablet Twice a day 2017 MAGnesium-Oxide [facility] 18462709136 400 (241.3 Mg) Active TK 1 T PO MG Oral BID Ciclopirox ND 88742358815 8 % External Active RYAN AFFECTED NAILS QD FOR 48 WEEKS Metoprolol [facility] 90856433811 25 MG Oral Active TK 1 T PO Tartrate BID Dilt-XR [facility] 67963735778 180 MG Oral Active TK ONE C PO ONCE D IN THE MORNING Chantix Starting ND 84852344700 0.5 MG X 11 & 1 October Active as directed Month Joel MG X 42 Orally 2017 BuPROPion HCl [facility] 06257751603 100 MG Oral Active TK 1 T PO BID Fluconazole ND 65736192739 150 MG Oral Active TK 1 T PO ONCE 1 DOSE Betamethasone ND 58477041646 0.1 % External Active RYAN AA BID Valerate Potassium [facility] 34014192740 20 MEQ Oral Active TK 1 T PO Chloride ER QD Daliresp [facility] 62655083961 500 MCG Oral Active TK 1 T PO D Azithromycin [facility] 86959124803 500 MG Oral Active TK 1 T PO D FOR 5 DAYS Triamcinolone [facility] 25744767374 0.1 % External Active not defined Acetonide Spironolactone [facility] 88261539638 50 MG Oral Active TK 1 T PO QD Levofloxacin [facility] 32122542621 500 MG Oral Active TK 1 T PO D Furosemide [facility] 82103491522 40 MG Oral Active TK 1 T PO QD Aspirin Adult Low [facility] 89286486656 81 MG Orally Active 1 tablet Strength Once a day PredniSONE [facility] 36864752890 10 MG Oral Active TK 1 T PO QD Brovana [facility] 43944399983 15 MCG/2ML Active USE 2 ML Inhalation VIA NEBULIZER BID Diltiazem HCl [facility] 86881932680 120 MG Oral Active TK 1 T PO QD BEFORE MEALS Results No Known Results Summary Purpose eClinicalWorks Submission
--- OUTSIDE RECORDS SUMMARY | 2018-04-28 16:03 | XMS REPORT ---
[...] Status Dosage System Date Date AcetaZOLAMIDE ND 68629405348 250 MG Oral Active TK 1 T PO BID Spironolactone ND 11614653822 50 MG Oral Active TK 1 T PO QD Hydrocodone-Aceta ND 41138252630 10-325 MG Oral Active (Schedule minophen II Drug) TAKE 1 TABLET BY MOUTH FOUR TIMES DAILY Triamcinolone ND 18813190138 0.1 % External Active not defined Acetonide Ciclopirox ND 21538327268 8 % External Active RYAN AFFECTED NAILS QD FOR 48 WEEKS BuPROPion HCl ND 32406751715 100 Active 100 MG PO BID Dilt-XR ND 91302236389 180 MG Oral Active TK ONE C PO ONCE D IN THE MORNING Levofloxacin ND 57125568652 500 MG Oral Active TK 1 T PO D Brovana [facility] 19694105283 15 MCG/2ML Active USE 2 ML Inhalation VIA NEBULIZER BID Gabapentin ND 16958857843 100 MG Orally January 07, Active 1 capsule Twice a day 2017 Betamethasone ND 76114265700 0.1 % External Active RYAN AA BID Valerate BusPIRone HCl ND 93397566994 10 MG Orally Ninfa Active 1 tablet Twice a day 2017 Aspirin Adult Low [facility] 34141309603 81 MG Orally Active 1 tablet Strength Once a day Metoprolol [facility] 22722881973 25 MG Oral Active TK 1 T PO Tartrate BID Fluconazole [facility] 63465384896 150 MG Oral Active TK 1 T PO ONCE 1 DOSE MAGnesium-Oxide [facility] 61753695867 400 (241.3 Mg) Active TK 1 T PO MG Oral BID PredniSONE [facility] 49130435189 10 MG Oral Active TK 1 T PO QD Azithromycin [facility] 05684864950 500 MG Oral Active TK 1 T PO D FOR 5 DAYS Potassium [facility] 26082413622 20 MEQ Oral Active TK 1 T PO Chloride ER QD Furosemide [facility] 74779083082 40 MG Oral Active TK 1 T PO QD BuPROPion HCl [facility] 55773120237 100 MG Oral Active TK 1 T PO BID Diltiazem HCl [facility] 97148892825 120 MG Oral Active TK 1 T PO QD BEFORE MEALS Daliresp [facility] 44215387101 500 MCG Oral Active TK 1 T PO D Results No Known Results Summary Purpose eClinicalWorks Submission
[2018-04-28] MEDS ORDERED: IPRATROPIUM BROM 0.5MG/2.5ML ONE (16:41)
[2018-04-28] MEDS ORDERED: ALBUTEROL 2.5 MG/3 ML NEB SOL ONE (16:41)
--- NOTE | 2018-04-28 17:03 | EKG ---
Test Date: 2018-04-28 Test Time: 16:36:14 Facilities Administrator: ANTHONY MEASUREMENT RESULTS: Intervals: Rate: 122 MD: 128 QRSD: 88 QT: 352 QTc: 501 [place]: P: 66 MD: 128 QRS: 104 T: 63 INTERPRETIVE STATEMENTS: Sinus tachycardia with premature atrial complexes Possible Left atrial enlargement Rightward axis RSR' or QR pattern in V1 suggests right ventricular conduction delay Borderline ECG Compared to ECG 04/27/2018 14:32:09 Atrial premature complex(es) now present Electronically Signed On 04-28-18 17:03:01 CDT by Jered Biswas
[2018-04-28 17:04] LABS: Arterial Blood Carboxyhemoglob 5.7 % (0-1.5); Blood Gas Oxyhemoglobin 87.6 % (94-97); Blood O2 Saturation 93.8 % (92-98.5)
[2018-04-28 17:35] LABS: Absolute Lymphocytes (CBC) 0.5 K/uL (0.7-4.9); Absolute Monocytes 0.6 K/uL (0.1-1.3); Absolute Neutrophil 10.1 K/uL (1.8-8.0); Basophils % 0.9 % (0-1.3); Hematocrit 30.7 % (36.0-45.0); Lymphocytes % 4.3 % (15.3-44.8); MCH 24.9 pg (27.0-35.0); MCV 83.2 fL (80-100); MPV 8.5 fL (7.6-11.3); Monocytes % 5.4 % (3.3-12.3); Protime INR 1.18; RBC Red Blood Cell Count 3.69 M/uL (3.86-4.86)
[2018-04-28 18:05] LABS: BUN Blood Urea Nitrogen 17 mg/dL (7-18); Bicarbonate > 45 mmol/L (21-32); Glucose Level 100 mg/dL (74-106); NT PRO-BNP 3688 pg/mL (<125); Potassium 4.1 mmol/L (3.5-5.1); Sodium Level 132 mmol/L (136-145); Troponin (Emerg Dept Use Only) 0.03 ng/mL (0.0-0.045)
--- NOTE | 2018-04-28 18:31 | ER ---
Nurse's Notes [facility] Name: Eusebia Vila Age: 53 yrs Sex: Female : 1965 Arrival Date: 04/28/2018 Time: 16:01 Bed 3 Private MD: Diagnosis: Acute and chronic respiratory failure;Chronic obstructive pulmonary disease with (acute) exacerbation Presentation: 04/28 16:01 Presenting complaint: EMS states: Pt was found unresponsive with cyanosis noted to all aa5 four extremities and face, O2 sat was 23% via 4 L NC. EMS reports they assisted ventilations via BVM and pt became responsive and began speaking. EMS reports A \T\ A TX was administered, O2 sat was increased to 83% via neb tx. 16:01 Method Of Arrival: EMS: [facility] aa5 16:01 Transition of care: patient was not received from another setting of care. Onset of aa5 symptoms was April 28, 2018. Care prior to arrival: Medication(s) given: Albuterol Neb x 1, Atrovent Neb x 1, Solu-Medrol 125 mg IVP IV initiated. 20 GA, in the left antecubital area, Oxygen administered. via a nebulizer mask. 16:01 Acuity: CLAUDIA 2 aa5 19:20 Risk Assessment: Do you want to hurt yourself or someone else? Patient reports no ea desire to harm self or others. Historical: - Allergies: 16:01 Codeine; aa5 16:01 Levofloxacin; aa5 - PMHx: 16:01 CAD; Cellulitis; CHF; COPD; Pneumonia; polycythemia vera; PVD; O2 dependent- Pt's aa5 baseline is in the 80's % O2 sat on 4L NC per pt; - PSHx: 16:01 abdominal sx; pain pump (morphine); aa5 - Immunization history:: Adult Immunizations unknown. - Ebola Screening: : No symptoms or risks identified at this time. - Social history:: Smoking status: Patient uses tobacco products, unknown amount. Screenin:01 Abuse screen: Denies threats or abuse. Denies injuries from another. Nutritional ss screening: No deficits noted. Tuberculosis screening: Never had TB. Fall Risk Fall in past 12 months (25 points). Secondary diagnosis (15 points) impaired mobility, IV access (20 points). Ambulatory Aid- None/Bed Rest/Nurse Assist (0 pts). Gait- Normal/Bed Rest/Wheelchair (0 pts) Mental Status- Overestimates/Forgets Limitations (15 pts.). Assessment: 16:15 General: Appears distressed, uncomfortable, unkempt, black soot noted to all ss fingertips. Pt has a history of falling asleep with cigarettes in hands. . Behavior is drowsy, arouses to loud verbal stimuli. . Denies fever, feeling ill. Pain: Denies pain. Neuro: Oriented to person, place, situation. Cardiovascular: Capillary refill is > 3 seconds is sluggish in bilateral fingers. Cardiovascular: Heart tones S1 S2 Pulses are palpable in right radial artery and left radial artery Edema is 1+ to left midcalf, left ankle, left foot, right midcalf, right ankle and right foot Rhythm is sinus tachycardia. Respiratory: Airway is patent Respiratory effort is even, unlabored, Respiratory pattern is regular, symmetrical, Breath sounds are diminished bilaterally. GI: Patient currently denies diarrhea, nausea, vomiting. : No signs and/or symptoms were reported regarding the genitourinary system. EENT: Oral mucosa is dry. Derm: Skin is dry, flaky skin noted to bilateral hands and lower extremities. Skin is pale, Skin temperature is warm. Musculoskeletal: Swelling absent. 16:45 Reassessment: BIPAP placed per Dr. Swenson by RT. ss 19:00 General: Appears uncomfortable, Behavior is drowsy. Pain: Denies pain. Neuro: Level of ea Consciousness is obeys commands, groggy. Cardiovascular: Heart tones S1 S2 present Patient's skin is warm and dry. Respiratory: Airway is patent Respiratory effort is even, unlabored, Respiratory pattern is regular, symmetrical, Pt currently on BiPap Breath sounds are diminished bilaterally. Derm: Skin is dry, Skin is pale, Skin temperature is warm. 19:44 Reassessment: Report given to admitting nurse on 4th floor. aa1 Vital Signs: 16:01 Temp 97.6(TE); ss 16:01 Pulse Ox 86% on Nebulizer Mask; aa5 16:01 BP 123 / 68; Pulse 114; Resp 23; ss 17:36 BP 140 / 97; Pulse 113; Resp 22; Pulse Ox 100% on 40% BiPAP; ss 18:48 BP 136 / 89; Pulse 117; Resp 21; Pulse Ox 92% on 40% BiPAP; ss 19:19 BP 107 / 64; Pulse 105; Resp 22; Pulse Ox 90% on BiPAP; ea ED Course: 16:01 Patient arrived in ED. ss 16:01 Arm band placed on. aa5 16:01 Patient has correct armband on for positive identification. Bed in low position. ss industrial waste treatment technician on. Pulse ox on. NIBP on. 16:12 Triage completed. aa5 16:24 Enrique Swenson MD is Attending Physician. 16:38 EKG done, by installation technician. reviewed by Enrique Swenson MD. 3 17:00 Radiology exam delayed due to IV insertion attempt and/or patient not having ml appropriate IV at this time. 17:00 Inserted saline lock: 24 gauge in left forearm, using aseptic technique. Blood ss collected. 17:03 Maggie Deutsch, LINDSAY is Primary Nurse. ss 18:29 Arnold Billingsley MD is Hospitalizing Provider. 18:50 Hospitalizing Provider role handed off by Arnold Billingsley MD snw 18:50 Jesús Chávez MD is Hospitalizing Provider. sn 19:18 No provider procedures requiring assistance completed. Patient admitted, IV remains in ea place. Administered Medications: 16:50 Drug: Albuterol - atroVENT (3:1) (2.5 mg - 0.5 mg) 3 ml Route: Nebulizer; ss 18:49 Follow up: Response: No adverse reaction ss 18:30 Drug: Lasix 20 mg Route: IVP; Site: left forearm; ss 19:30 Follow up: Response: No adverse reaction aa1 Outcome: 18:30 Decision to Hospitalize by Provider. 19:19 Instructed on the need for admit. ea 20:00 Patient left the ED. aa1 20:00 Admitted to Tele accompanied by tech, via stretcher, room 425, with oxygen, with chart, aa1 Report called to 4th floor 20:00 Condition: stable Signatures: Lizz Cleary, RN RN aa1 Dodie Leach, MOVING PICTURE PRODUCER-C MOVING PICTURE PRODUCER-Csnw [place] Jack Audri, RN RN aa5 Maggie Deutsch RN RN Briseyda Segura RN RN Enrique Swenson MD MD Mary Siddiqui 3 Corrections: (The following items were deleted from the chart) 16:13 16:01 Care prior to arrival: Medication(s) given: Albuterol Neb x 1, Atrovent Neb x 1, aa5 Oxygen administered. via a nebulizer mask, aa5 16:24 16:01 Presenting complaint: EMS states: Pt was found unresponsive with cyanosis noted aa5 to all four extremities and face. EMS reports they assisted ventilations via BVM and pt became responsive and began speaking. EMS reports A \T\ A tx was administered, O2 sat was increased to 83% via neb tx. aa5 20:23 20:17 Patient left the ED. aa1 aa1
--- NOTE | 2018-04-28 18:32 | EDPHYS ---
Physician Documentation [facility] Name: Eusebia Vila Age: 53 yrs Sex: Female : 1965 Arrival Date: 04/28/2018 Time: 16:01 Bed 3 Private MD: ED Physician Enrique Swenson HPI: 04/28 18:20 This 53 yrs old Female presents to ER via EMS with complaints of Breathing gs Difficulty. 18:20 The patient has shortness of breath at rest. Onset: The symptoms/episode began/occurred gs acutely, just prior to arrival. Duration: The symptoms are continuous, and are unchanged since they started. Associated signs and symptoms: Pertinent positives: non-productive cough. Severity of symptoms: At their worst the symptoms were severe in the emergency department the symptoms are unchanged. The patient has experienced similar episodes in the past, chronically. Historical: - Allergies: 16:01 Codeine; aa5 16:01 Levofloxacin; aa5 - PMHx: 16:01 CAD; Cellulitis; CHF; COPD; Pneumonia; polycythemia vera; PVD; O2 dependent- Pt's aa5 baseline is in the 80's % O2 sat on 4L NC per pt; - PSHx: 16:01 abdominal sx; pain pump (morphine); aa5 - Immunization history:: Adult Immunizations unknown. - Ebola Screening: : No symptoms or risks identified at this time. - Social history:: Smoking status: Patient uses tobacco products, unknown amount. ROS: 18:20 All other systems are negative. gs Exam: 18:20 Head/Face: Normocephalic, atraumatic. Eyes: Pupils equal round and reactive to light, gs extra-ocular motions intact. Lids and lashes normal. Conjunctiva and sclera are non-icteric and not injected. Cornea within normal limits. Periorbital areas with no swelling, redness, or edema. ENT: Nares patent. No nasal discharge, no septal abnormalities noted. Tympanic membranes are normal and external auditory canals are clear. Oropharynx with no redness, swelling, or masses, exudates, or evidence of obstruction, uvula midline. Mucous membranes moist. Neck: Trachea midline, no thyromegaly or masses palpated, and no cervical lymphadenopathy. Supple, full range of motion without nuchal rigidity, or vertebral point tenderness. No Meningismus. Chest/axilla: Normal chest wall appearance and motion. Nontender with no deformity. No lesions are appreciated. Cardiovascular: Regular rate and rhythm with a normal S1 and S2. No gallops, murmurs, or rubs. Normal PMI, no JVD. No pulse deficits. 18:20 Abdomen/GI: Soft, non-tender, with normal bowel sounds. No distension or tympany. No guarding or rebound. No evidence of tenderness throughout. Back: No spinal tenderness. No costovertebral tenderness. Full range of motion. Skin: Warm, dry with normal turgor. Normal color with no rashes, no lesions, and no evidence of cellulitis. MS/ Extremity: Pulses equal, no cyanosis. Neurovascular intact. Full, normal range of motion. Neuro: Awake and alert, GCS 15, oriented to person, place, time, and situation. Cranial nerves II-XII grossly intact. Motor strength 5/5 in all extremities. Sensory grossly intact. Cerebellar exam normal. Normal gait. Psych: Awake, alert, with orientation to person, place and time. Behavior, mood, and affect are within normal limits. 18:20 Constitutional: The patient appears alert, awake, in obvious distress, severely distressed. 18:20 ECG was reviewed by the Attending Physician. 18:20 Respiratory: severe repiratory distress is noted, Respirations: labored breathing, tachypnea, Breath sounds: rhonchi, that are moderate, are heard diffusely. Vital Signs: 16:01 Temp 97.6(TE); ss 16:01 Pulse Ox 86% on Nebulizer Mask; aa5 16:01 BP 123 / 68; Pulse 114; Resp 23; ss 17:36 BP 140 / 97; Pulse 113; Resp 22; Pulse Ox 100% on 40% BiPAP; ss 18:48 BP 136 / 89; Pulse 117; Resp 21; Pulse Ox 92% on 40% BiPAP; ss 19:19 BP 107 / 64; Pulse 105; Resp 22; Pulse Ox 90% on BiPAP; ea MDM: 16:24 Patient medically screened. 18:20 Differential diagnosis: CHF exacerbation, Chronic Obstructive Pulmonary Disease gs Myocardial Infarction pneumonia. Data reviewed: vital signs, nurses notes. 18:34 ED course: CALLED DR PHAM TWICE NO ANSWER, DR BILLINGSLEY SAID HE WOULD ADMIT AND TRANSFER gs SERVICE IN AM.. 18:52 Physician consultation: Jesús Pham MD was called at 18:52, was contacted at 18:52, snw regarding admission, to the telemetry unit. 18:56 ED course: ANKIT CALLED BACK WHILE I WAS IN XRAY, ADMIT CHANGED TO DR PHAM. 04/28 16:28 Order name: Basic Metabolic Panel; Complete Time: 18:09 04/28 16:28 Order name: CBC with Diff; Complete Time: 18:07 04/28 16:28 Order name: NT PRO-BNP; Complete Time: 18:09 04/28 16:28 Order name: PT-INR; Complete Time: 18:07 04/28 16:28 Order name: Troponin (emerg Dept Use Only); Complete Time: 18:09 04/28 16:28 Order name: ABG; Complete Time: 18:07 04/28 16:28 Order name: XRAY Chest (1 view) 04/28 16:28 Order name: EKG; Complete Time: 16:33 04/28 16:28 Order name: Cardiac monitoring; Complete Time: 16:32 04/28 16:28 Order name: EKG - Nurse/Tech; Complete Time: 16:32 04/28 16:28 Order name: BIPAP 04/28 19:40 Order name: RAD EDNE 04/28 16:28 Order name: IV Saline Lock; Complete Time: 16:33 gs 04/28 16:28 Order name: Labs collected and sent; Complete Time: 17:03 04/28 16:28 Order name: O2 Per Protocol; Complete Time: 16:32 04/28 16:28 Order name: O2 Sat Monitoring; Complete Time: 16:33 gs EC:20 Rate is 122 beats/min. Rhythm is regular. KS interval is normal. QRS interval is gs normal. QT interval is prolonged. T waves are Normal. No ST changes noted. Clinical impression: Abnormal EKG without significant change. Interpreted by me. Administered Medications: 16:50 Drug: Albuterol - atroVENT (3:1) (2.5 mg - 0.5 mg) 3 ml Route: Nebulizer; ss 18:49 Follow up: Response: No adverse reaction ss 18:30 Drug: Lasix 20 mg Route: IVP; Site: left forearm; ss 19:30 Follow up: Response: No adverse reaction aa1 Disposition: 18:29 Critical Care:. gs 04/29 18:10 Co-signature as Attending Physician, Enrique Swenson MD. Disposition: 04/28/18 18:30 Hospitalization ordered by Jesús Pham for Inpatient Admission. Preliminary diagnosis are Acute and chronic respiratory failure, Chronic obstructive pulmonary disease with (acute) exacerbation. - Bed requested for Telemetry/MedSurg (Inpatient). - Status is Inpatient Admission. aa1 - Condition is Stable. - Problem is an acute exacerbation. - Symptoms have improved. UTI on Admission? No Critical care time excluding procedures: 04/28 18:29 Critical care time: Bedside Care: 10 minutes, Consultation: 10 minutes, Family Intervention: 10 minutes. Total time: 30 minutes Signatures: Dispatcher [employer] EDPeggy Wheeler RN RN kl Kern, Alissa, RN RN aa1 Dodie Leach, CUTTING AND CREASING PRESS OPERATOR-C CUTTING AND CREASING PRESS OPERATOR-Csnw Anita Reich RN RN aa5 Maggie Deutsch RN RN ss Starr, Gregory, MD MD Corrections: (The following items were deleted from the chart) 18:50 18:30 Hospitalization Ordered by Arnold Billingsley MD for Inpatient Admission. Preliminary snw diagnosis is Acute and chronic respiratory failure; Chronic obstructive pulmonary disease with (acute) exacerbation. Bed requested for Telemetry/MedSurg (Inpatient). Status is Inpatient Admission. Condition is Stable. Problem is an acute exacerbation. Symptoms have improved. UTI on Admission? No. gs 19:16 18:50 04/28/2018 18:30 Hospitalization Ordered by Jesús Pham MD for Inpatient kl Admission. Preliminary diagnosis is Acute and chronic respiratory failure; Chronic obstructive pulmonary disease with (acute) exacerbation. Bed requested for Telemetry/MedSurg (Inpatient). Status is Inpatient Admission. Condition is Stable. Problem is an acute exacerbation. Symptoms have improved. UTI on Admission? No. snw 20:17 19:16 04/28/2018 18:30 Hospitalization Ordered by Jesús Pham MD for Inpatient aa1 Admission. Preliminary diagnosis is Acute and chronic respiratory failure; Chronic obstructive pulmonary disease with (acute) exacerbation. Bed requested for Telemetry/MedSurg (Inpatient). Status is Inpatient Admission. Condition is Stable. Problem is an acute exacerbation. Symptoms have improved. UTI on Admission? No. kl
[2018-04-28] MEDS ORDERED: FUROSEMIDE 20 MG/ 2ML VIAL ONE (18:34)
[2018-04-28] MEDS ORDERED: ACETAMINOPHEN 500 MG TAB PO PRN (18:42)
[2018-04-28] MEDS ORDERED: ONDANSETRON 4 MG/2 ML VIAL IV PRN (18:42)
--- NOTE | 2018-04-28 19:40 | RAD REPORT ---
EXAM DESCRIPTION: Darren Single View04/28/2018 6:54 pm CLINICAL HISTORY: Shortness of breath COMPARISON: 04/2018 FINDINGS: The lungs appear clear of acute infiltrate. The heart is moderately to markedly enlarged IMPRESSION: No acute abnormalities displayed
[2018-04-28] MEDS: IPRATROPIUM BROM 0.5MG/2.5ML NEB SCH (20:00)
[2018-04-28] MEDS: ALBUTEROL 2.5 MG/3 ML NEB SOL NEB SCH (20:00)
[2018-04-28] MEDS: ENOXAPARIN 40 MG/0.4 ML SQ SCH (21:30)
[2018-04-28] MEDS ORDERED: LORazepam 2 MG/ML VIAL IV ONE (22:33)
[2018-04-29] MEDS: ALBUTEROL 2.5 MG/3 ML NEB SOL NEB SCH ×4 (01:07→20:05)
[2018-04-29] MEDS: IPRATROPIUM BROM 0.5MG/2.5ML NEB SCH ×4 (01:07→20:05)
[2018-04-29 04:49] LABS: Absolute Lymphocytes (CBC) 0.5 K/uL (0.7-4.9); Absolute Monocytes 0.5 K/uL (0.1-1.3); Absolute Neutrophil 4.9 K/uL (1.8-8.0); Basophils % 0.2 % (0-1.3); Hematocrit 25.3 % (36.0-45.0); MCH 25.3 pg (27.0-35.0); MPV 8.5 fL (7.6-11.3); Monocytes % 8.1 % (3.3-12.3); RBC Red Blood Cell Count 3.09 M/uL (3.86-4.86)
[2018-04-29 05:15] LABS: ALT/SGPT 14 U/L (12-78); AST/SGOT 12 U/L (15-37); Alkaline Phosphatase 83 U/L (45-117); BUN Blood Urea Nitrogen 18 mg/dL (7-18); Bilirubin Total 0.2 mg/dL (0.2-1.0); Glucose Level 254 mg/dL (74-106); Magnesium 1.4 mg/dL (1.8-2.4); NT PRO-BNP 10376 pg/mL (<125); Phosphorus 2.7 mg/dL (2.5-4.9); Potassium 3.5 mmol/L (3.5-5.1); Protein, Total 6.5 g/dL (6.4-8.2); Sodium Level 130 mmol/L (136-145)
[2018-04-29 05:19] LABS: Bicarbonate 51 mmol/L (21-32)
[2018-04-29] MEDS ORDERED: Magnesium Sulfate 2gm IVPB 2 G/50 ML BAG IV ONE (05:26)
[2018-04-29] MEDS ORDERED: POTASSIUM CL SA 10 MEQ TAB PO ONE (05:28)
[2018-04-29 05:29] LABS: Arterial Blood Carboxyhemoglob 3.5 % (0-1.5); Blood Gas Oxyhemoglobin 93.9 % (94-97); Blood O2 Saturation 97.8 % (92-98.5)
[2018-04-29] MEDS ORDERED: INFLUENZA VACCINE (for 3y+) 0.5 ML DOSE IMVAC ONE (09:00)
[2018-04-29 09:24] LABS: Platelet Estimate ADEQ; Platelets, Giant FEW; Urine White Blood Cell Casts OK
[2018-04-29 09:25] LABS: Anisocytosis 1+; Blood Morphology Comment NOT SEEN (NOT SEEN); Hypochromasia 2+; Stomatocytes 1+
[2018-04-29] MEDS: ENOXAPARIN 40 MG/0.4 ML SQ SCH (10:37)
[2018-04-29] MEDS ORDERED: PROPOFOL 0 MG/0 ML VIAL IV ONE (12:19)
[2018-04-29] MEDS ORDERED: RSI MEDICATION KIT IV ONE (12:19)
[2018-04-29] MEDS ORDERED: ENOXAPARIN 40 MG/0.4 ML SQ SCH (12:48)
--- NOTE | 2018-04-29 12:50 | P.CNS ---
Date of Consult: 04/29/18 Reason for Consult: Respiratory failure Chief Complaint: Respiratory failure History of Present Illness: Patient is 53 years of age noncompliant admitted again with hypoxic hypercapnic respiratory failure this often owned she is intermittently drowsy very hypercapnic oriented to day he the. Has refused transfer to the ICU patient will try BiPAP Allergies codeine Allergy (Verified 11/18/17 23:38) Shortness of breath levofloxacin [From Levaquin] Adverse Reaction (Intermediate, Verified 11/18/17 23:38) hallucinations morphine Adverse Reaction (Verified 11/18/17 23:38) Itching/Hives/Rash Home Medications: Aspirin [Aspirin EC 81 MG] 1 tab PO DAILY 11/20/17 Diltiazem Tab [Cardizem Tab*] 120 mg PO DAILY 11/30/17 predniSONE [Deltasone*] 10 mg PO DAILY #30 tab 11/30/17 Gabapentin [Neurontin*] 1 tab PO BID 01/17/18 Hydrocodone/Acetaminophen [Hydrocodone-Acetamin 7.5-325] 7.5 - 325 tab PO QID Arformoterol Tartrate [Brovana] 15 mcg IH DAILY 01/31/18 Roflumilast [Daliresp*] 500 mcg PO DAILY 01/31/18 buPROPion HCl [Bupropion HCl] 100 mg PO BID 01/31/18 Bumetanide [Bumex] 1 mg PO BID 04/17/18 acetaZOLAMIDE [Diamox*] 125 mg PO BID 30 Days #180 tab 04/21/18 - Past Medical/Surgical History Diabetic: No -: Diastolic dysfunction -: COPD -: CHF -: CAD -: Cellulitis -: Pneumonia -: PVD -: anxiety -: leg wound - [facility] -: Cardiomegaly -: Atrial flutter -: polycythemia vera -: back -: cholecystectomy -: Hysterectomy -: Morphine pump mid right side of stomach - in place -: morphine pump with additional medications - Family History Sister Medical History: Cancer Brother Medical History: Cancer Father Medical History: Cancer Mother Medical History: Lung disease, Cancer - Social History Smoking Status: Current every day smoker Alcohol use: No CD- Drugs: No Caffeine use: Yes Place of Residence: Home Review of Systems is unable to be obtained Physical Examination Temp Pulse Resp BP Pulse Ox 98.2 F 65 16 186/76 H 100 04/29/18 08:00 04/29/18 08:50 04/29/18 08:00 04/29/18 08:50 04/29/18 08:00 General: Other HEENT: Atraumatic Neck: Supple Respiratory: Diminished Cardiovascular: Edema Gastrointestinal: Normal bowel sounds, Soft and benign Laboratory Data (last 24 hrs) 04/28/18 16:55: PT 14.0 H, INR 1.18 04/28/18 16:55: WBC 11.3 H, Hgb 9.2 L, Hct 30.7 L, Plt Count 470 H D 04/28/18 16:55: Sodium 132 L, Potassium 4.1, BUN 17, Creatinine 0.50 L, Glucose 100 - Problems (1) Acute and chronic respiratory failure Onset Date: 06/17/17 Current Visit: No Status: Acute Plan: Patient admitted with acute on chronic respiratory failure recurrent hospital admissions noncompliant with the BiPAP and medication still continues to smoke CO2 level is 122 will try on BiPAP as per patient's request titrate sat to 90% repeat arterial blood gases the patient is noncompliant with BiPAP and transferred here to the ICU willing to discuss with the patient the gain and a family members regarding a DNR intubation mildly anemic chest x-ray clear had Diamox bicarbonate is elevated I guess call her sister Bo according to her patient wants to be full code Qualifiers: Respiratory failure complication: hypoxia and hypercapnia
--- NOTE | 2018-04-29 12:55 | P.HP ---
Certification for Inpatient Patient admitted to: Inpatient With expected LOS: >2 Midnights Patient will require the following post-hospital care: Home Health Services Practitioner: I am a practitioner with admitting privileges, knowledge of patient current condition, hospital course, and medical plan of care. Services: Services provided to patient in accordance with Admission requirements found in Title 42 Section 412.3 of the Code of Federal Regulations Patient History Date of Service: 04/29/18 Primary Care Provider: Saira Reason for admission: Copd exacerbation History of Present Illness: Patient is well known to the hospital. Has a history of terminal copd. She was discharged last Friday. She was smoking. Went to Dr. Hughes office on Friday. The Er on Friday. Her sister called EMS yesterday. She was found to have an oxygen level in the 20's. She was admitted to the floor. Was non compliant with the bipap. Disconnecting the tubing from the machine. This morning she is very lethargic. Have discussed with Dr. Hughes. As her co2 was in the 100 range he suggested intubation. However the patient refused the transfer and intubation. She refused social work job titles inquire for hospice and penitentiary care. Allergies codeine Allergy (Verified 11/18/17 23:38) Shortness of breath levofloxacin [From Levaquin] Adverse Reaction (Intermediate, Verified 11/18/17 23:38) hallucinations morphine Adverse Reaction (Verified 11/18/17 23:38) Itching/Hives/Rash Home Medications: Aspirin [Aspirin EC 81 MG] 1 tab PO DAILY 11/20/17 Diltiazem Tab [Cardizem Tab*] 120 mg PO DAILY 11/30/17 predniSONE [Deltasone*] 10 mg PO DAILY #30 tab 11/30/17 Gabapentin [Neurontin*] 1 tab PO BID 01/17/18 Hydrocodone/Acetaminophen [Hydrocodone-Acetamin 7.5-325] 7.5 - 325 tab PO QID Arformoterol Tartrate [Brovana] 15 mcg IH DAILY 01/31/18 Roflumilast [Daliresp*] 500 mcg PO DAILY 01/31/18 buPROPion HCl [Bupropion HCl] 100 mg PO BID 01/31/18 Bumetanide [Bumex] 1 mg PO BID 04/17/18 acetaZOLAMIDE [Diamox*] 125 mg PO BID 30 Days #180 tab 04/21/18 - Past Medical/Surgical History Has patient received pneumonia vaccine in the past: No Diabetic: No -: Diastolic dysfunction -: COPD -: CHF -: CAD -: Cellulitis -: Pneumonia -: PVD -: anxiety -: leg wound - WHC -: Cardiomegaly -: Atrial flutter -: polycythemia vera -: back -: cholecystectomy -: Hysterectomy -: Morphine pump mid right side of stomach - in place -: morphine pump with additional medications - Family History Sister -: Cancer Brother -: Cancer Father -: Cancer Mother -: Lung disease, Cancer - Social History Smoking Status: Current every day smoker Alcohol use: No CD- Drugs: No Caffeine use: Yes Place of Residence: Home Review of Systems General: Malaise Respiratory: Shortness of Breath Physical Examination - Vital Signs Temperature: 98.2 F Blood Pressure: 186/76 Pulse: 65 Respirations: 16 Pulse Ox (%): 100 - Physical Exam General: Alert, In no apparent distress HEENT: Atraumatic, PERRLA, Mucous membr. moist/pink, EOMI, Sclerae nonicteric Neck: Supple, 2+ carotid pulse no bruit, No LAD, Without JVD or thyroid abnormality Respiratory: Diminished, Crackles/rales Cardiovascular: Regular rate/rhythm, Normal S1 S2 Gastrointestinal: Normal bowel sounds, No tenderness Musculoskeletal: No tenderness Integumentary: No rashes Neurological: Normal gait, Normal speech, Normal strength at 5/5 x4 extr, Normal tone, Normal affect Lymphatics: No axilla or inguinal lymphadenopathy - Studies Laboratory Data (last 24 hrs) 04/28/18 16:55: PT 14.0 H, INR 1.18 04/28/18 16:55: WBC 11.3 H, Hgb 9.2 L, Hct 30.7 L, Plt Count 470 H D 04/28/18 16:55: Sodium 132 L, Potassium 4.1, BUN 17, Creatinine 0.50 L, Glucose 100 Assessment and Plan - Plan terminal copd. Will keep her on breathing treatments. She is refusing any intubations. Will discuss this with her at length. She is most likely to go home and come back repeatedly. She is a very good candidate for hospice. However the patient continuously refuses. Discharge Plan: Home Plan to discharge in: 24 Hours - Advance Directives Does patient have a Living Will: No Does patient have a Durable POA for Healthcare: No - Code Status/Comfort Care Code Status Assessed: No Code Status: Full Code Physician Review: Patient Assessed, Agree with Above Assessment and Plan Critical Care: No Time Spent Managing Pts Care (In Minutes): 50
[2018-04-29] MEDS: ACETAZOLAMIDE 500 MG IV IV SCH ×2 (13:38→22:44)
[2018-04-29] MEDS: DILTIAZEM HCL 60 MG TAB PO SCH (13:39)
[2018-04-29] MEDS ORDERED: WATER FOR INJ,STERILE 10 ML ONE (13:42)
[2018-04-29 15:15] LABS: Arterial Blood Carboxyhemoglob 2.9 % (0-1.5); Blood Gas Oxyhemoglobin 80.9 % (94-97); Blood O2 Saturation 83.6 % (92-98.5)
[2018-04-29] MEDS ORDERED: HYDROCODONE/APAP 7.5/325 MG TAB PO ONE (17:35)
[2018-04-29 18:19] LABS: Arterial Blood Carboxyhemoglob 2.8 % (0-1.5); Blood Gas Oxyhemoglobin 85.8 % (94-97); Blood O2 Saturation 88.5 % (92-98.5)
[2018-04-29] MEDS: buPROPion HCl 100 MG TAB PO SCH (22:44)
[2018-04-29] MEDS: GABAPENTIN 100 MG CAP PO SCH (22:44)
[2018-04-29] MEDS: NACHLORIDE 0.45% 1,000 ML IV SCH (22:44)
[2018-04-30] MEDS: HYDROCODONE/APAP 7.5/325 MG TAB PO PRN ×3 (00:51→20:06)
[2018-04-30] MEDS: ALBUTEROL 2.5 MG/3 ML NEB SOL NEB SCH ×4 (01:00→19:23)
[2018-04-30] MEDS: IPRATROPIUM BROM 0.5MG/2.5ML NEB SCH ×4 (01:00→19:23)
[2018-04-30 05:50] LABS: BUN Blood Urea Nitrogen 15 mg/dL (7-18); Glucose Level 126 mg/dL (74-106); Magnesium 1.8 mg/dL (1.8-2.4); Phosphorus 4.2 mg/dL (2.5-4.9); Potassium 3.7 mmol/L (3.5-5.1); Sodium Level 135 mmol/L (136-145)
[2018-04-30 05:51] LABS: Bicarbonate 51 mmol/L (21-32)
[2018-04-30] MEDS ORDERED: MAGNESIUM SULFATE 1 gm IVPB 1 GM/100 ML BAG IV ONE (07:07)
[2018-04-30] MEDS ORDERED: POTASSIUM CL SA 10 MEQ TAB PO ONE (07:08)
[2018-04-30] MEDS: NACHLORIDE 0.45% 1,000 ML IV SCH (08:20)
--- NOTE | 2018-04-30 08:22 | P.PN ---
Subjective Date of Service: 04/30/18 Primary Care Provider: Saira Chief Complaint: Copd exacerbation Patient's condition is stable she is still alert responsive oriented x3 diffuse BiPAP last night Review of Systems General: Weakness Respiratory: Shortness of Breath Physical Examination - Vital Signs Temperature: 98.1 F Blood Pressure: 98/63 Pulse: 112 Respirations: 15 Pulse Ox (%): 88 - Physical Exam General: Alert, Oriented x3 HEENT: Atraumatic Neck: Supple Respiratory: Clear to auscultation bilaterally, Diminished Cardiovascular: Normal S1 S2, Edema (Edema has improved) Assessment & Plan - Problems (Diagnosis) (1) Acute and chronic respiratory failure Onset Date: 06/17/17 Current Visit: No Status: Acute Plan: Patient is 53 years of age acute on chronic respiratory failure condition stable she still continues to remit alert oriented x3 cooperative responsive despite hypercapnia non compliant with BiPAP repeat ABGs on BiPAP patient's bicarbonate is elevated continue with Diamox IV fluids ABN element of volume depletion Qualifiers: Respiratory failure complication: hypoxia and hypercapnia Physician Review: Patient Assessed, Agree with Above Assessment and Plan
[2018-04-30 08:44] LABS: Arterial Blood Carboxyhemoglob 2.3 % (0-1.5); Blood Gas Oxyhemoglobin 84.9 % (94-97); Blood O2 Saturation 87.2 % (92-98.5)
--- NOTE | 2018-04-30 08:49 | P.PN ---
Subjective Date of Service: 04/30/18 Primary Care Provider: Saira Chief Complaint: Copd exacerbation Subjective: No new changes (Patient still non compliant with her bipap) Review of Systems 10-point ROS is otherwise unremarkable Respiratory: Shortness of Breath Physical Examination - Vital Signs Temperature: 98.1 F Blood Pressure: 98/63 Pulse: 112 Respirations: 15 Pulse Ox (%): 88 - Physical Exam General: Alert, In no apparent distress HEENT: Atraumatic, PERRLA, EOMI Neck: Supple, JVD not distended Respiratory: Clear to auscultation bilaterally, Normal air movement Cardiovascular: Regular rate/rhythm, Normal S1 S2 Gastrointestinal: Normal bowel sounds, No tenderness Musculoskeletal: No tenderness Integumentary: No rashes Neurological: Normal speech, Normal tone, Normal affect Lymphatics: No axilla or inguinal lymphadenopathy Assessment & Plan - Problems (Diagnosis) (1) Acute and chronic respiratory failure ([id number]) Onset Date: 09/19/16 Current Visit: No Status: Acute Plan: Continue bipap. patient very non compliant. She states she should just be woken up. Does not wish to talk much as she is very tired. Have told her to keep the bipap on or she will most likely get intubated Qualifiers: Respiratory failure complication: hypoxia and hypercapnia Qualified Code(s) : J96.21 - Acute and chronic respiratory failure with hypoxia; J96.22 - Acute and chronic respiratory failure with hypercapnia (2) Diastolic CHF Onset Date: 06/17/17 Current Visit: No Status: Chronic Plan: Patient currently euvolemic. should tolerate some fluids to help her electrolyte balance. Qualifiers: Qualified Code(s): I50.33 - Acute on chronic diastolic (congestive) heart failure (3) Nicotine dependence Onset Date: 02/02/18 Current Visit: No Status: Chronic Plan: She continues to smoke at home. Have educated her on previous admissions. Qualifiers: Nicotine product type: cigarettes Substance use status: uncomplicated Qualified Code(s): F17.210 - Nicotine dependence, cigarettes, uncomplicated Discharge Plan: Home Plan to discharge in: Greater than 2 days - Code Status/Comfort Care Code Status Assessed: Yes Code Status: Full Code Physician Review: Patient Assessed, Agree with Above Assessment and Plan Critical Care: Yes Time Spent Managing Pts Care (In Minutes): 25
[2018-04-30] MEDS: ACETAZOLAMIDE 500 MG IV IV SCH ×2 (09:12→20:06)
[2018-04-30] MEDS: WATER FOR INJ,STERILE 10 ML IV PRN (09:12)
[2018-04-30] MEDS: DILTIAZEM HCL 60 MG TAB PO SCH (09:13)
[2018-04-30] MEDS: GABAPENTIN 100 MG CAP PO SCH ×2 (09:13→20:06)
[2018-04-30] MEDS: buPROPion HCl 100 MG TAB PO SCH ×2 (09:13→20:06)
[2018-04-30] MEDS: ENOXAPARIN 40 MG/0.4 ML SQ SCH (09:14)
[2018-05-01] MEDS: ALBUTEROL 2.5 MG/3 ML NEB SOL NEB SCH ×2 (02:52→07:41)
[2018-05-01] MEDS: IPRATROPIUM BROM 0.5MG/2.5ML NEB SCH ×4 (02:52→19:17)
[2018-05-01] MEDS: NACHLORIDE 0.45% 1,000 ML IV SCH (03:56)
[2018-05-01 05:24] LABS: Absolute Monocytes 0.8 K/uL (0.1-1.3); Absolute Neutrophil 4.9 K/uL (1.8-8.0); Basophils % 0.2 % (0-1.3); Eosinophils % 0.1 % (0-4.4); Hematocrit 22.6 % (36.0-45.0); Lymphocytes % 14.5 % (15.3-44.8); MCH 25.5 pg (27.0-35.0); MCV 86.4 fL (80-100); Monocytes % 11.5 % (3.3-12.3); RBC Red Blood Cell Count 2.62 M/uL (3.86-4.86)
[2018-05-01 05:48] LABS: BUN Blood Urea Nitrogen 9 mg/dL (7-18); Bicarbonate 42 mmol/L (21-32); Glucose Level 83 mg/dL (74-106); Potassium 3.5 mmol/L (3.5-5.1); Sodium Level 132 mmol/L (136-145)
[2018-05-01 06:45] VITALS: BMI 22.2
[2018-05-01] MEDS: HYDROCODONE/APAP 7.5/325 MG TAB PO PRN ×2 (07:30→13:29)
[2018-05-01] MEDS ORDERED: POTASSIUM CL SA 10 MEQ TAB PO ONE (08:00)
[2018-05-01] MEDS: ACETAZOLAMIDE 500 MG IV IV SCH (08:23)
[2018-05-01] MEDS: DILTIAZEM HCL 60 MG TAB PO SCH (08:24)
[2018-05-01] MEDS: WATER FOR INJ,STERILE 10 ML IV PRN (08:24)
[2018-05-01] MEDS: buPROPion HCl 100 MG TAB PO SCH ×2 (08:25→22:21)
[2018-05-01] MEDS: GABAPENTIN 100 MG CAP PO SCH ×2 (08:25→22:22)
[2018-05-01] MEDS: ENOXAPARIN 40 MG/0.4 ML SQ SCH (08:25)
--- NOTE | 2018-05-01 09:35 | P.PN ---
Subjective Date of Service: 05/01/18 Primary Care Provider: Saira Chief Complaint: Copd exacerbation Subjective: New changes (Patient hb is continuing to drop. She is more alert. More compliant with her cpap last night) Review of Systems 10-point ROS is otherwise unremarkable General: Malaise Respiratory: Shortness of Breath Physical Examination - Vital Signs Temperature: 97.3 F Blood Pressure: 132/69 Pulse: 114 Respirations: 18 Pulse Ox (%): 89 - Physical Exam General: Alert, In no apparent distress HEENT: Atraumatic, PERRLA, EOMI Neck: Supple, JVD not distended Respiratory: Diminished, Crackles/rales Cardiovascular: Regular rate/rhythm, Normal S1 S2 Gastrointestinal: Normal bowel sounds, No tenderness Musculoskeletal: No tenderness Integumentary: No rashes Neurological: Normal speech, Normal tone, Normal affect Lymphatics: No axilla or inguinal lymphadenopathy Assessment & Plan - Problems (Diagnosis) (1) Anemia Current Visit: Yes Status: Acute Plan: will check a stool guiac. Transfuse 1 unit. Will see if we need to transfuse again after that. Will consider consulting surgery for a colonoscopy Qualifiers: Anemia type: iron deficiency Iron deficiency anemia type: unspecified iron deficiency Qualified Code(s): D50.9 - Iron deficiency anemia, unspecified (2) Acute and chronic respiratory failure ([id number]) Onset Date: 09/19/16 Current Visit: No Status: Acute Plan: Continue bipap. She is doing better. May be able to leave the unit soon. Have discussed with her the end of life care. She is most likely to return to the hospital soon after discharge. States she will not smoke. She has said this in the past and does go home and smoke. Comes back to the ER. She did agree to hospice last admission. However when she feels better she changes her mind. Will continue to discuss with the patient. Qualifiers: Respiratory failure complication: hypoxia and hypercapnia Qualified Code(s) : J96.21 - Acute and chronic respiratory failure with hypoxia; J96.22 - Acute and chronic respiratory failure with hypercapnia (3) Diastolic CHF Onset Date: 06/17/17 Current Visit: No Status: Chronic Plan: Patient currently euvolemic. should tolerate some fluids to help her electrolyte balance. Qualifiers: Qualified Code(s): I50.33 - Acute on chronic diastolic (congestive) heart failure (4) Nicotine dependence Onset Date: 02/02/18 Current Visit: No Status: Chronic Plan: She continues to smoke at home. Have educated her on previous admissions. Qualifiers: Nicotine product type: cigarettes Substance use status: uncomplicated Qualified Code(s): F17.210 - Nicotine dependence, cigarettes, uncomplicated - Code Status/Comfort Care Code Status Assessed: Yes Code Status: Full Code Physician Review: Patient Assessed, Agree with Above Assessment and Plan Critical Care: Yes Time Spent Managing Pts Care (In Minutes): 30
[2018-05-01] MEDS ORDERED: ALBUTEROL 2.5 MG/3 ML NEB SOL NEB PRN (09:52)
--- NOTE | 2018-05-01 09:52 | P.PN ---
Subjective Date of Service: 05/01/18 Primary Care Provider: Saira Chief Complaint: Copd exacerbation Patient is still alert oriented responsive not cooperative with BiPAP he has refused intubation wants to be full code Review of Systems General: Weakness Respiratory: Shortness of Breath Physical Examination - Vital Signs Temperature: 97.3 F Blood Pressure: 132/69 Pulse: 114 Respirations: 18 Pulse Ox (%): 89 - Physical Exam General: Alert, Oriented x3 Respiratory: Clear to auscultation bilaterally, Diminished Cardiovascular: Edema Gastrointestinal: Normal bowel sounds, Soft and benign Assessment & Plan - Problems (Diagnosis) (1) Acute and chronic respiratory failure Onset Date: 06/17/17 Current Visit: No Status: Acute Plan: Patient's condition is stable transfer to the floor continue with BiPAP she is very noncompliant and not cooperative does not qualify for an L tach most home health agencies in here have discharged her airway as she is noncompliant very difficult situation her bicarbonate is now corrected Dc IV fluids reduce dose of Diamox. Also possibility of dehydration at home reduce the doses of diuretics continue with Diamox low-dose patient's hemoglobin has declined will recheck is quite possible that she has iron deficiency anemia due to recurrent hospitalizations and blood withdrawal check on an levels B12 levels Qualifiers: Respiratory failure complication: hypoxia and hypercapnia Physician Review: Patient Assessed, Agree with Above Assessment and Plan
[2018-05-01 10:04] LABS: Arterial Blood Carboxyhemoglob 2.4 % (0-1.5); Blood Gas Oxyhemoglobin 83.2 % (94-97); Blood O2 Saturation 85.6 % (92-98.5)
[2018-05-01 10:37] LABS: Ferritin 12.7 ng/mL (8-388)
[2018-05-01 12:19] LABS: Hematocrit 25.6 % (36.0-45.0)
[2018-05-01] MEDS: THIAMINE HCL 100 MG TABLET PO SCH (13:29)
[2018-05-01] MEDS ORDERED: LORAZEPAM 0.5 MG TABLET PO PRN (15:29)
[2018-05-01] MEDS ORDERED: LORazepam 2 MG/ML VIAL IV ONE (16:00)
[2018-05-01] MEDS: FERROUS SULFATE 325 MG TAB PO SCH (22:21)
[2018-05-02] MEDS: HYDROCODONE/APAP 7.5/325 MG TAB PO PRN ×2 (01:27→07:23)
[2018-05-02] MEDS: IPRATROPIUM BROM 0.5MG/2.5ML NEB SCH ×3 (01:52→13:34)
[2018-05-02 05:35] LABS: BUN Blood Urea Nitrogen 11 mg/dL (7-18); Glucose Level 106 mg/dL (74-106); Potassium 4.2 mmol/L (3.5-5.1); Sodium Level 133 mmol/L (136-145)
[2018-05-02 05:36] LABS: Bicarbonate 44 mmol/L (21-32)
[2018-05-02] MEDS: FERROUS SULFATE 325 MG TAB PO SCH ×3 (09:00→14:00)
[2018-05-02] MEDS: THIAMINE HCL 100 MG TABLET PO SCH ×2 (09:00→09:09)
[2018-05-02] MEDS: acetaZOLAMIDE 250 MG TAB PO SCH ×2 (09:00→09:09)
[2018-05-02] MEDS: buPROPion HCl 100 MG TAB PO SCH ×2 (09:00→09:08)
[2018-05-02] MEDS: DILTIAZEM HCL 60 MG TAB PO SCH ×2 (09:00→09:08)
[2018-05-02] MEDS: GABAPENTIN 100 MG CAP PO SCH ×2 (09:00→09:09)
[2018-05-02] MEDS: ENOXAPARIN 40 MG/0.4 ML SQ SCH (09:07)
--- NOTE | 2018-05-02 09:42 | P.PN ---
Subjective Date of Service: 05/02/18 Primary Care Provider: Saira Chief Complaint: Copd exacerbation Patient's condition is stable minimally responsive Review of Systems is unable to be obtained Physical Examination - Vital Signs Temperature: 97 F Blood Pressure: 102/65 Pulse: 96 Respirations: 17 Pulse Ox (%): 89 - Physical Exam General: Other (Intermittently responsive) Respiratory: Clear to auscultation bilaterally, Diminished Cardiovascular: Edema Assessment & Plan - Problems (Diagnosis) (1) Acute and chronic respiratory failure Onset Date: 06/17/17 Current Visit: No Status: Acute Plan: After extensive discussion patient agreed to [facility] an [id number] DNR patient refused intubation or a tracheostomy and agreed to go home with hospice care meanwhile discontinue diltiazem continue with Diamox Brovana, albuterol, thiamine patient is also anemic and receiving IN transfusions continue with iron at least 325 mg once a day discontinue no Daliresp Qualifiers: Respiratory failure complication: hypoxia and hypercapnia Discharge Plan: Home Physician Review: Patient Assessed, Agree with Above Assessment and Plan
--- NOTE | 2018-05-02 10:18 | P.DS ---
Admission Date: 04/28/18 Discharge Date: 05/02/18 Primary Care Provider: Saira Disposition: HOSPICE-HOME Discharge Condition: SERIOUS Reason for Admission: Copd exacerbation - Problems (1) Anemia Current Visit: Yes Status: Acute Qualifiers: Anemia type: iron deficiency Iron deficiency anemia type: unspecified iron deficiency Qualified Code(s): D50.9 - Iron deficiency anemia, unspecified (2) Acute and chronic respiratory failure ([id number]) Onset Date: 09/19/16 Current Visit: No Status: Acute Qualifiers: Respiratory failure complication: hypoxia and hypercapnia Qualified Code(s) : J96.21 - Acute and chronic respiratory failure with hypoxia; J96.22 - Acute and chronic respiratory failure with hypercapnia (3) Diastolic CHF Onset Date: 06/17/17 Current Visit: No Status: Chronic Qualifiers: Qualified Code(s): I50.33 - Acute on chronic diastolic (congestive) heart failure (4) Nicotine dependence Onset Date: 02/02/18 Current Visit: No Status: Chronic Qualifiers: Nicotine product type: cigarettes Substance use status: uncomplicated Qualified Code(s): F17.210 - Nicotine dependence, cigarettes, uncomplicated Brief History of Present Illness: Patient is well known to the hospital. Has a history of terminal copd. She was discharged last Friday. She was smoking. Went to Dr. Hughes office on Friday. The Er on Friday. Her sister called EMS yesterday. She was found to have an oxygen level in the 20's. She was admitted to the floor. Was non compliant with the bipap. Disconnecting the tubing from the machine. This morning she is very lethargic. Have discussed with Dr. Hughes. As her co2 was in the 100 range he suggested intubation. However the patient refused the transfer and intubation. She refused social services manager inquire for hospice and intermediate care. Hospital Course: Patient was hypercapnic the entire stay. Refused intubation. Meet with Dr. Hughes and hospice. Agreed on home hospice. As she has been getting weaker on every admission. I do believe this is a good choice. Medically care is becoming futile. Wish the patient and her family the best of luck Vital Signs/Physical Exam: Temp Pulse Resp BP Pulse Ox 97 F 96 H 17 102/65 89 L 05/02/18 09:42 05/02/18 09:42 05/02/18 09:42 05/02/18 09:42 05/02/18 09:42 General: Other (Patient is somnolent but arousable) HEENT: Atraumatic, PERRLA, EOMI Neck: Supple, JVD not distended Respiratory: Diminished, Crackles/rales Cardiovascular: Regular rate/rhythm, Normal S1 S2 Gastrointestinal: Normal bowel sounds, No tenderness Musculoskeletal: No tenderness Integumentary: No rashes Neurological: Normal speech, Normal tone, Normal affect Lymphatics: No axilla or inguinal lymphadenopathy Laboratory Data at Discharge: WBC 6.7 K/uL (4.3-10.9) 05/01/18 04:42 Hgb 7.7 g/dL (12.0-15.0) L* 05/01/18 12:03 Hct 25.6 % (36.0-45.0) L 05/01/18 12:03 Plt Count 262 K/uL (152-406) D 05/01/18 04:42 PT 14.0 SECONDS (9.5-12.5) H 04/28/18 16:55 INR 1.18 04/28/18 16:55 Sodium 133 mmol/L (136-145) L 05/02/18 04:12 Potassium 4.2 mmol/L (3.5-5.1) 05/02/18 04:12 BUN 11 mg/dL (7-18) 05/02/18 04:12 Creatinine 0.30 mg/dL (0.55-1.3) L 05/02/18 04:12 Glucose 106 mg/dL (74-106) 05/02/18 04:12 Phosphorus 4.2 mg/dL (2.5-4.9) D 04/30/18 05:01 Magnesium 1.8 mg/dL (1.8-2.4) 04/30/18 05:01 Total Bilirubin 0.2 mg/dL (0.2-1.0) 04/29/18 03:43 AST 12 U/L (15-37) L 04/29/18 03:43 ALT 14 U/L (12-78) 04/29/18 03:43 Alkaline Phosphatase 83 U/L (45-117) 04/29/18 03:43 Home Medications: Aspirin [Aspirin EC 81 MG] 1 tab PO DAILY 11/20/17 predniSONE [Deltasone*] 10 mg PO DAILY #30 tab 11/30/17 Gabapentin [Neurontin*] 1 tab PO BID 01/17/18 Hydrocodone/Acetaminophen [Hydrocodone-Acetamin 7.5-325] 7.5 - 325 tab PO QID Arformoterol Tartrate [Brovana] 15 mcg IH DAILY 01/31/18 buPROPion HCl [Bupropion HCl] 100 mg PO BID 01/31/18 Albuterol Neb [Proventil 0.083% Neb Soln] 2.5 mg NEB Q6HP PRN amp 05/02/18 Ferrous Sulfate [Ferrous Sulfate*] 325 mg PO BID 30 Days #60 tab 05/02/18 Thiamine HCl [Vitamin B-1*] 100 mg PO DAILY #90 tablet 05/02/18 acetaZOLAMIDE [Diamox*] 250 mg PO DAILY #30 tab 05/02/18 New Medications: acetaZOLAMIDE [Diamox*] 250 mg PO DAILY #30 tab Ferrous Sulfate [Ferrous Sulfate*] 325 mg PO BID 30 Days #60 tab Thiamine HCl [Vitamin B-1*] 100 mg PO DAILY #90 tablet Diet: Regular Activity: Fall precautions Followup: Bernard Mckeon MD [ACTIVE - CAN ADMIT] - Jesús Chávez MD [ACTIVE - CAN ADMIT] - Time spent managing pt's care (in minutes): 25
[2018-05-02 11:35] VITALS: O2SAT 98
[2018-05-02 11:54] LABS: BUN Blood Urea Nitrogen 11 mg/dL (7-18); Glucose Level 93 mg/dL (74-106); Potassium 4.3 mmol/L (3.5-5.1); Sodium Level 134 mmol/L (136-145)
[2018-05-02 12:02] LABS: Bicarbonate 44 mmol/L (21-32)
[2018-05-02 17:09] VITALS: TEMP 97
[2018-05-02 17:10] VITALS: BP 127/62
== END 2018-05-02 17:16 | disposition hospice, inpatient (51) | DRG 189 ==
LOC: ER 16:00 → ERHOLD 18:33 → 4TH 19:46 → 3RD-ICU 04-29 16:16
PROVIDERS: ADMIT Hospitalist; ATTEND Internal Medicine
PROC: 5A09457 Assistance with Respiratory Ventilation, 24-96 Consecutive Hours, Continuous Positive Airway Pressure (ICD-10-PCS; principal; 2018-04-28)
DX: J96.21 Acute and chronic respiratory failure with hypoxia (principal); I50.33 Acute on chronic diastolic (congestive) heart failure; J44.1 Chronic obstructive pulmonary disease with (acute) exacerbation; F17.210 Nicotine dependence, cigarettes, uncomplicated; Z88.1 Allergy status to other antibiotic agents; Z88.5 Allergy status to narcotic agent; I25.10 Atherosclerotic heart disease of native coronary artery without angina pectoris; I73.9 Peripheral vascular disease, unspecified; F41.9 Anxiety disorder, unspecified; Z91.19 Patient's noncompliance with other medical treatment and regimen; D50.8 Other iron deficiency anemias
CPT/HCPCS: 36415; 71045; 80048; 80053; 80076; 82607; 82728; 82805; 83540; 83735; 83880; 84100; 84466; 84484; 85014; 85018; 85025; 85044; 85610; 86850; 86900; 86901; 87040; 93005; 94640; 94660; 96374; 99284; 99285; J1120; J1650; J1940; J3475

== ENCOUNTER 2018-05-02 14:00 | Inpatient (IN) | payer OTHER ==
--- OUTSIDE RECORDS SUMMARY | 2018-05-02 17:19 | XMS REPORT ---
[...] Dosage System Date Date BusPIRone HCl [facility] 38023989095 10 MG Orally October Active 1 tablet Twice a day 2017 Hydrocodone-Aceta [facility] 51228659954 10-325 MG Oral Active (Schedule minophen II Drug) TAKE 1 TABLET BY MOUTH FOUR TIMES DAILY AcetaZOLAMIDE ND 17386671249 250 MG Oral Active TK 1 T PO BID Brovana [facility] 85117956276 15 MCG/2ML Active USE 2 ML Inhalation VIA NEBULIZER BID Ciclopirox ND 80980148430 8 % External Active RYAN AFFECTED NAILS QD FOR 48 WEEKS Potassium ND 11247280410 20 MEQ Oral Active TK 1 T PO Chloride ER QD Furosemide ND 18029429264 40 MG Oral Active TK 1 T PO QD Gabapentin ND 78319290327 100 MG Orally January 07, Active 1 capsule Twice a day 2017 BuPROPion HCl ND 20340828811 100 MG Oral Active TK 1 T PO BID Aspirin Adult Low ND 84770355739 81 MG Orally Active 1 tablet Strength Once a day Betamethasone ND 72319875574 0.1 % External Active RYAN AA BID Valerate Metoprolol ND 41181218292 25 MG Oral Active TK 1 T PO Tartrate BID Daliresp ND 54712614910 500 MCG Oral Active TK 1 T PO D Azithromycin ND 20224568151 500 MG Oral Active TK 1 T PO D FOR 5 DAYS Dilt-XR [facility] 24470615809 180 MG Oral Active TK ONE C PO ONCE D IN THE MORNING Spironolactone [facility] 48176629371 50 MG Oral Active TK 1 T PO QD Levofloxacin [facility] 73563835383 500 MG Oral Active TK 1 T PO D Triamcinolone [facility] 16626428663 0.1 % External Active not defined Acetonide Fluconazole [facility] 57105656343 150 MG Oral Active TK 1 T PO ONCE 1 DOSE MAGnesium-Oxide [facility] 73723236990 400 (241.3 Mg) Active TK 1 T PO MG Oral BID PredniSONE [facility] 37697777819 10 MG Oral Active TK 1 T PO QD Diltiazem HCl [facility] 81402529274 120 MG Oral Active TK 1 T PO QD BEFORE MEALS Results No Known Results Summary Purpose eClinicalWorks Submission
--- OUTSIDE RECORDS SUMMARY | 2018-05-02 17:19 | XMS REPORT ---
[...] End Status Dosage System Date Date AcetaZOLAMIDE [facility] 77343105098 250 MG Oral Active TK 1 T PO BID Hydrocodone-Aceta [facility] [place] 10597393403 10-325 MG Oral Active (Schedule minophen II Drug) TAKE 1 TABLET BY MOUTH FOUR TIMES DAILY BusPIRone HCl ND 47367210950 10 MG Orally October Active 1 tablet Twice a day 2017 MAGnesium-Oxide [facility] [place] 07437075312 400 (241.3 Mg) Active TK 1 T PO MG Oral BID Ciclopirox ND 78780498257 8 % External Active RYAN AFFECTED NAILS QD FOR 48 WEEKS Metoprolol [facility] [place] 61009573170 25 MG Oral Active TK 1 T PO Tartrate BID Dilt-XR [facility] [place] 80569975651 180 MG Oral Active TK ONE C PO ONCE D IN THE MORNING Chantix Starting ND 86189986559 0.5 MG X 11 & 1 October Active as directed Month Joel MG X 42 Orally 2017 BuPROPion HCl [facility] [place] 02755104944 100 MG Oral Active TK 1 T PO BID Fluconazole ND 38996852702 150 MG Oral Active TK 1 T PO ONCE 1 DOSE Betamethasone ND 35500305836 0.1 % External Active RYAN AA BID Valerate Potassium [facility] [place] 70972706953 20 MEQ Oral Active TK 1 T PO Chloride ER QD Daliresp [facility] [place] 28682966521 500 MCG Oral Active TK 1 T PO D Azithromycin [facility] [place] 20115413148 500 MG Oral Active TK 1 T PO D FOR 5 DAYS Triamcinolone [facility] [place] 98415912260 0.1 % External Active not defined Acetonide Spironolactone [facility] [place] 60514069388 50 MG Oral Active TK 1 T PO QD Levofloxacin [facility] [place] 54623898683 500 MG Oral Active TK 1 T PO D Furosemide [facility] [place] 94371194410 40 MG Oral Active TK 1 T PO QD Aspirin Adult Low [facility] [place] 59270230019 81 MG Orally Active 1 tablet Strength Once a day PredniSONE [facility] [place] 17875478019 10 MG Oral Active TK 1 T PO QD Brovana [facility] [place] 23731480534 15 MCG/2ML Active USE 2 ML Inhalation VIA NEBULIZER BID Diltiazem HCl [facility] [place] 09592481977 120 MG Oral Active TK 1 T PO QD BEFORE MEALS Results No Known Results Summary Purpose eClinicalWorks Submission
--- OUTSIDE RECORDS SUMMARY | 2018-05-02 17:19 | XMS REPORT ---
[...] Status Dosage System Date Date AcetaZOLAMIDE ND 52094053476 250 MG Oral Active TK 1 T PO BID Spironolactone ND 44557807260 50 MG Oral Active TK 1 T PO QD Hydrocodone-Aceta ND 69730626026 10-325 MG Oral Active (Schedule minophen II Drug) TAKE 1 TABLET BY MOUTH FOUR TIMES DAILY Triamcinolone ND 85327489669 0.1 % External Active not defined Acetonide Ciclopirox ND 08187643676 8 % External Active RYAN AFFECTED NAILS QD FOR 48 WEEKS BuPROPion HCl ND 77519771051 100 Active 100 MG PO BID Dilt-XR ND 34748112252 180 MG Oral Active TK ONE C PO ONCE D IN THE MORNING Levofloxacin ND 19097011236 500 MG Oral Active TK 1 T PO D Brovana [facility] 40845972884 15 MCG/2ML Active USE 2 ML Inhalation VIA NEBULIZER BID Gabapentin ND 61588054534 100 MG Orally January 07, Active 1 capsule Twice a day 2017 Betamethasone ND 71912873794 0.1 % External Active RYAN AA BID Valerate BusPIRone HCl ND 03202230676 10 MG Orally Ninfa Active 1 tablet Twice a day 2017 Aspirin Adult Low [facility] 90517239097 81 MG Orally Active 1 tablet Strength Once a day Metoprolol [facility] 47120714560 25 MG Oral Active TK 1 T PO Tartrate BID Fluconazole [facility] 78903576390 150 MG Oral Active TK 1 T PO ONCE 1 DOSE MAGnesium-Oxide [facility] 24095852548 400 (241.3 Mg) Active TK 1 T PO MG Oral BID PredniSONE [facility] 14634009778 10 MG Oral Active TK 1 T PO QD Azithromycin [facility] 47541286072 500 MG Oral Active TK 1 T PO D FOR 5 DAYS Potassium [facility] 95757410878 20 MEQ Oral Active TK 1 T PO Chloride ER QD Furosemide [facility] 57812891193 40 MG Oral Active TK 1 T PO QD BuPROPion HCl [facility] 88763512919 100 MG Oral Active TK 1 T PO BID Diltiazem HCl [facility] 12000404887 120 MG Oral Active TK 1 T PO QD BEFORE MEALS Daliresp [facility] 58133306830 500 MCG Oral Active TK 1 T PO D Results No Known Results Summary Purpose eClinicalWorks Submission
[2018-05-02] MEDS ORDERED: HYDROMORPHONE HCL 0.5 MG/0.5 ML INJ IV PRN (17:48)
[2018-05-02] MEDS ORDERED: SCOPOLAMINE HYDROBROMIDE PATCH TD SCH (17:52)
[2018-05-02] MEDS ORDERED: ACETAMINOPHEN 650MG/RECT SUPP PR PRN (17:54)
[2018-05-02] MEDS ORDERED: HALOPERIDOL LACT 5 MG/ML INJ IV PRN (17:55)
[2018-05-02] MEDS ORDERED: BISACODYL 10 MG RECTAL SUPP PR PRN (17:56)
[2018-05-02] MEDS ORDERED: ONDANSETRON 4 MG/2 ML VIAL IV PRN (17:57)
[2018-05-02 19:19] VITALS: BMI 22.2
[2018-05-02] MEDS: ALBUTEROL 2.5 MG/3 ML NEB SOL NEB PRN (20:00)
[2018-05-02] MEDS: IPRATROPIUM BROM 0.5MG/2.5ML NEB PRN (20:00)
[2018-05-03] MEDS: ALBUTEROL 2.5 MG/3 ML NEB SOL NEB PRN ×2 (07:40→13:43)
[2018-05-03] MEDS: IPRATROPIUM BROM 0.5MG/2.5ML NEB PRN ×2 (07:40→13:43)
[2018-05-03 08:14] VITALS: O2SAT 88
[2018-05-03 08:39] VITALS: BP 135/63; TEMP 97
[2018-05-03] MEDS: LORazepam 2 MG/ML VIAL IV PRN ×3 (09:11→13:57)
--- NOTE | 2018-05-17 17:04 | P.SSS ---
Patient History Date of Service: 05/17/18 History of Present Illness: 53 y/o F [facility]. Allergies codeine Allergy (Verified 11/18/17 23:38) Shortness of breath levofloxacin [From Levaquin] Adverse Reaction (Intermediate, Verified 11/18/17 23:38) hallucinations morphine Adverse Reaction (Verified 11/18/17 23:38) Itching/Hives/Rash Home Medications: Aspirin [Aspirin EC 81 MG] 1 tab PO DAILY 11/20/17 predniSONE [Deltasone*] 10 mg PO DAILY #30 tab 11/30/17 Gabapentin [Neurontin*] 1 tab PO BID 01/17/18 Hydrocodone/Acetaminophen [Hydrocodone-Acetamin 7.5-325] 7.5 - 325 tab PO QID Arformoterol Tartrate [Brovana] 15 mcg IH DAILY 01/31/18 buPROPion HCl [Bupropion HCl] 100 mg PO BID 01/31/18 Albuterol Neb [Proventil 0.083% Neb Soln] 2.5 mg NEB Q6HP PRN amp 05/02/18 Ferrous Sulfate [Ferrous Sulfate*] 325 mg PO BID 30 Days #60 tab 05/02/18 Thiamine HCl [Vitamin B-1*] 100 mg PO DAILY #90 tablet 05/02/18 acetaZOLAMIDE [Diamox*] 250 mg PO DAILY #30 tab 05/02/18 - Past Medical/Surgical History Diabetic: No -: Diastolic dysfunction -: COPD -: CHF -: CAD -: Cellulitis -: Pneumonia -: PVD -: anxiety -: leg wound - [facility] -: Cardiomegaly -: Atrial flutter -: polycythemia vera -: back -: cholecystectomy -: Hysterectomy -: Morphine pump mid right side of stomach - in place -: morphine pump with additional medications - Family History Sister -: Cancer Brother -: Cancer Father -: Cancer Mother -: Lung disease, Cancer - Social History Smoking Status: Current some day smoker Alcohol use: No CD- Drugs: No Caffeine use: Yes Review of Systems 10-point ROS is otherwise unremarkable Physical Examination - Vital Signs Temperature: 97.0 F Blood Pressure: 135/63 Pulse: 101 Respirations: 28 Pulse Ox (%): 89 - Physical Exam General: Acute distress Respiratory: Normal air movement, Crackles/rales, Expiratory wheezes, Inspiratory wheezes, Rhonchi/gurgles Cardiovascular: Regular rate/rhythm, Normal S1 S2 Gastrointestinal: Normal bowel sounds, No tenderness Musculoskeletal: No tenderness Integumentary: No rashes Lymphatics: No axilla or inguinal lymphadenopathy - Diagnosis (Problem(s)) (1) Admission for hospice care Status: Acute (2) Encounter for hospice care discussion Status: Acute Treatment Summary: Patient was admitted to Inpatient Hospice care and post withdrawal of care. Please refer to Discharge Summary from Dr Chávez from previous Account for the further events that lead to Hospice care and . - Disposition Disposition:
== END 2018-05-03 16:15 | disposition expired | DRG 951 ==
LOC: 3RD-ICU 14:00 → 2ND 20:44
PROVIDERS: ADMIT Family Medicine; ATTEND Family Medicine
DX: Z51.5 Encounter for palliative care (principal); I50.30 Unspecified diastolic (congestive) heart failure; J44.9 Chronic obstructive pulmonary disease, unspecified; I25.10 Atherosclerotic heart disease of native coronary artery without angina pectoris; I73.9 Peripheral vascular disease, unspecified; F17.200 Nicotine dependence, unspecified, uncomplicated
CPT/HCPCS: J1170